=== PATIENT | female | born 1940 | race Caucasian/White ===

== ENCOUNTER 2016-12-18 13:23 | Inpatient (IN) | payer MEDICARE, BC ==
--- NOTE | 2016-12-18 14:21 | ED ---
General Adult HPI - General Chief complaint: Shortness of Breath Stated complaint: SOB Time Seen by Provider: 12/18/16 14:09 Source: patient, RN notes reviewed Mode of arrival: ambulatory Limitations: no limitations - History of Present Illness Initial comments: 76-year-old female presents for evaluation of 4 days of dyspnea. Patient does have past medical history of atrial fibrillation, cardiomyopathy and valvular disease. Patient denies fever, states she has had some chills, this is normal. Patient. Patient has had a cough for several weeks, this is nonproductive and intermittent. Denies chest pain, has had some intermittent chest tightness , none currently. Currently no pain. Denies any lower extremity swelling. Patient did have her medications adjusted approximately 2 weeks ago including change in her beta carmen. She denies orthopnea, denies PND. She is currently on Coumadin for her atrial fibrillation. - Related Data Home Medications Medication Instructions Recorded Confirmed Aspirin 81 mg PO DAILY 12/17/13 12/18/16 Warfarin [Coumadin] 2 mg PO SUTUWETHSA 12/17/13 12/18/16 Furosemide 40 mg PO DAILY 12/09/14 12/18/16 Carvedilol [Coreg*] 12.5 mg PO BID-W/MEALS 02/13/15 12/18/16 Losartan Potassium [Cozaar] 25 mg PO DAILY 12/18/16 12/18/16 Warfarin [Coumadin] 1 mg PO MOFR 12/18/16 12/18/16 Allergies Allergy/AdvReac Type Severity Reaction Status Date / Time codeine AdvReac Nausea & Verified 12/18/16 14:35 Vomiting Review of Systems ROS Statement: Those systems with pertinent positive or pertinent negative responses have been documented in the HPI. ROS Other: All systems not noted in ROS Statement are negative. Past Medical History Past Medical History: Atrial Fibrillation, Cancer, Heart Failure Additional Past Medical History / Comment(s): breast cancer left side, loc rodriguez History of Any Multi-Drug Resistant Organisms: None Reported Past Surgical History: Adenoidectomy, Appendectomy, Breast Surgery, Coronary Bypass/CABG, Pacemaker, Tonsillectomy Additional Past Surgical History / Comment(s): left side lumpectomy, bialteral cataract removed Past Anesthesia/Blood Transfusion Reactions: No Reported Reaction Type of Cardiac Device: Permanent Pacemaker Device Placement Date:: 2006 Past Psychological History: No Psychological Hx Reported Smoking Status: Former smoker Past Alcohol Use History: Daily Past Drug Use History: None Reported - Past Family History Mother Family Medical History: Diabetes Mellitus Additional Family Medical History / Comment(s): cabbag Father Family Medical History: Pulmonary Embolus General Exam Limitations: no limitations General appearance: alert, in no apparent distress Head exam: Present: atraumatic, normocephalic Eye exam: Present: normal appearance, PERRL ENT exam: Present: normal exam Neck exam: Present: normal inspection. Absent: tenderness, meningismus Respiratory exam: Present: normal lung sounds bilaterally. Absent: respiratory distress, wheezes, rales, rhonchi Cardiovascular Exam: Present: regular rate, normal rhythm GI/Abdominal exam: Present: soft. Absent: distended, tenderness Extremities exam: Present: normal inspection, normal capillary refill. Absent: pedal edema Back exam: Present: normal inspection, full ROM. Absent: tenderness Neurological exam: Present: alert, oriented X3, CN II-XII intact. Absent: motor sensory deficit Psychiatric exam: Present: normal affect, normal mood Skin exam: Present: warm, dry, intact. Absent: cyanosis, diaphoretic Course Vital Signs 12/18/16 13:37 Temperature 97.8 F Pulse Rate 70 Respiratory 20 Rate Blood Pressure 131/65 O2 Sat by Pulse 100 Oximetry EKG Findings - EKG Comments: EKG Findings:: EKG shows sinus rhythm, with occasional PVC, there is left axis deviation, right bundle branch block, ventricular rate 60, KS interval 186, QRS duration 1:30, QTC 497, T wave inversion in V2,Q waves in the inferior leads Medical Decision Making - Medical Decision Making 76-year-old female presenting with exertional dyspnea. Patient does have history of CAD status post CABG, ischemic cardiomyopathy, with EF of 25-30%. Denies any current chest pain, has had intermittent chest tightness. According the patient she had a stress test in November, but was unable to complete this secondary to tachycardia. Patient's coronary artery bypass graft was in 2002, no heart catheterization since that time. Laboratory studies reveal stable hemoglobin, no elevation in white count, INR is therapeutic at 2.5, there is mild hyponatremia 129, initial troponin is negative. BNP is elevated at 3470. Patient will be placed in observation for cardiac echo, serial cardiac enzymes, and cardiology evaluation. - Lab Data Result diagrams: 12/18/16 14:57 12/18/16 14:57 Lab Results 12/18/16 12/18/16 12/18/16 Range/Units 14:57 14:57 14:57 WBC 6.8 (3.8-10.6) k/uL RBC 4.01 (3.80-5.40) m/uL Hgb 12.6 (11.4-16.0) gm/dL Hct 38.1 (34.0-46.0) % MCV 95.2 (80.0-100.0) fL MCH 31.5 (25.0-35.0) pg MCHC 33.0 (31.0-37.0) g/dL RDW 13.6 (11.5-15.5) % Plt Count 202 (150-450) k/uL Neutrophils % 61 % Lymphocytes % 21 % Monocytes % 9 % Eosinophils % 5 % Basophils % 1 % Neutrophils # 4.2 (1.3-7.7) k/uL Lymphocytes # 1.4 (1.0-4.8) k/uL Monocytes # 0.6 (0-1.0) k/uL Eosinophils # 0.3 (0-0.7) k/uL Basophils # 0.0 (0-0.2) k/uL PT (9.0-12.0) sec INR (<1.2) APTT (22.0-30.0) sec Sodium 129 L (137-145) mmol/L Potassium 4.5 (3.5-5.1) mmol/L Chloride 94 L (98-107) mmol/L Carbon Dioxide 24 (22-30) mmol/L Anion Gap 11 mmol/L BUN 16 (7-17) mg/dL Creatinine 0.70 (0.52-1.04) mg/dL Est GFR (MDRD) Af Amer >60 (>60 ml/min/1.73 sqM) Est GFR (MDRD) Non-Af >60 (>60 ml/min/1.73 sqM) Glucose 75 (74-99) mg/dL Calcium 9.5 (8.4-10.2) mg/dL Magnesium 1.9 (1.6-2.3) mg/dL Total Bilirubin 1.1 (0.2-1.3) mg/dL AST 33 (14-36) U/L ALT 33 (9-52) U/L Alkaline Phosphatase 123 (38-126) U/L Total Creatine Kinase 67 (30-135) U/L CK-MB (CK-2) 1.3 (0.0-2.4) ng/mL CK-MB (CK-2) Rel Index 1.9 Troponin I <0.012 (0.000-0.034) ng/mL NT-Pro-B Natriuret Pep pg/mL Total Protein 6.8 (6.3-8.2) g/dL Albumin 4.2 (3.5-5.0) g/dL 12/18/16 12/18/16 Range/Units 14:57 14:57 WBC (3.8-10.6) k/uL RBC (3.80-5.40) m/uL Hgb (11.4-16.0) gm/dL Hct (34.0-46.0) % MCV (80.0-100.0) fL MCH (25.0-35.0) pg MCHC (31.0-37.0) g/dL RDW (11.5-15.5) % Plt Count (150-450) k/uL Neutrophils % % Lymphocytes % % Monocytes % % Eosinophils % % Basophils % % Neutrophils # (1.3-7.7) k/uL Lymphocytes # (1.0-4.8) k/uL Monocytes # (0-1.0) k/uL Eosinophils # (0-0.7) k/uL Basophils # (0-0.2) k/uL PT 24.3 H (9.0-12.0) sec INR 2.5 H (<1.2) APTT 32.6 H (22.0-30.0) sec Sodium (137-145) mmol/L Potassium (3.5-5.1) mmol/L Chloride (98-107) mmol/L Carbon Dioxide (22-30) mmol/L Anion Gap mmol/L BUN (7-17) mg/dL Creatinine (0.52-1.04) mg/dL Est GFR (MDRD) Af Amer (>60 ml/min/1.73 sqM) Est GFR (MDRD) Non-Af (>60 ml/min/1.73 sqM) Glucose (74-99) mg/dL Calcium (8.4-10.2) mg/dL Magnesium (1.6-2.3) mg/dL Total Bilirubin (0.2-1.3) mg/dL AST (14-36) U/L ALT (9-52) U/L Alkaline Phosphatase (38-126) U/L Total Creatine Kinase (30-135) U/L CK-MB (CK-2) (0.0-2.4) ng/mL CK-MB (CK-2) Rel Index Troponin I (0.000-0.034) ng/mL NT-Pro-B Natriuret Pep 3470 pg/mL Total Protein (6.3-8.2) g/dL Albumin (3.5-5.0) g/dL Disposition Clinical Impression: Congestive heart failure Disposition: ADMITTED IP TO THIS [facility] Condition: Stable Referrals: Car Connell DO [Primary Care Provider] - 1-2 days Decision to Admit Reason: Admit from EC Decision Date: 12/18/16 Decision Time: 15:55
--- NOTE | 2016-12-18 14:51 | XR ---
EXAMINATION TYPE: XR chest 2V DATE OF EXAM: 12/18/2016 HISTORY: difficulty breathing. REFERENCE: Previous study dated 12/08/2014. FINDINGS: There has been a previous midline sternotomy. There is a bipolar pacemaker in place on the right. Lung volumes are prominent. The heart is mildly enlarged. There is a chronic right pleural reaction. There is evidence of old granulomatous disease in the right lung. There is been a previous left-sided mastectomy and axillary dissection. IMPRESSION: 1. COPD. 2. CARDIOMEGALY. 3. CHRONIC RIGHT-SIDED PLEURAL REACTION. 4. EVIDENCE OF OLD GRANULOMATOUS DISEASE. 5. POSTSURGICAL CHANGE.
[2016-12-18 15:04] LABS: Basophils % (A) 1 %; CH 32.1; CHCM 33.9; Eosinophils # (A) 0.3 k/uL (0-0.7); Eosinophils % (A) 5 %; HCT 38.1 % (34.0-46.0); HDW 2.44; HGB 12.6 gm/dL (11.4-16.0); Luc # (Auto) 0.28; Luc % (Auto) 4; Lymphocytes # (A) 1.4 k/uL (1.0-4.8); Lymphocytes % (A) 21 %; MCH 31.5 pg (25.0-35.0); MCV 95.2 fL (80.0-100.0); Mean Platelet Volume 6.8; Monocytes # (A) 0.6 k/uL (0-1.0); Monocytes % (A) 9 %; Neutrophils # (A) 4.2 k/uL (1.3-7.7); Neutrophils % (A) 61 %; RBC 4.01 m/uL (3.80-5.40); RDW 13.6 % (11.5-15.5); WBC 6.8 k/uL (3.8-10.6); WBC (Perox) 6.29
[2016-12-18 15:11] LABS: ALT 33 U/L (9-52); AST 33 U/L (14-36); Alkaline Phosphatase 123 U/L (38-126); Anion Gap 11 mmol/L; Blood Urea Nitrogen 16 mg/dL (7-17); Calcium 9.5 mg/dL (8.4-10.2); Carbon Dioxide 24 mmol/L (22-30); Chloride 94 mmol/L (98-107); Glucose 75 mg/dL (74-99); Magnesium 1.9 mg/dL (1.6-2.3); Non-African American GFR(MDRD) >60 (>60 ml/min/1.73 sqM); Potassium 4.5 mmol/L (3.5-5.1); Sodium 129 mmol/L (137-145); Total Bilirubin 1.1 mg/dL (0.2-1.3); Total Protein 6.8 g/dL (6.3-8.2)
[2016-12-18 15:12] LABS: INR 2.5 (<1.2); Partial Thromboplastin Time 32.6 sec (22.0-30.0); Prothrombin Time 24.3 sec (9.0-12.0)
[2016-12-18 15:21] LABS: Creatine Kinase 67 U/L (30-135)
[2016-12-18 15:35] LABS: Creatine Kinase MB 1.3 ng/mL (0.0-2.4); Troponin I <0.012 ng/mL (0.000-0.034)
[2016-12-18] MEDS ORDERED: ONDANSETRON 4 MG/2 ML VIAL IVP PRN (16:12)
[2016-12-18] MEDS ORDERED: NALOXONE 0.4 MG/ML 1 ML VIAL IV PRN (16:12)
[2016-12-18] MEDS ORDERED: ACETAMINOPHEN TAB 325 MG TAB PO PRN (16:12)
[2016-12-18] MEDS ORDERED: ASPIRIN 325 MG TAB PO STA (16:15)
[2016-12-18] MEDS ORDERED: FUROSEMIDE 10 MG/ML 2 ML VIAL IV STA (16:15)
[2016-12-18] MEDS: WARFARIN 2 MG TAB PO SCH (17:38)
[2016-12-18] MEDS: CARVEDILOL 12.5 MG TAB PO SCH (17:38)
--- NOTE | 2016-12-18 17:54 | HP ---
HISTORY AND PHYSICAL DATE OF ADMISSION: 12/18/2016 CHIEF COMPLAINT: Shortness of breath and palpitations and chest pain. HISTORY OF PRESENT ILLNESS: This 76-year-old woman with a past medical history of multiple medical problems, including ischemic cardiomyopathy, atrial fibrillation, CHF, history of breast cancer, left side, history of CAD, CABG being followed by Dr. Connell in the outpatient setting, was complaining of shortness of breath on and off for the last four or five days. The patient had a complete cardiac workup recently apparently. The patient was found to have ischemic cardiomyopathy with valvular regurgitations. The patient also complaining of chest discomfort which is constricting type which is felt in the epigastric area without radiation, aggravation, and in relation with exertion. Patient also had occasional palpitations. Because of multiple symptomatology, patient came to [facility] for further evaluation and treatment. Chest x-ray showed multiple changes. INR is 2.5. Sodium is 129. NT proBNP is 3470. Troponins are negative. The EKG on admission showed evidence of right bundle branch block and as well as ST-T changes. There is no history of fever, rigors or chills. No history of headache, loss of consciousness or seizures. PAST MEDICAL HISTORY: History of atrial fibrillation, history of CHF, history of CAD, CABG. MEDICATIONS: Include home medications include: 1. Coumadin 1 mg Tuesday and Tuesday, and 2 mg Tuesday, Tuesday and Tuesday, and Tuesday. 2. Cozaar 25 mg p.o. daily. 3. Lasix 40 mg p.o. daily. 4. Coreg 12.5 mg b.i.d. 5. Aspirin 81 mg daily. ALLERGIES: CODEINE. FAMILY HISTORY: History of diabetes and CABG. SOCIAL HISTORY: Previous history of smoking. No history of current smoking or alcohol intake. REVIEW OF SYSTEM: ENT: Diminished hearing and vision. CARDIOVASCULAR: As mentioned earlier. Respiratory: As mentioned earlier. GI no nausea or vomiting. no dysuria. Nervous system: No numbness, weakness. Allergy/ Immunology: No asthma or hayfever. MUSCULOSKELETAL: As mentioned earlier. Hematology/Oncology: No history of anemia. Endocrine no history of diabetes or hypothyroidism. CONSTITUTIONAL: As mentioned earlier. DERMATOLOGY: Negative. RHEUMATOLOGY: Negative. PSYCHIATRY: As mentioned earlier. PHYSICAL EXAMINATION: Alert and oriented x2. Pulse 74, blood pressure 150/66, respirations 20, temp 97.8, pulse ox 99% on room air. HEENT: Conjunctivae normal. Neck: No jugular venous distention. Cardiovascular : S1, S2 muffled. Ejection systolic murmur. No S3, no S4. skipped beats. Respirations: A few scattered rhonchi and crackles. ABDOMEN: Soft, nontender. No mass palpable. Legs no edema no swelling. Central nervous system: Higher functions as mentioned earlier. Moves all four extremities. No focal deficits. Lymphatics: No lymph nodes palpable in the neck, axillae or groin. SKIN: No ulcers, rash or bleeding. LAB STUDIES: At this time CBC within normal limits. INR 2.5. Sodium 129. ASSESSMENT: 1. Chest pain, possible unstable angina. 2. Shortness of breath possible congestive heart failure acute exacerbation with acute on chronic systolic dysfunction. 3. Possibly ischemic cardiomyopathy. 4. Atrial fibrillation paroxysmal. 5. PVCs. 6. History of breast surgery on the left side. 7. History of coronary artery disease, coronary artery bypass grafting. 8. History of permanent pacemaker. 9. Remote history of nicotine dependence. 10.Ejection fraction 25 to 30%. 11.FULL CODE. RECOMMENDATIONS AND DISCUSSION: In this 76-year-old woman who presented with multiple complex medical issues, we will monitor the patient closely. Continue the current management and symptomatic treatment. Otherwise I would recommend to continue current medications, continue symptomatic treatment. Rule out myocardial infarction. Cardiology consultation and adjust medication. Monitor fluid and electrolyte balance closely. Prognosis guarded because of multiple complex medical issues. Further recommendations to follow. See orders for details. Discussed with staff. Discussed with the patient. A copy of dictation being forwarded to Dr. Connell who is the primary care physician. MMODL / IJN: [id number] / MTDBrittany
[2016-12-18 21:30] LABS: Creatine Kinase 64 U/L (30-135)
[2016-12-18 21:41] LABS: Creatine Kinase MB 1.3 ng/mL (0.0-2.4); Troponin I <0.012 ng/mL (0.000-0.034)
[2016-12-18] MEDS: FUROSEMIDE 10 MG/ML 2 ML VIAL IV SCH (23:27)
[2016-12-19 03:23] LABS: Basophils # (A) 0.1 k/uL (0-0.2); Basophils % (A) 1 %; CH 33.7; CHCM 34.2; Eosinophils # (A) 0.3 k/uL (0-0.7); Eosinophils % (A) 6 %; HCT 35.1 % (34.0-46.0); HDW 2.38; HGB 11.8 gm/dL (11.4-16.0); Luc # (Auto) 0.22; Luc % (Auto) 4; Lymphocytes # (A) 1.4 k/uL (1.0-4.8); Lymphocytes % (A) 23 %; MCH 33.3 pg (25.0-35.0); MCHC 33.6 g/dL (31.0-37.0); Macrocytosis Slight; Mean Platelet Volume 7.1; Monocytes # (A) 0.7 k/uL (0-1.0); Monocytes % (A) 10 %; Neutrophils # (A) 3.6 k/uL (1.3-7.7); Neutrophils % (A) 57 %; RBC 3.55 m/uL (3.80-5.40); RDW 14.8 % (11.5-15.5); WBC 6.2 k/uL (3.8-10.6); WBC (Perox) 6.17
[2016-12-19 03:32] LABS: ALT 38 U/L (9-52); AST 26 U/L (14-36); Alkaline Phosphatase 130 U/L (38-126); Anion Gap 10 mmol/L; Blood Urea Nitrogen 16 mg/dL (7-17); Calcium 9.1 mg/dL (8.4-10.2); Carbon Dioxide 26 mmol/L (22-30); Chloride 96 mmol/L (98-107); Glucose 77 mg/dL (74-99); Non-African American GFR(MDRD) >60 (>60 ml/min/1.73 sqM); Potassium 3.4 mmol/L (3.5-5.1); Sodium 132 mmol/L (137-145); Total Bilirubin 0.7 mg/dL (0.2-1.3)
[2016-12-19 03:37] LABS: Creatine Kinase 52 U/L (30-135)
[2016-12-19 03:49] LABS: Creatine Kinase MB 1.1 ng/mL (0.0-2.4); Troponin I <0.012 ng/mL (0.000-0.034)
[2016-12-19] MEDS ORDERED: LOSARTAN 25 MG TAB PO SCH (09:00)
[2016-12-19] MEDS: ASPIRIN 81 MG PO SCH (10:37)
[2016-12-19] MEDS: CARVEDILOL 12.5 MG TAB PO SCH ×2 (11:07→17:33)
[2016-12-19] MEDS: SPIRONOLACTONE 25 MG TAB PO SCH (11:29)
[2016-12-19] MEDS: LOSARTAN 50 MG TAB PO SCH (11:29)
[2016-12-19] MEDS: FUROSEMIDE 10 MG/ML 4 ML VIAL IV SCH ×2 (11:30→19:48)
[2016-12-19 11:38] LABS: INR 2.2 (<1.2); Prothrombin Time 20.9 sec (9.0-12.0)
[2016-12-19] MEDS ORDERED: POTASSIUM CHLORIDE ER 20 MEQ TAB.ER PO STA (12:13)
--- NOTE | 2016-12-19 12:25 | CONS ---
CONSULTATION Mrs. Padilla is a 76-year-old female, who is seen for the cardiac evaluations. Patient's medical records were reviewed. This patient has a known history of coronary artery disease with prior history of coronary artery bypass surgery, history of congestive cardiac failure and a pacemaker. The patient has been having difficulty in breathing over the last 4-5 days. It occurs with exertion. Her exercise tolerance has decreased. She denies any definite orthopnea or PND. Patient denies any cough with expectoration, fever, or chills. This patient is known to have ischemic cardiomyopathy with impaired LV systolic function. Patient was recently evaluated by Dr. Santos and had a stress test and echocardiogram done. I do not have access to the records at present. PAST MEDICAL HISTORY: Includes a history of atrial fibrillation. History of congestive heart failure. History of CAD and CABG. HOME MEDICATIONS: Include Coumadin, Cozaar, Lasix, Coreg and aspirin. REVIEW OF THE SYSTEM: Is otherwise unremarkable. PHYSICAL EXAMINATION: At present reveals a 76-year-old female, who does not appear to be in any acute distress. The patient's respirations are not labored. Blood pressure is 131/70 mmHg. Head and ENT examination is negative. NECK: Supple. Jugular venous pressure is elevated up to the angle of her jaw. Both the carotid pulses are felt. There is no bruit. Chest is symmetrical. Heart: The PMI is not felt. First and second heart sounds are normal. LUNGS: Revealed fairly clear to auscultation and percussion. Abdomen is soft. Liver and spleen are not enlarged. Extremities: Peripheral pulses are 1+. There is no evidence of any edema or phlebitis. This patient's chest x-ray shows cardiomegaly without any significant left ventricular failure. Cardiac enzymes are normal. Initial sodium was 129. Repeat sodium is 132, potassium is 3.4. Creatinine is normal. ProBNP level is 3470. IMPRESSION: 1. This patient is admitted with acute exacerbation of underlying chronic systolic heart failure. 2. Status post coronary artery bypass surgery and ischemic cardiomyopathy. 3. Status post functioning demand pacemaker and history of paroxysmal atrial fibrillation. RECOMMENDATIONS: At present, I would recommend to aggressively diurese the patient for next 24 hours with the Lasix 40 mg IV q.12 hours. I will add Aldactone 25 mg daily, Cozaar will be increased to 50 mg daily and patient may be in the hospital for a couple of days. Will discuss with Dr. Santos regarding the recent cardiac workup and if there is a systolic function less than 35%, she should may consider further for upgrade to the AICD. SUSANNAH / JULIA: [id number] /
--- NOTE | 2016-12-19 16:52 | PN ---
PROGRESS NOTE DATE OF SERVICE: 12/19/2016 This 76-year-old woman who was admitted with chest pain and unstable angina, also had shortness of breath and possible CHF acute exacerbation. Patient also had atrial fibrillation. Cardiology is following the patient closely. The patient is recommended to be transferred to. PHYSICAL EXAMINATION: Alert, oriented x3. Pulse 86, blood pressure 119/69, respiration 14, temperature 97.2, pulse ox 98% room air. No fever. No shortness of breath. HEENT: Conjunctivae normal. NECK: No jugular venous distention. CARDIOVASCULAR: S1, S2. No S3, no S4. RESPIRATORY: Breath sounds diminished in the bases. A few scattered rhonchi. No crackles. ABDOMEN: Soft, nontender. LEGS: No edema. NERVOUS SYSTEM: No focal deficits. LAB STUDIES: At this time shows WBC 6.8, hemoglobin 11.8, INR 2.2. Sodium 138, potassium 3.4. ASSESSMENT: 1. Chest pain, possibly unstable angina, present on admission. 2. Shortness of breath with possible congestive heart failure acute exacerbation with acute on chronic systolic dysfunction. 3. Possibly ischemic cardiomyopathy. 4. History atrial fibrillation paroxysmal. 5. PVCs. 6. History of breast surgery on the left side. 7. History of coronary artery disease, CABG. 8. History of permanent pacemaker. 9. Remote history of nicotine dependence. 10.Ejection fraction 25 to 30% with acute on chronic systolic dysfunction. 11.FULL CODE. RECOMMENDATIONS AND DISCUSSION: I recommend to continue current management and symptomatic treatment. Otherwise at this time we will continue the current medications. Closely monitor with Cardiology. Prognosis guarded. The patient will need more than 2 nights evaluation in the hospital. MMODL / IJN: [id number] / MTDD
[2016-12-19] MEDS: WARFARIN 2 MG TAB PO SCH (17:33)
[2016-12-19] MEDS: MELATONIN 5 MG TABLET PO SCH (21:59)
[2016-12-20 08:01] LABS: INR 2.2 (<1.2); Prothrombin Time 20.8 sec (9.0-12.0)
[2016-12-20] MEDS: SPIRONOLACTONE 25 MG TAB PO SCH (08:14)
[2016-12-20] MEDS: LOSARTAN 50 MG TAB PO SCH (08:14)
[2016-12-20] MEDS: CARVEDILOL 12.5 MG TAB PO SCH ×2 (08:14→17:33)
[2016-12-20] MEDS: FUROSEMIDE 10 MG/ML 4 ML VIAL IV SCH (08:14)
[2016-12-20] MEDS: ASPIRIN 81 MG PO SCH (08:14)
[2016-12-20 08:26] LABS: Anion Gap 13 mmol/L; Blood Urea Nitrogen 21 mg/dL (7-17); Carbon Dioxide 22 mmol/L (22-30); Chloride 97 mmol/L (98-107); Glucose 88 mg/dL (74-99); Non-African American GFR(MDRD) >60 (>60 ml/min/1.73 sqM); Sodium 132 mmol/L (137-145)
[2016-12-20 11:47] VITALS: BMI 21.2
--- NOTE | 2016-12-20 12:17 | P.PN ---
Subjective Progress Note Date: 12/20/16 Mrs. alvarez is a 76-year-old female past medical history significant for coronary artery disease with three-vessel CABG 2002, hypertension, dyslipidemia, ischemic cardiomyopathy, paroxysmal atrial fibrillation, pacemaker implantation, moderate mitral regurgitation and moderate aortic regurgitation. She is being seen today in follow-up for complaints of exertional dyspnea. She also complains ongoing weakness and fatigue. She denies orthopnea or PND. She recently underwent a full cardiac workup with Dr. Santos. Those records have been reviewed. Echocardiogram reveals decreased systolic function with an ejection fraction of 40% with grade 2 diastolic dysfunction as well as mildly dilated right ventricle with mildly decreased function, moderately dilated left atrium, mildly dilated right atrium, mild to moderate aortic regurgitation, moderate to severe mitral regurgitation, moderate tricuspid regurgitation and normal PA pressure. She underwent a Cardiolite Lexiscan which revealed poor exercise tolerance normal myocardial perfusion and function. Upon exam she is seen up ambulating in the room denies chest pain, shortness of breath, nausea, diaphoresis or palpitations. She states she is feeling much better and her breathing seems easier. Objective - Vital Signs Vital signs: Vital Signs Temp 97.7 F 12/20/16 07:52 Pulse 93 12/20/16 07:52 Resp 16 12/20/16 07:52 BP 115/61 12/20/16 07:52 Pulse Ox 98 12/20/16 07:52 Intake & Output 12/19/16 12/20/16 12/20/16 18:59 06:59 18:59 Intake Total 480 Balance 480 Intake: Oral 480 Other: Voiding Method Toilet Toilet Toilet # Voids 2 - Exam GENERAL: Well-appearing, well-nourished and in no acute distress. NECK: Supple with mild JVD. No thyromegaly. LUNGS: Breath sounds clear to auscultation bilaterally. Respiration equal and unlabored. No wheezes, rales or rhonchi. HEART: Regular rate and rhythm with systolic ejection murmurs at the left sternal border, no rubs or gallops. S1 and S2 heard. EXTREMITIES: Normal range of motion, no edema. No clubbing or cyanosis. Peripheral pulses intact and strong. - Labs CBC & Chem 7: 12/19/16 03:04 12/20/16 07:34 Labs: Abnormal Lab Results - Last 24 Hours (Table) 12/19/16 12/20/16 12/20/16 Range/Units 03:04 07:34 07:37 PT 20.9 H 20.8 H (9.0-12.0) sec INR 2.2 H 2.2 H (<1.2) Sodium 132 L (137-145) mmol/L Chloride 97 L (98-107) mmol/L BUN 21 H (7-17) mg/dL Assessment and Plan Plan: ASSESSMENT 1. Mixed systolic and diastolic heart failure, acute on chronic. Ejection fraction on office echo 40% 2. Chronic stable CAD with triple vessel CABG 3. Ischemic cardoimyopathy 4. History paroxysmal atrial fibrillation 5. Moderate aortic regurgitation 6. Moderate mitral regurgitation PLAN She has diuresed well with 1-day of IV lasix. Continue diuresis with aldactone 25 mg daily, cozaar 50 mg daily. Strict I&O's with daily weights. She will probably be able to be discharged in the next 24-48 hrs. Further evaluation with cardiac catheterization should be discussed with Dr. Santos as an outpatient to evaluate the reason for worsening systolic function. Continue with maximum medical management. She is on beta carmen, aspirin, ARB and aldactone. Statin therapy is also recommended. We will continue to follow with the patient. Nurse Practitioner note has been reviewed, I agree with a documented findings and plan of care. Patient was seen and examined.
[2016-12-20] MEDS ORDERED: diphenhydrAMINE ELIXIR 25 MG/10 ML CUP PO PRN (15:06)
[2016-12-20] MEDS: FUROSEMIDE 40 MG TAB PO SCH (17:33)
--- NOTE | 2016-12-20 17:47 | PN ---
PROGRESS NOTE ATTENDING NOTE: This patient was seen and examined by me. I discussed the case with my nurse practitioner, Cody Birdie. Patient was admitted with CHF exacerbation. Breathing is getting much better. Up to the bathroom. No cough. No edema. REVIEW OF SYSTEMS: Done for constitutional, cardiovascular, GI, pulmonary; relevant findings as above. CURRENT MEDICATIONS: Current medications are reviewed that include IV Lasix. PHYSICAL EXAMINATION: Temperature 97.7, pulse 93, respiration 16, blood pressure 115/61, pulse ox 98% on room air. GENERAL APPEARANCE: Lying in bed, not in distress. EYES: Pupils equal.. Conjunctivae normal. NECK: JVD not raised. Mass not palpable. RESPIRATORY: Effort normal. LUNGS: Fair air entry. CARDIOVASCULAR: First and second sounds. Minimal edema. ABDOMEN: Soft, nontender. Liver and spleen not palpable. PSYCHIATRY: Alert and oriented x3. Mood and affect normal. INVESTIGATIONS: INR 2.2, potassium 5. BUN 21, creatinine 0.84. EKG shows right bundle branch block. ASSESSMENT: 1. Acute on chronic congestive heart failure exacerbation from systolic dysfunction, ejection fraction 25% to 30%, from hypertensive heart disease and underlying coronary artery disease. 2. Coronary artery disease with prior history of coronary artery bypass. 3. Paroxysmal atrial fibrillation, currently in sinus rhythm. 4. Raynaud's disease. 5. Coumadin monitoring. PLAN: Overall patient is doing better. Care was discussed with the patient. Patient should be able to get off IV Lasix. Await further input from Cardiology. Questions were answered. Will follow. MMVIGNESHL / IJN: [id number] /
[2016-12-20] MEDS ORDERED: WARFARIN 1 MG TAB PO SCH (18:00)
--- NOTE | 2016-12-20 18:08 | P.PN ---
Progress Note - Text Progress Note Date: 12/20/16 DATE OF SERVICE: 12/20/2016 PRESENTING COMPLAINT: increasing shortness of breath HISTORY OF PRESENT ILLNESS: 76-year-old female was admitted with a CHF exacerbation. Cardiology consulted. INTERVAL HISTORY: 12/20/2016: Patient seen in follow-up, appears comfortable still has some edema to her lower extremities breathing much easier. States she feels much better than she did when she was admitted. Tolerating her diet, ambulatory in the room and patricia , last BM prior to admission. REVIEW OF SYSTEMS: Done for constitutional ,cardiovascular, GI, pulmonary with relevant findings as above. CURRENT MEDICATIONS aspirin, Coreg, Lasix 40 mg by mouth twice a day, Cozaar 50 mg by mouth daily, Aldactone 25 mg by mouth daily, Coumadin 2 mg by mouth Tuesday, Coumadin 1 mg by mouth Tuesday and Tuesday. PHYSICAL EXAM VITAL SIGNS: temperature 97.7, pulse 93, respiratory rate 16, blood pressure 115/61, oxygen saturation 98% on room air. GENERAL APPEARANCE: Lying in bed, not in distress. EYES: Pupils equal. Conjunctiva normal. NECK: JVD not raised. Mass not palpable. RESPIRATORY: Respiratory effort normal. Lungs diminished to auscultation. CARDIOVASCULAR: First and second sounds normal. Mild edema. ABDOMEN: Soft. Liver and spleen not palpable. No tenderness. No mass palpable. PSYCHIATRY: Alert and oriented x3. Mood and affect normal. INVESTIGATIONS: INR 2.2, sodium 132, BUN 21, creatinine 0.84. EKG shows right bundle branch block. ASSESSMENT: -acute on chronic congestive heart failure exacerbation from systolic dysfunction, ejection fraction 25-30%. From hypertensive heart disease and underlying coronary artery disease. -Coronary artery disease with history of coronary artery bypass. -Paroxysmal atrial fibrillation, currently in sinus rhythm. -Raynaud disease. -Coumadin monitoring. PLAN: patient's overall condition improved, IV Lasix switched to by mouth today by cardiology. Plan of care discussed at the bedside with the patient she is in agreement will follow closely. [employer] statement: Patient was seen and examined by nurse practitioner Marisabel Packre and all elements of the case discussed with attending Dr. Pan
[2016-12-20] MEDS: FUROSEMIDE 10 MG/ML 2 ML VIAL IV SCH (20:21)
[2016-12-20] MEDS: MELATONIN 5 MG TABLET PO SCH (21:07)
[2016-12-20 22:04] VITALS: RESP 16
[2016-12-21] MEDS: CARVEDILOL 12.5 MG TAB PO SCH (06:30)
[2016-12-21 06:54] LABS: Anion Gap 12 mmol/L; Blood Urea Nitrogen 22 mg/dL (7-17); Calcium 10.3 mg/dL (8.4-10.2); Carbon Dioxide 24 mmol/L (22-30); Chloride 95 mmol/L (98-107); Glucose 77 mg/dL (74-99); Non-African American GFR(MDRD) 59 (>60 ml/min/1.73 sqM); Potassium 4.6 mmol/L (3.5-5.1); Sodium 131 mmol/L (137-145)
[2016-12-21 06:57] LABS: INR 2.6 (<1.2); Prothrombin Time 24.6 sec (9.0-12.0)
[2016-12-21] MEDS: FUROSEMIDE 40 MG TAB PO SCH (08:26)
[2016-12-21] MEDS: SPIRONOLACTONE 25 MG TAB PO SCH (08:26)
[2016-12-21] MEDS: ASPIRIN 81 MG PO SCH (08:26)
[2016-12-21] MEDS ORDERED: FUROSEMIDE 40 MG TAB PO SCH (09:00)
[2016-12-21 11:59] VITALS: BP 126/72; PULSE 78; TEMP 96.8
[2016-12-21] MEDS: LOSARTAN 50 MG TAB PO SCH (12:00)
--- NOTE | 2016-12-21 15:36 | PN ---
PROGRESS NOTE This patient was admitted with shortness of breath and congestive cardiac failure. Patient's echocardiogram from the office reviewed. Echocardiogram reveals only mildly impaired left ventricular systolic function. Patient is up and about without any symptoms of shortness of breath. Blood pressure is 126/72 mmHg. First and second heart sounds are normal. Lungs are clear to auscultation and percussion. If patient is discharged, she will follow up with Dr. Santos as an outpatient. MMODL / IJN: [id number] /
--- NOTE | 2016-12-21 18:03 | P.DS ---
Providers Date of admission: 12/19/16 11:15 Expected date of discharge: 12/21/16 Attending physician: Anjel Pan Consults: 12/18/16 16:13 Consult Physician Urgent Consulting Provider: Edil Ferrari Consult Reason/Comments: CHF, dyspnea Do you want consulting provider notified?: Yes, Notify in am Primary care physician: [facility] Course: FINAL DIAGNOSES: -acute on chronic congestive heart failure exacerbation from systolic dysfunction, ejection fraction 25-30%. From hypertensive heart disease and underlying coronary artery disease. -Coronary artery disease with history of coronary artery bypass. -Paroxysmal atrial fibrillation, currently in sinus rhythm. -Raynaud disease. -Coumadin monitoring. HOSPTIAL COURSE: 76-year-old female who presented to the emergency department with complaints of shortness of breath off and on for the previous 4-5 days. presented to the emergency department for further evaluation and treatment. Diagnostic labs revealed proBNP of 3470 and was admitted with a CHF exacerbation. Home medications reordered, cardiology consulted. Received diuretics. Aldactone was added, Cozaar increased. Responded well to these treatments. IV Lasix switched to oral, patient tolerating her diet, ambulatory in the room and hallway, moving her bowels. Anxious to go home. Discussion had with Haylee Rosales J[employer]W WORKER regarding readiness for discharge, she was cleared by cardiology for discharge. PHYSICAL EXAM: CARDIOVASCULAR: First and second sound noted no edema RESPIRATORY: Respiratory effort normal, lung sounds clear to auscultation PSYCHIATRY: Alert and oriented 3 mood and affect normal Patient was seen and examined by nurse practitioner Marisabel Packer in all elements of the case discussed with attending Dr. Pan DISPOSITION: Discharge home Patient Condition at Discharge: Stable Plan - Discharge Summary New Discharge Prescriptions: New Acetaminophen Tab [Tylenol] 650 mg PO Q6HR PRN tab PRN Reason: Mild Pain Or Fever > 100.5 Losartan [Cozaar] 50 mg PO DAILY #30 tab Melatonin 5 mg PO HS tab Spironolactone [Aldactone] 25 mg PO DAILY #30 tab Furosemide [Lasix] 40 mg PO BID@0900,1600 #60 tab Continue Aspirin 81 mg PO DAILY Warfarin [Coumadin] 2 mg PO SUTUWETHSA Carvedilol [Coreg*] 12.5 mg PO BID-W/MEALS Warfarin [Coumadin] 1 mg PO MOFR Discontinued Furosemide 40 mg PO DAILY Losartan Potassium [Cozaar] 25 mg PO DAILY Discharge Medication List Aspirin 81 mg PO DAILY 12/17/13 [History] Warfarin [Coumadin] 2 mg PO SUTUWETHSA 12/17/13 [History] Carvedilol [Coreg*] 12.5 mg PO BID-W/MEALS 02/13/15 [History] Warfarin [Coumadin] 1 mg PO MOFR 12/18/16 [History] Acetaminophen Tab [Tylenol] 650 mg PO Q6HR PRN tab 12/21/16 [Rx] Furosemide [Lasix] 40 mg PO BID@0900,1600 #60 tab 12/21/16 [Rx] Losartan [Cozaar] 50 mg PO DAILY #30 tab 12/21/16 [Rx] Melatonin 5 mg PO HS tab 12/21/16 [Rx] Spironolactone [Aldactone] 25 mg PO DAILY #30 tab 12/21/16 [Rx] Follow up Appointment(s)/Referral(s): Car Connell DO [Primary Care Provider] - 12/29/16 10:00 am (WITH BISHOP DUNAWAY [employer] WORKER ON TUESDAY) Earl Santos MD [STAFF PHYSICIAN] - 12/28/16 11:15 am (TUESDAY) Ambulatory/Diagnostic Orders: Basic Metabolic Panel [LAB.AMB] Location: Determined By Patient Patient Instructions/Handouts: Heart Failure (DC), A-fib (Atrial Fibrillation) (DC) Discharge Disposition: HOME SELF-CARE
--- NOTE | 2016-12-21 21:33 | DS ---
DISCHARGE SUMMARY DATE OF SERVICE: December 21, 2016. ATTENDING NOTE: This patient seen and examined by me. I discussed with nurse practitioner, Ms. Packer. Patient admitted with CHF exacerbation. Doing better. EXAM: Lungs improved air entry. CARDIOVASCULAR: First and second sounds normal. INR is 2.6. Patient okayed by Cardiology to discharge DC home. Follow up as arranged. MMVIGNESHL / IJN: [id number] /
== END 2016-12-21 13:24 | disposition home or self-care (01) | DRG 293 ==
LOC: EC 13:23 → 3OBS 16:12 → OBSVTOIN 12-19 11:15 → 6SEL 12-20 15:30
PROVIDERS: ADMIT Hospitalist; ATTEND Hospitalist
DX: I11.0 Hypertensive heart disease with heart failure (principal); I08.3 Combined rheumatic disorders of mitral, aortic and tricuspid valves; I45.10 Unspecified right bundle-branch block; I48.0 Paroxysmal atrial fibrillation; E78.5 Hyperlipidemia, unspecified; I50.43 Acute on chronic combined systolic (congestive) and diastolic (congestive) heart failure; H91.90 Unspecified hearing loss, unspecified ear; I25.110 Atherosclerotic heart disease of native coronary artery with unstable angina pectoris; I25.5 Ischemic cardiomyopathy; I73.00 Raynaud's syndrome without gangrene; Z79.01 Long term (current) use of anticoagulants; Z79.82 Long term (current) use of aspirin; Z79.899 Other long term (current) drug therapy; Z85.3 Personal history of malignant neoplasm of breast; Z87.891 Personal history of nicotine dependence; Z95.0 Presence of cardiac pacemaker; Z95.1 Presence of aortocoronary bypass graft; Z88.5 Allergy status to narcotic agent; Z82.49 Family history of ischemic heart disease and other diseases of the circulatory system
CPT/HCPCS: 36415; 71020; 80048; 80053; 82550; 82553; 83735; 83880; 84484; 85025; 85610; 85730; 93005; 96374; 96376; 99285

== ENCOUNTER → 2017-04-19 | Outpatient (CLI) | payer MEDICARE, BC ==
[2017-04-19 10:14] LABS: Partial Thromboplastin Time 23.8 sec (22.0-30.0)
[2017-04-19 10:16] LABS: INR 1.2 (<1.2); Prothrombin Time 11.8 sec (9.0-12.0)
== END | disposition home or self-care (01) ==
LOC: LABWHC1 09:28
PROVIDERS: ATTEND Physical Medicine & Rehabilitation
DX: M54.5 Low back pain (principal); M51.16 Intervertebral disc disorders with radiculopathy, lumbar region; M51.34 Other intervertebral disc degeneration, thoracic region; M51.24 Other intervertebral disc displacement, thoracic region; M47.814 Spondylosis without myelopathy or radiculopathy, thoracic region; Z79.01 Long term (current) use of anticoagulants
CPT/HCPCS: 36415; 85610; 85730

== ENCOUNTER 2017-10-23 12:39 | Inpatient (IN) | payer MEDICARE, BC ==
--- NOTE | 2017-10-23 13:02 | ED ---
General Adult HPI - General Stated complaint: Diff Breathing, chest discomfort Time Seen by Provider: 10/23/17 13:02 Source: RN notes reviewed, old records reviewed - History of Present Illness Initial comments: This is a 77-year-old female the ER for evaluation. Patient resents today for evasive shortness of breath. Patient does have history of heart failure was seen in urgent care and sent to ER for further evaluation regarding abnormal EKG. Patient herself denies chest pain currently but does admit to shortness of breath especially with exertion for the last few days. Worse today. No recent change in medical care. No recent hospitalizations, no change in medications. Patient denies any fever no cough or congestion no modifying factors for pain. She is currently without pain. She states her symptoms of shortness of breath are much worse with any activity or with even walking, patient mainly walks her dog every night she noticed inability to walk her dog as far the last 2 nights - Related Data Home Medications Medication Instructions Recorded Confirmed Aspirin 81 mg PO DAILY 12/17/13 10/23/17 Warfarin [Coumadin] 2 mg PO SUMOTUWETHSA 12/17/13 10/23/17 Carvedilol [Coreg*] 12.5 mg PO BID-W/MEALS 02/13/15 10/23/17 Warfarin [Coumadin] 1 mg PO FR 12/18/16 10/23/17 Furosemide [Lasix] 40 mg PO DAILY 10/23/17 10/23/17 Previous Rx's Medication Instructions Recorded Losartan [Cozaar] 50 mg PO DAILY #30 tab 12/21/16 Melatonin 5 mg PO HS tab 12/21/16 Spironolactone [Aldactone] 25 mg PO DAILY #30 tab 12/21/16 Allergies Allergy/AdvReac Type Severity Reaction Status Date / Time codeine AdvReac Nausea & Verified 10/23/17 14:49 Vomiting Review of Systems ROS Statement: Those systems with pertinent positive or pertinent negative responses have been documented in the HPI. ROS Other: All systems not noted in ROS Statement are negative. Past Medical History Past Medical History: Atrial Fibrillation, Cancer, Heart Failure Additional Past Medical History / Comment(s): breast cancer left side, loc dz History of Any Multi-Drug Resistant Organisms: None Reported Past Surgical History: Adenoidectomy, Appendectomy, Breast Surgery, Coronary Bypass/CABG, Pacemaker, Tonsillectomy Additional Past Surgical History / Comment(s): left side lumpectomy, bialteral cataract removed Past Anesthesia/Blood Transfusion Reactions: No Reported Reaction Type of Cardiac Device: Permanent Pacemaker Device Placement Date:: 2006 Past Psychological History: No Psychological Hx Reported Smoking Status: Former smoker Past Alcohol Use History: Daily Past Drug Use History: None Reported - Past Family History Mother Family Medical History: Diabetes Mellitus Additional Family Medical History / Comment(s): cabbag Father Family Medical History: Pulmonary Embolus General Exam General appearance: alert, in no apparent distress Head exam: Present: atraumatic, normocephalic, normal inspection Eye exam: Present: normal appearance, PERRL, EOMI. Absent: scleral icterus, conjunctival injection, periorbital swelling ENT exam: Present: normal exam, mucous membranes moist Neck exam: Present: normal inspection. Absent: tenderness, meningismus, lymphadenopathy Respiratory exam: Present: normal lung sounds bilaterally. Absent: respiratory distress, wheezes, rales, rhonchi, stridor Cardiovascular Exam: Present: regular rate, normal rhythm, normal heart sounds. Absent: systolic murmur, diastolic murmur, rubs, gallop, clicks GI/Abdominal exam: Present: soft, normal bowel sounds. Absent: distended, tenderness, guarding, rebound, rigid Extremities exam: Present: normal inspection, full ROM, normal capillary refill. Absent: tenderness, pedal edema, joint swelling, calf tenderness Back exam: Present: normal inspection Neurological exam: Present: alert, oriented X3, CN II-XII intact Psychiatric exam: Present: normal affect, normal mood Skin exam: Present: warm, dry, intact, normal color. Absent: rash Course Vital Signs 10/23/17 10/23/17 13:03 14:05 Temperature 98.2 F Pulse Rate 67 66 Respiratory 18 18 Rate Blood Pressure 116/48 118/57 O2 Sat by Pulse 98 99 Oximetry - Reevaluation(s) Reevaluation #1: 10/23/17 15:29 Medical records thoroughly reviewed 10/23/17 15:30 Paperwork from urgent care is reviewed EKG Findings - EKG Comments: EKG Findings:: EKG shows paced rhythm rate of 74, LA 192, QRS 128, QTc 486 Medical Decision Making - Medical Decision Making 77 female the ER for evaluation presents today for evaluation regards to shortness of breath and chest pain. Patient is a positive troponin, patient is anticoagulated on Coumadin and therapeutic. Patient will be admitted for continued trending of troponin, diuresis and if she also has CHF on x-ray - Lab Data Result diagrams: 10/23/17 13:48 10/23/17 13:48 Lab Results 10/23/17 10/23/17 10/23/17 Range/Units 13:48 13:48 13:48 WBC 8.2 (3.8-10.6) k/uL RBC 3.92 (3.80-5.40) m/uL Hgb 12.6 (11.4-16.0) gm/dL Hct 38.2 (34.0-46.0) % MCV 97.6 (80.0-100.0) fL MCH 32.1 (25.0-35.0) pg MCHC 32.9 (31.0-37.0) g/dL RDW 13.7 (11.5-15.5) % Plt Count 200 (150-450) k/uL Neutrophils % 66 % Lymphocytes % 21 % Monocytes % 7 % Eosinophils % 4 % Basophils % 1 % Neutrophils # 5.4 (1.3-7.7) k/uL Lymphocytes # 1.7 (1.0-4.8) k/uL Monocytes # 0.5 (0-1.0) k/uL Eosinophils # 0.3 (0-0.7) k/uL Basophils # 0.0 (0-0.2) k/uL PT (9.0-12.0) sec INR (<1.2) APTT (22.0-30.0) sec Sodium 133 L (137-145) mmol/L Potassium 5.1 (3.5-5.1) mmol/L Chloride 97 L (98-107) mmol/L Carbon Dioxide 23 (22-30) mmol/L Anion Gap 13 mmol/L BUN 23 H (7-17) mg/dL Creatinine 0.90 (0.52-1.04) mg/dL Est GFR (CKD-EPI)AfAm 71 (>60 ml/min/1.73 sqM) Est GFR (CKD-EPI)NonAf 61 (>60 ml/min/1.73 sqM) Glucose 91 (74-99) mg/dL Calcium 9.5 (8.4-10.2) mg/dL Magnesium 2.1 (1.6-2.3) mg/dL Total Bilirubin 1.0 (0.2-1.3) mg/dL AST 39 H (14-36) U/L ALT 29 (9-52) U/L Alkaline Phosphatase 124 (38-126) U/L Total Creatine Kinase 61 (30-135) U/L CK-MB (CK-2) 1.3 (0.0-2.4) ng/mL CK-MB (CK-2) Rel Index 2.1 Troponin I 0.105 H* (0.000-0.034) ng/mL NT-Pro-B Natriuret Pep pg/mL Total Protein 7.3 (6.3-8.2) g/dL Albumin 4.4 (3.5-5.0) g/dL Lipase 192 (23-300) U/L 10/23/17 10/23/17 Range/Units 13:48 13:48 WBC (3.8-10.6) k/uL RBC (3.80-5.40) m/uL Hgb (11.4-16.0) gm/dL Hct (34.0-46.0) % MCV (80.0-100.0) fL MCH (25.0-35.0) pg MCHC (31.0-37.0) g/dL RDW (11.5-15.5) % Plt Count (150-450) k/uL Neutrophils % % Lymphocytes % % Monocytes % % Eosinophils % % Basophils % % Neutrophils # (1.3-7.7) k/uL Lymphocytes # (1.0-4.8) k/uL Monocytes # (0-1.0) k/uL Eosinophils # (0-0.7) k/uL Basophils # (0-0.2) k/uL PT 29.3 H (9.0-12.0) sec INR 3.3 H (<1.2) APTT 30.8 H (22.0-30.0) sec Sodium (137-145) mmol/L Potassium (3.5-5.1) mmol/L Chloride (98-107) mmol/L Carbon Dioxide (22-30) mmol/L Anion Gap mmol/L BUN (7-17) mg/dL Creatinine (0.52-1.04) mg/dL Est GFR (CKD-EPI)AfAm (>60 ml/min/1.73 sqM) Est GFR (CKD-EPI)NonAf (>60 ml/min/1.73 sqM) Glucose (74-99) mg/dL Calcium (8.4-10.2) mg/dL Magnesium (1.6-2.3) mg/dL Total Bilirubin (0.2-1.3) mg/dL AST (14-36) U/L ALT (9-52) U/L Alkaline Phosphatase (38-126) U/L Total Creatine Kinase (30-135) U/L CK-MB (CK-2) (0.0-2.4) ng/mL CK-MB (CK-2) Rel Index Troponin I (0.000-0.034) ng/mL NT-Pro-B Natriuret Pep 5290 pg/mL Total Protein (6.3-8.2) g/dL Albumin (3.5-5.0) g/dL Lipase (23-300) U/L - Radiology Data Radiology results: report reviewed (Chest x-ray is positive for CHF), image reviewed Critical Care Time Critical Care Time: Yes Total Critical Care Time: 31 Disposition Clinical Impression: Congestive heart failure, Acute pulmonary edema with congestive heart failure, Unstable angina pectoris, Chest pain, NSTEMI (non-ST elevated myocardial infarction) Disposition: ADMITTED IP TO THIS HOSP Condition: Fair Is patient prescribed a controlled substance at d/c from ED?: No Referrals: Car Connell DO [Primary Care Provider] - 1-2 days
[2017-10-23 14:00] LABS: Basophils % (A) 1 %; Eosinophils # (A) 0.3 k/uL (0-0.7); Eosinophils % (A) 4 %; HCT 38.2 % (34.0-46.0); HGB 12.6 gm/dL (11.4-16.0); Lymphocytes # (A) 1.7 k/uL (1.0-4.8); Lymphocytes % (A) 21 %; MCH 32.1 pg (25.0-35.0); MCHC 32.9 g/dL (31.0-37.0); MCV 97.6 fL (80.0-100.0); Monocytes # (A) 0.5 k/uL (0-1.0); Monocytes % (A) 7 %; Neutrophils # (A) 5.4 k/uL (1.3-7.7); Neutrophils % (A) 66 %; Platelet Count 200 k/uL (150-450); RBC 3.92 m/uL (3.80-5.40); RDW 13.7 % (11.5-15.5); WBC 8.2 k/uL (3.8-10.6)
[2017-10-23 14:09] LABS: INR 3.3 (<1.2); Partial Thromboplastin Time 30.8 sec (22.0-30.0); Prothrombin Time 29.3 sec (9.0-12.0)
[2017-10-23 14:17] LABS: Albumin 4.4 g/dL (3.5-5.0); Calcium 9.5 mg/dL (8.4-10.2); Magnesium 2.1 mg/dL (1.6-2.3); Potassium 5.1 mmol/L (3.5-5.1); Total Protein 7.3 g/dL (6.3-8.2)
[2017-10-23 14:32] LABS: Creatine Kinase MB 1.3 ng/mL (0.0-2.4)
[2017-10-23 14:33] LABS: Troponin I 0.105 ng/mL (0.000-0.034)
--- NOTE | 2017-10-23 14:57 | XR ---
EXAMINATION TYPE: XR chest 2V DATE OF EXAM: 10/23/2017 COMPARISON: 12/18/2016 HISTORY: Abnormal cardiogram. Difficulty breathing. TECHNIQUE: Frontal and lateral views of the chest are obtained. FINDINGS: Heart is enlarged. There is no heart failure. There is slight blunting of right costophren ic angle. There are sternal wires. There is left axillary pacemaker with the lead tips in the right v entricle. There are surgical clips at the left axilla. There is left mastectomy. IMPRESSION: Cardiomegaly. Small right pleural effusion is the same or smaller than last exam. No hea rt failure.
[2017-10-23] MEDS ORDERED: NITROGLYCERIN SL TABS 0.4 MG TAB SUBLINGUAL PRN (15:24)
[2017-10-23] MEDS ORDERED: ASPIRIN 81 MG PO STA (15:24)
[2017-10-23] MEDS ORDERED: ALPRAZolam 0.25 MG TAB PO PRN (20:04)
[2017-10-23] MEDS ORDERED: ACETAMINOPHEN TAB 500 MG TAB PO PRN (20:04)
[2017-10-23] MEDS ORDERED: WARFARIN 2 MG TAB PO SCH (20:15)
[2017-10-23 20:29] LABS: Creatine Kinase MB 1.2 ng/mL (0.0-2.4)
[2017-10-23 20:30] LABS: Troponin I 0.098 ng/mL (0.000-0.034)
[2017-10-23] MEDS ORDERED: METOPROLOL TARTRATE 25 MG TAB PO SCH (21:00)
[2017-10-23] MEDS: MELATONIN 5 MG TABLET PO SCH (21:18)
[2017-10-23] MEDS: TEMAZEPAM 15 MG CAP PO PRN (21:19)
--- NOTE | 2017-10-23 23:12 | HP ---
HISTORY AND PHYSICAL DATE OF SERVICE: 10/23/2017. CHIEF COMPLAINT: Shortness of breath. HISTORY OF PRESENT ILLNESS: This 77-year-old woman with a past history of depression, CHF, hyperlipidemia, history of breast cancer, adenoidectomy, CAD, CABG, being followed by Dr. Connell in the outpatient setting, was complaining of shortness of breath. Because of increased shortness with the patient came to [facility] and was admitted for further evaluation and treatment. The patient had cardiac workup, INR is 3.3, troponin 0.105. EKG showed paced rhythm with PVCs. There is no history of fevers or rigors, no history of headache, loss of consciousness, or seizures. No history of chest pain per se. PAST MEDICAL HISTORY: History of atrial fibrillation, history of CHF, hyperlipidemia, history of breast cancer, adenoidectomy, history of CAD, CABG. MEDICATIONS: 1. Coumadin 1 mg Tuesday and 2 mg Tuesday, Tuesday, Tuesday, Tuesday, , Tuesday. 2. Melatonin 5 mg at bedtime. 3. Aldactone 25 mg daily. 4. Cozaar 50 mg b.i.d. 5. Lasix 40 mg. 6. Coreg 12.5 mg b.i.d. with meals. 7. Aspirin 81 mg daily. ALLERGIES: Codeine. FAMILY HISTORY: History of diabetes and CABG in the family. SOCIAL HISTORY: Previous history of smoking. Occasional alcohol intake. REVIEW OF SYSTEMS: ENT: No diminished hearing or vision. CARDIOVASCULAR: As mentioned. GI: As mentioned. : No dysuria or hematuria. NERVOUS SYSTEM: No numbness or weakness. ALLERGY/IMMUNOLOGY: No hayfever. MUSCULOSKELETAL: As mentioned. HEMATOLOGY: As mentioned. ENDOCRINE: No history of diabetes or hypothyroidism. CONSTITUTIONAL: As mentioned earlier. DERMATOLOGY: Negative. PSYCHIATRIC: As mentioned earlier. PHYSICAL EXAMINATION: Alert, oriented x3. Pulse 76, blood pressure 126/69, respirations 18, temperature 97.1, pulse ox 98 percent on room air. HEENT: Conjunctivae normal. Oral mucosa moist. NECK: No jugular venous distention. No lymph node enlargement. CARDIOVASCULAR SYSTEM: S1 and S2 muffled. LUNGS: Breath sounds diminished at the bases. No rhonchi. No crackles. ABDOMEN: Soft, nontender. No mass palpable. LEGS: No edema, no swelling. NERVOUS SYSTEM: Higher functions as mentioned earlier. Moves all four limbs. No focal motor deficits. SKIN: No rashes. LAB STUDIES: CBC within normal limits. INR 3.3. Sodium 133. Troponin 0.105. ASSESSMENT: 1. Shortness of breath for evaluation, possible acute non-ST elevation myocardial infarction. Troponin 0.105. 2. Atrial fibrillation. 3. Congestive heart failure history. 4. Hyperlipidemia. 5. History of breast cancer. 6. History of coronary artery disease, coronary artery bypass grafting. 7. Remote history of nicotine dependence. RECOMMENDATIONS AND DISCUSSION: This 77-year-old woman who presented with multiple complex medical issues, we will monitor the patient closely, continue the current management and symptomatic treatment. Otherwise at this time I recommend continue with antiplatelet agents. Other than that, I would recommend resume the home medications and cardiology consultation. I would monitor PT/INR closely. Hold Coumadin for now. Otherwise symptomatic treatment will be provided. Guarded prognosis because of multiple complex medical issues. Further recommendations to follow. MMODL / IJN: [id number] /
[2017-10-24 02:17] LABS: Creatine Kinase MB 1.1 ng/mL (0.0-2.4)
[2017-10-24 02:21] LABS: Troponin I 0.099 ng/mL (0.000-0.034)
[2017-10-24] MEDS: CARVEDILOL 12.5 MG TAB PO SCH ×2 (06:27→17:19)
[2017-10-24] MEDS: PANTOPRAZOLE 40 MG TABLET PO SCH (06:28)
[2017-10-24 06:29] LABS: Basophils # (A) 0.1 k/uL (0-0.2); Basophils % (A) 1 %; Eosinophils # (A) 0.3 k/uL (0-0.7); Eosinophils % (A) 5 %; HCT 35.4 % (34.0-46.0); HGB 11.8 gm/dL (11.4-16.0); Lymphocytes # (A) 1.2 k/uL (1.0-4.8); Lymphocytes % (A) 18 %; MCH 32.9 pg (25.0-35.0); MCHC 33.4 g/dL (31.0-37.0); MCV 98.5 fL (80.0-100.0); Mean Platelet Volume 6.7; Monocytes # (A) 0.6 k/uL (0-1.0); Monocytes % (A) 9 %; Neutrophils # (A) 4.5 k/uL (1.3-7.7); Neutrophils % (A) 66 %; Platelet Count 201 k/uL (150-450); RBC 3.59 m/uL (3.80-5.40); RDW 13.6 % (11.5-15.5); WBC 6.8 k/uL (3.8-10.6)
[2017-10-24 06:33] LABS: INR 2.9 (<1.2); Prothrombin Time 25.8 sec (9.0-12.0)
[2017-10-24 06:47] LABS: Calcium 9.4 mg/dL (8.4-10.2); Potassium 4.8 mmol/L (3.5-5.1)
[2017-10-24] MEDS: SPIRONOLACTONE 25 MG TAB PO SCH (08:05)
[2017-10-24] MEDS: ASPIRIN 81 MG PO SCH (08:05)
--- NOTE | 2017-10-24 08:10 | P.CRDCN ---
History of Present Illness Consult date: 10/24/17 Requesting physician: Jolly Chandler Consult reason: shortness of breath Chief complaint: Exertional shortness of breath History of present illness: This is a pleasant 77-year-old female who follows regularly with Dr. Santos in the office. She has a known history of chronic persistent atrial fibrillation, ischemic cardiomyopathy with prior documented ejection fraction of 25-30%, prior pacemaker implantation, hypertension, hyperlipidemia, coronary artery disease with prior bypass surgery in 2002 at which time patient underwent MADISON to the LAD, saphenous vein graft to the first diagonal branch, saphenous vein graft to the RCA,, she presents to the hospital on this occasion with symptoms of exertional shortness of breath and chest heaviness. Patient states that for the past 3 days just walking short distances she becomes quite short of breath and feels a heavy sensation in her chest. When she sits down and the symptoms seemed to subside. As of 3 days have progressed, the symptoms have gotten worse, again subsiding each time with rest. Patient denies any PND or orthopnea, no peripheral edema. He states that she went to the walk-in clinic because of these symptoms, they performed an EKG and were concerned that the pacemaker was not functioning appropriately so for this reason she came to the emergency room for further evaluation. Chest x-ray on admission here showed cardiomegaly with a small right-sided pleural effusion. No change from prior, no active congestive heart failure. EKG shows an atrial paced rhythm, underlying atrial fibrillation. Blood pressure on arrival here 116/40 with a heart rate in the 60s, 98% on room air. Blood pressure this morning 98/60 with a heart rate in the 80s, 96% on room air. White blood cell count 8.2 on admission, 6.8 this morning, hemoglobin 11.8, platelet count 201. INR 2.9. Sodium 131, potassium 4.8, BUN 20, creatinine 0.8. Troponins 0.105, 0.09, 0.09. At the time of my examination this morning, patient has just returned from walking to the bathroom, again felt quite short of breath and had some pressure in her chest. This seemed to subside as the patient rested. Currently chest pain-free. Past Medical History Past Medical History: Atrial Fibrillation, Cancer, Heart Failure, Hyperlipidemia Additional Past Medical History / Comment(s): breast cancer left side, loc rodriguez History of Any Multi-Drug Resistant Organisms: None Reported Past Surgical History: Adenoidectomy, Appendectomy, Breast Surgery, Coronary Bypass/CABG, Pacemaker, Tonsillectomy Additional Past Surgical History / Comment(s): left side lumpectomy, bialteral cataract removed Past Anesthesia/Blood Transfusion Reactions: No Reported Reaction Type of Cardiac Device: Permanent Pacemaker Device Placement Date:: 2006 Past Psychological History: No Psychological Hx Reported Smoking Status: Former smoker Past Alcohol Use History: Occasional Past Drug Use History: None Reported - Past Family History Mother Family Medical History: Diabetes Mellitus Additional Family Medical History / Comment(s): cabbag Father Family Medical History: Pulmonary Embolus Medications and Allergies Home Medications Medication Instructions Recorded Confirmed Type Aspirin 81 mg PO DAILY 12/17/13 10/23/17 History Warfarin [Coumadin] 2 mg PO SUMOTUWETHSA 12/17/13 10/23/17 History Carvedilol [Coreg*] 12.5 mg PO BID-W/MEALS 02/13/15 10/23/17 History Warfarin [Coumadin] 1 mg PO FR 12/18/16 10/23/17 History Losartan [Cozaar] 50 mg PO DAILY #30 tab 12/21/16 10/23/17 Rx Melatonin 5 mg PO HS tab 12/21/16 10/23/17 Rx Spironolactone [Aldactone] 25 mg PO DAILY #30 tab 12/21/16 10/23/17 Rx Furosemide [Lasix] 40 mg PO DAILY 10/23/17 10/23/17 History Allergies Allergy/AdvReac Type Severity Reaction Status Date / Time codeine AdvReac Nausea & Verified 10/23/17 14:49 Vomiting Physical Exam Vitals: Vital Signs Temp Pulse Pulse Resp BP BP Pulse Ox 10/24/17 04:00 97.1 F L 84 18 98/61 96 10/23/17 23:20 98.5 F 75 18 99/53 95 10/23/17 20:00 97.0 F L 99 18 124/82 98 10/23/17 16:30 97.1 F L 76 18 126/69 98 10/23/17 16:06 97.9 F 73 18 113/83 99 10/23/17 15:27 78 18 122/84 98 10/23/17 14:05 66 18 118/57 99 08/19/18 13:03 98.2 F 67 18 116/48 98 Intake and Output 10/23/17 10/24/17 10/24/17 22:59 06:59 14:59 Intake Total 0 Balance 0 Intake: Oral 0 Other: Voiding Method Toilet Toilet # Voids 2 Weight 58.06 kg 58.2 kg PHYSICAL EXAMINATION: GENERAL: 77-year-old female in no acute distress at the time of my examination HEENT: Head is atraumatic, normocephalic. Pupils equal, round. Sclera anicteric. Conjunctiva are clear. Mucous membranes of the mouth are moist. Neck is supple. There is elevated jugular venous pressure. No carotid bruit is heard. HEART EXAMINATION: Heart S1 and S2 irregularly irregular systolic murmur heard CHEST EXAMINATION: Lungs are clear to auscultation and precussion. No chest wall tenderness is noted on palpation or with deep breathing. ABDOMEN: Soft, nontender. Bowel sounds are heard. No organomegaly noted. EXTREMITIES: 2+ peripheral pulses with no evidence of peripheral edema and no calf tenderness noted. NEUROLOGIC patient is awake, alert and oriented X3. . Results 10/24/17 05:53 10/24/17 05:53 Cardiac Enzymes 10/23/17 10/23/17 10/23/17 Range/Units 13:48 13:48 19:52 AST 39 H (14-36) U/L CK-MB (CK-2) 1.3 1.2 (0.0-2.4) ng/mL Troponin I 0.105 H* 0.098 H* (0.000-0.034) ng/mL 10/24/17 Range/Units 01:34 AST (14-36) U/L CK-MB (CK-2) 1.1 (0.0-2.4) ng/mL Troponin I 0.099 H* (0.000-0.034) ng/mL Coagulation 10/23/17 10/24/17 Range/Units 13:48 05:53 PT 29.3 H 25.8 H (9.0-12.0) sec APTT 30.8 H (22.0-30.0) sec Lipids 10/24/17 Range/Units 05:53 Triglycerides 109 (<150) mg/dL Cholesterol 146 (<200) mg/dL HDL Cholesterol 45 (40-60) mg/dL CBC 10/23/17 10/24/17 Range/Units 13:48 05:53 WBC 8.2 6.8 (3.8-10.6) k/uL RBC 3.92 3.59 L (3.80-5.40) m/uL Hgb 12.6 11.8 (11.4-16.0) gm/dL Hct 38.2 35.4 (34.0-46.0) % Plt Count 200 201 (150-450) k/uL Comprehensive Metabolic Panel 10/23/17 10/24/17 Range/Units 13:48 05:53 Sodium 133 L 131 L (137-145) mmol/L Potassium 5.1 4.8 (3.5-5.1) mmol/L Chloride 97 L 98 (98-107) mmol/L Carbon Dioxide 23 24 (22-30) mmol/L BUN 23 H 20 H (7-17) mg/dL Creatinine 0.90 0.86 (0.52-1.04) mg/dL Glucose 91 86 (74-99) mg/dL Calcium 9.5 9.4 (8.4-10.2) mg/dL AST 39 H (14-36) U/L ALT 29 (9-52) U/L Alkaline Phosphatase 124 (38-126) U/L Total Protein 7.3 (6.3-8.2) g/dL Albumin 4.4 (3.5-5.0) g/dL Current Medications Generic Name Dose Route Start Last Admin Trade Name Freq PRN Reason Stop Dose Admin Acetaminophen 500 mg 10/23/17 20:04 Tylenol Tab PO Q6HR PRN Fever and/ or mild Pain Alprazolam 0.25 mg 10/23/17 20:04 Xanax PO TID PRN Anxiety Aspirin 81 mg 10/24/17 09:00 Aspirin PO DAILY ANKUSH Carvedilol 12.5 mg 10/24/17 07:30 10/24/17 06:27 Coreg PO 12.5 mg BID-W/MEALS ANKUSH Administration Furosemide 40 mg 10/24/17 09:00 Lasix PO DAILY [facility] Losartan Potassium 50 mg 10/24/17 09:00 Cozaar PO DAILY ANKUSH Melatonin 5 mg 10/23/17 21:00 10/23/17 21:18 Melatonin PO Not Given HS ANKUSH Nitroglycerin 0.4 mg 10/23/17 15:24 Nitrostat SUBLINGUAL Q5M PRN Chest Pain Pantoprazole Sodium 40 mg 10/24/17 07:30 10/24/17 06:28 Protonix PO 40 mg AC-BRKFST ANKUSH Administration Spironolactone 25 mg 10/24/17 09:00 Aldactone PO DAILY ANKUSH Temazepam 15 mg 10/23/17 20:04 10/23/17 21:19 Restoril PO 15 mg HS PRN Administration Insomnia Intake and Output 10/23/17 10/24/17 10/24/17 22:59 06:59 14:59 Intake Total 0 Balance 0 Intake: Oral 0 Other: Voiding Method Toilet Toilet # Voids 2 Weight 58.06 kg 58.2 kg 10/24/17 05:53 10/24/17 05:53 EKG Interpretations (text) EKG shows an atrial paced rhythm with underlying atrial fibrillation. Assessment and Plan Plan: Assessment and plan #1 symptoms of exertional shortness of breath with associated chest heaviness, suggestive of acute coronary syndrome. Troponins 0.1, 0.09, 0.09. He shows a paced rhythm with underlying atrial fibrillation and non-specific ST-T wave changes. Evidence of mild systolic heart failure acute on chronic, chest x- ray does not reveal congestive heart failure, BNP level 5200 on admission. #2 chronic persistent atrial fibrillation, on Coumadin for anticoagulation, INR 2.9. #3 known history of coronary artery disease with prior bypass surgery in 2002 #4 hypertension #5 hyperlipidemia #6 prior pacemaker implantation #7 ischemic cardiomyopathy with prior documented ejection fraction of 25-30% most recent echo I have serious from 2015 Plan We will obtain an echocardiogram with Doppler study. We will also obtain records from the office on the patient's most recent stress test and pacemaker interrogation. We will hold the patient's Coumadin this morning, we will also initiate a statin, continue baby aspirin, Coreg, discontinue oral Lasix and start the patient on IV Lasix, decrease losartan to 25 mg daily, continue Aldactone. We will start the patient on small dose of Imdur. Patient was recommended to undergo a transesophageal echocardiographic study as well as cardiac catheterization. We will speak with Dr. Santos regarding this. Check daily PT/INRs. Further recommendations to follow. DNP note has been reviewed, I agree with a documented findings and plan of care. Patient was seen and examined.
[2017-10-24] MEDS ORDERED: ASPIRIN 325 MG TAB PO SCH (09:00)
[2017-10-24] MEDS ORDERED: LOSARTAN 50 MG TAB PO SCH (09:00)
[2017-10-24] MEDS ORDERED: FUROSEMIDE 40 MG TAB PO SCH (09:00)
--- NOTE | 2017-10-24 10:56 | ECHOF ---
Referral Reason:elevTrop MEASUREMENTS -------- HEIGHT: 157.5 cm WEIGHT: 58.1 kg BP: 98/61 RVIDd: 3.1 cm (< 3.3) IVSd: 1.1 cm (0.6 - 1.1) LVIDd: 4.3 cm (3.9 - 5.3) LVPWd: 0.8 cm (0.6 - 1.1) IVSs: 1.3 cm LVIDs: 3.4 cm LVPWs: 1.1 cm LAESV Index (A-L): 32.10 ml/m Ao Diam: 3.0 cm (2.0 - 3.7) AV Cusp: 2.0 cm (1.5 - 2.6) LA Diam: 4.3 cm (2.7 - 3.8) MV EXCURSION: 18.872 mm (> 18.000) MV EF SLOPE: 212 mm/s (70 - 150) EPSS: 0.7 cm MV E Jose Roberto: 0.84 m/s MV DecT: 171 ms MV A Jose Roberto: 0.36 m/s MV E/A Ratio: 2.31 AR PHT: 467 ms RAP: 5.00 mmHg RVSP: 48.18 mmHg FINDINGS -------- Pacerwire seen in RV and RA. This was a technically difficult study with suboptimal views. The left ventricular size is normal. Left ventricular wall thickness is normal. Overall left vent ricular systolic function is severely impaired with, an EF between 25 - 30 %. Basal lateral LV wall motion is akinetic. Basal inferior LV wall motion is akinetic. Basal inferoseptal LV wall rolando on is akinetic. Mid lateral LV wall motion is akinetic. Mid inferior LV wall motion is akinetic . Mid inferoseptal LV wall motion is akinetic. Apical inferior LV wall motion is akinetic. The right ventricle is normal in size and function. LA is midly dilated 29-33ml/m2. The right atrial size is normal. Lumason used There is mild aortic valve sclerosis. There is yfoo-gw-wwcpnemw aortic regurgitation. The mitral valve leaflets are mildly thickened. Mild mitral annular calcification present. Severe mitral regurgitation is present. Severe tricuspid regurgitation present. There is mild to moderate pulmonary hypertension. The rig ht ventricular systolic pressure, as measured by Doppler, is 48.18mmHg. There is no pulmonic regurgitation present. The aortic root size is normal. There is no pericardial effusion. CONCLUSIONS -------- 1. Pacerwire seen in RV and RA. 2. This was a technically difficult study with suboptimal views. 3. The left ventricular size is normal. 4. Left ventricular wall thickness is normal. 5. Overall left ventricular systolic function is severely impaired with, an EF between 25 - 30 %. 6. Basal lateral LV wall motion is akinetic. 7. Basal inferior LV wall motion is akinetic. 8. Basal inferoseptal LV wall motion is akinetic. 9. Mid lateral LV wall motion is akinetic. 10. Mid inferior LV wall motion is akinetic. 11. Mid inferoseptal LV wall motion is akinetic. 12. Apical inferior LV wall motion is akinetic. 13. LA is midly dilated 29-33ml/m2. 14. Lumason used 15. There is mild aortic valve sclerosis. 16. There is wojv-jx-kvwxpfrh aortic regurgitation. 17. The mitral valve leaflets are mildly thickened. 18. Mild mitral annular calcification present. 19. Severe mitral regurgitation is present. 20. Severe tricuspid regurgitation present. 21. There is mild to moderate pulmonary hypertension. 22. There is no pulmonic regurgitation present. 23. The aortic root size is normal. 24. There is no pericardial effusion. CAN WORKER: Jenna Dsouza RDCS
[2017-10-24] MEDS: LOSARTAN 25 MG TAB PO SCH (11:19)
[2017-10-24] MEDS: ATORVASTATIN 80 MG TAB PO SCH (11:35)
[2017-10-24] MEDS: ISOSORBIDE MONONITRATE ER 30 MG TAB.ER.24H PO SCH (11:35)
--- NOTE | 2017-10-24 18:28 | PN ---
PROGRESS NOTE DATE OF SERVICE: 10/24/2017 This 77-year-old woman is admitted with shortness of breath also had possibly nonsustained myocardial infarction. Cardiology is planning cardiac cath and possible NARENDRA also. No chest pain. No palpitations. No fever. Severe mitral regurgitation, severe tricuspid regurgitation also noted. Cbsl-me-kribrshh aortic regurgitation also noted. PAST MEDICAL HISTORY: Reviewed. PHYSICAL EXAM: Patient is alert, oriented x3. Pulse 79, blood pressure 98/61, respiration 18, temperature 98.2, pulse ox 94 percent on room air. HEENT: Conjunctivae normal. Oral mucosa moist. Neck is no jugular venous distention. No carotid bruit. No lymph node enlargement. Respirations: Breath sounds diminished in the bases. Cardiovascular System: Ejection systolic murmur. A few scattered rhonchi. ABDOMEN: Soft. Nontender. Nervous system: No focal deficits. LABS: WBC 6.2, hemoglobin 7.8, INR 2.9. Sodium is 131. Lipids are normal. ASSESSMENT: 1. Shortness of breath, possibly congestive heart failure acute exacerbation with acute on chronic systolic dysfunction, ejection fraction 25-30 percent. 2. Troponin 0.105, rule out acute non ST elevated myocardial infarction. 3. Severe mitral regurgitation and tricuspid regurgitation with mild to moderate pulmonary hypertension as well as gkia-vw-wafrhymu aortic regurgitation. 4. Atrial fibrillation. 5. Congestive heart failure. 6. Congestive heart failure history. 7. Hyperlipidemia. 8. History of breast cancer. 9. History of coronary artery disease, coronary artery bypass grafting. 10.Remote history of nicotine dependence. RECOMMENDATIONS AND DISCUSSION: Recommend to continue current medications. Continue the monitoring. Continue the diuretics. Continue the rest of medications. Repeat labs. Cardiology workup. Follow closely with cardiology with possible cardiac cath and NARENDRA. Further recommendations to follow. MMODL / IJN: [id number] /
[2017-10-24] MEDS: FUROSEMIDE 10 MG/ML 4 ML VIAL IV SCH (20:25)
[2017-10-24] MEDS: MELATONIN 5 MG TABLET PO SCH (20:28)
[2017-10-24] MEDS: TEMAZEPAM 15 MG CAP PO PRN (22:25)
[2017-10-25] MEDS: SPIRONOLACTONE 25 MG TAB PO SCH (06:16)
[2017-10-25] MEDS: PANTOPRAZOLE 40 MG TABLET PO SCH (06:17)
[2017-10-25] MEDS: ISOSORBIDE MONONITRATE ER 30 MG TAB.ER.24H PO SCH (06:17)
[2017-10-25] MEDS: ASPIRIN 81 MG PO SCH (06:17)
[2017-10-25] MEDS: LOSARTAN 25 MG TAB PO SCH (06:17)
[2017-10-25] MEDS: ATORVASTATIN 80 MG TAB PO SCH (06:17)
[2017-10-25] MEDS: CARVEDILOL 12.5 MG TAB PO SCH (06:17)
[2017-10-25 06:21] LABS: Basophils # (A) 0.1 k/uL (0-0.2); Basophils % (A) 1 %; Eosinophils # (A) 0.4 k/uL (0-0.7); Eosinophils % (A) 5 %; HCT 39.5 % (34.0-46.0); Lymphocytes # (A) 1.6 k/uL (1.0-4.8); Lymphocytes % (A) 21 %; MCH 32.5 pg (25.0-35.0); MCHC 32.8 g/dL (31.0-37.0); MCV 99.3 fL (80.0-100.0); Mean Platelet Volume 6.5; Monocytes # (A) 0.6 k/uL (0-1.0); Monocytes % (A) 8 %; Neutrophils # (A) 4.7 k/uL (1.3-7.7); Neutrophils % (A) 63 %; Platelet Count 230 k/uL (150-450); RBC 3.98 m/uL (3.80-5.40); RDW 13.7 % (11.5-15.5); WBC 7.5 k/uL (3.8-10.6)
[2017-10-25 06:24] LABS: INR 2.3 (<1.2); Prothrombin Time 20.4 sec (9.0-12.0)
[2017-10-25 06:27] LABS: Calcium 9.4 mg/dL (8.4-10.2); Potassium 4.4 mmol/L (3.5-5.1)
[2017-10-25] MEDS ORDERED: IV FLUID CONTINUATION 1,000 ML IV ONE (07:54)
[2017-10-25] MEDS ORDERED: BENZOCAINE SPRAY 1 CAN MUCOUS MEM ONE ×2 (08:00→08:03)
[2017-10-25] MEDS ORDERED: fentaNYL (PF) 50 MCG/ML 2 ML AMP IVP ONE (08:05)
[2017-10-25] MEDS ORDERED: MIDAZOLAM 2 MG/2 ML VIAL IVP ONE (08:05)
[2017-10-25] MEDS ORDERED: SODIUM CHLORIDE 0.9% 1,000 ML IV ONE (08:49)
--- NOTE | 2017-10-25 09:08 | ECHOT ---
TRANSESOPHAGEAL ECHOCARDIOGRAM INDICATION: Mitral regurgitation. PROCEDURE NOTE: After obtaining informed consent, transesophageal echocardiogram was performed in left lateral position using an Omni plane probe. Local and IV sedation were obtained using Xylocaine spray and intravenous Versed and fentanyl. The patient developed hypotension, but otherwise tolerated the procedure well. FINDINGS: 1. Mitral valve appears anatomically normal. There is poor coaptation of the mitral leaflets. There is severe mitral regurgitation noted. 2. Left atrium appears severely enlarged. 3. Right atrium and right ventricle appear enlarged. 4. Left ventricle has normal size with moderate LV dysfunction with an ejection fraction of around 40%. Aortic valve is a 3-leaflet valve. There is mild aortic regurgitation noted. 5. Tricuspid valve shows moderate tricuspid regurgitation. 6. Aorta measures within normal limits. CONCLUSIONS: 1. Severe mitral regurgitation secondary to poor coaptation of the mitral leaflet related to severe enlargement of the left atrium. 2. Moderate tricuspid regurgitation. 3. Mild aortic regurgitation. 4. Ischemic cardiomyopathy with moderate LV dysfunction with an ejection fraction of 40%. PLAN: I will treat the patient with medical therapy and consider cardiac catheterization once she is more stable clinically and the INR comes down probably on . MMODL / IJN: [id number] /
[2017-10-25] MEDS: SODIUM CHLORIDE 0.9% 1,000 ML IV SCH (09:56)
[2017-10-25 12:26] VITALS: BMI 22.4
[2017-10-25] MEDS ORDERED: ALPRAZolam 0.25 MG TAB PO PRN (14:25)
[2017-10-25] MEDS ORDERED: ALPRAZolam 0.5 MG TAB PO PRN (14:25)
[2017-10-25] MEDS ORDERED: NITROGLYCERIN SL TABS 0.4 MG TAB SUBLINGUAL PRN (14:25)
[2017-10-25] MEDS ORDERED: SODIUM CHLORIDE 0.9% 1,000 ML in EMPTY BAG 1 BAG IV ONE (14:25)
[2017-10-25] MEDS: FUROSEMIDE 10 MG/ML 4 ML VIAL IV SCH ×2 (14:50→21:11)
--- NOTE | 2017-10-25 16:41 | PN ---
PROGRESS NOTE DATE OF SERVICE: 10/25/2017 This 77-year-old woman is admitted with shortness of breath, congestive heart failure acute exacerbation, ejection fraction 25-30 percent. The patient had a previous CABG at this time. The patient had a NARENDRA today by Dr. Santos. The NARENDRA showed significant severe mitral regurgitation secondary to poor coaptation of the mitral leaflet and as well as moderate tricuspid regurgitation, mild aortic regurgitation, ischemic cardiomyopathy, ejection fraction of 40% is noted. The patient admitted for further evaluation. Patient being closely monitored. Cardiology planning tentative cardiac catheterization. PT/INR still elevated. PAST MEDICAL HISTORY: Reviewed. REVIEW OF SYSTEMS: Cardiovascular as mentioned earlier. GI: No nausea or vomiting. no known symptoms. Central nervous system: No numbness, weakness. CURRENT MEDICATIONS: Reviewed and include: 1. Tylenol 500 mg q.6h p.r.n. 2. Xanax 0.5 t.i.d. 3. Aspirin 81 mg. 4. Aspirin 320 mg. 5. Lipitor 80 mg daily. 6. Coreg 3.2 mg p.o. b.i.d. 7. Lasix 40 mg IV b.i.d. 8. Imdur 30 mg. 9. Cozaar 25 mg p.o. daily. 10.Melatonin 5 mg q.h.s. 11.Nitrostat p.r.n. 12.Protonix 40 mg daily. 13.Restoril 50 mg q.h.s. p.r.n. PHYSICAL EXAM: Patient is alert, oriented x3. Pulse is 72, blood pressure 91/70 respiration 18 , temperature 98.2, pulse ox 97 percent on 2 L. HEENT: Conjunctivae normal. Oral mucosa moist. Neck is no jugular venous distention. No carotid bruit. No lymph node enlargement. Cardiovascular systems: S1, S2 muffled. Ejection systolic murmur. Respiratory: Breath sounds diminished in the bases. A few scattered rhonchi and crackles. ABDOMEN: Soft, nontender. No mass palpable. Legs no edema. No swelling. NERVOUS SYSTEM: Higher functions as mentioned earlier. Moves all 4 limbs. No focal motor or sensory deficits. Lymphatics: No lymph nodes palpable in the neck, axillae or groin. SKIN: No ulcer, rash or bleeding. LABS: CBC within normal limits. INR is 2.3. ASSESSMENT: 1. Congestive heart failure acute exacerbation with acute on chronic systolic dysfunction ejection fraction about 40%. 2. Severe mitral regurgitation as well as moderate tricuspid regurgitation and mild aortic regurgitation. 3. Possible ischemic cardiomyopathy. 4. Troponin 0.105, rule out acute non ST-segment elevation myocardial infarction. 5. Mild to moderate pulmonary hypertension. 6. Atrial fibrillation. 7. History of congestive heart failure. 8. Hyperlipidemia. 9. History of breast cancer. 10.History of coronary artery disease/coronary artery bypass grafting. 11.Remote history of nicotine dependence. RECOMMENDATIONS AND DISCUSSION: Continue current management. Continue with monitoring, symptomatic treatment. Otherwise, at this time, I will recommend continue with antiplatelet agents and continue the beta blockers. Continue the diuretics. Otherwise, I would also recommend closely follow with Cardiology. NARENDRA findings noted. We will proceed with cardiac cath and continue to monitor. Cardiothoracic evaluation also may be needed in the future. Prognosis guarded because of multiple complex medical issues. further recommendations to follow. MMJUSTIN / JEFFREYN: [id number] / MTDD
[2017-10-25] MEDS: CARVEDILOL 3.125 MG TAB PO SCH (18:46)
[2017-10-25] MEDS: MELATONIN 5 MG TABLET PO SCH (20:11)
[2017-10-25] MEDS: TEMAZEPAM 15 MG CAP PO PRN (22:17)
[2017-10-26] MEDS: CARVEDILOL 3.125 MG TAB PO SCH ×2 (06:17→17:57)
[2017-10-26] MEDS: PANTOPRAZOLE 40 MG TABLET PO SCH (06:17)
[2017-10-26 06:52] LABS: INR 1.9 (<1.2); Prothrombin Time 17.5 sec (9.0-12.0)
[2017-10-26 06:55] LABS: Basophils % (A) 1 %; Eosinophils # (A) 0.3 k/uL (0-0.7); Eosinophils % (A) 4 %; HCT 35.2 % (34.0-46.0); HGB 11.5 gm/dL (11.4-16.0); Lymphocytes # (A) 1.5 k/uL (1.0-4.8); Lymphocytes % (A) 21 %; MCHC 32.8 g/dL (31.0-37.0); MCV 97.7 fL (80.0-100.0); Mean Platelet Volume 6.9; Monocytes # (A) 0.5 k/uL (0-1.0); Monocytes % (A) 8 %; Neutrophils # (A) 4.6 k/uL (1.3-7.7); Neutrophils % (A) 65 %; Platelet Count 235 k/uL (150-450); RDW 13.4 % (11.5-15.5); WBC 7.1 k/uL (3.8-10.6)
[2017-10-26 07:10] LABS: Calcium 9.2 mg/dL (8.4-10.2); Potassium 4.3 mmol/L (3.5-5.1)
[2017-10-26] MEDS: SODIUM CHLORIDE 0.9% 1,000 ML IV SCH (08:49)
[2017-10-26] MEDS: LOSARTAN 25 MG TAB PO SCH (09:00)
[2017-10-26] MEDS: ATORVASTATIN 80 MG TAB PO SCH (09:00)
[2017-10-26] MEDS: FUROSEMIDE 10 MG/ML 4 ML VIAL IV SCH ×2 (09:01→20:04)
[2017-10-26] MEDS: ASPIRIN 81 MG PO SCH (09:01)
[2017-10-26] MEDS: ISOSORBIDE MONONITRATE ER 30 MG TAB.ER.24H PO SCH (09:01)
--- NOTE | 2017-10-26 15:02 | P.PN ---
Subjective Progress Note Date: 10/26/17 This is a pleasant 77-year-old female who follows regularly with Dr. Santos in the office. She has a known history of chronic persistent atrial fibrillation, ischemic cardiomyopathy with prior documented ejection fraction of 25-30%, prior pacemaker implantation, hypertension, hyperlipidemia, coronary artery disease with prior bypass surgery in 2002 at which time patient underwent MADISON to the LAD, saphenous vein graft to the first diagonal branch, saphenous vein graft to the RCA,, she presents to the hospital on this occasion with symptoms of exertional shortness of breath and chest heaviness. Patient states that for the past 3 days just walking short distances she becomes quite short of breath and feels a heavy sensation in her chest. When she sits down and the symptoms seemed to subside. As of 3 days have progressed, the symptoms have gotten worse, again subsiding each time with rest. Patient denies any PND or orthopnea, no peripheral edema. He states that she went to the walk-in clinic because of these symptoms, they performed an EKG and were concerned that the pacemaker was not functioning appropriately so for this reason she came to the emergency room for further evaluation. Chest x-ray on admission here showed cardiomegaly with a small right-sided pleural effusion. No change from prior, no active congestive heart failure. EKG shows an atrial paced rhythm, underlying atrial fibrillation. Blood pressure on arrival here 116/40 with a heart rate in the 60s, 98% on room air. Blood pressure this morning 98/60 with a heart rate in the 80s, 96% on room air. White blood cell count 8.2 on admission, 6.8 this morning, hemoglobin 11.8, platelet count 201. INR 2.9. Sodium 131, potassium 4.8, BUN 20, creatinine 0.8. Troponins 0.105, 0.09, 0.09. At the time of my examination this morning, patient has just returned from walking to the bathroom, again felt quite short of breath and had some pressure in her chest. This seemed to subside as the patient rested. Currently chest pain-free. 10/26/2017 underwent a transesophageal echocardiographic study which revealed severe mitral regurgitation secondary to poor coaptation of the mitral leaflet related to severe enlargement of the left atrium. Moderate tricuspid regurg, mild aortic regurg, ischemic cardiomyopathy with moderate LV dysfunction and ejection fraction of 40%. Gamma this morning, she feels well, her INR today is 1.9. She is scheduled tomorrow to undergo cardiac catheterization with Dr. Santos. Objective - Vital Signs Vital signs: Vital Signs Temp 96.9 F L 10/26/17 08:00 Pulse 100 10/26/17 12:00 Resp 16 10/26/17 12:00 BP 122/75 10/26/17 12:00 Pulse Ox 98 10/26/17 12:00 Intake & Output 10/25/17 10/26/17 10/26/17 18:59 06:59 18:59 Intake Total 510 118 Output Total 1800 1 Balance -1290 117 Weight 55.7 kg 55.9 kg Intake: IV 270 Invasive Line 1 10 Invasive Line 2 10 Oral 240 118 Output: Urine 1800 1 Other: Voiding Method Toilet # Voids 2 - Exam PHYSICAL EXAMINATION: GENERAL: 77-year-old female in no acute distress at the time of my examination HEENT: Head is atraumatic, normocephalic. Pupils equal, round. Sclera anicteric. Conjunctiva are clear. Mucous membranes of the mouth are moist. Neck is supple. There is elevated jugular venous pressure. No carotid bruit is heard. HEART EXAMINATION: Heart S1 and S2 irregularly irregular systolic murmur heard CHEST EXAMINATION: Lungs are clear to auscultation and precussion. No chest wall tenderness is noted on palpation or with deep breathing. ABDOMEN: Soft, nontender. Bowel sounds are heard. No organomegaly noted. EXTREMITIES: 2+ peripheral pulses with no evidence of peripheral edema and no calf tenderness noted. NEUROLOGIC patient is awake, alert and oriented X3. - Labs CBC & Chem 7: 10/26/17 06:15 10/26/17 06:15 Labs: Abnormal Lab Results - Last 24 Hours (Table) 10/26/17 10/26/17 10/26/17 Range/Units 06:15 06:15 06:15 RBC 3.60 L (3.80-5.40) m/uL PT 17.5 H (9.0-12.0) sec INR 1.9 H (<1.2) Sodium 132 L (137-145) mmol/L Assessment and Plan Plan: Assessment and plan #1 symptoms of exertional shortness of breath with associated chest heaviness, suggestive of acute coronary syndrome. Troponins 0.1, 0.09, 0.09. He shows a paced rhythm with underlying atrial fibrillation and non-specific ST-T wave changes. Evidence of mild systolic heart failure acute on chronic, chest x- ray does not reveal congestive heart failure, BNP level 5200 on admission. #2 chronic persistent atrial fibrillation, on Coumadin for anticoagulation, #3 known history of coronary artery disease with prior bypass surgery in 2002 #4 hypertension #5 hyperlipidemia #6 prior pacemaker implantation #7 ischemic cardiomyopathy with prior documented ejection fraction of 25-30% most recent echo I have serious from 2015 Plan Patient underwent a transesophageal echocardiographic study yesterday which revealed severe mitral regurgitation secondary to poor coaptation of the mitral leaflet related to severe enlargement of the left atrium, moderate tricuspid regurg, mild aortic regurg, ischemic cardiomyopathy with moderate LV dysfunction with an ejection fraction of 40%. INR today is 1.9. Patient is scheduled tomorrow to undergo cardiac catheterization, the risks and benefits were explained to the patient in detail and she is willing to proceed. DNP note has been reviewed, I agree with a documented findings and plan of care. Patient was seen and examined.
--- NOTE | 2017-10-26 16:18 | PN ---
PROGRESS NOTE DATE OF SERVICE: 10/26/2017 This 77-year-old woman who was admitted with multiple medical problems, including CHF, acute exacerbation, also had a NARENDRA yesterday. The patient is slated to have cardiac catheterization today. No chest pain. No palpitations. No fever. PHYSICAL EXAMINATION: Alert and oriented x3. Pulse 100, blood pressure 122/75, respiration 16, temperature normal, pulse ox 98% on room air. HEENT: Conjunctivae normal. Oral mucosa moist. NECK: No jugular venous distention. CARDIOVASCULAR SYSTEM: S1, S2 muffled. Ejection systolic murmur. RESPIRATORY SYSTEM: Breath sounds diminished at the bases. No rhonchi. No crackles. ABDOMEN: Soft, non-tender. No mass palpable. LABS: WBC 7.2, hemoglobin 11.5, INR 1.9. ASSESSMENT: 1. Congestive heart failure, acute exacerbation, with acute on chronic systolic dysfunction, ejection fraction 40%. 2. Severe mitral regurgitation as well as moderate tricuspid regurgitation, mild aortic regurgitation. 3. Possible ischemic cardiomyopathy. 4. Troponin 0.105. Rule out acute mtx-IC-rhefaxz-elevation myocardial infarction. 5. Mild to moderate pulmonary hypertension. 6. Atrial fibrillation. 7. History of congestive heart failure. 8. Hyperlipidemia. 9. History of breast cancer. 10.History of coronary artery disease, coronary artery bypass grafting. 11.Remote history of nicotine dependence. RECOMMENDATIONS AND DISCUSSION: I recommend to continue current medication, continue with the monitoring, symptomatic treatment. Monitor PT/INR closely. Cardiology is planning cardiac catheterization tomorrow. Otherwise, continue the rest of the medications. Prognosis guarded. Further recommendations to follow. MMODL / IJN: [id number] /
[2017-10-26] MEDS: MELATONIN 5 MG TABLET PO SCH (20:02)
[2017-10-26] MEDS: TEMAZEPAM 15 MG CAP PO PRN (21:42)
[2017-10-27] MEDS: ASPIRIN 81 MG PO SCH (04:16)
[2017-10-27] MEDS: ATORVASTATIN 80 MG TAB PO SCH (05:44)
[2017-10-27 06:00] LABS: Glucose,Whole Blood 90 mg/dL (75-99)
[2017-10-27] MEDS ORDERED: ASPIRIN 325 MG TAB PO ONE (06:00)
[2017-10-27] MEDS ORDERED: ATORVASTATIN 80 MG TAB PO ONE (06:00)
[2017-10-27] MEDS: CARVEDILOL 3.125 MG TAB PO SCH ×2 (06:01→17:19)
[2017-10-27] MEDS: PANTOPRAZOLE 40 MG TABLET PO SCH (06:01)
[2017-10-27] MEDS: ISOSORBIDE MONONITRATE ER 30 MG TAB.ER.24H PO SCH (06:02)
[2017-10-27] MEDS: LOSARTAN 25 MG TAB PO SCH (06:02)
[2017-10-27] MEDS: SODIUM CHLORIDE 0.9% 1,000 ML IV SCH (06:06)
[2017-10-27 07:08] LABS: Basophils # (A) 0.1 k/uL (0-0.2); Basophils % (A) 1 %; Eosinophils # (A) 0.4 k/uL (0-0.7); Eosinophils % (A) 4 %; HCT 42.6 % (34.0-46.0); HGB 13.2 gm/dL (11.4-16.0); Lymphocytes # (A) 1.8 k/uL (1.0-4.8); Lymphocytes % (A) 21 %; MCH 31.4 pg (25.0-35.0); MCHC 30.9 g/dL (31.0-37.0); MCV 101.4 fL (80.0-100.0); Macrocytosis Slight; Mean Platelet Volume 6.6; Monocytes # (A) 0.7 k/uL (0-1.0); Monocytes % (A) 9 %; Neutrophils # (A) 5.1 k/uL (1.3-7.7); Neutrophils % (A) 61 %; Platelet Count 264 k/uL (150-450); RBC 4.21 m/uL (3.80-5.40); RDW 13.7 % (11.5-15.5); WBC 8.3 k/uL (3.8-10.6)
[2017-10-27 07:13] LABS: INR 1.5 (<1.2); Prothrombin Time 14.3 sec (9.0-12.0)
[2017-10-27] MEDS ORDERED: IV FLUID CONTINUATION 950 ML IV ONE (07:18)
[2017-10-27] MEDS ORDERED: LIDOCAINE 1% INJ 10MG/ML (20 ML MDV) ONE (07:23)
[2017-10-27] MEDS ORDERED: fentaNYL (PF) 50 MCG/ML 2 ML AMP ONE (07:23)
[2017-10-27] MEDS ORDERED: MIDAZOLAM 2 MG/2 ML VIAL ONE (07:23)
[2017-10-27 07:32] LABS: Calcium 9.4 mg/dL (8.4-10.2); Potassium 4.1 mmol/L (3.5-5.1)
[2017-10-27] MEDS ORDERED: fentaNYL (PF) 50 MCG/ML 2 ML AMP IV ONE (07:33)
[2017-10-27] MEDS ORDERED: LIDOCAINE 1% INJ 10MG/ML (20 ML MDV) SQ ONE (07:34)
[2017-10-27] MEDS ORDERED: IOPAMIDOL-370 125ML BTL INJ ONE (08:13)
[2017-10-27] MEDS ORDERED: CLOPIDOGREL 75 MG TAB ONE (08:26)
[2017-10-27] MEDS ORDERED: BIVALIRUDIN BOLUS 250 MG/50 ML IV ONE (08:30)
[2017-10-27] MEDS ORDERED: CLOPIDOGREL 75 MG TAB PO ONE ×2 (08:31)
[2017-10-27] MEDS ORDERED: BIVALIRUDIN 250 MG in SODIUM CHLORIDE 0.9% 50 ML IV ONE (08:31)
--- NOTE | 2017-10-27 09:07 | CC ---
CARDIAC CATHETERIZATION REPORT INDICATION: 1. Congestive heart failure. 2. Pbu-LN-jyztgex elevation [place]. PROCEDURE NOTE: After obtaining informed consent, left heart catheterization, coronary angiogram and selective injection of the bypass grafts had been performed via the right femoral artery using standard Jose catheters. The patient tolerated the procedure well without any obvious immediate complications. She received moderate conscious sedation and total sedation time was 31 minutes. The patient has a venous graft to the right coronary artery, diagonal and MADISON to LAD. MADISON was atretic on a prior catheterization. The MADISON was engaged using a garry catheter. Venous graft to the right was engaged using right Jose. Venous graft to the diagonal was selectively engaged using left bypass catheter. The patient tolerated the procedure well. FINDINGS: 1. HEMODYNAMICS: Left ventricular end-diastolic pressure is 28 to 32 mm. There is no significant gradient across the aortic valve. 2. LEFT VENTRICULOGRAM: Left ventriculogram is not performed. 3. ANGIOGRAPHIC DATA. [place] CORONARIES: 1. Right coronary artery is chronically occluded in its midportion. 2. Left main coronary artery as it bifurcates into the LAD and circumflex coronary artery has a 50% stenosis. 3. Circumflex coronary artery shows a 95% stenosis distally, which is new and the vessel had not been bypassed in the past. 4. LAD: The ostium of the LAD is involved in the left main stenosis. Venous graft to the right coronary artery appears patent. The proximal and distal anastomotic sites are free of significant disease. There is mild atherosclerotic plaque mid to distally. Bypass graft to the diagonal appears patent. There is a moderate diffuse disease in the proximal part, but there are no focal stenotic lesions that need to be stented. This graft is filling the entire diagonal and the LAD. MADISON to the LAD appears atretic. CONCLUSIONS: 1. [place] 3-vessel coronary artery disease with a new lesion within the circumflex coronary artery. 2. Patent venous graft to the right coronary artery and diagonal. 3. Atretic MADISON to LAD. PLAN: I reviewed angiographic data with the patient and talked to her at length about her treatment options including redo bypass with mitral valve repair versus attempting angioplasty of [place] circumflex and maybe also stent the left main and see how she does clinically and if she is still symptomatic, consider a MitraClip. Understanding the risks, benefits, the patient wishes to proceed with stenting. Stenting is going to be both complex and challenging. MMODL / IJN: [id number] /
[2017-10-27] MEDS ORDERED: IOPAMIDOL-370 100ML BTL INJ ONE (09:09)
[2017-10-27] MEDS ORDERED: ATROPINE SULFATE 0.1 MG/ML 10ML SYRINGE IV PRN (09:14)
[2017-10-27] MEDS ORDERED: RX INFO: IV CONTRAST WAS GIVEN 1 EACH MISC MISCELLANE PRN (09:14)
[2017-10-27] MEDS ORDERED: NITROGLYCERIN SL TABS 0.4 MG TAB SUBLINGUAL PRN (09:14)
[2017-10-27] MEDS ORDERED: MAG HYDROX/AL HYDROX/SIMETH 30 ML CUP PO PRN (09:14)
[2017-10-27] MEDS ORDERED: ZOLPIDEM 5 MG TAB PO PRN (09:14)
[2017-10-27] MEDS ORDERED: SODIUM CHLORIDE 0.9% 1,000 ML IV SCH (09:15)
--- NOTE | 2017-10-27 09:46 | PTCA ---
PERCUTANEOUSTRANS CORORONARY ANGIOGRAPHY Mrs. Padilla is a 77-year-old female with a known history of coronary artery disease, status post coronary artery bypass grafting who presented with symptoms of congestive heart failure and mild elevation in troponin, underwent cardiac catheterization by Dr. Santos and was found to have new critical stenosis involving the distal left circumflex. The patient has a moderate to significant disease in the distal left main involving the takeoff of the LAD. The MADISON to the LAD is atrophic, but the saphenous vein graft to the diagonal branch is patent and back feeding the LAD. Discussion regarding the options were made with the patient and Dr. Santos and recommendation made regarding attempt to angioplasty the left circumflex. The procedures as well as risks and the complications were discussed with the patient who is in full understanding and agreement. PROCEDURE: A 6-[place] FR4 guiding catheter was introduced in the system. After cannulating the left main, a 0.014 advanced medium weight J-wire was advanced across the lesion and positioned distally then another 0.014 balanced medium J-wire was advanced and positioned distal left anterior descending artery. A 2.5 x 12 mm Trek balloon was advanced and 2 inflations at maximum of 8 atmospheres were done. Subsequently the balloon was removed and attempt to advance a 2.5 x 15 mm Xience Alpine stent was unsuccessful. At that point the stent was removed and the wire of the LAD was repositioned into the distal left circumflex and subsequently attempt to advance the stent were unsuccessful. That stent was removed and a 2.0 x 15 mm [place] stent was advanced, deployed and post dilated to 16 atmospheres. After the last inflation, after appropriate wait, the balloon and the guidewire were withdrawn back in the guiding catheter. Images were obtained and repeated. Those images reveal stable successful stenting. At that point, the guiding catheter, the balloon and the guidewire were removed. The sheath was removed. Hemostasis was obtained with deployment of an Angio-Seal. There was no immediate complication. Patient is returned to her room in stable condition. Of note, the patient had chest discomfort with the inflations with no significant EKG changes. She received Angiomax per protocol as well as oral loading dose of clopidogrel. RESULTS: Successful stenting of the distal left circumflex with reduction of stenosis from 99% to 0%. RECOMMENDATION: Patient will be continued on aspirin, Plavix in addition to statin. The importance of dual antiplatelet treatment was discussed with the patient and her family who are in full understanding and agreement. The patient will be restarted on her on anticoagulation for her paroxysmal atrial fibrillation and later time her aspirin will be stopped. Those findings and recommendation were discussed with the patient and her family who are in full understanding and agreement. Duration of procedure 38 minutes. MMJUSTIN / JEFFREYN: [id number] /
[2017-10-27] MEDS: FUROSEMIDE 10 MG/ML 4 ML VIAL IV SCH (10:09)
[2017-10-27] MEDS: FUROSEMIDE 40 MG TAB PO SCH (17:20)
--- NOTE | 2017-10-27 17:52 | P.PN ---
Subjective Progress Note Date: 10/27/17 Progress note being dictated for Dr. Chandler Interval history: This a 77-year-old female admitted with acute CHF exacerbation , status post NARENDRA and multiple other medical issues. Maintained on oral Lasix, diuresing well with 24-hour I&O reflecting a negative fluid balance. Underwent cardiac catheterization today, reporting critical stenosis involving distal left circumflex, moderate to significant disease in the distal left main with successful stenting of distal left circumflex. Tolerated procedure well. Denies chest pain, palpitations. Telemetry reporting controlled atrial fibrillation, occasionally paced. Objective - Vital Signs Vital signs: Vital Signs Temp 98.0 F 10/27/17 04:23 Pulse 67 10/27/17 15:00 Resp 16 10/27/17 15:00 BP 98/54 10/27/17 15:00 Pulse Ox 92 L 10/27/17 15:00 Intake & Output 10/26/17 10/27/17 10/27/17 18:59 06:59 18:59 Intake Total 358 445.6 1384 Output Total 401 1000 Balance -43 445.6 384 Weight 55.2 kg Intake: IV 928 Sodium Chloride 0.9% 1, 800 000 ml @ 100 mls/hr IV . Q10H ANKUSH Rx#:[id number] Intake, IV Titration 445.6 Amount Sodium Chloride 0.9% 1, 445.6 000 ml In Empty Bag 1 bag @ 1 ML/KG/HR 55.7 mls/hr IV .[id number] ONE Rx#: [id number] Oral 358 456 Output: Urine 401 1000 Other: Voiding Method Toilet # Voids 1 1 # Bowel Movements 0 - Exam PHYSICAL EXAM: VITAL SIGNS: As above GENERAL: Lying in bed, no acute distress HEENT: Conjunctivae normal. eyes normal. Oral mucosa somewhat NECK: No JVD. No thyroid enlargement. No LNs CARDIOVASCULAR: S1, S2 muffled. Irregular, Systolic murmur RESPIRATION: Breath sounds diminished in the bases. ABDOMEN: Soft, nontender . No guarding. no masses palpable. Bowel sounds heard. LEGS: No edema. no swelling PSYCHIATRY: Alert and oriented -3, mood and affect normal. NERVOUS SYSTEM: Cranial N 2-12 grossly normal. Moves all 4 limbs. Diffuse weakness No focal deficits. No sensory deficit. Lymphatic system. No LN neck axilla or groin. - Labs CBC & Chem 7: 10/27/17 06:33 10/27/17 06:33 Labs: Abnormal Lab Results - Last 24 Hours (Table) 10/27/17 10/27/17 10/27/17 Range/Units 06:33 06:33 06:33 MCV 101.4 H (80.0-100.0) fL MCHC 30.9 L (31.0-37.0) g/dL PT 14.3 H (9.0-12.0) sec INR 1.5 H (<1.2) Sodium 134 L (137-145) mmol/L Assessment and Plan Assessment: 1. Acute on chronic CHF exacerbation, systolic dysfunction, EF 40% 2. Severe mitral regurgitation, moderate tricuspid regurgitation, mild aortic regurgitation 3. Possible ischemic cardiomyopathy, history of pacemaker 4. Troponin 0.105, rule out acute non-STEMI 5. Status post cardiac catheterization, angioplasty with stenting of circumflex 6. Mild to moderate pulmonary hypertension 7. Chronic persistent Atrial fibrillation 8. Hyperlipidemia 9. CAD, history of CABG 10. Remote history of nicotine dependence 11. Hypertension Plan: Continue on current medication regime ,monitoring and symptomatic treatment. Dual platelet therapy of aspirin and Plavix ,as per cardiology. Continue on statin. Coumadin resumed. Daily PT INR. Increase ambulation as tolerated. Discharge planning possibly tomorrow, pending cardiology clearance. Prognosis guarded given multiple complex medical issues. The impression and plan of care has been dictated as directed. : I performed a history and examination of this patient, discussed the same with the dictator. I agree with the dictator's note ,documented as a scribe. Any additional findings or plans will be noted.
[2017-10-27] MEDS ORDERED: WARFARIN 2.5 MG TAB PO ONE (18:00)
[2017-10-27] MEDS: MELATONIN 5 MG TABLET PO SCH (20:01)
[2017-10-27] MEDS: TEMAZEPAM 15 MG CAP PO PRN (21:51)
[2017-10-28] MEDS: PANTOPRAZOLE 40 MG TABLET PO SCH (06:21)
[2017-10-28] MEDS: FUROSEMIDE 40 MG TAB PO SCH (06:21)
[2017-10-28] MEDS: CARVEDILOL 3.125 MG TAB PO SCH (06:21)
[2017-10-28 06:28] LABS: INR 1.5 (<1.2); Prothrombin Time 13.9 sec (9.0-12.0)
[2017-10-28 06:49] LABS: Anion Gap 9 mmol/L; Blood Urea Nitrogen 12 mg/dL (7-17); Calcium 9.6 mg/dL (8.4-10.2); Carbon Dioxide 25 mmol/L (22-30); Chloride 98 mmol/L (98-107); Glucose 90 mg/dL (74-99); Sodium 132 mmol/L (137-145)
[2017-10-28] MEDS ORDERED: CLOPIDOGREL 75 MG TAB PO SCH (09:00)
[2017-10-28] MEDS: ATORVASTATIN 80 MG TAB PO SCH (09:55)
[2017-10-28] MEDS: ISOSORBIDE MONONITRATE ER 30 MG TAB.ER.24H PO SCH (09:55)
[2017-10-28] MEDS: LOSARTAN 25 MG TAB PO SCH (09:55)
[2017-10-28] MEDS: ASPIRIN 81 MG PO SCH (09:55)
--- NOTE | 2017-10-28 12:19 | P.PN ---
Subjective Progress Note Date: 10/28/17 Principal diagnosis: NSTEMI, CHF This is a pleasant 77-year-old female patient follows regularly with Dr. Hi in the office. She has a known history of chronic atrial fibrillation , ischemic cardiomyopathy with prior documented ejection fraction of 25-30%, prior pacemaker implantation, hypertension, hyperlipidemia, CAD with prior bypass surgery in 2002. Patient presented on this occasion with symptoms of exertional shortness of breath and chest heaviness. Progressively getting worse over the three-day period. Troponin was found to be elevated. Chest x- ray on admission showed cardiomegaly with a small right pleural effusion. She underwent NARENDRA which showed severe mitral regurgitation secondary to poor coaptation of the mitral leaflet related to severe enlargement of the left atrium, moderate tricuspid regurgitation, mild aortic regurgitation, ischemic cardiomyopathy with moderate LV dysfunction and ejection fraction of 40%. She subsequently underwent cardiac catheterization which showed [place] 3 vessel CAD with a new lesion within the circumflex coronary artery, patent venous graft to the right coronary artery and diagonal and atretic MADISON to LAD. Treatment options including redo bypass with mitral valve repair versus attempting angioplasty of the [place] circumflex as well as possible stent the left main were discussed with the patient and she wished to proceed with stenting. She subsequently underwent successful stenting of the distal left circumflex with reduction of stenosis from 99% to 0% by Dr. Pearce. Upon examination, patient has been up ambulating without difficulties. She denies further complaints of shortness of breath or chest heaviness. She is overall feeling much better. Objective - Vital Signs Vital signs: Vital Signs Temp 97.8 F 10/28/17 08:00 Pulse 80 10/28/17 08:00 Resp 16 10/28/17 08:00 BP 124/65 10/28/17 08:00 Pulse Ox 100 10/28/17 08:00 Intake & Output 10/27/17 10/28/17 10/28/17 18:59 06:59 18:59 Intake Total 1384 240 Output Total 1000 Balance 384 240 Weight 55.8 kg Intake: IV 928 Sodium Chloride 0.9% 1, 800 000 ml @ 100 mls/hr IV . Q10H ANKUSH Rx#:[id number] Oral 456 240 Output: Urine 1000 Other: Voiding Method Toilet # Voids 1 2 # Bowel Movements 0 - Exam PHYSICAL EXAMINATION: HEENT: [Head is atraumatic, normocephalic. Pupils equal, round. Neck is supple. There is no elevated jugular venous pressure.] HEART EXAMINATION: [Heart sounds irregularly irregular, S1 and S2 with a systolic murmur.] CHEST EXAMINATION:[ Lungs are clear to auscultation and precussion. No chest wall tenderness is noted on palpation or with deep breathing.] ABDOMEN: [ Soft, nontender. Bowel sounds are heard. No organomegaly noted]. EXTREMITIES:[ 2+ peripheral pulses with no evidence of peripheral edema and no calf tenderness noted. Right femoral puncture site soft without ecchymosis or hematoma.]. NEUROLOGIC [patient is awake, alert and oriented x3.] . - Labs CBC & Chem 7: 10/27/17 06:33 10/28/17 05:55 Labs: Abnormal Lab Results - Last 24 Hours (Table) 10/28/17 10/28/17 Range/Units 05:55 05:55 PT 13.9 H (9.0-12.0) sec INR 1.5 H (<1.2) Sodium 132 L (137-145) mmol/L Assessment and Plan Assessment: #1 non-ST elevation [place] #2 status post stent placement to the distal circumflex #3 severe mitral regurgitation #4 hypertension #5 hyperlipidemia #6 ischemic cardiomyopathy #7 chronic atrial fibrillation, on Coumadin #8 prior pacemaker implantation Plan: From cardiology's perspective, continue atorvastatin 80 mg by mouth daily, carvedilol 3.125 mg by mouth twice a day, Plavix 75 mg by mouth daily, Lasix 40 mg by mouth twice a day, isosorbide mononitrate ER 30 mg by mouth daily, losartan 25 mg by mouth daily, Coumadin to maintain an INR between 2 and 3 and aspirin 81 mg at this time. She will follow-up with Dr. Santos in the office in about a week. GAME MODERATOR note has been reviewed, I agree with a documented findings and plan of care. Patient was seen and examined.
[2017-10-28 13:50] VITALS: BP 116/72; PULSE 74; RESP 18; TEMP 98
--- NOTE | 2017-10-28 18:23 | DS ---
DISCHARGE SUMMARY DATE OF SERVICE: 10/28/2017. FINAL DIAGNOSES: 1. Congestive heart failure acute exacerbation with acute on chronic systolic dysfunction, ejection fraction 40% with severe mitral regurgitation, moderate tricuspid regurgitation, mild aortic regurgitation on the transesophageal echocardiogram. 2. Status post cardiac catheterization and angioplasty and stenting of the circumflex. 3. Troponin 0.105. Possible acute non-ST elevation myocardial infarction, present on admission, my indicate possible ischemic cardiomyopathy. 4. History of pacemaker. 5. Mild to moderate pulmonary hypertension. 6. Chronic persistent atrial fibrillation. 7. Hyperlipidemia. 8. History of coronary artery disease, coronary artery bypass graft. 9. Remote history of nicotine dependence. 10.Hypertension. DISCHARGE DISPOSITION: The patient discharged in stable condition with guarded prognosis. HISTORY OF PRESENT ILLNESS: This 77-year-old woman with a past medical history of multiple medical problems as mentioned earlier, being followed by Dr. Connell in the outpatient setting, admitted with CHF and multiple other medical issues as mentioned earlier. NARENDRA showed severe mitral regurgitation. I recommend to continue with medical treatment, continue follow up in the outpatient setting. Otherwise, the patient also had a cardiac cath and stenting. The patient treated symptomatically and medication adjusted. Cardiology saw the patient. The patient improved significantly. EXAM: Vitals are stable. CARDIOVASCULAR: S1, S2. ABDOMEN: Soft. NERVOUS SYSTEM: No focal deficits. The patient discharged in a stable condition with a guarded prognosis with the following advice and medications: 1. Diet is cardiac. 2. Activity limited until followup. 3. Follow up with Dr. Connell in 2-3 days. 4. Follow up with Dr. Santos in 1 week. 5. Medications: a. Aspirin 81 mg daily. b.Coumadin 2 mg Tuesday, Tuesday, Tuesday, Tuesday, , Tuesday and 1 mg Tuesday. c. Lipitor 80 mg p.o. daily. d. Coreg 3.125 mg p.o. with meals b.i.d. e. Plavix 75 mg p.o. daily. f. Lasix 40 mg p.o. b.i.d. g. Imdur ER 30 mg p.o. daily. h. Cozaar 25 mg daily. i. Melatonin 5 mg q.h.s. j. Nitrostat 0.4 sublingual p.r.n. 6. Followup labs; CBC, BMP in the outpatient setting. Continue to monitor the potassium and renal functions and monitor PT/INR also. Once again, the patient will be discharged in stable condition with a guarded prognosis. SUSANNAH / JEFFREYN: [id number] /
[2017-10-28] MEDS ORDERED: WARFARIN 1 MG TAB PO SCH (20:05)
== END 2017-10-28 14:59 | disposition home or self-care (01) | DRG 246 ==
LOC: EC 12:39 → 6SEL 15:24
PROVIDERS: ADMIT Hospitalist; ATTEND Hospitalist
PROC: B2131ZZ Fluoroscopy of Multiple Coronary Artery Bypass Grafts using Low Osmolar Contrast (ICD-10-PCS; 2017-10-27)
PROC: B2111ZZ Fluoroscopy of Multiple Coronary Arteries using Low Osmolar Contrast (ICD-10-PCS; 2017-10-27)
PROC: 027034Z Dilation of Coronary Artery, One Artery with Drug-eluting Intraluminal Device, Percutaneous Approach (ICD-10-PCS; principal; 2017-10-27 07:18)
PROC: 4A023N7 Measurement of Cardiac Sampling and Pressure, Left Heart, Percutaneous Approach (ICD-10-PCS; 2017-10-27 07:18)
DX: I21.4 Non-ST elevation (NSTEMI) myocardial infarction (principal); I50.23 Acute on chronic systolic (congestive) heart failure; E78.5 Hyperlipidemia, unspecified; I08.3 Combined rheumatic disorders of mitral, aortic and tricuspid valves; I11.0 Hypertensive heart disease with heart failure; I25.10 Atherosclerotic heart disease of native coronary artery without angina pectoris; I25.5 Ischemic cardiomyopathy; I27.20 Pulmonary hypertension, unspecified; I48.2 Chronic atrial fibrillation; I49.3 Ventricular premature depolarization; F32.9 Major depressive disorder, single episode, unspecified; Z79.01 Long term (current) use of anticoagulants; Z79.82 Long term (current) use of aspirin; Z79.899 Other long term (current) drug therapy; Z95.0 Presence of cardiac pacemaker; Z87.891 Personal history of nicotine dependence; Z85.3 Personal history of malignant neoplasm of breast; Z90.49 Acquired absence of other specified parts of digestive tract; Z98.42 Cataract extraction status, left eye; Z98.41 Cataract extraction status, right eye; Z96.1 Presence of intraocular lens; Z88.5 Allergy status to narcotic agent; Z95.1 Presence of aortocoronary bypass graft; Z83.3 Family history of diabetes mellitus; Z82.49 Family history of ischemic heart disease and other diseases of the circulatory system
CPT/HCPCS: 36415; 71046; 80048; 80053; 80061; 82550; 82553; 83690; 83735; 83880; 84484; 85025; 85347; 85610; 85730; 93005; 93306; 93312; 93320; 93325; 93458; 99291

== ENCOUNTER 2017-11-16 10:51 | Observation (INO) | payer MEDICARE, BC ==
[2017-11-16] MEDS ORDERED: FUROSEMIDE 10 MG/ML 4 ML VIAL IV STA (11:04)
--- NOTE | 2017-11-16 11:23 | ED ---
General Adult HPI - General Chief complaint: Shortness of Breath Stated complaint: MATI Source: patient Mode of arrival: ambulatory Limitations: no limitations - History of Present Illness Initial comments: Dictation was produced using [employer] dictation software. please excuse any grammatical, word or spelling errors. Chief Complaint: 77-year-old female presents with instructions from camp boss to come to the emergency department for CHF exacerbation. History of Present Illness: Patient is 77-year-old female sent in by her camp boss for CHF exacerbation. Patient has a history of recent stent placement. Patient also has a history of leaky mitral valve. Cytogeneticist who called prior to patient transfer reports that patient should be admitted for CHF exacerbation. Patient feels well. She has been having difficulty with shortness of breath especially with exertion. It did not seem to improve after the stent placement. She was sent here for further evaluation. There's plans for patient to have mitral valve procedure. The ROS documented in this emergency department record has been reviewed and confirmed by me. Those systems with pertinent positive or negative responses have been documented in the HPI. All other systems are other negative and/or noncontributory. - Related Data Home Medications Medication Instructions Recorded Confirmed Aspirin 81 mg PO DAILY 12/17/13 11/16/17 Warfarin [Coumadin] 2 mg PO SUMOTUWETHSA 12/17/13 11/16/17 Warfarin [Coumadin] 1 mg PO FR 12/18/16 11/16/17 Previous Rx's Medication Instructions Recorded Melatonin 5 mg PO HS tab 12/21/16 Atorvastatin [Lipitor] 80 mg PO DAILY #90 tab 10/28/17 Carvedilol [Coreg] 3.125 mg PO BID-W/MEALS #180 tab 10/28/17 Clopidogrel [Plavix] 75 mg PO DAILY #90 tab 10/28/17 Furosemide [Lasix] 40 mg PO BID #180 tab 10/28/17 Isosorbide Mononitrate ER [Imdur] 30 mg PO DAILY #90 tab.er.24h 10/28/17 Losartan [Cozaar] 25 mg PO DAILY #90 tab 10/28/17 Nitroglycerin Sl Tabs [Nitrostat] 0.4 mg SUBLINGUAL Q5M PRN #25 tab 10/28/17 Allergies Allergy/AdvReac Type Severity Reaction Status Date / Time codeine AdvReac Nausea & Verified 11/16/17 11:23 Vomiting Review of Systems ROS Statement: Those systems with pertinent positive or pertinent negative responses have been documented in the HPI. ROS Other: All systems not noted in ROS Statement are negative. Past Medical History Past Medical History: Atrial Fibrillation, Coronary Artery Disease (CAD), Cancer , Heart Failure, Hyperlipidemia Additional Past Medical History / Comment(s): breast cancer left side, loc dz History of Any Multi-Drug Resistant Organisms: None Reported Past Surgical History: Adenoidectomy, Appendectomy, Breast Surgery, Coronary Bypass/CABG, Heart Catheterization With Stent, Pacemaker, Tonsillectomy Additional Past Surgical History / Comment(s): left side lumpectomy, bialteral cataract removed Past Anesthesia/Blood Transfusion Reactions: No Reported Reaction Type of Cardiac Device: Permanent Pacemaker Device Placement Date:: 2006 Past Psychological History: No Psychological Hx Reported Smoking Status: Former smoker Past Alcohol Use History: Occasional Past Drug Use History: None Reported - Past Family History Mother Family Medical History: Diabetes Mellitus Additional Family Medical History / Comment(s): cabbag Father Family Medical History: Pulmonary Embolus General Exam - General Exam Comments Initial Comments: PHYSICAL EXAM: General Impression: Alert and oriented x3, not in acute distress HEENT: Normocephalic atraumatic, extra-ocular movements intact, pupils equal and reactive to light bilaterally, mucous membranes moist. Cardiovascular: Heart regular rate and rhythm, S1&S2 audible, no murmurs, rubs or gallops Chest: Bilateral lung crackles Abdomen: Bowel sounds present, abdomen soft, non-tender, non-distended, no organomegaly Musculoskeletal: Pulses present and equal in all extremities, no peripheral edema Motor: Power 5/5 bilaterally, no focal deficits noted Neurological: CN II-XII grossly intact, no focal motor or sensory deficits noted Skin: Intact with no visualized rashes Psych: Normal affect and mood Limitations: no limitations Course Vital Signs 11/16/17 11/16/17 11/16/17 10:54 12:47 13:44 Temperature 97.6 F Pulse Rate 92 83 86 Respiratory 20 16 16 Rate Blood Pressure 105/61 132/68 104/55 O2 Sat by Pulse 98 98 99 Oximetry 11/16/17 14:57 Temperature Pulse Rate 105 H Respiratory 18 Rate Blood Pressure 129/74 O2 Sat by Pulse 97 Oximetry Medical Decision Making - Medical Decision Making ED course: 77-year-old female presents with persistent exertional shortness of breath vital signs upon arrival are within acceptable limits. Patient has extensive cardiac history. She was instructed by her camp boss, for admission. There's plans for mitral valve procedure to be performed in the near future. Laboratory evaluation obtained. CBC unremarkable. INR is therapeutic. Patient is on Coumadin. Metabolic panel is unremarkable. There is no Acidosis. Reticulocyte enzymes are negative. Brain natruretic peptide is elevated at 8580. Patient is hemodynamically stable she's not showing any signs of labored breathing. No respiratory distress. Patient be admitted per request by cardiology. There is plans to do mitral valve procedure. Patient appears clinically stable at this time. EKG interpretation: Ventricular rate 81, normal sinus rhythm, AZ interval 180, Q cheondoism 132, QTc 532. No AZ prolongation, no QTC prolongation, no ST or T- wave changes noted. Findings show right bundle branch block which is likely secondary to patient's cardiomyopathy. No signs of ischemia. - Lab Data Result diagrams: 11/16/17 11:38 11/16/17 13:08 Lab Results 11/16/17 11/16/17 11/16/17 Range/Units 11:38 11:38 11:38 WBC 6.8 (3.8-10.6) k/uL RBC 3.78 L (3.80-5.40) m/uL Hgb 12.2 (11.4-16.0) gm/dL Hct 37.6 (34.0-46.0) % MCV 99.5 (80.0-100.0) fL MCH 32.2 (25.0-35.0) pg MCHC 32.4 (31.0-37.0) g/dL RDW 13.3 (11.5-15.5) % Plt Count 263 (150-450) k/uL Neutrophils % 69 % Lymphocytes % 20 % Monocytes % 7 % Eosinophils % 1 % Basophils % 1 % Neutrophils # 4.7 (1.3-7.7) k/uL Lymphocytes # 1.3 (1.0-4.8) k/uL Monocytes # 0.5 (0-1.0) k/uL Eosinophils # 0.1 (0-0.7) k/uL Basophils # 0.1 (0-0.2) k/uL PT (9.0-12.0) sec INR (<1.2) APTT (22.0-30.0) sec Sodium (137-145) mmol/L Potassium (3.5-5.1) mmol/L Chloride (98-107) mmol/L Carbon Dioxide (22-30) mmol/L Anion Gap mmol/L BUN (7-17) mg/dL Creatinine (0.52-1.04) mg/dL Est GFR (CKD-EPI)AfAm (>60 ml/min/1.73 sqM) Est GFR (CKD-EPI)NonAf (>60 ml/min/1.73 sqM) Glucose (74-99) mg/dL Calcium (8.4-10.2) mg/dL Magnesium (1.6-2.3) mg/dL Total Bilirubin (0.2-1.3) mg/dL AST (14-36) U/L ALT (9-52) U/L Alkaline Phosphatase (38-126) U/L Total Creatine Kinase 55 (30-135) U/L CK-MB (CK-2) 1.1 (0.0-2.4) ng/mL CK-MB (CK-2) Rel Index 2.0 Troponin I (0.000-0.034) ng/mL NT-Pro-B Natriuret Pep 8580 pg/mL Total Protein (6.3-8.2) g/dL Albumin (3.5-5.0) g/dL 11/16/17 11/16/17 11/16/17 Range/Units 11:38 13:08 13:08 WBC (3.8-10.6) k/uL RBC (3.80-5.40) m/uL Hgb (11.4-16.0) gm/dL Hct (34.0-46.0) % MCV (80.0-100.0) fL MCH (25.0-35.0) pg MCHC (31.0-37.0) g/dL RDW (11.5-15.5) % Plt Count (150-450) k/uL Neutrophils % % Lymphocytes % % Monocytes % % Eosinophils % % Basophils % % Neutrophils # (1.3-7.7) k/uL Lymphocytes # (1.0-4.8) k/uL Monocytes # (0-1.0) k/uL Eosinophils # (0-0.7) k/uL Basophils # (0-0.2) k/uL PT 27.2 H (9.0-12.0) sec INR 3.0 H (<1.2) APTT 32.3 H (22.0-30.0) sec Sodium 134 L (137-145) mmol/L Potassium 4.4 (3.5-5.1) mmol/L Chloride 99 (98-107) mmol/L Carbon Dioxide 24 (22-30) mmol/L Anion Gap 11 mmol/L BUN 18 H (7-17) mg/dL Creatinine 0.68 (0.52-1.04) mg/dL Est GFR (CKD-EPI)AfAm >90 (>60 ml/min/1.73 sqM) Est GFR (CKD-EPI)NonAf 84 (>60 ml/min/1.73 sqM) Glucose 91 (74-99) mg/dL Calcium 9.5 (8.4-10.2) mg/dL Magnesium 2.0 (1.6-2.3) mg/dL Total Bilirubin 1.6 H (0.2-1.3) mg/dL AST 34 (14-36) U/L ALT 31 (9-52) U/L Alkaline Phosphatase 107 (38-126) U/L Total Creatine Kinase (30-135) U/L CK-MB (CK-2) (0.0-2.4) ng/mL CK-MB (CK-2) Rel Index Troponin I 0.015 (0.000-0.034) ng/mL NT-Pro-B Natriuret Pep pg/mL Total Protein 6.8 (6.3-8.2) g/dL Albumin 4.0 (3.5-5.0) g/dL Disposition Clinical Impression: CHF (congestive heart failure) Disposition: ADMITTED IP TO THIS HOSP Referrals: Car Connell DO [Primary Care Provider] - 1-2 days Decision Time: 15:01
[2017-11-16 12:38] LABS: Basophils # (A) 0.1 k/uL (0-0.2); Basophils % (A) 1 %; Eosinophils # (A) 0.1 k/uL (0-0.7); Eosinophils % (A) 1 %; HCT 37.6 % (34.0-46.0); HGB 12.2 gm/dL (11.4-16.0); Lymphocytes # (A) 1.3 k/uL (1.0-4.8); Lymphocytes % (A) 20 %; MCH 32.2 pg (25.0-35.0); MCHC 32.4 g/dL (31.0-37.0); MCV 99.5 fL (80.0-100.0); Mean Platelet Volume 6.9; Monocytes # (A) 0.5 k/uL (0-1.0); Monocytes % (A) 7 %; Neutrophils # (A) 4.7 k/uL (1.3-7.7); Neutrophils % (A) 69 %; Platelet Count 263 k/uL (150-450); RBC 3.78 m/uL (3.80-5.40); RDW 13.3 % (11.5-15.5); WBC 6.8 k/uL (3.8-10.6)
[2017-11-16 12:43] LABS: Partial Thromboplastin Time 32.3 sec (22.0-30.0); Prothrombin Time 27.2 sec (9.0-12.0)
[2017-11-16 13:05] LABS: Creatine Kinase MB 1.1 ng/mL (0.0-2.4)
[2017-11-16 13:42] LABS: ALT 31 U/L (9-52); AST 34 U/L (14-36); Alkaline Phosphatase 107 U/L (38-126); Anion Gap 11 mmol/L; Blood Urea Nitrogen 18 mg/dL (7-17); Calcium 9.5 mg/dL (8.4-10.2); Carbon Dioxide 24 mmol/L (22-30); Chloride 99 mmol/L (98-107); Glucose 91 mg/dL (74-99); Potassium 4.4 mmol/L (3.5-5.1); Sodium 134 mmol/L (137-145); Total Bilirubin 1.6 mg/dL (0.2-1.3); Total Protein 6.8 g/dL (6.3-8.2)
[2017-11-16] MEDS ORDERED: NALOXONE 0.4 MG/ML 1 ML VIAL IV PRN (14:58)
[2017-11-16] MEDS ORDERED: NITROGLYCERIN SL TABS 0.4 MG TAB SUBLINGUAL PRN (20:19)
[2017-11-16] MEDS: WARFARIN 2 MG TAB PO SCH (20:52)
[2017-11-16] MEDS: MELATONIN 5 MG TABLET PO SCH (20:53)
[2017-11-16] MEDS: CARVEDILOL 3.125 MG TAB PO SCH (20:53)
[2017-11-16] MEDS ORDERED: FUROSEMIDE 40 MG TAB PO SCH (21:00)
[2017-11-16] MEDS ORDERED: TEMAZEPAM 7.5 MG CAP PO STA (21:42)
--- NOTE | 2017-11-16 22:11 | XR ---
EXAMINATION TYPE: XR chest 2V DATE OF EXAM: 11/16/2017 COMPARISON: NONE HISTORY: Short of breath. Heart failure. TECHNIQUE: Frontal and lateral views of the chest are obtained. FINDINGS: Heart is slightly enlarged. There is left axillary pacemaker with the lead tips in the rig ht ventricle there are sternal wires. There are chest leads. There is some blunting of right costophr enic angle. Bony thorax appears intact. There is mild pulmonary interstitial edema. IMPRESSION: Small pleural effusions and minimal pulmonary congestion is consistent with mild heart f ailure. This appears slightly worse than last exam.
--- NOTE | 2017-11-16 22:52 | HP ---
HISTORY AND PHYSICAL DATE OF ADMISSION: 11/16/2017. PRESENTING COMPLAINT: Short of breath. HISTORY OF PRESENTING COMPLAINT: This is a very pleasant 77-year-old patient who follows with Dr. Connell. Chronic stable medical conditions include atrial fibrillation, hyperlipidemia, osteoarthritis, bilateral Raynaud syndrome, chronic thoracic back pain and scoliosis. The patient on October 23 was here in the hospital. She had a NARENDRA done by Dr. Yecenia Santos and the patient was found to have severe mitral regurgitation with poor coaptation of the mitral leaflet, moderate tricuspid regurgitation and ischemic cardiomyopathy, EF of 40%. Patient also underwent cardiac catheterization by Dr. Pearce and had angioplasty and stenting done when the patient was found to have triple-vessel disease. Patient has had prior grafts, and successful angioplasty and stenting was carried out to the distal left circumflex. Patient gets these episodes of shortness of breath yet again. The patient presented with onset of shortness of breath with some orthopnea. No edema. The patient has got a slight cough. No sputum production. No fever or chills. She was sent in by Dr. Santos with a diagnosis of congestive heart failure. Patient's 2 daughters are at the bedside. REVIEW OF SYSTEMS: CONSTITUTIONAL: Tired. HEENT: None. RESPIRATORY: As above. CARDIOVASCULAR: As above. GASTROINTESTINAL: None. GENITOURINARY: None. MUSCULOSKELETAL: Chronic pain in the joints. DERMATOLOGICAL: None. HEMATOLOGICAL: None. LYMPHATICS: None. PSYCHIATRY: None. NEUROLOGICAL: None. PAST MEDICAL HISTORY: 1. Atrial fibrillation. 2. Coronary artery disease. 3. Congestive heart failure, EF 40%. 4. Stroke. 5. Hyperlipidemia. 6. Osteoarthritis. 7. Non-ST elevation 2 weeks ago with stent to the circumflex. 8. Severe mitral regurgitation. 9. Moderate tricuspid regurgitation. 10.Left breast cancer with lumpectomy and chemotherapy. 11.TIAs. 12.Bilateral Raynaud. 13.Chronic low and thoracic back pain. 14.Scoliosis. PAST SURGICAL HISTORY: 1. Adenoidectomy. 2. Appendectomy. 3. Left breast surgery. 4. Coronary artery bypass. 5. Cardiac cath with stent. 6. Pacemaker. 7. Recent stent to the circumflex. 8. In 2002 had the 3-vessel bypass. 9. Left breast lumpectomy. 10.Bilateral cataract removal. 11.Bilateral carpal tunnel. 12.Bilateral hand trigger finger release. SOCIAL HISTORY: Lives by herself. Patient smoked for about 28 years, stopped in 1969. Alcohol occasional. FAMILY HISTORY: Coronary artery disease, diabetes. HOME MEDICATIONS: 1. Coumadin 1 mg on Tuesday, 2 mg on Tuesday, Tuesday, Tuesday, Tuesday, , Tuesday. 2. Nitrostat 0.4 sublingually q.5 p.r.n. 3. Melatonin 5 mg at bedtime. 4. Cozaar 25 mg p.o. daily. 5. Imdur ER 30 mg p.o. daily. 6. Lasix 40 mg p.o. b.i.d. 7. Plavix 75 mg p.o. daily. 8. Coreg 3.125 p.o. b.i.d. 9. Lipitor 80 mg p.o. daily. 10.Aspirin 81 mg p.o. daily. ALLERGIES: CODEINE. PHYSICAL EXAMINATION: VITAL SIGNS ON PRESENTATION: Temperature 97.6, pulse 92, respiration 20, blood pressure 105/61, pulse ox 98% on room air. GENERAL APPEARANCE: Average build. Lying in bed. EYES: Pupils equal. Conjunctivae normal. HEENT: External appearance of nose and ears normal. Oral cavity normal. NECK: JVD raised. Mass not palpable. RESPIRATORY: Effort increased. LUNGS: Clear. CARDIOVASCULAR: First and second sounds normal. No edema. Some systolic murmur. ABDOMEN: Soft, nontender. Liver and spleen not palpable. LYMPHATIC: No lymph node palpable in neck or axillae. PSYCHIATRY: Alert and oriented x3. Mood and affect normal. NEUROLOGICAL: Pupils equal. Cranial nerves grossly intact. Power and sensation grossly intact. MUSCULOSKELETAL: Evidence of osteoarthritis, especially in the hands and knees. INVESTIGATIONS: White count 6.8, hemoglobin 12.2. INR is 3. Potassium 4.4, BUN 18, creatinine 0.68. EKG tracing interpreted by me shows right bundle branch block pattern, sinus rhythm. ASSESSMENT: 1. Acute on chronic congestive heart failure exacerbation from systolic dysfunction, ejection fraction 40%, from underlying ischemic cardiomyopathy. Patient probably has a very high end-diastolic filling pressure, and even though the lungs are clear, it is expected that patient needs to be kept in negative fluid balance. Of course, more importantly patient will need mitral valve repair, but because of her recent coronary intervention, this may have to be postponed. Patient is being followed by Dr. Yecenia Santos, and we will wait to see which cardiothoracic team he also already discussed this with, as per the patient. 2. Paroxysmal atrial fibrillation, currently in sinus rhythm. 3. Hyperlipidemia. 4. Primary osteoarthritis. 5. Severe mitral regurgitation, moderate tricuspid regurgitation, non-rheumatic. 6. Bilateral Raynaud syndrome. 7. Chronic low back and thoracic pain from osteoarthritis. 8. Recent non-Q-wave myocardial infarction with a stent to the circumflex on 10/24/2017. 9. Coumadin monitoring. PLAN: Home medications to continue. Will start the patient on IV Lasix 40 q.8 for at least 3 doses. Chest x-ray has been ordered. Patient will be put on a fluid restriction. Consultation to Cardiology has been made. We will hold off the consultation to Cardiothoracic Surgery until the patient is seen by Cardiology. Care was discussed with the patient and daughters at the bedside. MMODL / IJN: [id number] /
[2017-11-17] MEDS ORDERED: FUROSEMIDE 10 MG/ML 4 ML VIAL IV SCH (06:00)
[2017-11-17] MEDS: CARVEDILOL 3.125 MG TAB PO SCH ×2 (06:48→17:09)
[2017-11-17 07:16] LABS: INR 3.1 (<1.2); Prothrombin Time 27.4 sec (9.0-12.0)
[2017-11-17] MEDS: ASPIRIN 81 MG PO SCH (08:24)
[2017-11-17] MEDS: ATORVASTATIN 80 MG TAB PO SCH (08:24)
[2017-11-17] MEDS: CLOPIDOGREL 75 MG TAB PO SCH (08:24)
[2017-11-17] MEDS: ISOSORBIDE MONONITRATE ER 30 MG TAB.ER.24H PO SCH (08:25)
--- NOTE | 2017-11-17 10:58 | P.CRDCN ---
History of Present Illness Consult date: 11/17/17 Requesting physician: Anjel Pan Consult reason: congestive heart failure Chief complaint: Shortness of breath History of present illness: This is a 77-year-old female who follows regularly with Dr. Hi in the office. She has a known history of chronic persistent atrial fibrillation, ischemic cardio myopathy with prior documented ejection fraction of 25-30%, prior pacemaker implantation, hypertension, hyperlipidemia, coronary artery disease with prior bypass surgery in 2002 at which time the patient underwent a MADISON to the LAD, saphenous vein graft to the first diagonal branch, saphenous vein graft to the RCA. She was just recently in the hospital in October of this year and at that time underwent a cardiac catheterization, she was admitted with a non-ST elevation myocardial infarction. Cardiac catheterization was performed which revealed [place] 3 vessel coronary artery disease with a new lesion within the circumflex, a patent vein graft to the right coronary artery and diagonal MADISON to the LAD appears atretic. Subsequent to that patient underwent successful stenting of the distal circumflex by Dr. Pearce. Patient also underwent a transesophageal echocardiographic study which revealed severe mitral regurgitation secondary to poor coaptation of the mitral leaflet related to severe enlargement of the left atrium, moderate tricuspid regurg, ischemic cardio myopathy with moderate LV dysfunction ejection fraction documented at that time to be 40%. According to the patient, she's been quite short of breath at home, she went to see Dr. Hi in the office yesterday who advised that she come to the hospital for admission. Patient also states that Dr. Hi was going to make some phone calls regarding getting her valve fixed. Chest x- ray on admission here showed small pleural effusions and minimal pulmonary congestion consistent with mild heart failure. X-ray appeared worsened prior exam. EKG showed normal sinus rhythm with a right bundle branch block pattern. Nonspecific ST-T wave changes. White blood cell count is normal, hemoglobin 12.2, platelet count 263. INR 3.1. Sodium 134, potassium 4.4, BUN 18, creatinine 0.6. Magnesium 2.0. Troponin 0.015. BNP level 8580. Patient was initiated on IV Lasix, has diuresed well through the night last night, this morning states that she feels significantly better overall. Past Medical History Past Medical History: Atrial Fibrillation, Coronary Artery Disease (CAD), Cancer , Chest Pain / Angina, Heart Failure, CVA/TIA, Hyperlipidemia, Osteoarthritis ( OA) Additional Past Medical History / Comment(s): Pt recently admitted to [facility] on with CHF, possible NSTEMI and had PCI with stent to circ. Other Hx: Severe mitral regurgitation-to have valve surgery soon, moderate tricuspid regurg, mild aortic regurg, ischemic cardiomyopathy, L breast cancer with lumpectomy/chem and radiation, TIAs, bilateral raynaulds syndrome, chronic low and thoracic back a pain/scoliosis, past head injury, bronchtisi. History of Any Multi-Drug Resistant Organisms: None Reported Past Surgical History: Adenoidectomy, Appendectomy, Breast Surgery, Coronary Bypass/CABG, Heart Catheterization, Heart Catheterization With Stent, Orthopedic Surgery, Pacemaker, Tonsillectomy Additional Past Surgical History / Comment(s): 10/25/17 NARENDRA, 10/27/17 PCI with stent to circumflex, 2002 CABG 3 vessel, left side lumpectomy, bialteral cataract removed, bilateral carpal tunnel releases, bilateral hand trigger finger releases, back injection, D&C, Past Anesthesia/Blood Transfusion Reactions: Postoperative Nausea & Vomiting ( PONV) Additional Past Anesthesia/Blood Transfusion Reaction / Comment(s): Pt has received blood in past without reaction. Date of Last Stent Placement:: 10/27/17 Type of Cardiac Device: Permanent Pacemaker Device Placement Date:: 2006 Past Psychological History: No Psychological Hx Reported Additional Psychological History / Comment(s): Pt resides alone. She is independent. Smoking Status: Former smoker Past Alcohol Use History: Occasional Additional Past Alcohol Use History / Comment(s): Pt started smoking in 1952 and quit in 1970. Past Drug Use History: None Reported - Past Family History Mother Family Medical History: Coronary Artery Disease (CAD), Diabetes Mellitus Additional Family Medical History / Comment(s): cabg Father Family Medical History: Pulmonary Embolus Additional Family Medical History / Comment(s): Father of a pulmonary embolism at the age of 46yrs. Medications and Allergies Home Medications Medication Instructions Recorded Confirmed Type Aspirin 81 mg PO DAILY 12/17/13 11/16/17 History Warfarin [Coumadin] 2 mg PO SUMOTUWETHSA 12/17/13 11/16/17 History Warfarin [Coumadin] 1 mg PO FR 12/18/16 11/16/17 History Melatonin 5 mg PO HS tab 12/21/16 11/16/17 Rx Atorvastatin [Lipitor] 80 mg PO DAILY #90 tab 10/28/17 11/16/17 Rx Carvedilol [Coreg] 3.125 mg PO BID-W/MEALS #180 tab 10/28/17 11/16/17 Rx Clopidogrel [Plavix] 75 mg PO DAILY #90 tab 10/28/17 11/16/17 Rx Furosemide [Lasix] 40 mg PO BID #180 tab 10/28/17 11/16/17 Rx Isosorbide Mononitrate ER [Imdur] 30 mg PO DAILY #90 tab.er.24h 10/28/17 Rx Losartan [Cozaar] 25 mg PO DAILY #90 tab 10/28/17 11/16/17 Rx Nitroglycerin Sl Tabs [Nitrostat] 0.4 mg SUBLINGUAL Q5M PRN #25 tab 10/28/1702/21 Rx Allergies Allergy/AdvReac Type Severity Reaction Status Date / Time codeine AdvReac Nausea & Verified 11/16/17 11:23 Vomiting Physical Exam Vitals: Vital Signs Temp Pulse Pulse Resp BP BP Pulse Ox 11/17/17 04:00 97.0 F L 83 16 111/60 97 11/16/17 23:15 109 H 19 11/16/17 23:13 96.8 F L 109 H 19 119/67 97 11/16/17 20:00 97.0 F L 106 H 19 130/77 99 11/16/17 17:00 97.4 F L 118 H 18 110/83 99 11/16/17 16:37 97 F L 93 16 116/69 99 11/16/17 14:57 105 H 18 129/74 97 11/16/17 13:44 86 16 104/55 99 11/16/17 12:47 83 16 132/68 98 11/16/17 10:54 97.6 F 92 20 105/61 98 Intake and Output 11/16/17 11/17/17 11/17/17 22:59 06:59 14:59 Intake Total 240 600 Balance 240 600 Intake: Oral 240 600 Other: Voiding Method Toilet Toilet # Voids 1 1 Weight 56.2 kg PHYSICAL EXAMINATION: GENERAL: 77-year-old female in no acute distress at the time of my examination HEENT: Head is atraumatic, normocephalic. Pupils equal, round. Sclera anicteric. Conjunctiva are clear. Mucous membranes of the mouth are moist. Neck is supple. There is no elevated jugular venous pressure. No carotid bruit is heard. HEART EXAMINATION: Heart S1 and S2 a systolic murmur is heard. CHEST EXAMINATION: Lungs are clear to auscultation and precussion. No chest wall tenderness is noted on palpation or with deep breathing. ABDOMEN: Soft, nontender. Bowel sounds are heard. No organomegaly noted. EXTREMITIES: 2+ peripheral pulses with no evidence of peripheral edema and no calf tenderness noted. NEUROLOGIC patient is awake, alert and oriented ?-3. . Results 11/16/17 11:38 11/17/17 06:54 Cardiac Enzymes 11/16/17 11/16/17 11/16/17 Range/Units 11:38 13:08 13:08 AST 34 (14-36) U/L CK-MB (CK-2) 1.1 (0.0-2.4) ng/mL Troponin I 0.015 (0.000-0.034) ng/mL Coagulation 11/16/17 11/17/17 Range/Units 11:38 06:45 PT 27.2 H 27.4 H (9.0-12.0) sec APTT 32.3 H (22.0-30.0) sec CBC 11/16/17 Range/Units 11:38 WBC 6.8 (3.8-10.6) k/uL RBC 3.78 L (3.80-5.40) m/uL Hgb 12.2 (11.4-16.0) gm/dL Hct 37.6 (34.0-46.0) % Plt Count 263 (150-450) k/uL Comprehensive Metabolic Panel 11/16/17 Range/Units 13:08 Sodium 134 L (137-145) mmol/L Potassium 4.4 (3.5-5.1) mmol/L Chloride 99 (98-107) mmol/L Carbon Dioxide 24 (22-30) mmol/L BUN 18 H (7-17) mg/dL Creatinine 0.68 (0.52-1.04) mg/dL Glucose 91 (74-99) mg/dL Calcium 9.5 (8.4-10.2) mg/dL AST 34 (14-36) U/L ALT 31 (9-52) U/L Alkaline Phosphatase 107 (38-126) U/L Total Protein 6.8 (6.3-8.2) g/dL Albumin 4.0 (3.5-5.0) g/dL Current Medications Generic Name Dose Route Start Last Admin Trade Name Freq PRN Reason Stop Dose Admin Aspirin 81 mg 11/17/17 09:00 11/17/17 08:24 Aspirin PO 81 mg DAILY ANKUSH Administration Atorvastatin Calcium 80 mg 11/17/17 09:00 11/17/17 08:24 Lipitor PO 80 mg DAILY ANKUSH Administration Carvedilol 3.125 mg 11/16/17 20:30 11/17/17 06:48 Coreg PO 3.125 mg BID-W/MEALS ANKUSH Administration Clopidogrel Bisulfate 75 mg 11/17/17 09:00 11/17/17 08:24 Plavix PO 75 mg DAILY ANKUSH Administration Furosemide 40 mg 11/17/17 06:00 11/17/17 06:48 Lasix IV 40 mg Q8H ANKUSH Administration Isosorbide Mononitrate 30 mg 11/17/17 09:00 11/17/17 08:25 Imdur PO 30 mg DAILY [facility] Administration Losartan Potassium 25 mg 11/17/17 09:00 Cozaar PO DAILY [facility] Melatonin 5 mg 11/16/17 21:00 11/16/17 20:53 Melatonin PO 5 mg HS ANKUSH Administration Naloxone HCl 0.2 mg 11/16/17 14:58 Narcan IV Q2M PRN Opioid Reversal Nitroglycerin 0.4 mg 11/16/17 20:19 Nitrostat SUBLINGUAL Q5M PRN Chest Pain Warfarin Sodium 1 mg 11/18/17 18:00 Coumadin PO FR [facility] Warfarin Sodium 2 mg 11/16/17 18:00 11/16/17 20:52 Coumadin PO 2 mg SUMOTUWETHSA ANKUSH Administration Intake and Output 11/16/17 11/17/17 11/17/17 22:59 06:59 14:59 Intake Total 240 600 Balance 240 600 Intake: Oral 240 600 Other: Voiding Method Toilet Toilet # Voids 1 1 Weight 56.2 kg 11/16/17 11:38 11/16/17 13:08 EKG Interpretations (text) EKG shows a normal sinus rhythm with right bundle branch block pattern and nonspecific ST-T wave changes Assessment and Plan Plan: Assessment and plan #1 systolic congestive heart failure acute on chronic #2 recent presentation to the hospital in October of this year with a non-ST elevation [place] at which time patient underwent angioplasty and stenting of the circumflex artery. #3 known history of coronary artery disease with prior bypass surgery in 2002 #4 Status post NARENDRA performed last month which revealed severe mitral regurgitation secondary to poor coaptation of the mitral leaflet #5 paroxysmal atrial fibrillation #6 ischemic cardiomyopathy #7 prior pacemaker implantation #8 hypertension #9 hyperlipidemia Plan We will discontinue the IV Lasix and start the patient on Lasix 40 mg one tablet by mouth twice a day check lytes BUN creatinine PT INR in the morning. Dr. Stephani Alberto also spoke with Dr. Anderson who will contact the patient at home on Tuesday regarding mitral valve procedure. In the meantime we will fax information to him and also send NARENDRA tape along with calf and PCI CDs to Dr. Anderson. DNP note has been reviewed, I agree with a documented findings and plan of care. Patient was seen and examined.
[2017-11-17 11:31] LABS: Anion Gap 15 mmol/L; Blood Urea Nitrogen 18 mg/dL (7-17); Calcium 8.6 mg/dL (8.4-10.2); Carbon Dioxide 23 mmol/L (22-30); Chloride 100 mmol/L (98-107); Glucose 109 mg/dL (74-99); Potassium 3.4 mmol/L (3.5-5.1); Sodium 138 mmol/L (137-145)
[2017-11-17] MEDS: LOSARTAN 25 MG TAB PO SCH (12:54)
[2017-11-17 15:15] VITALS: BMI 21.9
[2017-11-17] MEDS: FUROSEMIDE 20 MG TAB PO SCH (17:09)
[2017-11-17] MEDS: WARFARIN 2 MG TAB PO SCH (17:09)
--- NOTE | 2017-11-17 18:32 | PN ---
PROGRESS NOTE DATE OF SERVICE: November 17, 2017. PRESENTING COMPLAINT: Short of breath. INTERVAL HISTORY: This patient has multiple medical problems presented with shortness of breath. Has ischemic cardiomyopathy, recently had a stent placed. Does get IV Lasix. Breathing is better. Seen by Cardiology earlier today. Switched to p.o. Lasix. REVIEW OF SYSTEMS: Done for constitutional, cardiovascular, GI, pulmonary and relevant findings as above. CURRENT MEDICATIONS: Reviewed that include IV Lasix received this morning, now switched to 60 mg p.o. b.i.d. EXAMINATION: VITAL SIGNS: Temperature 96.9, pulse 109, respiratory 18, blood pressure 101/71, pulse ox 97 percent on room air. GENERAL APPEARANCE: Lying in bed, awake, comfortable. EYES: Pupils equal. Conjunctivae normal. HEENT: External appearance of nose and ears normal. Oral cavity normal. NECK: JVD raised. Mass not palpable. RESPIRATORY: Effort normal. LUNGS: Clear. CARDIOVASCULAR: 1st and second sounds normal. No edema. Systolic murmur. ABDOMEN: Soft, nontender. Liver and spleen not palpable. PSYCHIATRY: Alert and oriented x3. Mood and affect normal. INVESTIGATIONS: INR 3.1, BUN 18, creatinine 0.72. Chest x-ray film interpreted by me shows pulmonary edema from last night. ASSESSMENT: 1. Acute on chronic congestive heart failure exacerbation from systolic dysfunction, ejection fraction 40% from underlying ischemic cardiomyopathy. 2. Paroxysmal atrial fibrillation currently in sinus rhythm. 3. Hyperlipidemia. 4. Primary osteoarthritis. 5. Severe mitral regurgitation, moderate tricuspid regurgitation, nonrheumatic. 6. Bilateral Raynaud's syndrome. 7. Chronic low back pain and thoracic pain from osteoarthritis. 8. Recent non-Q-wave myocardial infarction with stent to the circumflex on October 24, 2017. 9. Coumadin monitoring. PLAN: Discussed with Dr. Alberto. They switched the patient over to oral Lasix. The patient is going to follow up with Dr. Anderson. Watch the patient overnight. Hopefully home tomorrow. MMODL / IJN: [id number] /
[2017-11-17] MEDS: MELATONIN 5 MG TABLET PO SCH (21:32)
[2017-11-18] MEDS: CARVEDILOL 3.125 MG TAB PO SCH (06:12)
[2017-11-18 06:45] LABS: Calcium 9.7 mg/dL (8.4-10.2); Potassium 3.7 mmol/L (3.5-5.1)
[2017-11-18 06:46] LABS: INR 2.4 (<1.2)
[2017-11-18] MEDS: ASPIRIN 81 MG PO SCH (08:15)
[2017-11-18] MEDS: ATORVASTATIN 80 MG TAB PO SCH (08:15)
[2017-11-18] MEDS: CLOPIDOGREL 75 MG TAB PO SCH (08:15)
[2017-11-18] MEDS: FUROSEMIDE 20 MG TAB PO SCH (08:15)
[2017-11-18] MEDS: ISOSORBIDE MONONITRATE ER 30 MG TAB.ER.24H PO SCH (08:16)
[2017-11-18] MEDS: LOSARTAN 25 MG TAB PO SCH (08:16)
[2017-11-18 09:30] VITALS: RESP 20
[2017-11-18 11:28] VITALS: BP 100/54; PULSE 89; TEMP 98
--- NOTE | 2017-11-18 12:39 | P.PN ---
Subjective Progress Note Date: 11/18/17 This is a 77-year-old female who follows regularly with Dr. Hi in the office. She has a known history of chronic persistent atrial fibrillation, ischemic cardio myopathy with prior documented ejection fraction of 25-30%, prior pacemaker implantation, hypertension, hyperlipidemia, coronary artery disease with prior bypass surgery in 2002 at which time the patient underwent a MADISON to the LAD, saphenous vein graft to the first diagonal branch, saphenous vein graft to the RCA. She was just recently in the hospital in October of this year and at that time underwent a cardiac catheterization, she was admitted with a non-ST elevation myocardial infarction. Cardiac catheterization was performed which revealed [place] 3 vessel coronary artery disease with a new lesion within the circumflex, a patent vein graft to the right coronary artery and diagonal MADISON to the LAD appears atretic. Subsequent to that patient underwent successful stenting of the distal circumflex by Dr. Pearce. Patient also underwent a transesophageal echocardiographic study which revealed severe mitral regurgitation secondary to poor coaptation of the mitral leaflet related to severe enlargement of the left atrium, moderate tricuspid regurg, ischemic cardio myopathy with moderate LV dysfunction ejection fraction documented at that time to be 40%. According to the patient, she's been quite short of breath at home, she went to see Dr. Hi in the office yesterday who advised that she come to the hospital for admission. Patient also states that Dr. Hi was going to make some phone calls regarding getting her valve fixed. Chest x- ray on admission here showed small pleural effusions and minimal pulmonary congestion consistent with mild heart failure. X-ray appeared worsened prior exam. EKG showed normal sinus rhythm with a right bundle branch block pattern. Nonspecific ST-T wave changes. White blood cell count is normal, hemoglobin 12.2, platelet count 263. INR 3.1. Sodium 134, potassium 4.4, BUN 18, creatinine 0.6. Magnesium 2.0. Troponin 0.015. BNP level 8580. Patient was initiated on IV Lasix, has diuresed well through the night last night, this morning states that she feels significantly better overall. 11/18/2017 seen and examined this morning, breathing is stable, she's been up ambulating without any difficulty.Eager to be discharged home today.blood pressure 100/50, heart rate in the 80s, 96% on room air.INR today 2.4. Objective - Vital Signs Vital signs: Vital Signs Temp 98.0 F 11/18/17 11:25 Pulse 89 11/18/17 11:25 Resp 20 11/18/17 11:25 BP 100/54 11/18/17 11:25 Pulse Ox 96 11/18/17 11:25 Intake & Output 11/17/17 11/18/17 11/18/17 18:59 06:59 18:59 Intake Total 480 477 Balance 480 477 Weight 56.2 kg 55.7 kg 55.7 kg Intake: Oral 480 477 Other: Voiding Method Toilet # Voids 3 1 1 - Exam PHYSICAL EXAMINATION: GENERAL: 77-year-old female in no acute distress at the time of my examination HEENT: Head is atraumatic, normocephalic. Pupils equal, round. Sclera anicteric. Conjunctiva are clear. Mucous membranes of the mouth are moist. Neck is supple. There is no elevated jugular venous pressure. No carotid bruit is heard. HEART EXAMINATION: Heart S1 and S2 a systolic murmur is heard. CHEST EXAMINATION: Lungs are clear to auscultation and precussion. No chest wall tenderness is noted on palpation or with deep breathing. ABDOMEN: Soft, nontender. Bowel sounds are heard. No organomegaly noted. EXTREMITIES: 2+ peripheral pulses with no evidence of peripheral edema and no calf tenderness noted. NEUROLOGIC patient is awake, alert and oriented ?-3. . - Labs CBC & Chem 7: 11/16/17 11:38 11/18/17 06:01 Labs: Abnormal Lab Results - Last 24 Hours (Table) 11/18/17 11/18/17 Range/Units 06:01 06:01 PT 22.0 H (9.0-12.0) sec INR 2.4 H (<1.2) Sodium 134 L (137-145) mmol/L Chloride 97 L (98-107) mmol/L BUN 22 H (7-17) mg/dL Assessment and Plan Plan: Assessment and plan #1 systolic congestive heart failure acute on chronic #2 recent presentation to the hospital in October of this year with a non-ST elevation [place] at which time patient underwent angioplasty and stenting of the circumflex artery. #3 known history of coronary artery disease with prior bypass surgery in 2002 #4 Status post NARENDRA performed last month which revealed severe mitral regurgitation secondary to poor coaptation of the mitral leaflet #5 paroxysmal atrial fibrillation #6 ischemic cardiomyopathy #7 prior pacemaker implantation #8 hypertension #9 hyperlipidemia Plan From cardiology's perspective, patient may be able to be discharged home today. She will receive a call from Dr. Anderson's office on Tuesday regarding setting up an appointment to follow-up there. We'll also arrange for her to follow-up with Dr. Santos in one month. DNP note has been reviewed, I agree with a documented findings and plan of care. Patient was seen and examined.
[2017-11-18] MEDS ORDERED: WARFARIN 1 MG TAB PO SCH (18:00)
--- NOTE | 2017-11-18 21:34 | DS ---
DISCHARGE SUMMARY DATE OF ADMISSION: 11/16/2017 DATE OF DISCHARGE: 11/18/2017 FINAL DIAGNOSES: 1. Acute on chronic congestive heart failure exacerbation from systolic dysfunction, ejection fraction 40%, from underlying ischemic cardiomyopathy. 2. Paroxysmal atrial fibrillation, currently in sinus rhythm. 3. Hyperlipidemia. 4. Primary osteoarthritis. 5. Severe mitral regurgitation, moderate tricuspid regurgitation, nonrheumatic. 6. Bilateral Raynaud syndrome. 7. Chronic low back pain and thoracic pain from osteoarthritis. 8. Recent acute non-Q-wave myocardial infarction with stent to the circumflex on November 01, 2017. 9. Coumadin monitoring. HOSPITAL COURSE: This patient of Dr. Yecenia Santos presented with shortness of breath overnight, found to be in congestive heart failure, given IV Lasix and doing much better today. The patient will be going down to see Dr. Anderson, from whom she is going to get a call regarding her further intervention on Tuesday. PHYSICAL EXAMINATION: Lungs are clear. Systolic murmur. Temperature 98, pulse 89, blood pressure 100/54. BUN 22 creatinine 0.74. INR is 2.4. CONSULTATION: Dr. Karyn Alberto from cardiology. DISCHARGE MEDICATIONS: 1. Aspirin 81 mg a day. 2. Coumadin 2 mg on Tuesday, Tuesday, Tuesday, Tuesday, , Tuesday and 1 mg on Tuesday. 3. Melatonin 5 mg at bedtime. 4. Lipitor 80 mg p.o. daily. 5. Coreg 3.125 mg p.o. b.i.d. 6. Plavix 75 mg p.o. daily. 7. Imdur ER 30 mg p.o. daily. 8. Cozaar 25 mg p.o. daily. 9. Nitrostat 0.4 sublingual q.5 p.r.n. 10.Lasix 60 mg p.o. b.i.d., new dose. Follow up Dr. Connell in 3 days. Follow up with Dr. Yecenia Santos on 12/21/2017, follow up with Dr. Anderson. The patient will be getting a call from his office on Tuesday. MMVIGNESHL / JEFFREYN: [id number] /
== END 2017-11-18 12:59 | disposition home or self-care (01) ==
LOC: EC 10:51 → INTOOBSV 14:58 → 6SEL 14:58
PROVIDERS: ADMIT Hospitalist; ATTEND Hospitalist
DX: I50.23 Acute on chronic systolic (congestive) heart failure (principal); I34.0 Nonrheumatic mitral (valve) insufficiency; I11.0 Hypertensive heart disease with heart failure; I25.5 Ischemic cardiomyopathy; I36.1 Nonrheumatic tricuspid (valve) insufficiency; I48.0 Paroxysmal atrial fibrillation; I25.10 Atherosclerotic heart disease of native coronary artery without angina pectoris; E78.5 Hyperlipidemia, unspecified; I45.10 Unspecified right bundle-branch block; I73.00 Raynaud's syndrome without gangrene; I21.4 Non-ST elevation (NSTEMI) myocardial infarction; M19.042 Primary osteoarthritis, left hand; M19.041 Primary osteoarthritis, right hand; M17.0 Bilateral primary osteoarthritis of knee; M47.819 Spondylosis without myelopathy or radiculopathy, site unspecified; G89.29 Other chronic pain; M54.6 Pain in thoracic spine; M41.9 Scoliosis, unspecified; Z79.82 Long term (current) use of aspirin; Z79.01 Long term (current) use of anticoagulants; Z79.02 Long term (current) use of antithrombotics/antiplatelets; Z79.899 Other long term (current) drug therapy; Z88.5 Allergy status to narcotic agent; Z86.73 Personal history of transient ischemic attack (TIA), and cerebral infarction without residual deficits; Z87.891 Personal history of nicotine dependence; Z85.3 Personal history of malignant neoplasm of breast; Z90.89 Acquired absence of other organs; Z95.1 Presence of aortocoronary bypass graft; Z95.5 Presence of coronary angioplasty implant and graft; Z95.0 Presence of cardiac pacemaker; Z98.42 Cataract extraction status, left eye; Z98.41 Cataract extraction status, right eye; Z83.3 Family history of diabetes mellitus; Z82.49 Family history of ischemic heart disease and other diseases of the circulatory system
CPT/HCPCS: 99285 ×2; 96374; 36415; 83880; 80053; 80048 ×2; 82550; 82553; 83735; 84484; 85025; 85610 ×3; 85730; 71046; G0378 ×4; J1940

== ENCOUNTER → 2018-01-17 | Outpatient (CLI) | payer MEDICARE, BC ==
[2018-01-17 10:41] LABS: HCT 39.8 % (34.0-46.0); HGB 12.9 gm/dL (11.4-16.0); MCHC 32.5 g/dL (31.0-37.0); MCV 98.4 fL (80.0-100.0); Mean Platelet Volume 6.9; Platelet Count 199 k/uL (150-450); RBC 4.04 m/uL (3.80-5.40); RDW 13.2 % (11.5-15.5); WBC 5.5 k/uL (3.8-10.6)
[2018-01-17 10:51] LABS: Potassium 4.2 mmol/L (3.5-5.1)
== END | disposition home or self-care (01) ==
LOC: LABPAT 09:54
PROVIDERS: ATTEND Internal Medicine Cardiovascular Disease
DX: Z01.812 Encounter for preprocedural laboratory examination (principal); I48.1 Persistent atrial fibrillation
CPT/HCPCS: 36415; 80051; 82565; 84520; 85027

== ENCOUNTER → 2018-01-20 | Day surgery (SDC) | payer MEDICARE, BC ==
[2018-01-17 11:00] VITALS: BMI 22.6
[~2018-01-20] MED LIST: CARVEDILOL 3.125 MG TAB PO STA; SODIUM CHLORIDE 0.9% 1,000 ML IV SCH; ceFAZolin 1,000 MG in SODIUM CHLORIDE 0.9% IRRIGATIO 250 ML IRRIGATION ONE; ceFAZolin IN SWFI 2 GM/20 ML SYRINGE IVP ONE
[2018-01-20 10:30] VITALS: PULSE 117; RESP 20; TEMP 97.9
== END ==
LOC: CATHEP 08:49
PROVIDERS: ATTEND Internal Medicine Cardiovascular Disease
DX: Z53.8 Procedure and treatment not carried out for other reasons (principal); I48.2 Chronic atrial fibrillation

== ENCOUNTER 2018-02-06 08:50 | Day surgery (SDC) | payer MEDICARE, BC ==
[2018-02-01 13:02] VITALS: BMI 22.6
[2018-02-06] MEDS ORDERED: ceFAZolin 1,000 MG in SODIUM CHLORIDE 0.9% IRRIGATIO 250 ML IRRIGATION ONE (09:10)
[2018-02-06] MEDS ORDERED: ceFAZolin IN SWFI 2 GM/20 ML SYRINGE IVP ONE (09:10)
[2018-02-06] MEDS ORDERED: SODIUM CHLORIDE 0.9% 1,000 ML IV SCH ×2 (09:10)
[2018-02-06 09:26] VITALS: PULSE 144; RESP 20; TEMP 98
[2018-02-06 09:39] LABS: INR 1.5 (<1.2); Prothrombin Time 13.8 sec (9.0-12.0)
[2018-02-06] MEDS ORDERED: traMADol 50 MG TAB PO STA (09:47)
[2018-02-06] MEDS ORDERED: CARVEDILOL 3.125 MG TAB PO STA (09:49)
[2018-02-06] MEDS ORDERED: LIDOCAINE 1% INJ 10MG/ML (20 ML MDV) ONE ×2 (09:57)
[2018-02-06] MEDS ORDERED: fentaNYL (PF) 50 MCG/ML 2 ML AMP ONE (10:32)
[2018-02-06] MEDS ORDERED: ONDANSETRON 4 MG/2 ML VIAL ONE (10:32)
[2018-02-06] MEDS ORDERED: ONDANSETRON 4 MG/2 ML VIAL IVP ONE (10:35)
[2018-02-06] MEDS ORDERED: IV FLUID CONTINUATION 1,000 ML IV ONE (10:37)
[2018-02-06] MEDS: fentaNYL (PF) 50 MCG/ML 2 ML AMP IV ONE ×2 (10:37→11:27)
[2018-02-06] MEDS ORDERED: LIDOCAINE 1% INJ 10MG/ML (20 ML MDV) SQ ONE (11:37)
[2018-02-06] MEDS ORDERED: ACETAMINOPHEN TAB 325 MG TAB PO PRN (11:57)
--- NOTE | 2018-02-06 12:08 | P.PCN ---
Date of Procedure: 02/06/18 Preoperative Diagnosis: Battery depletion Postoperative Diagnosis: The same Procedure(s) Performed: Generator change Description of Procedure: HISTORY: This is 77-year-old female with history of permanent pacemaker implantation who has reached end of life and was advised to have battery replacement. Patient follows with Dr. Santos CONSENT: I have discussed the risks and benefits as related to the above mentioned procedure and both sedation/analgesia as well as necessary blood product administration. The patient has indicated understanding and acceptance of the risks of the procedure discussed. PROCEDURE: Patient was brought to the lab in a fasting state. Patient was given IV Versed and fentanyl for sedation. The skin over the existing pulse generator was infiltrated with lidocaine. An incision was made in the skin and was deepened until the pectoral fascia was exposed. Hemostasis was obtained. The existing pulse generator was pulled out of the pocket. The leads were disconnected and were checked for thresholds. Conscious Sedation: Versed 0mg Fentanyl 50 g Duration 18minutes THRESHOLDS: ATRIAL:. Threshold could not be measured because patient was in atrial flutter/fib. P-wave: 2 mV VENTRICULAR: The minimal patient threshold is 1.1 V at pulse width of 0.5. The impedance is 457 R-wave: 2.1 THE LEADS: ATRIAL: This is manufactured by [employer] model #5076-45. Serial number is [id number] VENTRICULAR: This is manufactured by [employer]. Model number is 4456. Serial number is [id number]. THE EXPLANTED DEVICE: This is manufactured by [employer]. Model number is S603 and the serial number is [id number] THE NEW DEVICE: This is manufactured by [employer]. Model number is [id number] and the serial number is [id number] The leads were then connected to a new pulse generator. Pacemaker seems to function normally. The pocket was irrigated with antibiotics. The pocket was closed in the usual fashion. Pectoral fascia was closed with 2-0 Prolene, the subcutaneous tissue was closed with 3-0 Prolene and the skin was closed with 4- 0 Prolene. Patient tolerated the procedure well . Patient will be monitored on the telemetry unit for 2-3 hours. If stable patient be discharged home later today. PROGRAMMING. Patient is programmed to DDDR with mode switch on. The rate is 60-130. The output in the atrium is 2 V in the ventricle is 2.5 V. PLAN: Patient will be monitored on the telemetry unit. If stable will be discharged home in 2-3 hours. Follow-up in the office in one week. FALLOW UP: Follow-up with Dr. Santos in a wk.
[2018-02-06 15:31] VITALS: BP 124/66
--- NOTE | 2018-02-25 07:53 | P.HPCAR ---
History of Present Illness H&P Date: 02/25/18 This is a 77-year-old female with history of ischemic heart disease, chronic atrial fibrillation with history of permanent pacemaker implantation. Patient also has mitral regurgitation and waiting to have mitral valve clip. Recently she was found to have evidence of battery depletion and was referred for battery replacement by Dr. Santos. Patient was explained the risks and benefits of the procedure which she fully understood and accepted Review of Systems As per the chart Physical Exam GENERAL EXAM: Patient is alert and oriented and doesn't appear to be in any acute distress HEENT: Normocephalic. Normal reaction of pupils, equal size, normal range of extraocular motion. No erythema or exudates in the throat. NECK: No masses, no nuchal rigidity. CHEST: No chest wall deformity. LUNGS: Equal air entry with no crackles or wheeze. HEART: Irregular heart sounds, systolic murmur at the apex ABDOMEN: No hepatosplenomegaly, normal bowel sounds, no guarding or rigidity. SKIN: No rashes CENTRAL NERVOUS SYSTEM: No focal deficits. EXTREMITIES: No cyanosis, clubbing or edema. Past Medical History Past Medical History: Atrial Fibrillation, Coronary Artery Disease (CAD), Cancer , Chest Pain / Angina, Heart Failure, CVA/TIA, Hyperlipidemia, Osteoarthritis ( OA) Additional Past Medical History / Comment(s): Pt recently admitted to [facility] on with CHF, possible NSTEMI and had PCI with stent to circ. Other Hx: Severe mitral regurgitation-to have valve surgery soon, moderate tricuspid regurg, mild aortic regurg, ischemic cardiomyopathy, L breast cancer with lumpectomy/chem and radiation, TIAs, bilateral raynaulds syndrome, chronic low and thoracic back a pain/scoliosis, past head injury, bronchtisi. History of Any Multi-Drug Resistant Organisms: None Reported Past Surgical History: Adenoidectomy, Appendectomy, Breast Surgery, Coronary Bypass/CABG, Heart Catheterization, Heart Catheterization With Stent, Orthopedic Surgery, Pacemaker, Tonsillectomy Additional Past Surgical History / Comment(s): 10/25/17 NARENDRA, 10/27/17 PCI with stent to circumflex, 2002 CABG 3 vessel, left side lumpectomy, bialteral cataract removed, bilateral carpal tunnel releases, bilateral hand trigger finger releases, back injection, D&C, Past Anesthesia/Blood Transfusion Reactions: Postoperative Nausea & Vomiting ( PONV) Additional Past Anesthesia/Blood Transfusion Reaction / Comment(s): Pt has received blood in past without reaction. Date of Last Stent Placement:: 10/27/17 Type of Cardiac Device: Permanent Pacemaker Device Placement Date:: 2006 Smoking Status: Former smoker - Past Family History Mother Family Medical History: Coronary Artery Disease (CAD), Diabetes Mellitus Additional Family Medical History / Comment(s): cabg Father Family Medical History: Pulmonary Embolus Additional Family Medical History / Comment(s): Father of a pulmonary embolism at the age of 46yrs. EKG Interpretations (text) Atrial fibrillation with intermittent pacing Assessment and Plan (1) Pacemaker battery depletion Status: Acute Code(s): Z45.010 - ENCNTR FOR CHECKING AND TEST OF CARD PACEMAKER PULSE GNRTR SNOMED Code(s): 695244762 (2) Chronic atrial fibrillation Status: Acute Code(s): I48.2 - CHRONIC ATRIAL FIBRILLATION SNOMED Code(s): 041647317 (3) Mitral valve regurgitation Status: Acute Code(s): I34.0 - NONRHEUMATIC MITRAL (VALVE) INSUFFICIENCY SNOMED Code(s): 99244763 (4) Essential hypertension Status: Acute Code(s): I10 - ESSENTIAL (PRIMARY) HYPERTENSION SNOMED Code(s) : 34829435 Plan: We will proceed with generator change.
== END 2018-02-06 14:30 | disposition home or self-care (01) ==
LOC: CATHEP 08:50
PROVIDERS: ATTEND Internal Medicine Cardiovascular Disease
DX: Z45.010 Encounter for checking and testing of cardiac pacemaker pulse generator [battery] (principal); I48.2 Chronic atrial fibrillation; I08.3 Combined rheumatic disorders of mitral, aortic and tricuspid valves; I11.0 Hypertensive heart disease with heart failure; I50.9 Heart failure, unspecified; I45.10 Unspecified right bundle-branch block; I25.9 Chronic ischemic heart disease, unspecified; I25.119 Atherosclerotic heart disease of native coronary artery with unspecified angina pectoris; E78.5 Hyperlipidemia, unspecified; M19.90 Unspecified osteoarthritis, unspecified site; I25.5 Ischemic cardiomyopathy; I73.00 Raynaud's syndrome without gangrene; M41.9 Scoliosis, unspecified; G89.29 Other chronic pain; Z95.5 Presence of coronary angioplasty implant and graft; Z95.1 Presence of aortocoronary bypass graft; Z86.73 Personal history of transient ischemic attack (TIA), and cerebral infarction without residual deficits; Z85.3 Personal history of malignant neoplasm of breast; Z92.21 Personal history of antineoplastic chemotherapy; Z92.3 Personal history of irradiation; Z87.891 Personal history of nicotine dependence
CPT/HCPCS: 33228; 85610; C1785; J2405; J0690 ×2; J2001; J3010; 93005

== ENCOUNTER 2018-02-11 07:18 | Inpatient (IN) | payer MEDICARE, BC ==
[2018-02-11] MEDS ORDERED: DILTIAZEM 50 MG in SODIUM CHLORIDE 0.9% 40 ML IV SCH (07:45)
[2018-02-11] MEDS ORDERED: FUROSEMIDE 10 MG/ML 4 ML VIAL IV STA (07:45)
[2018-02-11] MEDS ORDERED: DILTIAZEM DRIP BOLUS FROM BAG 1 MG SOLN IV ONE (07:45)
--- NOTE | 2018-02-11 07:50 | ED ---
SOB HPI - General Chief Complaint: Shortness of Breath Stated Complaint: sob Time Seen by Provider: 02/11/18 07:30 Source: patient, RN notes reviewed Mode of arrival: wheelchair - History of Present Illness Initial Comments: This is a 77-year-old female with a history of atrial fibrillation who just had a battery replacement 5 days ago states she's been having shortness of breath exertional dyspnea and some chest discomfort and tightness this morning. She believes is her CHF again. She also believes she has some edema to her lower extremities. She denies any fevers chills but has had some nausea with this. Currently at rest she has no chest discomfort but she does have palpitations with evidence of atrial fibrillation with a rapid ventricular response on a compliance monitor. MD Complaint: shortness of breath, chest pain - Related Data Home Medications Medication Instructions Recorded Confirmed Warfarin [Coumadin] 2 mg PO SUTUWETHSA 12/17/13 02/01/18 Warfarin [Coumadin] 1 mg PO MOFR 12/18/16 02/01/18 Furosemide [Lasix] 60 mg PO BID 01/17/18 02/01/18 Previous Rx's Medication Instructions Recorded Melatonin 5 mg PO HS tab 12/21/16 Carvedilol [Coreg] 3.125 mg PO BID-W/MEALS #180 tab 10/28/17 Isosorbide Mononitrate ER [Imdur] 30 mg PO DAILY #90 tab.er.24h 10/28/17 Losartan [Cozaar] 25 mg PO DAILY #90 tab 10/28/17 Nitroglycerin Sl Tabs [Nitrostat] 0.4 mg SUBLINGUAL Q5M PRN #25 tab 10/28/17 Allergies Allergy/AdvReac Type Severity Reaction Status Date / Time codeine AdvReac Nausea & Verified 02/11/18 07:37 Vomiting Review of Systems ROS Statement: Those systems with pertinent positive or pertinent negative responses have been documented in the HPI. ROS Other: All systems not noted in ROS Statement are negative. Past Medical History Past Medical History: Atrial Fibrillation, Coronary Artery Disease (CAD), Cancer , Chest Pain / Angina, Heart Failure, CVA/TIA, Hyperlipidemia, Osteoarthritis ( OA) Additional Past Medical History / Comment(s): Pt recently admitted to [facility] on with CHF, possible NSTEMI and had PCI with stent to circ. Other Hx: Severe mitral regurgitation-to have valve surgery soon, moderate tricuspid regurg, mild aortic regurg, ischemic cardiomyopathy, L breast cancer with lumpectomy/chem and radiation, TIAs, bilateral raynaulds syndrome, chronic low and thoracic back a pain/scoliosis, past head injury, bronchtisi. History of Any Multi-Drug Resistant Organisms: None Reported Past Surgical History: Adenoidectomy, Appendectomy, Breast Surgery, Coronary Bypass/CABG, Heart Catheterization, Heart Catheterization With Stent, Orthopedic Surgery, Pacemaker, Tonsillectomy Additional Past Surgical History / Comment(s): 10/25/17 NARENDRA, 10/27/17 PCI with stent to circumflex, 2002 CABG 3 vessel, left side lumpectomy, bialteral cataract removed, bilateral carpal tunnel releases, bilateral hand trigger finger releases, back injection, D&C, Past Anesthesia/Blood Transfusion Reactions: Postoperative Nausea & Vomiting ( PONV) Additional Past Anesthesia/Blood Transfusion Reaction / Comment(s): Pt has received blood in past without reaction. Date of Last Stent Placement:: 10/27/17 Type of Cardiac Device: Permanent Pacemaker Device Placement Date:: 2006 Past Psychological History: No Psychological Hx Reported Smoking Status: Former smoker - Past Family History Mother Family Medical History: Coronary Artery Disease (CAD), Diabetes Mellitus Additional Family Medical History / Comment(s): cabg Father Family Medical History: Pulmonary Embolus Additional Family Medical History / Comment(s): Father of a pulmonary embolism at the age of 46yrs. General Exam - General Exam Comments Initial Comments: This is a well-developed well-nourished awake alert oriented 3 female. General appearance: alert, anxious Head exam: Present: atraumatic, normocephalic, normal inspection Eye exam: Present: normal appearance, PERRL, EOMI. Absent: scleral icterus, conjunctival injection, periorbital swelling ENT exam: Present: normal exam, mucous membranes moist Neck exam: Present: normal inspection. Absent: tenderness, meningismus, lymphadenopathy Respiratory exam: Present: normal lung sounds bilaterally, decreased breath sounds. Absent: respiratory distress, wheezes, rales, rhonchi, stridor Cardiovascular Exam: Present: tachycardia, irregular rhythm. Absent: systolic murmur, diastolic murmur, rubs, gallop, clicks GI/Abdominal exam: Present: soft, normal bowel sounds. Absent: distended, tenderness, guarding, rebound, rigid Extremities exam: Present: normal inspection, full ROM, normal capillary refill , pedal edema (Trace edema bilaterally). Absent: tenderness, joint swelling, calf tenderness Back exam: Present: normal inspection Neurological exam: Present: alert, oriented X3, CN II-XII intact Psychiatric exam: Present: normal affect, normal mood Skin exam: Present: warm, dry, intact, normal color. Absent: rash Course Vital Signs 02/11/18 07:34 Temperature 98.0 F Pulse Rate 132 H Respiratory 24 Rate Blood Pressure 122/73 O2 Sat by Pulse 100 Oximetry - Reevaluation(s) Reevaluation #1: 02/11/18 10:18 Reevaluation patient reveals minimal change thus far. Heart rate is somewhat improved after Cardizem Reevaluation #2: 02/11/18 10:18 I did discuss the findings with the patient and her family member was present. Medical Decision Making - Medical Decision Making I did discuss findings the patient family members. Patient does have evidence of congestive failure with a markedly elevated BNP also renal insufficiency and mildly elevated troponin. Patient will be admitted for inpatient treatment. Additionally she did have difficulty with urination on bladder scan she was found have greater than 400 mL of retained urine. A catheter will be placed for monitoring output. - Lab Data Result diagrams: 02/11/18 08:30 02/11/18 08:30 Lab Results 02/11/18 02/11/18 02/11/18 Range/Units 08:30 08:30 08:30 WBC 7.1 (3.8-10.6) k/uL RBC 4.07 (3.80-5.40) m/uL Hgb 12.9 (11.4-16.0) gm/dL Hct 39.4 (34.0-46.0) % MCV 96.9 (80.0-100.0) fL MCH 31.6 (25.0-35.0) pg MCHC 32.6 (31.0-37.0) g/dL RDW 14.1 (11.5-15.5) % Plt Count 186 (150-450) k/uL Neutrophils % 71 % Lymphocytes % 15 % Monocytes % 8 % Eosinophils % 3 % Basophils % 1 % Neutrophils # 5.0 (1.3-7.7) k/uL Lymphocytes # 1.1 (1.0-4.8) k/uL Monocytes # 0.5 (0-1.0) k/uL Eosinophils # 0.2 (0-0.7) k/uL Basophils # 0.0 (0-0.2) k/uL PT (9.0-12.0) sec INR (<1.2) APTT (22.0-30.0) sec Sodium 133 L (137-145) mmol/L Potassium 4.5 (3.5-5.1) mmol/L Chloride 97 L (98-107) mmol/L Carbon Dioxide 22 (22-30) mmol/L Anion Gap 14 mmol/L BUN 42 H (7-17) mg/dL Creatinine 2.07 H (0.52-1.04) mg/dL Est GFR (CKD-EPI)AfAm 26 (>60 ml/min/1.73 sqM) Est GFR (CKD-EPI)NonAf 22 (>60 ml/min/1.73 sqM) Glucose 86 (74-99) mg/dL Calcium 9.7 (8.4-10.2) mg/dL Magnesium 1.9 (1.6-2.3) mg/dL Total Bilirubin 1.5 H (0.2-1.3) mg/dL AST 52 H (14-36) U/L ALT 26 (9-52) U/L Alkaline Phosphatase 128 H (38-126) U/L Total Creatine Kinase 107 (30-135) U/L CK-MB (CK-2) 3.3 H (0.0-2.4) ng/mL CK-MB (CK-2) Rel Index 3.1 Troponin I 0.036 H* (0.000-0.034) ng/mL NT-Pro-B Natriuret Pep pg/mL Total Protein 6.6 (6.3-8.2) g/dL Albumin 3.8 (3.5-5.0) g/dL 02/11/18 02/11/18 Range/Units 08:30 08:30 WBC (3.8-10.6) k/uL RBC (3.80-5.40) m/uL Hgb (11.4-16.0) gm/dL Hct (34.0-46.0) % MCV (80.0-100.0) fL MCH (25.0-35.0) pg MCHC (31.0-37.0) g/dL RDW (11.5-15.5) % Plt Count (150-450) k/uL Neutrophils % % Lymphocytes % % Monocytes % % Eosinophils % % Basophils % % Neutrophils # (1.3-7.7) k/uL Lymphocytes # (1.0-4.8) k/uL Monocytes # (0-1.0) k/uL Eosinophils # (0-0.7) k/uL Basophils # (0-0.2) k/uL PT 16.7 H (9.0-12.0) sec INR 1.7 H (<1.2) APTT 28.5 (22.0-30.0) sec Sodium (137-145) mmol/L Potassium (3.5-5.1) mmol/L Chloride (98-107) mmol/L Carbon Dioxide (22-30) mmol/L Anion Gap mmol/L BUN (7-17) mg/dL Creatinine (0.52-1.04) mg/dL Est GFR (CKD-EPI)AfAm (>60 ml/min/1.73 sqM) Est GFR (CKD-EPI)NonAf (>60 ml/min/1.73 sqM) Glucose (74-99) mg/dL Calcium (8.4-10.2) mg/dL Magnesium (1.6-2.3) mg/dL Total Bilirubin (0.2-1.3) mg/dL AST (14-36) U/L ALT (9-52) U/L Alkaline Phosphatase (38-126) U/L Total Creatine Kinase (30-135) U/L CK-MB (CK-2) (0.0-2.4) ng/mL CK-MB (CK-2) Rel Index Troponin I (0.000-0.034) ng/mL NT-Pro-B Natriuret Pep 86414 pg/mL Total Protein (6.3-8.2) g/dL Albumin (3.5-5.0) g/dL - EKG Data -: EKG Interpreted by Me (Atrial fibrillation with a rapid ventricular response rate of 116 QRS 122 Q) - Radiology Data Radiology results: report reviewed (I did review the imaging and report small right pleural effusion and evidence of COPD and cardiomegaly stable right upper lobe nodule), image reviewed Critical Care Time Critical Care Time: Yes Critical Care Time: 37 minutes of critical care time which includes initial presentation with history physical labs x-rays several reevaluation patient responsive therapy discuss with the patient family regarding findings. Review of old charting was available. Discussed with the main physician admission orders and documentation of the above Disposition Clinical Impression: Congestive heart failure, Rapid atrial fibrillation, Renal insufficiency syndrome, Elevated troponin Disposition: ADMITTED IP TO THIS HOSP Condition: Serious Referrals: Car Connell DO [Primary Care Provider] - 1-2 days
[2018-02-11 08:39] LABS: Basophils % (A) 1 %; Eosinophils # (A) 0.2 k/uL (0-0.7); Eosinophils % (A) 3 %; HCT 39.4 % (34.0-46.0); HGB 12.9 gm/dL (11.4-16.0); Lymphocytes # (A) 1.1 k/uL (1.0-4.8); Lymphocytes % (A) 15 %; MCH 31.6 pg (25.0-35.0); MCHC 32.6 g/dL (31.0-37.0); MCV 96.9 fL (80.0-100.0); Mean Platelet Volume 7.7; Monocytes # (A) 0.5 k/uL (0-1.0); Monocytes % (A) 8 %; Neutrophils % (A) 71 %; Platelet Count 186 k/uL (150-450); RBC 4.07 m/uL (3.80-5.40); RDW 14.1 % (11.5-15.5); WBC 7.1 k/uL (3.8-10.6)
[2018-02-11 08:45] LABS: Albumin 3.8 g/dL (3.5-5.0); Calcium 9.7 mg/dL (8.4-10.2); Magnesium 1.9 mg/dL (1.6-2.3); Potassium 4.5 mmol/L (3.5-5.1); Total Bilirubin 1.5 mg/dL (0.2-1.3); Total Protein 6.6 g/dL (6.3-8.2)
[2018-02-11 08:53] LABS: INR 1.7 (<1.2); Partial Thromboplastin Time 28.5 sec (22.0-30.0); Prothrombin Time 16.7 sec (9.0-12.0)
--- NOTE | 2018-02-11 09:09 | XR ---
EXAMINATION TYPE: XR chest 2V DATE OF EXAM: 02/11/2018 HISTORY: difficulty breathing. REFERENCE: Previous study dated 11/16/2017. FINDINGS: There has been a midline sternotomy. There is a bipolar pacemaker place on the left. Lung volumes are prominent. The heart is enlarged. There is a stable nodular opacity in the right upp er lobe. Lungs otherwise clear. Blunting of the right CP angle. I could not exclude a small effusion. IMPRESSION: 1. CARDIOMEGALY. 2. SMALL RIGHT-SIDED EFFUSION. 3. STABLE RIGHT UPPER LOBE PULMONARY NODULE. 4. PLEASE CORRELATE FOR COPD.
[2018-02-11 09:16] LABS: Creatine Kinase MB 3.3 ng/mL (0.0-2.4)
[2018-02-11 09:22] LABS: Troponin I 0.036 ng/mL (0.000-0.034)
[2018-02-11] MEDS ORDERED: NITROGLYCERIN SL TABS 0.4 MG TAB SUBLINGUAL PRN (10:24)
--- NOTE | 2018-02-11 10:59 | ED ---
Medical Decision Making - Lab Data Result diagrams: 02/11/18 08:30 02/11/18 08:30 Lab Results 02/11/18 02/11/18 02/11/18 Range/Units 08:30 08:30 08:30 WBC 7.1 (3.8-10.6) k/uL RBC 4.07 (3.80-5.40) m/uL Hgb 12.9 (11.4-16.0) gm/dL Hct 39.4 (34.0-46.0) % MCV 96.9 (80.0-100.0) fL MCH 31.6 (25.0-35.0) pg MCHC 32.6 (31.0-37.0) g/dL RDW 14.1 (11.5-15.5) % Plt Count 186 (150-450) k/uL Neutrophils % 71 % Lymphocytes % 15 % Monocytes % 8 % Eosinophils % 3 % Basophils % 1 % Neutrophils # 5.0 (1.3-7.7) k/uL Lymphocytes # 1.1 (1.0-4.8) k/uL Monocytes # 0.5 (0-1.0) k/uL Eosinophils # 0.2 (0-0.7) k/uL Basophils # 0.0 (0-0.2) k/uL PT (9.0-12.0) sec INR (<1.2) APTT (22.0-30.0) sec Sodium 133 L (137-145) mmol/L Potassium 4.5 (3.5-5.1) mmol/L Chloride 97 L (98-107) mmol/L Carbon Dioxide 22 (22-30) mmol/L Anion Gap 14 mmol/L BUN 42 H (7-17) mg/dL Creatinine 2.07 H (0.52-1.04) mg/dL Est GFR (CKD-EPI)AfAm 26 (>60 ml/min/1.73 sqM) Est GFR (CKD-EPI)NonAf 22 (>60 ml/min/1.73 sqM) Glucose 86 (74-99) mg/dL Calcium 9.7 (8.4-10.2) mg/dL Magnesium 1.9 (1.6-2.3) mg/dL Total Bilirubin 1.5 H (0.2-1.3) mg/dL AST 52 H (14-36) U/L ALT 26 (9-52) U/L Alkaline Phosphatase 128 H (38-126) U/L Total Creatine Kinase 107 (30-135) U/L CK-MB (CK-2) 3.3 H (0.0-2.4) ng/mL CK-MB (CK-2) Rel Index 3.1 Troponin I 0.036 H* (0.000-0.034) ng/mL NT-Pro-B Natriuret Pep pg/mL Total Protein 6.6 (6.3-8.2) g/dL Albumin 3.8 (3.5-5.0) g/dL 02/11/18 02/11/18 Range/Units 08:30 08:30 WBC (3.8-10.6) k/uL RBC (3.80-5.40) m/uL Hgb (11.4-16.0) gm/dL Hct (34.0-46.0) % MCV (80.0-100.0) fL MCH (25.0-35.0) pg MCHC (31.0-37.0) g/dL RDW (11.5-15.5) % Plt Count (150-450) k/uL Neutrophils % % Lymphocytes % % Monocytes % % Eosinophils % % Basophils % % Neutrophils # (1.3-7.7) k/uL Lymphocytes # (1.0-4.8) k/uL Monocytes # (0-1.0) k/uL Eosinophils # (0-0.7) k/uL Basophils # (0-0.2) k/uL PT 16.7 H (9.0-12.0) sec INR 1.7 H (<1.2) APTT 28.5 (22.0-30.0) sec Sodium (137-145) mmol/L Potassium (3.5-5.1) mmol/L Chloride (98-107) mmol/L Carbon Dioxide (22-30) mmol/L Anion Gap mmol/L BUN (7-17) mg/dL Creatinine (0.52-1.04) mg/dL Est GFR (CKD-EPI)AfAm (>60 ml/min/1.73 sqM) Est GFR (CKD-EPI)NonAf (>60 ml/min/1.73 sqM) Glucose (74-99) mg/dL Calcium (8.4-10.2) mg/dL Magnesium (1.6-2.3) mg/dL Total Bilirubin (0.2-1.3) mg/dL AST (14-36) U/L ALT (9-52) U/L Alkaline Phosphatase (38-126) U/L Total Creatine Kinase (30-135) U/L CK-MB (CK-2) (0.0-2.4) ng/mL CK-MB (CK-2) Rel Index Troponin I (0.000-0.034) ng/mL NT-Pro-B Natriuret Pep 77407 pg/mL Total Protein (6.3-8.2) g/dL Albumin (3.5-5.0) g/dL Disposition Clinical Impression: Congestive heart failure, Rapid atrial fibrillation, Renal insufficiency syndrome, Elevated troponin, Urinary retention Disposition: ADMITTED IP TO THIS HOSP Condition: Serious
--- NOTE | 2018-02-11 11:40 | P.HPIM ---
History of Present Illness On-call hospitalist covering for Dr. Pan This is a pleasant 77 years old female with past medical history of chronic atrial fibrillation on Coumadin , coronary artery disease, congestive heart failure/ischemic cardiomyopathy, severe mitral regurgitation, expecting surgery sewn with moderate tricuspid regurgitation and mild aortic regurgitation. TIA, hyperlipidemia, arthritis or arthritis, bilateral Raynaud's phenomenon and syndrome. Chronic flow and thoracic back pain with scoliosis, history of left breast cancer status post lumpectomy and chemoradiotherapy. Patient presents this time because of inability to urinate for 3 days associated with some dyspnea but no chest pain. No change in bowel habits. No leg swelling. No dizziness. And no fever. Patient denies dysuria. Prior To that. In the emergency room patient has found to urinary retention and Porter catheter was placed with renal insufficiency, as well as congestive heart failure with rapid ventricular rate from atrial fibrillation and elevated troponins. Heart rate on admission was 132, currently is at 80. She is saturating 95% on room air. CBC was unremarkable. INR is 1.7. Sodium 133. Creatinine 2.07. Compared to last month it was 0.9 troponin elevated at 0.036. Total bilirubin is 1.5 and AST mildly elevated at 52. A LT within normal limits. EKG showing atrial fibrillation's with RVR at 116, with QTC 536[place] [address]. Review of Systems CONSTITUTIONAL: No fever, no malaise, no fatigue. HEENT: No recent visual problems or hearing problems. Denied any sore throat. CARDIOVASCULAR: No orthopnea, PND, no palpitations, no syncope. PULMONARY: No shortness of breath, no cough, no hemoptysis. GASTROINTESTINAL: No diarrhea, no nausea, no vomiting, no abdominal pain. Normoactive bowel sounds. NEUROLOGICAL: No headaches, no weakness, no numbness. HEMATOLOGICAL: Denies any bleeding or petechiae. GENITOURINARY: Denies any burning micturition, frequency, or urgency. MUSCULOSKELETAL/RHEUMATOLOGICAL: Denies any joint pain, swelling, or any muscle pain. ENDOCRINE: Denies any polyuria or polydipsia. Past Medical History Past Medical History: Atrial Fibrillation, Coronary Artery Disease (CAD), Cancer , Chest Pain / Angina, Heart Failure, CVA/TIA, Hyperlipidemia, Osteoarthritis ( OA) Additional Past Medical History / Comment(s): Pt recently admitted to [facility] on with CHF, possible NSTEMI and had PCI with stent to circ. Other Hx: Severe mitral regurgitation-to have valve surgery soon, moderate tricuspid regurg, mild aortic regurg, ischemic cardiomyopathy, L breast cancer with lumpectomy/chem and radiation, TIAs, bilateral raynaulds syndrome, chronic low and thoracic back a pain/scoliosis, past head injury, bronchtisi. History of Any Multi-Drug Resistant Organisms: None Reported Past Surgical History: Adenoidectomy, Appendectomy, Breast Surgery, Coronary Bypass/CABG, Heart Catheterization, Heart Catheterization With Stent, Orthopedic Surgery, Pacemaker, Tonsillectomy Additional Past Surgical History / Comment(s): 10/25/17 NARENDRA, 10/27/17 PCI with stent to circumflex, 2002 CABG 3 vessel, left side lumpectomy, bialteral cataract removed, bilateral carpal tunnel releases, bilateral hand trigger finger releases, back injection, D&C, Past Anesthesia/Blood Transfusion Reactions: Postoperative Nausea & Vomiting ( PONV) Additional Past Anesthesia/Blood Transfusion Reaction / Comment(s): Pt has received blood in past without reaction. Date of Last Stent Placement:: 10/27/17 Type of Cardiac Device: Permanent Pacemaker Device Placement Date:: 2006 Past Psychological History: No Psychological Hx Reported Smoking Status: Former smoker - Past Family History Mother Family Medical History: Coronary Artery Disease (CAD), Diabetes Mellitus Additional Family Medical History / Comment(s): cabg Father Family Medical History: Pulmonary Embolus Additional Family Medical History / Comment(s): Father of a pulmonary embolism at the age of 46yrs. Medications and Allergies Home Medications Medication Instructions Recorded Confirmed Type Warfarin [Coumadin] 2 mg PO SUTUWETHSA 12/17/13 02/11/18 History Warfarin [Coumadin] 1 mg PO MOFR 12/18/16 02/11/18 History Isosorbide Mononitrate ER [Imdur] 30 mg PO DAILY #90 tab.er.24h 10/28/17 Rx Losartan [Cozaar] 25 mg PO DAILY #90 tab 10/28/17 02/11/18 Rx Nitroglycerin Sl Tabs [Nitrostat] 0.4 mg SUBLINGUAL Q5M PRN #25 tab 10/28/1710/22 Rx Furosemide [Lasix] 60 mg PO BID 01/17/18 02/11/18 History Aspirin [Adult Low Dose Aspirin EC] 81 mg PO DAILY 02/11/18 02/11/18 History Carvedilol [Coreg] 6.25 mg PO BID 02/11/18 02/11/18 History Clopidogrel [Plavix] 75 mg PO DAILY 02/11/18 02/11/18 History Diazepam 2 mg PO DAILY PRN 02/11/18 02/11/18 History Melatonin 3 mg PO HS 02/11/18 02/11/18 History Allergies Allergy/AdvReac Type Severity Reaction Status Date / Time codeine AdvReac Nausea & Verified 02/11/18 07:37 Vomiting Physical Exam Vitals: Vital Signs Temp Pulse Resp BP Pulse Ox 02/11/18 11:00 80 18 93/61 02/11/18 10:30 70 16 103/71 02/11/18 10:00 91 19 63/49 02/11/18 09:30 113 H 17 91/69 95 02/11/18 09:00 91 17 109/80 98 02/11/18 08:30 88 14 118/95 96 02/11/18 08:00 109 H 18 121/87 98 02/11/18 07:34 98.0 F 132 H 24 122/73 100 02/11/18 07:31 99 Intake and Output 02/10/18 02/11/18 02/11/18 22:59 06:59 14:59 Other: Weight 56.245 kg GENERAL: The patient is alert and oriented x3, not in any acute distress. Well developed, well nourished. HEENT: Pupils are round and equally reacting to light. EOMI. No scleral icterus. No conjunctival pallor. Normocephalic, atraumatic. No pharyngeal erythema. No thyromegaly. CARDIOVASCULAR: S1 and S2 present. No murmurs, rubs, or gallops. PULMONARY: Chest is clear to auscultation, no wheezing or crackles. ABDOMEN: Soft, nontender, nondistended, normoactive bowel sounds. No palpable organomegaly. MUSCULOSKELETAL: No joint swelling or deformity. EXTREMITIES: No cyanosis, clubbing, or pedal edema. NEUROLOGICAL: Gross neurological examination did not reveal any focal deficits. SKIN: No rashes. Results CBC & Chem 7: 02/11/18 08:30 02/11/18 08:30 Labs: Abnormal Lab Results - Last 24 Hours (Table) 02/11/18 02/11/18 02/11/18 Range/Units 08:30 08:30 08:30 PT 16.7 H (9.0-12.0) sec INR 1.7 H (<1.2) Sodium 133 L (137-145) mmol/L Chloride 97 L (98-107) mmol/L BUN 42 H (7-17) mg/dL Creatinine 2.07 H (0.52-1.04) mg/dL Total Bilirubin 1.5 H (0.2-1.3) mg/dL AST 52 H (14-36) U/L Alkaline Phosphatase 128 H (38-126) U/L CK-MB (CK-2) 3.3 H (0.0-2.4) ng/mL Troponin I 0.036 H* (0.000-0.034) ng/mL Assessment and Plan Assessment: Acute on chronic systolic CHF A. fib with RVR Acute kidney injury Elevated troponins, rule out acute coronary syndrome Urinary retention, status post Porter catheter chronic atrial fibrillation, heart rate is controlled History of coronary artery disease History of congestive heart failure/ischemic cardiomyopathy History of severe mitral regurgitation History of expecting surgery sewn with moderate tricuspid regurgitation and mild aortic regurgitation History of TIA, hyperlipidemia History of arthritis or arthritis History of bilateral Raynaud's phenomenon and syndrome History of Chronic low and thoracic back pain with scoliosis history of left breast cancer status post lumpectomy and chemoradiotherapy Plan: This is a pleasant 77 years old female who presents with chest pain. We'll do serial cardiac enzymes and EKG. Call cardiology consult. Consult nephrology Labs and medication were reviewed.. Continue same treatment. Continue with symptomatic treatment. Resume home medication. Monitor lytes and vitals. DVT and GI prophylaxis. Further recommendations of the clinical course of the patient DVT prophylaxis: On Coumadin GI Prophylaxis: Pepcid PT/OT: Pending Prognosis is guarded
[2018-02-11 13:05] VITALS: BMI 22.6
[2018-02-11] MEDS: FAMOTIDINE 20 MG/2 ML VIAL IV SCH (14:52)
[2018-02-11] MEDS: NITROGLYCERIN OINT 1 INCH/GM PACKET TOPICAL SCH ×3 (14:52→20:49)
[2018-02-11] MEDS: DILTIAZEM CD 120 MG CAP.ER.24H PO SCH (14:52)
--- NOTE | 2018-02-11 15:28 | CONS ---
CONSULTATION This is a 77-year-old lady with a known history of CAD and evidence of prior PCI as well. This lady apparently had some urinary retention-type issues and came into the hospital today, having gained a few pounds of weight and also developed more shortness of breath. She had a catheter placed in her bladder, and with this she had significant urine output. She is known to have chronic atrial fibrillation and underlying permanent pacemaker. About 4 to 5 days ago she had a pulse generator change. She has been having increasing shortness of breath and came into the hospital with these complaints, but she also has a history of having had some urinary retention as well. She has significant mitral regurgitation and is being considered for a mitral valve clip as well. She has history of prior aortocoronary bypass surgery and PCI. Please refer to the detailed consultations that are available in the chart. At the time of my evaluation she is resting comfortably without symptoms. Denies any chest pain but has stable shortness of breath. PAST MEDICAL HISTORY: 1. Chronic atrial fibrillation with sick sinus syndrome, underlying pacemaker, with recent pulse generator change. 2. Severe mitral regurgitation, ischemic, with consideration for a mitral valve clip. 3. History of aortocoronary bypass surgery and PCI; details are unavailable. 4. TIA. 5. Osteoarthritis. 6. Cataract surgery. 7. She underwent PTCA and stenting of circumflex coronary artery in October of this year. MEDICATIONS: Her medications include: 1. Lasix 60 mg p.o. b.i.d. 2. Coumadin 1 and 2 mg alternating. 3. Carvedilol 3.125 mg b.i.d. 4. Imdur 30 mg daily. 5. Losartan 25 mg daily. 6. Sublingual nitroglycerin. ALLERGIES: CODEINE. REVIEW OF SYSTEMS: Unremarkable other than above-mentioned facts. PHYSICAL EXAMINATION: Blood pressure is 130/70, pulse rate about 80 per minute, irregular. HEENT: Unremarkable. Fundus was not examined by me. NECK: Supple. There is JVD of 1 cm. There is no carotid bruit. Heart exam reveals S1, S2 with a holosystolic murmur. Lungs reveal diminished air entry, both bases, with fine rales. Abdomen is soft, nontender. Lower extremities reveal normal pulses. No edema. Central nervous system is grossly within normal limits. IMPRESSION: 1. Exacerbation of congestive heart failure secondary to underlying mitral regurgitation. 2. History of coronary artery disease, prior bypass surgery and percutaneous coronary intervention. 3. History of chronic atrial fibrillation with underlying permanent pacemaker with recent battery change. RECOMMENDATIONS: I am recommending that we give her Coumadin 2.5 mg today. INR is 1.7. We will increase her carvedilol to 6.25 mg b.i.d. and diltiazem will be added at 120 mg daily. We will discontinue IV Cardizem and continue Lasix at 60 mg b.i.d. Hopefully we can take the Porter catheter out, and if the patient voids on her own, she may be able to be discharged either later today or tomorrow. Thank you very much for the consult. SUSANNAH / JEFFREYN: [id number] /
[2018-02-11] MEDS: ACETAMINOPHEN TAB 325 MG TAB PO PRN (16:14)
[2018-02-11] MEDS: CARVEDILOL 6.25 MG TAB PO SCH (17:11)
[2018-02-11] MEDS: WARFARIN 2.5 MG TAB PO SCH (17:11)
[2018-02-11] MEDS ORDERED: CARVEDILOL 3.125 MG TAB PO SCH (17:30)
[2018-02-11] MEDS ORDERED: WARFARIN 3 MG TAB PO ONE (18:00)
[2018-02-11] MEDS ORDERED: WARFARIN 2 MG TAB PO SCH (18:00)
[2018-02-11] MEDS ORDERED: FUROSEMIDE 40 MG TAB PO SCH (21:00)
[2018-02-11] MEDS: FUROSEMIDE 20 MG TAB PO SCH (21:09)
[2018-02-11] MEDS: MELATONIN 5 MG TABLET PO SCH (21:09)
[2018-02-12] MEDS: ACETAMINOPHEN TAB 325 MG TAB PO PRN (00:20)
[2018-02-12] MEDS: CARVEDILOL 6.25 MG TAB PO SCH ×2 (06:32→17:14)
[2018-02-12] MEDS: FAMOTIDINE 20 MG/2 ML VIAL IV SCH (07:59)
[2018-02-12] MEDS: ISOSORBIDE MONONITRATE ER 30 MG TAB.ER.24H PO SCH (07:59)
[2018-02-12] MEDS: DILTIAZEM CD 120 MG CAP.ER.24H PO SCH (07:59)
[2018-02-12 08:54] LABS: Albumin 3.5 g/dL (3.5-5.0); Calcium 9.1 mg/dL (8.4-10.2); Total Bilirubin 1.6 mg/dL (0.2-1.3); Total Protein 6.2 g/dL (6.3-8.2)
[2018-02-12] MEDS: LOSARTAN 25 MG TAB PO SCH (09:08)
[2018-02-12] MEDS: FUROSEMIDE 20 MG TAB PO SCH ×2 (09:08→20:17)
--- NOTE | 2018-02-12 11:09 | P.NPCON ---
History of Present Illness - Reason for Consult acute renal failure - History of Present Illness Reason for consultation: Acute kidney injury History of present illness: Patient is a 77-year-old female seen in renal consultation for acute kidney injury. Patient's baseline creatinine is 1 and was elevated at 2.07 on admission. It is down to 1.35 today. Patient presented to the hospital with dyspnea and edema. She was also noted to be in A. fib with RVR and was started on Cardizem drip. She is now on oral rate control meds. She is also maintained on Lasix 60 mg orally twice daily. She had a Porter catheter placed for urinary retention which was discontinued today. She is noted to have ejection fraction of 25-30% with severe mitral and tricuspid regurgitation. She has been voiding on her own. No hematuria or dysuria. Denies use of NSAIDs. No vomiting or diarrhea. Oral intake is good. Hemodynamically stable. Vital signs are stable. General: The patient appeared well nourished and normally developed. HEENT: Head exam is unremarkable. Neck is without jugular venous distension. LUNGS: Lungs are clear to auscultation and percussion. Breath sounds decreased. HEART: Rate and Rhythm are regular. First and second heart sounds normal. No murmurs, rubs or gallops. ABDOMEN: Abdominal exam reveals normal bowel sounds. Non-tender and non- distended. No evidence of peritonitis. EXTREMITITES: Trace edema. Past Medical History Past Medical History: Atrial Fibrillation, Coronary Artery Disease (CAD), Cancer , Chest Pain / Angina, Heart Failure, CVA/TIA, Hyperlipidemia, Osteoarthritis ( OA) Additional Past Medical History / Comment(s): Pt recently admitted to [facility] in October with CHF, possible NSTEMI and had PCI with stent to circ. Other Hx: Severe mitral regurgitation-to have valve surgery soon, moderate tricuspid regurg, mild aortic regurg, ischemic cardiomyopathy, L breast cancer with lumpectomy/chem and radiation, TIAs, bilateral raynaulds syndrome, chronic low and thoracic back a pain/scoliosis, past head injury, bronchtisi. History of Any Multi-Drug Resistant Organisms: None Reported Past Surgical History: Adenoidectomy, Appendectomy, Breast Surgery, Coronary Bypass/CABG, Heart Catheterization, Heart Catheterization With Stent, Orthopedic Surgery, Pacemaker, Tonsillectomy Additional Past Surgical History / Comment(s): 10/25/17 NARENDRA, 10/27/17 PCI with stent to circumflex, 2002 CABG 3 vessel, left side lumpectomy, bialteral cataract removed, bilateral carpal tunnel releases, bilateral hand trigger finger releases, back injection, D&C, Past Anesthesia/Blood Transfusion Reactions: Postoperative Nausea & Vomiting ( PONV) Additional Past Anesthesia/Blood Transfusion Reaction / Comment(s): Pt has received blood in past without reaction. Date of Last Stent Placement:: 10/27/17 Type of Cardiac Device: Permanent Pacemaker Device Placement Date:: 2006 Past Psychological History: No Psychological Hx Reported Additional Psychological History / Comment(s): Pt resides alone. She is independent. Smoking Status: Former smoker Past Alcohol Use History: Occasional Additional Past Alcohol Use History / Comment(s): Pt started smoking in 1952 and quit in 1969. Past Drug Use History: None Reported - Past Family History Mother Family Medical History: Coronary Artery Disease (CAD), Diabetes Mellitus Additional Family Medical History / Comment(s): cabg Father Family Medical History: Pulmonary Embolus Additional Family Medical History / Comment(s): Father of a pulmonary embolism at the age of 46yrs. Medications and Allergies Home Medications Medication Instructions Recorded Confirmed Type Warfarin [Coumadin] 2 mg PO SUTUWETHSA 12/17/13 02/11/18 History Warfarin [Coumadin] 1 mg PO MOFR 12/18/16 02/11/18 History Isosorbide Mononitrate ER [Imdur] 30 mg PO DAILY #90 tab.er.24h 10/28/17 Rx Losartan [Cozaar] 25 mg PO DAILY #90 tab 10/28/17 02/11/18 Rx Nitroglycerin Sl Tabs [Nitrostat] 0.4 mg SUBLINGUAL Q5M PRN #25 tab 10/28/1710/22 Rx Furosemide [Lasix] 60 mg PO BID 01/17/18 02/11/18 History Aspirin [Adult Low Dose Aspirin EC] 81 mg PO DAILY 02/11/18 02/11/18 History Carvedilol [Coreg] 6.25 mg PO BID 02/11/18 02/11/18 History Clopidogrel [Plavix] 75 mg PO DAILY 02/11/18 02/11/18 History Diazepam 2 mg PO DAILY PRN 02/11/18 02/11/18 History Melatonin 3 mg PO HS 02/11/18 02/11/18 History Allergies Allergy/AdvReac Type Severity Reaction Status Date / Time codeine AdvReac Nausea & Verified 02/11/18 07:37 Vomiting Physical Exam Vitals: Vital Signs Temp Pulse Pulse Resp BP BP Pulse Ox 02/12/18 08:54 98 02/12/18 07:57 98.3 F 97 17 122/65 98 02/12/18 07:47 18 02/12/18 03:30 96.9 F L 98 18 121/75 96 02/12/18 00:00 97.5 F L 85 18 121/74 96 02/11/18 20:00 97.5 F L 75 18 114/59 97 02/11/18 15:07 78 18 02/11/18 14:54 97.7 F 78 18 125/67 97 02/11/18 13:01 88 17 116/64 98 02/11/18 11:30 82 18 107/84 Intake and Output 02/11/18 02/12/18 02/12/18 22:59 06:59 14:59 Intake Total 222 240 Output Total 850 325 250 Balance -628 -325 -10 Intake: Oral 222 240 Output: Urine 850 325 250 Uretheral (Porter) 600 Other: Voiding Method Indwelling Catheter Weight 56.245 kg 60.4 kg Results - Lab Results Most recent lab results Calcium 9.1 mg/dL (8.4-10.2) 02/12/18 08:18 Magnesium 1.9 mg/dL (1.6-2.3) 02/11/18 08:30 02/11/18 08:30 02/12/18 08:18 Assessment and Plan Plan: Assessment: 1. Acute kidney injury mostly prerenal secondary to cardiorenal syndrome and component of urinary retention. Improving. 2. Hyponatremia secondary to acute kidney injury and excess water intake. 3. Metabolic acidosis secondary to acute kidney injury. 4. Systolic CHF with ejection fraction of 25-30% with severe mitral and tricuspid regurgitation. 5. Atrial fibrillation with RVR. Now rate controlled. Cardiology following. 6. Urinary retention. Porter catheter removed this morning. Plan: Maintain Lasix 60 mg orally twice daily. 1.5 L fluid restriction. Monitor serial postvoid residuals. Check urinalysis. If no evidence of urinary retention, patient can be discharged home from nephrology standpoint. She will need to follow-up as an outpatient in the next 1-2 weeks. Thank you for the consultation. I will continue to follow the patient with you during her hospital stay.
[2018-02-12] MEDS ORDERED: ONDANSETRON 4 MG/2 ML VIAL IVP PRN (11:49)
--- NOTE | 2018-02-12 12:49 | P.PN ---
Subjective On-call hospitalist covering for Dr. Pan This is a pleasant 77 years old female with past medical history of chronic atrial fibrillation on Coumadin , coronary artery disease, congestive heart failure/ischemic cardiomyopathy, severe mitral regurgitation, expecting surgery sewn with moderate tricuspid regurgitation and mild aortic regurgitation. TIA, hyperlipidemia, arthritis or arthritis, bilateral Raynaud's phenomenon and syndrome. Chronic flow and thoracic back pain with scoliosis, history of left breast cancer status post lumpectomy and chemoradiotherapy. Patient presents this time because of inability to urinate for 3 days associated with some dyspnea but no chest pain. No change in bowel habits. No leg swelling. No dizziness. And no fever. Patient denies dysuria. Prior To that. In the emergency room patient has found to urinary retention and Porter catheter was placed with renal insufficiency, as well as congestive heart failure with rapid ventricular rate from atrial fibrillation and elevated troponins. Heart rate on admission was 132, currently is at 80. She is saturating 95% on room air. CBC was unremarkable. INR is 1.7. Sodium 133. Creatinine 2.07. Compared to last month it was 0.9 troponin elevated at 0.036. Total bilirubin is 1.5 and AST mildly elevated at 52. A LT within normal limits. EKG showing atrial fibrillation's with RVR at 116, with QTC 536[place] [address]. 02/12/18 Patient today denies chest pain or dyspnea. Her creatinine is up from improved from 2.0 down to 1.3. Sodium is also trending down from 133 to 129. Nephrology input is appreciated he recommended to continue with Lasix and fluid restriction. INR today is 1.7. She got 2 mg of Coumadin last night. We'll give her 2.5 mg today. Vitas looks stable. Cardiology input is appreciated. DC Porter and paternal bladder scan Objective - Vital Signs Vital signs: Vital Signs Temp 98.3 F 02/12/18 07:57 Pulse 70 02/12/18 11:52 Resp 17 02/12/18 11:52 BP 113/59 02/12/18 11:52 Pulse Ox 97 02/12/18 11:52 Intake & Output 02/11/18 02/12/18 02/12/18 18:59 06:59 18:59 Intake Total 222 240 Output Total 700 475 450 Balance -478 -475 -210 Weight 56.245 kg 60.4 kg Intake: Oral 222 240 Output: Urine 700 475 450 Uretheral (Porter) 600 Other: Voiding Method Indwelling Catheter Indwelling Catheter - Exam GENERAL: The patient is alert and oriented x3, not in any acute distress. Well developed, well nourished. HEENT: Pupils are round and equally reacting to light. EOMI. No scleral icterus. No conjunctival pallor. Normocephalic, atraumatic. No pharyngeal erythema. No thyromegaly. CARDIOVASCULAR: S1 and S2 present. No murmurs, rubs, or gallops. PULMONARY: Chest is clear to auscultation, no wheezing or crackles. ABDOMEN: Soft, nontender, nondistended, normoactive bowel sounds. No palpable organomegaly. MUSCULOSKELETAL: No joint swelling or deformity. EXTREMITIES: No cyanosis, clubbing, or pedal edema. NEUROLOGICAL: Gross neurological examination did not reveal any focal deficits. SKIN: No rashes. - Labs CBC & Chem 7: 02/11/18 08:30 02/12/18 08:18 Labs: Abnormal Lab Results - Last 24 Hours (Table) 02/12/18 Range/Units 08:18 Sodium 129 L (137-145) mmol/L Chloride 96 L (98-107) mmol/L Carbon Dioxide 21 L (22-30) mmol/L BUN 41 H (7-17) mg/dL Creatinine 1.35 H (0.52-1.04) mg/dL Glucose 133 H (74-99) mg/dL Total Bilirubin 1.6 H (0.2-1.3) mg/dL AST 48 H (14-36) U/L Total Protein 6.2 L (6.3-8.2) g/dL Assessment and Plan Assessment: Acute on chronic systolic CHF A. fib with RVR Acute kidney injury Elevated troponins, rule out acute coronary syndrome Urinary retention, status post Porter catheter chronic atrial fibrillation, heart rate is controlled History of coronary artery disease History of congestive heart failure/ischemic cardiomyopathy History of severe mitral regurgitation History of expecting surgery sewn with moderate tricuspid regurgitation and mild aortic regurgitation History of TIA, hyperlipidemia History of arthritis or arthritis History of bilateral Raynaud's phenomenon and syndrome History of Chronic low and thoracic back pain with scoliosis history of left breast cancer status post lumpectomy and chemoradiotherapy Plan: This is a pleasant 77 years old female who presents with chest pain. We'll do serial cardiac enzymes and EKG. Call cardiology consult. Consult nephrology Labs and medication were reviewed.. Continue same treatment. Continue with symptomatic treatment. Resume home medication. Monitor lytes and vitals. DVT and GI prophylaxis. Further recommendations of the clinical course of the patient DVT prophylaxis: On Coumadin GI Prophylaxis: Pepcid PT/OT: Pending Prognosis is guarded
[2018-02-12 14:45] LABS: Appearance,Urine Clear (Clear); Bilirubin,Urine Negative (Negative); Blood,Urine Negative (Negative); Color,Urine Yellow; Glucose,Urine (UA) Negative (Negative); Ketones,Urine Negative (Negative); Leukocyte Esterase,Urine Negative (Negative); Nitrite,Urine Negative (Negative); Protein,Urine Negative (Negative); Specific Gravity,Urine 1.008 (1.001-1.035); Urobilinogen,Urine <2.0 mg/dL (<2.0)
--- NOTE | 2018-02-12 15:47 | PN ---
PROGRESS NOTE Mrs. Rea Padilla is a lady with history of CAD and also has previous PCI, bypass surgery, and has significant mitral regurgitation for which she was being advised mitral valve clip. She came into the hospital yesterday with urinary retention, which has improved 4 days out. She is voiding but still has some postvoid residual. I am recommending that she can be discharged on the current medical regimen. Her vitals are stable. JVD is 1 cm. No carotid bruit. S1-S2 heard normally. Holosystolic murmur at the apex is audible. Lungs are clear. Rest of physical examination is unchanged. Patient can be discharged on the current medical regimen. MMODL / IJN: [id number] /
[2018-02-12] MEDS: WARFARIN 2.5 MG TAB PO SCH (17:14)
[2018-02-12] MEDS: MELATONIN 5 MG TABLET PO SCH (21:56)
[2018-02-13 03:45] VITALS: RESP 16
[2018-02-13] MEDS: CARVEDILOL 6.25 MG TAB PO SCH (06:35)
[2018-02-13 08:45] LABS: Calcium 9.5 mg/dL (8.4-10.2); Magnesium 2.2 mg/dL (1.6-2.3); Potassium 4.4 mmol/L (3.5-5.1)
[2018-02-13] MEDS: FAMOTIDINE 20 MG/2 ML VIAL IV SCH (09:40)
[2018-02-13] MEDS: LOSARTAN 25 MG TAB PO SCH (09:40)
[2018-02-13] MEDS: DILTIAZEM CD 120 MG CAP.ER.24H PO SCH (09:40)
[2018-02-13] MEDS: ISOSORBIDE MONONITRATE ER 30 MG TAB.ER.24H PO SCH (09:40)
[2018-02-13] MEDS: FUROSEMIDE 20 MG TAB PO SCH (09:41)
[2018-02-13 12:09] VITALS: BP 139/65; PULSE 83; TEMP 97.3
--- NOTE | 2018-02-13 16:24 | PN ---
PROGRESS NOTE Mrs. Padilla has a history of sick sinus syndrome and also has a backup pacemaker and she is going to have an office visit for a pacemaker check. She is actually doing well today. Breathing is easier. She has mitral regurgitation, considering mitral valve clip. Vitals are stable. JVD 1 cm. No carotid bruit. S1-S2 heard normally. Holosystolic murmur audible. Lungs are clear. Abdomen and lower extremity exam is unchanged. Plan is to increase activity and possibly discharge her today and she will follow up with Dr. Santos in the office. MMODL / IJN: [id number] /
[2018-02-13] MEDS ORDERED: WARFARIN 1 MG TAB PO SCH (18:00)
== END 2018-02-13 12:18 | disposition home or self-care (01) | DRG 292 ==
LOC: EC 07:18 → 3SCARD 10:21
PROVIDERS: ADMIT Internal Medicine; ATTEND Internal Medicine
DX: I50.23 Acute on chronic systolic (congestive) heart failure (principal); N17.9 Acute kidney failure, unspecified; E87.1 Hypo-osmolality and hyponatremia; E87.2 Acidosis; I73.00 Raynaud's syndrome without gangrene; M19.90 Unspecified osteoarthritis, unspecified site; M41.9 Scoliosis, unspecified; M54.6 Pain in thoracic spine; R33.9 Retention of urine, unspecified; R77.9 Abnormality of plasma protein, unspecified; E78.5 Hyperlipidemia, unspecified; I08.3 Combined rheumatic disorders of mitral, aortic and tricuspid valves; I25.10 Atherosclerotic heart disease of native coronary artery without angina pectoris; I25.5 Ischemic cardiomyopathy; I48.2 Chronic atrial fibrillation; G89.29 Other chronic pain; M54.5 Low back pain; Z79.01 Long term (current) use of anticoagulants; Z79.02 Long term (current) use of antithrombotics/antiplatelets; Z79.82 Long term (current) use of aspirin; Z79.899 Other long term (current) drug therapy; Z88.5 Allergy status to narcotic agent; Z98.61 Coronary angioplasty status; Z95.1 Presence of aortocoronary bypass graft; Z87.891 Personal history of nicotine dependence; Z86.73 Personal history of transient ischemic attack (TIA), and cerebral infarction without residual deficits; Z85.3 Personal history of malignant neoplasm of breast; Z95.0 Presence of cardiac pacemaker; Z92.3 Personal history of irradiation; Z90.49 Acquired absence of other specified parts of digestive tract; Z98.42 Cataract extraction status, left eye; Z98.41 Cataract extraction status, right eye; Z96.1 Presence of intraocular lens; Z83.3 Family history of diabetes mellitus; Z82.49 Family history of ischemic heart disease and other diseases of the circulatory system
CPT/HCPCS: 36415; 51702; 71046; 80048; 80053; 81003; 82550; 82553; 83735; 83880; 84295; 84484; 85025; 85610; 85730; 93005; 94760; 96365; 96366; 96375; 96376; 99291

== ENCOUNTER → 2018-03-04 | Outpatient (CLI) | payer MEDICARE, BC ==
[2018-03-04 11:37] LABS: HCT 25.6 % (34.0-46.0); Hypochromasia Moderate; MCH 29.9 pg (25.0-35.0); MCHC 31.1 g/dL (31.0-37.0); MCV 96.3 fL (80.0-100.0); Mean Platelet Volume 7.2; Platelet Count 349 k/uL (150-450); Poikilocytosis Slight; RBC 2.66 m/uL (3.80-5.40); RDW 15.1 % (11.5-15.5); WBC 6.8 k/uL (3.8-10.6)
[2018-03-04 13:20] LABS: Eosinophils # (M) 0.07 k/uL (0-0.7); Lymphocytes # (M) 1.16 k/uL (1.0-4.8); Monocytes # (M) 0.48 k/uL (0-1.0); Neutrophils % (M) 75 %; Nucleated Red Blood Cells 0 /100 WBC (0-0); Total Cells Counted 100
[2018-03-04 16:59] LABS: Albumin 3.9 g/dL (3.80-4.90); Albumin/Globulin Ratio 2.17 (1.20-2.10); Anion Gap 11.5 mmol/L (4.00-12.00); Calcium 9.3 mg/dL (8.7-10.3); Carbon Dioxide 25.5 mmol/L (21.6-31.8); Globulin 1.8 g/dL (1.6-3.3); Potassium 4.7 mmol/L (3.5-5.5); Total Bilirubin 0.9 mg/dL (0.2-1.2); Total Protein 5.7 g/dL (6.2-8.2)
== END | disposition home or self-care (01) ==
LOC: LABWHC1 10:51
DX: I34.0 Nonrheumatic mitral (valve) insufficiency (principal)
CPT/HCPCS: 36415; 80053; 83880; 85025

== ENCOUNTER 2018-03-07 19:37 | Inpatient (IN) | payer MEDICARE, BC ==
[2018-03-07] MEDS ORDERED: SODIUM CHLORIDE 0.9% 1,000 ML IV STA (20:30)
--- NOTE | 2018-03-07 21:14 | ED ---
SOB HPI - General Source: patient, RN notes reviewed, old records reviewed Mode of arrival: ambulatory Limitations: no limitations <Naima Brannon - Last Filed: 03/07/18 23:36> <Bin Bustamante - Last Filed: 03/08/18 09:41> - General Chief Complaint: Shortness of Breath Stated Complaint: back pain/disoriented Time Seen by Provider: 03/07/18 19:43 - History of Present Illness Initial Comments: Patient is a 77-year-old female who presents emergency department today with chief complaint of back pain, shortness of breath, and feeling generally weak and disoriented. Patient states that she is has a history of CHF. Reports that she believes that she has been a new CHF. She complains some increased shortness of breath. Patient states she tweaked her back a few weeks ago and was prescribed hydrocodone. Since being prescribed hydrocodone she has been more fatigued, and having stomach upset. Patient reports that she is currently on Coumadin. She is waiting to receive a mitral valve replacement due to her CHF. Patient states she denies some outpatient lab work done a few days ago. She denies any bloody stools or dark tarry stools. (Naima Brannon) - Related Data Home Medications Medication Instructions Recorded Confirmed Furosemide [Lasix] 60 mg PO BID 01/17/18 03/07/18 Aspirin [Adult Low Dose Aspirin EC] 81 mg PO DAILY 02/11/18 03/07/18 Carvedilol [Coreg] 6.25 mg PO BID 02/11/18 03/07/18 Clopidogrel [Plavix] 75 mg PO DAILY 02/11/18 03/07/18 Diazepam 2 mg PO DAILY PRN 02/11/18 03/07/18 HYDROcodone/APAP 7.5-325MG [[place] 1 tab PO Q6H PRN 03/07/18 03/07/18 7.5-325] Warfarin [Coumadin] 1 mg PO SUMO 03/07/18 03/07/18 Warfarin [Coumadin] 2 mg PO [id number] 03/07/18 03/07/18 Previous Rx's Medication Instructions Recorded Isosorbide Mononitrate ER [Imdur] 30 mg PO DAILY #90 tab.er.24h 10/28/17 Losartan [Cozaar] 25 mg PO DAILY #90 tab 10/28/17 Nitroglycerin Sl Tabs [Nitrostat] 0.4 mg SUBLINGUAL Q5M PRN #25 tab 10/28/17 Diltiazem Cd [Cardizem CD] 120 mg PO DAILY #30 cap.er.24h 02/13/18 Allergies Allergy/AdvReac Type Severity Reaction Status Date / Time codeine AdvReac Nausea & Verified 03/07/18 20:09 Vomiting Review of Systems ROS Other: All systems not noted in ROS Statement are negative. <Naima Brannon - Last Filed: 03/07/18 23:36> ROS Other: All systems not noted in ROS Statement are negative. <Bin Bustamante - Last Filed: 03/08/18 09:41> ROS Statement: Those systems with pertinent positive or pertinent negative responses have been documented in the HPI. Past Medical History Past Medical History: Heart Failure Additional Past Medical History / Comment(s): Pt recently admitted to [facility] in October with CHF, possible NSTEMI and had PCI with stent to circ. Other Hx: Severe mitral regurgitation-to have valve surgery soon, moderate tricuspid regurg, mild aortic regurg, ischemic cardiomyopathy, L breast cancer with lumpectomy/chem and radiation, TIAs, bilateral raynaulds syndrome, chronic low and thoracic back a pain/scoliosis, past head injury, bronchtisi. History of Any Multi-Drug Resistant Organisms: None Reported Past Surgical History: Adenoidectomy, Appendectomy, Breast Surgery, Coronary Bypass/CABG, Heart Catheterization, Heart Catheterization With Stent, Orthopedic Surgery, Pacemaker, Tonsillectomy Additional Past Surgical History / Comment(s): 10/25/17 NARENDRA, 10/27/17 PCI with stent to circumflex, 2002 CABG 3 vessel, left side lumpectomy, bialteral cataract removed, bilateral carpal tunnel releases, bilateral hand trigger finger releases, back injection, D&C, Past Anesthesia/Blood Transfusion Reactions: Postoperative Nausea & Vomiting ( PONV) Additional Past Anesthesia/Blood Transfusion Reaction / Comment(s): Pt has received blood in past without reaction. Date of Last Stent Placement:: 10/27/17 Type of Cardiac Device: Permanent Pacemaker Device Placement Date:: 2006 Past Psychological History: No Psychological Hx Reported Smoking Status: Former smoker Past Alcohol Use History: Occasional Past Drug Use History: None Reported - Past Family History Mother Family Medical History: Coronary Artery Disease (CAD), Diabetes Mellitus Additional Family Medical History / Comment(s): cabg Father Family Medical History: Pulmonary Embolus Additional Family Medical History / Comment(s): Father of a pulmonary embolism at the age of 46yrs. <Naima Brannon - Last Filed: 03/07/18 23:36> General Exam Limitations: no limitations General appearance: alert, in no apparent distress Head exam: Present: atraumatic, normocephalic, normal inspection Eye exam: Present: normal appearance, PERRL, EOMI. Absent: scleral icterus, conjunctival injection, periorbital swelling ENT exam: Present: normal exam, mucous membranes moist Neck exam: Present: normal inspection. Absent: tenderness, meningismus, lymphadenopathy Respiratory exam: Present: decreased breath sounds. Absent: normal lung sounds bilaterally, respiratory distress, wheezes, rales, rhonchi, stridor Cardiovascular Exam: Present: regular rate, normal rhythm, normal heart sounds. Absent: systolic murmur, diastolic murmur, rubs, gallop, clicks GI/Abdominal exam: Present: soft, normal bowel sounds. Absent: distended, tenderness, guarding, rebound, rigid Extremities exam: Present: normal inspection, full ROM, normal capillary refill , other (1+ pitting edema bilaterally). Absent: tenderness, pedal edema, joint swelling, calf tenderness Back exam: Present: normal inspection Neurological exam: Present: alert, oriented X3, CN II-XII intact Psychiatric exam: Present: normal affect, normal mood Skin exam: Present: warm, dry, intact, normal color. Absent: rash <Naima Brannon - Last Filed: 03/07/18 23:36> <Bin Bustamante - Last Filed: 03/08/18 09:41> - General Exam Comments Initial Comments: 77-year-old female. Alert and oriented. Patient is generally weak. (Naima Brannon) Vital Signs 03/07/18 03/07/18 03/07/18 19:40 22:13 23:56 Temperature 97.6 F 97.6 F Pulse Rate 79 64 Respiratory 18 16 17 Rate Blood Pressure 102/49 93/47 Blood Pressure 96/54 [Sitting] O2 Sat by Pulse 99 100 99 Oximetry 03/08/18 00:20 Temperature 98 F Pulse Rate 61 Respiratory 16 Rate Blood Pressure 91/61 Blood Pressure [Sitting] O2 Sat by Pulse 96 Oximetry Medical Decision Making - Lab Data Result diagrams: 03/07/18 21:28 03/07/18 21:28 - Radiology Data Radiology results: report reviewed <Naima Brannon - Last Filed: 03/07/18 23:36> - Lab Data Result diagrams: 03/08/18 06:18 03/08/18 06:18 <Bin Bustamante - Last Filed: 03/08/18 09:41> - Medical Decision Making 77-year-old female presents emergency department today with generalized weakness fatigue. She she remains of weeks of mid back pain. She's been on [place] for the pain relief. She also was upset stomach and nausea. Patient was given IV fluids. She does have 1+ pitting edema. Diminished lung sounds concern for effusion versus CHF. Patient's chest x-ray does show an increased right pleural effusion. Patient is mildly elevated BNP at 3500. Was noted the Patient has significantly low hemoglobin of 7.7. She is on Coumadin. This is a drop from earlier this month where she was 12. Likely suffering from GI bleed. Fecal occult was obtained. She was given a unit of PRBCs. Started on Protonix. I discussed the case with Dr. Austin. At one time patient's blood pressure did drop to 40/20. She was then sat up concern on fluids and lab rebounded to 90/50. Patient will be kept in ICU from intensive monitoring. She does state that she would like to be a full code. (Naima Brannon) I saw this patient in conjunction with the physician autopsy assistant. I performed independent history and physical exam. Agree with case management. I had seen the patient's, performed history and physical, discussed case with admitting physician Dr. Chandler, and with the poultry inseminator Dr. Matos. Their treatment recommendations are incorporated. (Bin Bustamante) - Lab Data Lab Results 03/07/18 03/07/18 03/07/18 Range/Units 21:28 21:28 21:28 WBC 6.2 (3.8-10.6) k/uL RBC 2.63 L (3.80-5.40) m/uL Hgb 7.7 L (11.4-16.0) gm/dL Hct 24.5 L (34.0-46.0) % MCV 93.3 (80.0-100.0) fL MCH 29.3 (25.0-35.0) pg MCHC 31.4 (31.0-37.0) g/dL RDW 16.2 H (11.5-15.5) % Plt Count 391 (150-450) k/uL Neutrophils % 68 % Lymphocytes % 18 % Monocytes % 8 % Eosinophils % 2 % Basophils % 1 % Neutrophils # 4.2 (1.3-7.7) k/uL Lymphocytes # 1.1 (1.0-4.8) k/uL Monocytes # 0.5 (0-1.0) k/uL Eosinophils # 0.1 (0-0.7) k/uL Basophils # 0.0 (0-0.2) k/uL Hypochromasia Marked Poikilocytosis Moderate Anisocytosis Slight PT (9.0-12.0) sec INR (<1.2) APTT (22.0-30.0) sec Sodium 132 L (137-145) mmol/L Potassium 4.5 (3.5-5.1) mmol/L Chloride 98 (98-107) mmol/L Carbon Dioxide 25 (22-30) mmol/L Anion Gap 9 mmol/L BUN 38 H (7-17) mg/dL Creatinine 1.23 H (0.52-1.04) mg/dL Est GFR (CKD-EPI)AfAm 48 (>60 ml/min/1.73 sqM) Est GFR (CKD-EPI)NonAf 42 (>60 ml/min/1.73 sqM) Glucose 111 H (74-99) mg/dL Plasma Lactic Acid Alvin (0.7-2.0) mmol/L Calcium 9.3 (8.4-10.2) mg/dL Magnesium 2.4 H (1.6-2.3) mg/dL Total Bilirubin 0.8 (0.2-1.3) mg/dL AST 29 (14-36) U/L ALT 32 (9-52) U/L Alkaline Phosphatase 121 (38-126) U/L Total Creatine Kinase 78 (30-135) U/L CK-MB (CK-2) 1.9 (0.0-2.4) ng/mL CK-MB (CK-2) Rel Index 2.4 Troponin I 0.017 (0.000-0.034) ng/mL NT-Pro-B Natriuret Pep pg/mL Total Protein 5.8 L (6.3-8.2) g/dL Albumin 3.4 L (3.5-5.0) g/dL Stool Occult Blood (Negative) Blood Type Blood Type Recheck Antibody Screen Crossmatch Spec Expiration Date 03/07/18 03/07/18 03/07/18 Range/Units 21:28 21:28 21:28 WBC (3.8-10.6) k/uL RBC (3.80-5.40) m/uL Hgb (11.4-16.0) gm/dL Hct (34.0-46.0) % MCV (80.0-100.0) fL MCH (25.0-35.0) pg MCHC (31.0-37.0) g/dL RDW (11.5-15.5) % Plt Count (150-450) k/uL Neutrophils % % Lymphocytes % % Monocytes % % Eosinophils % % Basophils % % Neutrophils # (1.3-7.7) k/uL Lymphocytes # (1.0-4.8) k/uL Monocytes # (0-1.0) k/uL Eosinophils # (0-0.7) k/uL Basophils # (0-0.2) k/uL Hypochromasia Poikilocytosis Anisocytosis PT 36.1 H (9.0-12.0) sec INR 3.8 H (<1.2) APTT 32.9 H (22.0-30.0) sec Sodium (137-145) mmol/L Potassium (3.5-5.1) mmol/L Chloride (98-107) mmol/L Carbon Dioxide (22-30) mmol/L Anion Gap mmol/L BUN (7-17) mg/dL Creatinine (0.52-1.04) mg/dL Est GFR (CKD-EPI)AfAm (>60 ml/min/1.73 sqM) Est GFR (CKD-EPI)NonAf (>60 ml/min/1.73 sqM) Glucose (74-99) mg/dL Plasma Lactic Acid Alvin (0.7-2.0) mmol/L Calcium (8.4-10.2) mg/dL Magnesium (1.6-2.3) mg/dL Total Bilirubin (0.2-1.3) mg/dL AST (14-36) U/L ALT (9-52) U/L Alkaline Phosphatase (38-126) U/L Total Creatine Kinase (30-135) U/L CK-MB (CK-2) (0.0-2.4) ng/mL CK-MB (CK-2) Rel Index Troponin I (0.000-0.034) ng/mL NT-Pro-B Natriuret Pep 3510 pg/mL Total Protein (6.3-8.2) g/dL Albumin (3.5-5.0) g/dL Stool Occult Blood (Negative) Blood Type O Positive Blood Type Recheck No Antibody Screen NEGATIVE Crossmatch See Detail Spec Expiration Date 03/10/2018 - 232703/07/18 03/07/18 Range/Units 21:50 23:21 WBC (3.8-10.6) k/uL RBC (3.80-5.40) m/uL Hgb (11.4-16.0) gm/dL Hct (34.0-46.0) % MCV (80.0-100.0) fL MCH (25.0-35.0) pg MCHC (31.0-37.0) g/dL RDW (11.5-15.5) % Plt Count (150-450) k/uL Neutrophils % % Lymphocytes % % Monocytes % % Eosinophils % % Basophils % % Neutrophils # (1.3-7.7) k/uL Lymphocytes # (1.0-4.8) k/uL Monocytes # (0-1.0) k/uL Eosinophils # (0-0.7) k/uL Basophils # (0-0.2) k/uL Hypochromasia Poikilocytosis Anisocytosis PT (9.0-12.0) sec INR (<1.2) APTT (22.0-30.0) sec Sodium (137-145) mmol/L Potassium (3.5-5.1) mmol/L Chloride (98-107) mmol/L Carbon Dioxide (22-30) mmol/L Anion Gap mmol/L BUN (7-17) mg/dL Creatinine (0.52-1.04) mg/dL Est GFR (CKD-EPI)AfAm (>60 ml/min/1.73 sqM) Est GFR (CKD-EPI)NonAf (>60 ml/min/1.73 sqM) Glucose (74-99) mg/dL Plasma Lactic Acid Alvin 1.9 (0.7-2.0) mmol/L Calcium (8.4-10.2) mg/dL Magnesium (1.6-2.3) mg/dL Total Bilirubin (0.2-1.3) mg/dL AST (14-36) U/L ALT (9-52) U/L Alkaline Phosphatase (38-126) U/L Total Creatine Kinase (30-135) U/L CK-MB (CK-2) (0.0-2.4) ng/mL CK-MB (CK-2) Rel Index Troponin I (0.000-0.034) ng/mL NT-Pro-B Natriuret Pep pg/mL Total Protein (6.3-8.2) g/dL Albumin (3.5-5.0) g/dL Stool Occult Blood Negative (Negative) Blood Type Blood Type Recheck Antibody Screen Crossmatch Spec Expiration Date 03/07/18 23:36 EKG shows pacemaker interpretation. Atrial fibrillation with premature ventricular aberrantly conducted complex's. Left axis deviation. Low voltage QRS. Right bundle branch block. T wave abnormality consider lateral ischemia. Ventricular rate of 66 bpm. Was undetected. QRS ration 120 ms. QT QTc is 444/465 ms. (Naima Brannon) - Radiology Data Chest x-ray shows right pleural effusion increased compared to old exam. No gross heart failure. Stable cardiomegaly. Negative thoracic spine exam. No acute changes. (Naima Brannon) Disposition Time of Disposition: 23:45 <Naima Brannon - Last Filed: 03/07/18 23:36> <Bin Bustamante - Last Filed: 03/08/18 09:41> Clinical Impression: Pleural effusion, CHF (congestive heart failure), Anemia, Hypotension Disposition: ADMITTED IP TO THIS HOSP Condition: Stable
[2018-03-07] MEDS ORDERED: MORPHINE SULFATE 2 MG/ML SYRINGE IVP ONE (21:38)
[2018-03-07 21:43] LABS: Anisocytosis Slight; Basophils % (A) 1 %; Eosinophils # (A) 0.1 k/uL (0-0.7); Eosinophils % (A) 2 %; HCT 24.5 % (34.0-46.0); HGB 7.7 gm/dL (11.4-16.0); Hypochromasia Marked; Lymphocytes # (A) 1.1 k/uL (1.0-4.8); Lymphocytes % (A) 18 %; MCH 29.3 pg (25.0-35.0); MCHC 31.4 g/dL (31.0-37.0); MCV 93.3 fL (80.0-100.0); Mean Platelet Volume 7.2; Monocytes # (A) 0.5 k/uL (0-1.0); Monocytes % (A) 8 %; Neutrophils # (A) 4.2 k/uL (1.3-7.7); Neutrophils % (A) 68 %; Platelet Count 391 k/uL (150-450); Poikilocytosis Moderate; RBC 2.63 m/uL (3.80-5.40); RDW 16.2 % (11.5-15.5); WBC 6.2 k/uL (3.8-10.6)
[2018-03-07 21:52] LABS: INR 3.8 (<1.2); Partial Thromboplastin Time 32.9 sec (22.0-30.0); Prothrombin Time 36.1 sec (9.0-12.0)
[2018-03-07 21:55] LABS: Albumin 3.4 g/dL (3.5-5.0); Calcium 9.3 mg/dL (8.4-10.2); Magnesium 2.4 mg/dL (1.6-2.3); Potassium 4.5 mmol/L (3.5-5.1); Total Bilirubin 0.8 mg/dL (0.2-1.3); Total Protein 5.8 g/dL (6.3-8.2)
[2018-03-07] MEDS ORDERED: ONDANSETRON 4 MG/2 ML VIAL IVP STA (22:06)
[2018-03-07 22:18] LABS: Creatine Kinase MB 1.9 ng/mL (0.0-2.4); Troponin I 0.017 ng/mL (0.000-0.034)
[2018-03-07] MEDS ORDERED: PHYTONADIONE 5 MG in SODIUM CHLORIDE 0.9% 50 ML IVPB STA (22:43)
--- NOTE | 2018-03-07 22:43 | XR ---
EXAMINATION TYPE: XR thoracic spine 2V DATE OF EXAM: 03/07/2018 COMPARISON: 02/13/2015 HISTORY: Pain TECHNIQUE: 3 views. FINDINGS: The thoracic vertebra have fairly normal spacing and alignment. Posterior elements are intact. There is no compression fracture. There is no paraspinal mass. IMPRESSION: Negative thoracic spine exam. No change.
--- NOTE | 2018-03-07 22:44 | XR ---
EXAMINATION TYPE: XR chest 2V DATE OF EXAM: 03/07/2018 COMPARISON: 02/11/2018 HISTORY: Difficulty breathing TECHNIQUE: Frontal and lateral views of the chest are obtained. FINDINGS: Heart is enlarged. There is blunting of right costophrenic angle. There is no heart failur e. There are sternal wires. There is left axillary pacemaker with the lead tips in the right ventricl e. IMPRESSION: Right pleural effusion increased compared to old exam. No gross heart failure. Stable ca rdiomegaly.
[2018-03-07] MEDS ORDERED: SODIUM CHLORIDE 0.9% 1,000 ML IV ONE (23:18)
[2018-03-07] MEDS ORDERED: NALOXONE 0.4 MG/ML 1 ML VIAL IV PRN (23:45)
[2018-03-07] MEDS ORDERED: MORPHINE SULFATE 2 MG/ML SYRINGE IV PRN (23:45)
--- NOTE | 2018-03-08 00:24 | CT ---
EXAMINATION TYPE: CT chest angio for PE DATE OF EXAM: 03/08/2018 COMPARISON: None HISTORY: r/o PE CT DLP: 505.3 mGycm Automated exposure control for dose reduction was used. CONTRAST: CT Chest for pulmonary embolism performed with with IV Contrast, patient injected with 80 mL of Isovu e 370. FINDINGS: There are 3-D post processed images. 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 Heart is slightly enlar ged. There is no pericardial effusion. There is bilateral pleural effusions and atelectasis at the [facility] lung base. There is reflux of contrast into the inferior vena cava consistent with congestive hea rt failure. There is no filling defect in the pulmonary arteries. There are paratracheal and bronchia l lymph nodes up to 1 cm. There are calcified granulomata at the pulmonary becka. There is calcified b ronchial cartilage. IMPRESSION: No evidence of pulmonary embolism. Changes consistent with congestive heart failure.
--- NOTE | 2018-03-08 00:30 | CT ---
EXAMINATION TYPE: CT abdomen pelvis w con DATE OF EXAM: 03/08/2018 COMPARISON: None HISTORY: pain CT DLP: 413.9 mGycm Automated exposure control for dose reduction was used. TECHNIQUE: Helical acquisition of images was performed from the lung bases through the pelvis. CONTRAST: Performed without Oral Contrast and with IV Contrast, patient injected with 80 mL of Isovue 370. FINDINGS: There are bilateral pleural effusions. Heart is enlarged. Liver shows no focal defect. Spleen shows n o focal defect. There is no evidence of pancreatic mass. There is some fluid around the gallbladder. Gallbladder is contracted. There is heterogeneous enhancement of the liver and spleen thought to be due to low cardiac output an d heart failure. There is no adrenal mass. Kidneys show satisfactory contrast opacification. There is no hydronephrosi s. There is no retroperitoneal adenopathy. Abdominal aorta is atheromatous. There is moderate ascites fluid in the abdomen. There is no inguinal hernia. There is no sign of a bowel obstruction. There is no mesenteric adenopathy. I see no intestinal wall thickening. The lumbar vertebra have normal align ment. There is some degenerative disc space narrowing and spur formation. There is no compression fra cture. There is mild spinal stenosis at L3-4 L4-5. I see no focal bone destruction. There is no evide nce of free air. IMPRESSION: ATHEROSCLEROTIC VASCULAR DISEASE. MODERATE ASCITES FLUID. Heterogeneous liver and spleen enhancement probably due to vascular disease and heart failure. Discre te hepatic and splenic lesions cannot be entirely excluded.
[2018-03-08] MEDS ORDERED: NITROGLYCERIN SL TABS 0.4 MG TAB SUBLINGUAL PRN (00:38)
[2018-03-08 00:56] LABS: Glucose,Whole Blood 111 mg/dL (75-99)
[2018-03-08 06:35] LABS: Basophils % (A) 0 %; Eosinophils # (A) 0.1 k/uL (0-0.7); Eosinophils % (A) 1 %; HCT 28.9 % (34.0-46.0); Hypochromasia Marked; Lymphocytes % (A) 15 %; MCH 30.6 pg (25.0-35.0); MCV 95.5 fL (80.0-100.0); Mean Platelet Volume 7.1; Monocytes # (A) 0.6 k/uL (0-1.0); Monocytes % (A) 9 %; Neutrophils # (A) 4.6 k/uL (1.3-7.7); Neutrophils % (A) 70 %; Platelet Count 372 k/uL (150-450); Poikilocytosis Moderate; RBC 3.03 m/uL (3.80-5.40); RDW 15.5 % (11.5-15.5); WBC 6.7 k/uL (3.8-10.6)
[2018-03-08 06:40] LABS: HGB 9.3 gm/dL (11.4-16.0)
[2018-03-08 06:44] LABS: Calcium 9.1 mg/dL (8.4-10.2); Potassium 4.9 mmol/L (3.5-5.1)
--- NOTE | 2018-03-08 07:23 | HP ---
HISTORY AND PHYSICAL DATE OF SERVICE: 03/07/2018 CHIEF COMPLAINTS: Shortness of breath, back pain, and as well as weakness. HISTORY OF PRESENT ILLNESS: This 77-year-old woman with a past medical history of multiple medical problems including history of CHF, history of adenoidectomy, history of breast surgery, history of CAD, CABG, CAD, history of stent being followed by Dr. Connell in the outpatient setting, recently admitted with CHF to [facility]. Patient had possibly non- ST segment elevation myocardial infarction. Patient had PCI with stent to circumflex. Currently the patient is complaining of generalized weakness and tiredness and the patient came to [facility] and was admitted for further evaluation and treatment. Hemoglobin dropped to around 7.7 from 12. INR found to be 3.8. Creatinine is 1.2. The patient admitted for further evaluation and treatment. There is history of melenic stools, and evidence of gastrointestinal bleed at this time. The patient also complaining of back pain. Patient has had a fall also. The patient is complaining of significant weakness also. There is no history of fever, rigors or chills. No history of headache, loss of consciousness or seizures. PAST MEDICAL HISTORY: 1. History of CAD, stent. 2. History of CHF. 3. Adenoidectomy. 4. CAD, CABG. 5. History of tonsillectomy. MEDICATIONS: Home medications are prior to admission include: 1. Coumadin 1 mg Tuesday, Tuesday and Coumadin 3 mg Tuesday, Tuesday, , Tuesday, Tuesday. 2. Nitrostat 0.4 mg p.o. 3. Cozaar 25 mg. 4. Imdur 30 mg p.o. 5. [place] 7.5 q.6h p.r.n. 6. Lasix 60 mg p.o. daily. 7. Cardizem CD 120 mg. 8. Diazepam 2 mg daily p.r.n. 9. Plavix 75 mg p.o. daily. 10.Coreg 6.25 mg p.o. b.i.d. 11.Ecotrin 81 mg p.o. daily. ALLERGIES: CODEINE. FAMILY HISTORY: History of CAD, CABG, diabetes in the family. SOCIAL HISTORY: Previous history of smoking. No history of current smoking or alcohol intake. REVIEW OF SYSTEMS: ENT: Diminished vision. Diminished hearing. CARDIOVASCULAR: As mentioned earlier. RESPIRATORY: As mentioned earlier. GI no nausea. no dysuria. NERVOUS SYSTEM: As mentioned earlier. ALLERGY/IMMUNOLOGY: No asthma or hayfever. MUSCULOSKELETAL as mentioned earlier. HEMATOLOGY/ONCOLOGY: No history of anemia. ENDOCRINE: No history of diabetes or hypothyroidism. CONSTITUTIONAL: As mentioned earlier. Dermatology: Negative. Rheumatology: Negative. Psychiatry: As mentioned. PHYSICAL EXAMINATION: GENERAL: Alert and oriented x3. VITAL SIGNS: Pulse is 61, blood pressure 91/60, respirations 16, temperature 98 degrees, pulse ox 96% on 2 L. HEENT is conjunctivae pale. Oral mucosa moist. NECK is no jugular venous distention. No carotid bruit. No lymph node enlargement. CARDIOVASCULAR SYSTEM: S1, S2. No S3, no S4. RESPIRATORY: Breath sounds diminished in the bases. A few scattered rhonchi. No crackles. ABDOMEN: Soft, nontender. No mass palpable. LEGS: No edema. No swelling. NERVOUS SYSTEM: Higher functions as mentioned earlier. Moves all 4 limbs. No focal motor deficits. SKIN: No ulcer, rash or bleeding. Lymphatics: No lymph nodes palpable in the neck, axillae or groin.. Examination of the back: Tenderness in the left lower part present in the back. JOINTS: No active deforming arthropathy. LAB STUDIES: WBC 6.2, hemoglobin 7.7, INR 3.8, sodium 132, creatinine 1.23. ASSESSMENT: 1. Generalized tiredness tiredness, weakness and possibly secondary to anemia rule out gastrointestinal bleed. 2. History of recent non ST-segment elevation myocardial infarction and as well as PCI to the circumflex. 3. Right pleural effusion. 4. Moderate ascites for evaluation. 5. History of congestive heart failure. 6. History of severe mitral regurgitation and moderate tricuspid regurgitation, mild aortic regurgitation. 7. Congestive heart failure with possible acute on chronic systolic dysfunction. 8. History of ischemic cardiomyopathy. 9. Coronary artery disease/coronary artery bypass grafting stent. 10.History of coronary artery disease, stent. 11.History of fall and weakness. 12.Gait dysfunction. 13.History of nicotine dependence. 14.FULL CODE. RECOMMENDATIONS AND DISCUSSION: In this 77-year-old woman who presented with multiple complex medical issues, at this time I recommend to continue current medications, management. I would recommend check orthostatic vitals and I would also recommend resume the home medications. Cardiology consultation. Hold antiplatelet medications. I would also recommend Gastroenterology evaluation for any evidence of anemia. Stool guaiac. The chest x-ray was reviewed personally by me showed right pleural effusion and a abdominal pelvis CAT scan was also done which showed heterogeneous liver, spleen and as well as some moderate ascites. A chest CTA showed changes of CHF. The overall prognosis extremely guarded because of multiple complex medical issues as detailed above and we will continue to monitor. See orders for further details. Further recommendations to follow. MMODL / IJN: [id number] /
--- NOTE | 2018-03-08 07:23 | XR ---
EXAMINATION TYPE: XR chest 1V portable DATE OF EXAM: 03/08/2018 Comparison: 03/07/2018 Clinical History: 77-year-old female Pleural effusion Findings: Left anterior chest wall pacemaker generator with right atrial and right ventricular leads. Median st ernotomy wires are present with post-CABG clips. Heart mildly enlarged. Mild diffuse interstitial pro minence. Small right pleural effusion persists. Mild hyperinflation. Surgical clips left axilla. Impression: 1. Mild cardiomegaly and suspected underlying COPD. Correlate for residual mild pulmonary vascular co ngestion. 2. Continued small right effusion with adjacent atelectasis and/or consolidation.
[2018-03-08 08:50] LABS: INR 2.2 (<1.2); Prothrombin Time 21.3 sec (9.0-12.0)
--- NOTE | 2018-03-08 09:04 | P.CONS ---
History of Present Illness - Reason for Consult Consult date: 03/08/18 GI bleed ascites Requesting physician: Jolly Chandler - Chief Complaint Back pain shortness of breath weakness - History of Present Illness 77-year-old female with a history of sick sinus syndrome pacemaker, CAD PCI stent October 2017, chronic A. fib maintained on warfarin dual antiplatelet therapy admitted with shortness of breath back pain weakness. Consultation requested for GI bleed ascites. Patient denies overt bleeding such as hematemesis hematochezia or melena. FOBT negative. Reports back spasms no abdominal pain. No history of GI bleeding. History of remote colonoscopy more than 10 years ago. No recent EGD. No NSAIDs. No alcohol. No history of known liver disorders. Hemoglobin 02/11/2018 was 12.9. MCV 96. Hypochromic. Platelet 186. Admission hemoglobin 8 decreased to 7.7 received 1 unit of blood presently 9.3. INR 3.8. BUN 38. Creatinine 1.3. ProBNP 2390 presently 3510. Chest x-ray mild cardiomegaly suspect underlying COPD. Small right pleural effusion and atelectasis. CT chest changes consistent with CHF. No PE. CT abdomen and pelvis bilateral pleural effusions. Enlarged heart. Liver showed no focal defects. Some fluid around the gallbladder. Gallbladder contracted. Heterogeneous enhancement of liver spleen due to low cardiac output and heart failure. Moderate ascites in the abdomen. No bowel obstruction. LFTs within normal limits. Review of Systems Constitutional: Denies fever, chills, sweats, weight gain, or loss. HEENT: Negative for migraines, blurred vision or loss, earaches, drainage, tinnitus, oral mucosal lesions, dysphagia, or odynophagia. CARDIAC: His 2 CAD. Chronic A. fib. Pacemaker. RESPIRATORY: Admitted with shortness of breath. Denies, hemoptysis, cough, or sputum production. GI: See HPI for pertinent findings. : Negative for hematuria, urgency, frequency, polyuria, or dysuria. GYNc: Negative vaginal discharge. MUSCULOSKELETAL: Negative for muscle aches, swelling, arthritis, and arthralgias. NEUROLOGIC: Negative for stroke or TIA. ENDOCRINE: Negative for thyroid problems. SKIN: Negative for rash or itching. PSYCHIATRIC: Negative history for depression and anxiety Past Medical History Past Medical History: Heart Failure Additional Past Medical History / Comment(s): Pt recently admitted to [facility] in October with CHF, possible NSTEMI and had PCI with stent to circ. Other Hx: Severe mitral regurgitation-to have valve surgery soon, moderate tricuspid regurg, mild aortic regurg, ischemic cardiomyopathy, L breast cancer with lumpectomy/chem and radiation, TIAs, bilateral raynaulds syndrome, chronic low and thoracic back a pain/scoliosis, past head injury, bronchtisi. History of Any Multi-Drug Resistant Organisms: None Reported Past Surgical History: Adenoidectomy, Appendectomy, Breast Surgery, Coronary Bypass/CABG, Heart Catheterization, Heart Catheterization With Stent, Orthopedic Surgery, Pacemaker, Tonsillectomy Additional Past Surgical History / Comment(s): 10/25/17 NARENDRA, 10/27/17 PCI with stent to circumflex, 2002 CABG 3 vessel, left side lumpectomy, bialteral cataract removed, bilateral carpal tunnel releases, bilateral hand trigger finger releases, back injection, D&C, Past Anesthesia/Blood Transfusion Reactions: Postoperative Nausea & Vomiting ( PONV) Additional Past Anesthesia/Blood Transfusion Reaction / Comm: Pt has received blood in past without reaction. Date of Last Stent Placement:: 10/27/17 Type of Cardiac Device: Permanent Pacemaker Device Placement Date:: 2006 Past Psychological History: No Psychological Hx Reported Additional Psychological History / Comment(s): Pt resides alone. She is independent. Smoking Status: Former smoker Past Alcohol Use History: Occasional Additional Past Alcohol Use History / Comment(s): Pt started smoking in 1952 and quit in 1969. Past Drug Use History: None Reported - Past Family History Mother Family Medical History: Coronary Artery Disease (CAD), Diabetes Mellitus Additional Family Medical History / Comment(s): cabg Father Family Medical History: Pulmonary Embolus Additional Family Medical History / Comment(s): Father of a pulmonary embolism at the age of 46yrs. Medications and Allergies Home Medications Medication Instructions Recorded Confirmed Type Isosorbide Mononitrate ER [Imdur] 30 mg PO DAILY #90 tab.er.24h 10/28/17 Rx Losartan [Cozaar] 25 mg PO DAILY #90 tab 10/28/17 03/07/18 Rx Nitroglycerin Sl Tabs [Nitrostat] 0.4 mg SUBLINGUAL Q5M PRN #25 tab 10/28/1703/25 Rx Furosemide [Lasix] 60 mg PO BID 01/17/18 03/07/18 History Aspirin [Adult Low Dose Aspirin EC] 81 mg PO DAILY 02/11/18 03/07/18 History Carvedilol [Coreg] 6.25 mg PO BID 02/11/18 03/07/18 History Clopidogrel [Plavix] 75 mg PO DAILY 02/11/18 03/07/18 History Diazepam 2 mg PO DAILY PRN 02/11/18 03/07/18 History Diltiazem Cd [Cardizem CD] 120 mg PO DAILY #30 cap.er.24h 02/13/18 03/07/18 Rx HYDROcodone/APAP 7.5-325MG [[place] 1 tab PO Q6H PRN 03/07/18 03/07/18 History 7.5-325] Warfarin [Coumadin] 1 mg PO SUMO 03/07/18 03/07/18 History Warfarin [Coumadin] 2 mg PO [id number] 03/07/18 03/07/18 History Allergies Allergy/AdvReac Type Severity Reaction Status Date / Time codeine AdvReac Nausea & Verified 03/07/18 20:09 Vomiting Physical Exam Vitals: Vital Signs Temp Pulse Resp BP BP Pulse Ox 03/08/18 07:00 75 22 103/70 95 03/08/18 06:00 89 18 103/70 96 03/08/18 05:15 97.7 F 76 18 104/51 96 03/08/18 05:00 71 17 104/53 94 L 03/08/18 04:00 64 16 100/53 98 03/08/18 03:20 97.9 F 61 15 97/46 03/08/18 03:00 65 17 101/52 92 L 03/08/18 02:50 97.5 F L 62 17 99/55 03/08/18 02:40 97.7 F 68 18 100/63 96 03/08/18 02:00 65 20 104/47 97 03/08/18 01:21 72 15 96/54 98 03/08/18 00:50 96 03/08/18 00:39 97.7 F 17 03/08/18 00:20 98 F 61 16 91/61 96 03/07/18 23:56 97.6 F 17 96/54 99 03/07/18 22:13 64 16 93/47 100 03/07/18 19:40 97.6 F 79 18 102/49 99 Intake and Output 03/07/18 03/08/18 03/08/18 22:59 06:59 14:59 Intake Total 450 20 Output Total 350 Balance 100 20 Intake: IV 140 20 0.9 140 20 Blood Product 310 Rc Pheresis As-3 Unit 310 [id number] Output: Urine 350 Other: Voiding Method Toilet # Voids 0 Weight 55.792 kg 58.6 kg General appearance: The patient is alert, oriented, in no acute distress. HET: Head is normocephalic and atraumatic. Pupils are equal and reactive. Oropharynx is clear without lesions. Neck: Supple without lymphadenopathy. Trachea midline. Heart: S1 S2. Regular rate and rhythm. Lungs: No crackles or wheezes are heard. Abdomen: Soft, nontender, mildly bloated mild ascites with bowel sounds. No peritoneal signs. No palpable organomegaly or masses. Extremities: Normal skin color and turgor. No cyanosis, rash, ulceration, clubbing, or edema. Radial and pedal pulses are 2/4 bilaterally. Neurological: No focal deficits. Strength and sensation are grossly intact. Results CBC & Chem 7: 03/09/18 06:01 03/09/18 06:01 Labs: Abnormal Lab Results - Last 24 Hours (Table) 03/07/18 03/07/18 03/07/18 Range/Units 21:28 21:28 21:28 RBC 2.63 L (3.80-5.40) m/uL Hgb 7.7 L (11.4-16.0) gm/dL Hct 24.5 L (34.0-46.0) % RDW 16.2 H (11.5-15.5) % PT 36.1 H (9.0-12.0) sec INR 3.8 H (<1.2) APTT 32.9 H (22.0-30.0) sec Sodium 132 L (137-145) mmol/L Carbon Dioxide (22-30) mmol/L BUN 38 H (7-17) mg/dL Creatinine 1.23 H (0.52-1.04) mg/dL Glucose 111 H (74-99) mg/dL POC Glucose (mg/dL) (75-99) mg/dL Magnesium 2.4 H (1.6-2.3) mg/dL Total Protein 5.8 L (6.3-8.2) g/dL Albumin 3.4 L (3.5-5.0) g/dL Crossmatch 03/07/18 03/08/18 03/08/18 Range/Units 21:28 00:44 06:18 RBC 3.03 L (3.80-5.40) m/uL Hgb 9.3 L D (11.4-16.0) gm/dL Hct 28.9 L (34.0-46.0) % RDW (11.5-15.5) % PT (9.0-12.0) sec INR (<1.2) APTT (22.0-30.0) sec Sodium (137-145) mmol/L Carbon Dioxide (22-30) mmol/L BUN (7-17) mg/dL Creatinine (0.52-1.04) mg/dL Glucose (74-99) mg/dL POC Glucose (mg/dL) 111 H (75-99) mg/dL Magnesium (1.6-2.3) mg/dL Total Protein (6.3-8.2) g/dL Albumin (3.5-5.0) g/dL Crossmatch See Detail 03/08/18 Range/Units 06:18 RBC (3.80-5.40) m/uL Hgb (11.4-16.0) gm/dL Hct (34.0-46.0) % RDW (11.5-15.5) % PT (9.0-12.0) sec INR (<1.2) APTT (22.0-30.0) sec Sodium 134 L (137-145) mmol/L Carbon Dioxide 21 L (22-30) mmol/L BUN 36 H (7-17) mg/dL Creatinine 1.14 H (0.52-1.04) mg/dL Glucose (74-99) mg/dL POC Glucose (mg/dL) (75-99) mg/dL Magnesium (1.6-2.3) mg/dL Total Protein (6.3-8.2) g/dL Albumin (3.5-5.0) g/dL Crossmatch Chest x-ray: report reviewed (Dr. Huertas) CT scan - abdomen: report reviewed (Dr. Huertas) CT scan - chest: report reviewed (Dr. Huertas) Assessment and Plan (1) Acute blood loss anemia Narrative/Plan: 77-year-old female admitted with symptomatic acute blood loss anemia normocytic hypochromic possible GI bleeding with underlying shortness of breath and congestive heart failure. Current Visit: Yes Status: Acute Code(s): D62 - ACUTE POSTHEMORRHAGIC ANEMIA SNOMED Code(s): 227590248 (2) GI bleeding Current Visit: Yes Status: Acute Code(s): K92.2 - GASTROINTESTINAL HEMORRHAGE, UNSPECIFIED SNOMED Code(s): 53729604 (3) Warfarin-induced coagulopathy Current Visit: Yes Status: Acute Code(s): D68.32 - HEMORRHAGIC DISORD D/T EXTRINSIC CIRCULATING ANTICOAGULANTS; T45.515A - ADVERSE EFFECT OF ANTICOAGULANTS, INITIAL ENCOUNTER SNOMED Code(s): 33869814 (4) Chronic a-fib Current Visit: Yes Status: Acute Code(s): I48.2 - CHRONIC ATRIAL FIBRILLATION SNOMED Code(s): 986716728 (5) CAD (coronary artery disease) Current Visit: Yes Status: Acute Code(s): I25.10 - ATHSCL HEART DISEASE OF [place] CORONARY ARTERY W/O ANG PCTRS SNOMED Code(s): 37325762 (6) Ascites Narrative/Plan: No history of known liver disorders LFTs within normal limits no obvious abnormalities of liver per CT suspect component of congestive heart failure consuming to abdominal ascites seen on CT imaging. Current Visit: Yes Status: Acute Code(s): R18.8 - OTHER ASCITES SNOMED Code(s): 961825807 (7) Congestive heart failure Current Visit: Yes Status: Acute Code(s): I50.9 - HEART FAILURE, UNSPECIFIED SNOMED Code(s): 56979387 Plan: 1. EGD colonoscopy recommended once INR is corrected 1.5-1.7. Patient received vitamin K. INR pending this morning. Anticoagulation antiplatelet therapy has been discontinued. CBC monitoring. GI prophylaxis Protonix 40 mg daily. Close monitoring of CBC PT/INR. Thank you for this kind referral and the opportunity to participate in the care of your patient. This consultation was discussed with Dr. Huertas. The impression and plan of care have been directed as dictated.
[2018-03-08] MEDS: PANTOPRAZOLE 40 MG/10 ML VIAL IV SCH (09:33)
[2018-03-08] MEDS: FUROSEMIDE 10 MG/ML 2 ML VIAL IV SCH ×2 (09:33→20:20)
--- NOTE | 2018-03-08 09:33 | P.CRDCN ---
History of Present Illness Consult reason: congestive heart failure History of present illness: This is Dr. Alvarez dictating a consult on this patient The patient was interviewed and examined by me IMPRESSION / ASSESSMENT: Severe mitral regurgitation ischemic awaiting mitral valve clip per previous dictation History of CAD status post bypass surgery and PCI in the past In October she underwent coronary stenting of the circumflex vessel Permanent atrial fibrillation Bradycardia status post ming [place] with recent pacemaker generator change Admitted with heart failure symptoms, acute heart failure, acute on chronic, systolic last echo shows ejection fraction 40% Severe mitral regurgitation secondary to poor coaptation of the mitral leaflets PLAN: Continue IV diuresis Office records HPI Patient presenting with increasing shortness of breath for a few days prior to admission and fatigue. Denies chest discomfort She is awaiting mitral valve replacement ROS: No fever chills or rigors, no cough, phlegm or expectoration, no nausea, vomiting or diarrhea, no hematuria, dysuria, no musculoskeletal complaints, no strokes or seizures, no skin lesions. EXAMINATION: Systolic murmur Abdomen soft nontender No lower extremity edema JVD Breath sounds are reduced bilaterally with crackles at the bases REVIEW OF LABS, ECG & MEDICAL DATA Twelve-lead ECG shows underlying atrial fibrillation with intermittent ventricular pacing Ascending aorta. Centimeters and atheromatous Labs reviewed. Sodium 134 potassium 4.9 BUN 36 creatinine 1.14 Hemoglobin 9.3 Past Medical History Past Medical History: Heart Failure Additional Past Medical History / Comment(s): Pt recently admitted to [facility] in October with CHF, possible NSTEMI and had PCI with stent to circ. Other Hx: Severe mitral regurgitation-to have valve surgery soon, moderate tricuspid regurg, mild aortic regurg, ischemic cardiomyopathy, L breast cancer with lumpectomy/chem and radiation, TIAs, bilateral raynaulds syndrome, chronic low and thoracic back a pain/scoliosis, past head injury, bronchtisi. History of Any Multi-Drug Resistant Organisms: None Reported Past Surgical History: Adenoidectomy, Appendectomy, Breast Surgery, Coronary Bypass/CABG, Heart Catheterization, Heart Catheterization With Stent, Orthopedic Surgery, Pacemaker, Tonsillectomy Additional Past Surgical History / Comment(s): 10/25/17 NARENDRA, 10/27/17 PCI with stent to circumflex, 2002 CABG 3 vessel, left side lumpectomy, bialteral cataract removed, bilateral carpal tunnel releases, bilateral hand trigger finger releases, back injection, D&C, Past Anesthesia/Blood Transfusion Reactions: Postoperative Nausea & Vomiting ( PONV) Additional Past Anesthesia/Blood Transfusion Reaction / Comment(s): Pt has received blood in past without reaction. Date of Last Stent Placement:: 10/27/17 Type of Cardiac Device: Permanent Pacemaker Device Placement Date:: 2006 Past Psychological History: No Psychological Hx Reported Additional Psychological History / Comment(s): Pt resides alone. She is independent. Smoking Status: Former smoker Past Alcohol Use History: Occasional Additional Past Alcohol Use History / Comment(s): Pt started smoking in 1952 and quit in 1969. Past Drug Use History: None Reported - Past Family History Mother Family Medical History: Coronary Artery Disease (CAD), Diabetes Mellitus Additional Family Medical History / Comment(s): cabg Father Family Medical History: Pulmonary Embolus Additional Family Medical History / Comment(s): Father of a pulmonary embolism at the age of 46yrs. Medications and Allergies Home Medications Medication Instructions Recorded Confirmed Type Isosorbide Mononitrate ER [Imdur] 30 mg PO DAILY #90 tab.er.24h 10/28/17 Rx Losartan [Cozaar] 25 mg PO DAILY #90 tab 10/28/17 03/07/18 Rx Nitroglycerin Sl Tabs [Nitrostat] 0.4 mg SUBLINGUAL Q5M PRN #25 tab 10/28/1703/25 Rx Furosemide [Lasix] 60 mg PO BID 01/17/18 03/07/18 History Aspirin [Adult Low Dose Aspirin EC] 81 mg PO DAILY 02/11/18 03/07/18 History Carvedilol [Coreg] 6.25 mg PO BID 02/11/18 03/07/18 History Clopidogrel [Plavix] 75 mg PO DAILY 02/11/18 03/07/18 History Diazepam 2 mg PO DAILY PRN 02/11/18 03/07/18 History Diltiazem Cd [Cardizem CD] 120 mg PO DAILY #30 cap.er.24h 02/13/18 03/07/18 Rx HYDROcodone/APAP 7.5-325MG [[place] 1 tab PO Q6H PRN 03/07/18 03/07/18 History 7.5-325] Warfarin [Coumadin] 1 mg PO SUMO 03/07/18 03/07/18 History Warfarin [Coumadin] 2 mg PO 03/07/18 03/07/18 History Allergies Allergy/AdvReac Type Severity Reaction Status Date / Time codeine AdvReac Nausea & Verified 03/07/18 20:09 Vomiting Physical Exam Vitals: Vital Signs Temp Pulse Resp BP BP Pulse Ox 03/08/18 07:00 75 22 103/70 95 03/08/18 06:00 89 18 103/70 96 03/08/18 05:15 97.7 F 76 18 104/51 96 03/08/18 05:00 71 17 104/53 94 L 03/08/18 04:00 64 16 100/53 98 03/08/18 03:20 97.9 F 61 15 97/46 03/08/18 03:00 65 17 101/52 92 L 03/08/18 02:50 97.5 F L 62 17 99/55 03/08/18 02:40 97.7 F 68 18 100/63 96 03/08/18 02:00 65 20 104/47 97 03/08/18 01:21 72 15 96/54 98 03/08/18 00:50 96 03/08/18 00:39 97.7 F 17 03/08/18 00:20 98 F 61 16 91/61 96 03/07/18 23:56 97.6 F 17 96/54 99 03/07/18 22:13 64 16 93/47 100 03/07/18 19:40 97.6 F 79 18 102/49 99 Intake and Output 03/07/18 03/08/18 03/08/18 22:59 06:59 14:59 Intake Total 450 20 Output Total 350 Balance 100 20 Intake: IV 140 20 0.9 140 20 Blood Product 310 Rc Pheresis As-3 Unit 310 [id number] Output: Urine 350 Other: Voiding Method Toilet # Voids 0 Weight 55.792 kg 58.6 kg Results 03/08/18 06:18 03/08/18 06:18 Cardiac Enzymes 03/07/18 03/07/18 Range/Units 21:28 21:28 AST 29 (14-36) U/L CK-MB (CK-2) 1.9 (0.0-2.4) ng/mL Troponin I 0.017 (0.000-0.034) ng/mL Coagulation 03/07/18 03/08/18 Range/Units 21:28 08:26 PT 36.1 H 21.3 H (9.0-12.0) sec APTT 32.9 H (22.0-30.0) sec CBC 03/07/18 03/08/18 Range/Units 21:28 06:18 WBC 6.2 6.7 (3.8-10.6) k/uL RBC 2.63 L 3.03 L (3.80-5.40) m/uL Hgb 7.7 L 9.3 L D (11.4-16.0) gm/dL Hct 24.5 L 28.9 L (34.0-46.0) % Plt Count 391 372 (150-450) k/uL Comprehensive Metabolic Panel 03/07/18 03/08/18 Range/Units 21:28 06:18 Sodium 132 L 134 L (137-145) mmol/L Potassium 4.5 4.9 (3.5-5.1) mmol/L Chloride 98 102 (98-107) mmol/L Carbon Dioxide 25 21 L (22-30) mmol/L BUN 38 H 36 H (7-17) mg/dL Creatinine 1.23 H 1.14 H (0.52-1.04) mg/dL Glucose 111 H 99 (74-99) mg/dL Calcium 9.3 9.1 (8.4-10.2) mg/dL AST 29 (14-36) U/L ALT 32 (9-52) U/L Alkaline Phosphatase 121 (38-126) U/L Total Protein 5.8 L (6.3-8.2) g/dL Albumin 3.4 L (3.5-5.0) g/dL Current Medications Generic Name Dose Route Start Last Admin Trade Name Freq PRN Reason Stop Dose Admin Hydrocodone Bitart/Acetaminophen 1 each 03/08/18 00:38 [place] 7.5-325 PO Q6H PRN Pain Carvedilol 6.25 mg 03/08/18 09:30 Coreg PO BID-W/MEALS ANKUSH Diazepam 2 mg 03/08/18 00:38 Valium PO DAILY PRN Anxiety Diltiazem HCl 120 mg 03/08/18 09:30 Cardizem Cd PO DAILY ANKUSH Furosemide 20 mg 03/08/18 09:00 Lasix IV Q12HR ANKUSH Sodium Chloride 1,000 mls @ 20 mls/hr 03/07/18 20:30 03/07/18 22:11 Saline 0.9% IV 03/08/18 20:29 20 mls/hr .Q24H STA Administration Morphine Sulfate 2 mg 03/07/18 23:45 Morphine Sulfate (Inj) IV Q2HR PRN Pain Scale 4 to 5 Naloxone HCl 0.2 mg 03/07/18 23:45 Narcan IV Q2M PRN Opioid Reversal Nitroglycerin 0.4 mg 03/08/18 00:38 Nitrostat SUBLINGUAL Q5M PRN Chest Pain Pantoprazole Sodium 40 mg 03/08/18 09:00 Protonix IV DAILY ANKUSH Intake and Output 03/07/18 03/08/18 03/08/18 22:59 06:59 14:59 Intake Total 450 20 Output Total 350 Balance 100 20 Intake: IV 140 20 0.9 140 20 Blood Product 310 Rc Pheresis As-3 Unit 310 [id number] Output: Urine 350 Other: Voiding Method Toilet # Voids 0 Weight 55.792 kg 58.6 kg 03/08/18 06:18 03/08/18 06:18
[2018-03-08] MEDS: ONDANSETRON 4 MG/2 ML VIAL IVP PRN ×2 (09:45→17:56)
[2018-03-08] MEDS: CARVEDILOL 6.25 MG TAB PO SCH ×2 (09:47→17:15)
[2018-03-08] MEDS: DILTIAZEM CD 120 MG CAP.ER.24H PO SCH (11:38)
[2018-03-08] MEDS: ACETAMINOPHEN TAB 325 MG TAB PO PRN ×2 (11:47→17:14)
--- NOTE | 2018-03-08 11:52 | P.CNPUL ---
History of Present Illness Consult date: 03/08/18 Reason for consult: dyspnea Chief complaint: Shortness of breath History of present illness: This is a 77-year-old female with history of sick sinus syndrome, coronary artery disease and previous stent placement in October of 2017, chronic atrial fibrillation, maintained on Coumadin. Patient presented to the ER yesterday with a few days' history of increased shortness of breath. Fatigue, however she denied any chest discomfort, and no chest pain. Patient is known to have history of severe mitral regurgitation, and she is being worked up for possible mitral valve clip. Patient is also known to have history of coronary artery disease previous bypass and PCI in the past. Previous stenting of the circumflex vessel. This was in October of 2017. She has chronic atrial fibrillation, she is also known to have history of LV dysfunction, ejection fraction is below 40%. Upon presentation, the patient was noted to have some interstitial edema based on the chest x-ray, and she was noted to be anemic. Considering her INR was supratherapeutic, Coumadin was placed on hold, and she had one unit of packed RBC transfused in the emergency room. Her Hemoccult stools were negative. Patient was admitted to the ICU and this consult was initiated. Apparently while in the ER, she had borderline blood pressure, but improved with transfusion of 1 unit of packed RBCs, and presently the patient is normotensive. During my evaluation, patient was already feeling better, breathing a lot easier, she denied any cough, no fever, no chills, no hemoptysis , no chest pain. Denied any nausea vomiting abdominal pain, denies any previous history of GI bleeding, no melena, no hematemesis, no dysuria, no frequency, no urgency. Denies any headache, no blurred vision, no dizziness. And she had no musculoskeletal complaints. Review of Systems 14 point review of systems were obtained, please refer to pertinent positives in HPI, otherwise remaining systems are negative. Past Medical History Past Medical History: Heart Failure Additional Past Medical History / Comment(s): Pt recently admitted to [facility] in October with CHF, possible NSTEMI and had PCI with stent to circ. Other Hx: Severe mitral regurgitation-to have valve surgery soon, moderate tricuspid regurg, mild aortic regurg, ischemic cardiomyopathy, L breast cancer with lumpectomy/chem and radiation, TIAs, bilateral raynaulds syndrome, chronic low and thoracic back a pain/scoliosis, past head injury, bronchtisi. History of Any Multi-Drug Resistant Organisms: None Reported Past Surgical History: Adenoidectomy, Appendectomy, Breast Surgery, Coronary Bypass/CABG, Heart Catheterization, Heart Catheterization With Stent, Orthopedic Surgery, Pacemaker, Tonsillectomy Additional Past Surgical History / Comment(s): 10/25/17 NARENDRA, 10/27/17 PCI with stent to circumflex, 2002 CABG 3 vessel, left side lumpectomy, bialteral cataract removed, bilateral carpal tunnel releases, bilateral hand trigger finger releases, back injection, D&C, Past Anesthesia/Blood Transfusion Reactions: Postoperative Nausea & Vomiting ( PONV) Additional Past Anesthesia/Blood Transfusion Reaction / Comment(s): Pt has received blood in past without reaction. Date of Last Stent Placement:: 10/27/17 Type of Cardiac Device: Permanent Pacemaker Device Placement Date:: 2006 Past Psychological History: No Psychological Hx Reported Additional Psychological History / Comment(s): Pt resides alone. She is independent. Smoking Status: Former smoker Past Alcohol Use History: Occasional Additional Past Alcohol Use History / Comment(s): Pt started smoking in 1952 and quit in 1970. Past Drug Use History: None Reported - Past Family History Mother Family Medical History: Coronary Artery Disease (CAD), Diabetes Mellitus Additional Family Medical History / Comment(s): cabg Father Family Medical History: Pulmonary Embolus Additional Family Medical History / Comment(s): Father of a pulmonary embolism at the age of 46yrs. Medications and Allergies Home Medications Medication Instructions Recorded Confirmed Type Isosorbide Mononitrate ER [Imdur] 30 mg PO DAILY #90 tab.er.24h 10/28/17 Rx Losartan [Cozaar] 25 mg PO DAILY #90 tab 10/28/17 03/07/18 Rx Nitroglycerin Sl Tabs [Nitrostat] 0.4 mg SUBLINGUAL Q5M PRN #25 tab 10/28/1703/25 Rx Furosemide [Lasix] 60 mg PO BID 01/17/18 03/07/18 History Aspirin [Adult Low Dose Aspirin EC] 81 mg PO DAILY 02/11/18 03/07/18 History Carvedilol [Coreg] 6.25 mg PO BID 02/11/18 03/07/18 History Clopidogrel [Plavix] 75 mg PO DAILY 02/11/18 03/07/18 History Diazepam 2 mg PO DAILY PRN 02/11/18 03/07/18 History Diltiazem Cd [Cardizem CD] 120 mg PO DAILY #30 cap.er.24h 02/13/18 03/07/18 Rx HYDROcodone/APAP 7.5-325MG [[place] 1 tab PO Q6H PRN 03/07/18 03/07/18 History 7.5-325] Warfarin [Coumadin] 1 mg PO SUMO 03/07/18 03/07/18 History Warfarin [Coumadin] 2 mg PO [id number] 03/07/18 03/07/18 History Allergies Allergy/AdvReac Type Severity Reaction Status Date / Time codeine AdvReac Nausea & Verified 03/07/18 20:09 Vomiting Physical Exam Vitals: Vital Signs Temp Pulse Resp BP BP Pulse Ox 03/08/18 11:00 84 16 112/70 99 03/08/18 10:00 82 18 112/70 80 L 03/08/18 09:00 115 H 24 103/70 99 03/08/18 08:00 97.8 F 83 14 103/70 96 03/08/18 07:00 75 22 103/70 95 03/08/18 06:00 89 18 103/70 96 03/08/18 05:15 97.7 F 76 18 104/51 96 03/08/18 05:00 71 17 104/53 94 L 03/08/18 04:00 64 16 100/53 98 03/08/18 03:20 97.9 F 61 15 97/46 03/08/18 03:00 65 17 101/52 92 L 03/08/18 02:50 97.5 F L 62 17 99/55 03/08/18 02:40 97.7 F 68 18 100/63 96 03/08/18 02:00 65 20 104/47 97 03/08/18 01:21 72 15 96/54 98 03/08/18 00:50 96 03/08/18 00:39 97.7 F 17 03/08/18 00:20 98 F 61 16 91/61 96 03/07/18 23:56 97.6 F 17 96/54 99 03/07/18 22:13 64 16 93/47 100 03/07/18 19:40 97.6 F 79 18 102/49 99 Intake and Output 03/07/18 03/08/18 03/08/18 22:59 06:59 14:59 Intake Total 450 340 Output Total 350 250 Balance 100 90 Intake: IV 140 100 0.9 140 100 Oral 240 Blood Product 310 Rc Pheresis As-3 Unit 310 [id number] Output: Urine 350 250 Other: Voiding Method Toilet # Voids 0 Weight 55.792 kg 58.6 kg Physical Exam: Revealed a 77-year-old female in no distress. Head: Atraumatic, normocephalic. HEENT:[Neck is supple.] [No neck masses.] [No thyromegaly.] [No JVD.] Chest: [Clear throughout, no crackles, no rhonchi, no wheezes.] Cardiac Exam: [Normal S1 and S2, no S3 gallop, no murmur.] Abdomen: [Soft, nontender, no megaly, no rebound, no guarding, normal bowel sounds.] Extremities: [No clubbing, no edema, no cyanosis.] Neurological Exam: [No focal neurologic deficit. Psychiatric: Normal mood, affect and mental status examination. Skin: No rashes.] Results - Laboratory Findings CBC and BMP: 03/08/18 06:18 03/08/18 06:18 PT/INR, D-dimer PT 21.3 sec (9.0-12.0) H 03/08/18 08:26 INR 2.2 (<1.2) H 03/08/18 08:26 Abnormal lab findings: Abnormal Labs 03/07/18 03/07/18 03/07/18 21:28 21:28 21:28 RBC 2.63 L Hgb 7.7 L Hct 24.5 L RDW 16.2 H PT 36.1 H INR 3.8 H APTT 32.9 H Sodium 132 L Carbon Dioxide BUN 38 H Creatinine 1.23 H Glucose 111 H POC Glucose (mg/dL) Magnesium 2.4 H Total Protein 5.8 L Albumin 3.4 L Crossmatch 03/07/18 03/08/18 03/08/18 21:28 00:44 06:18 RBC 3.03 L Hgb 9.3 L D Hct 28.9 L RDW PT INR APTT Sodium Carbon Dioxide BUN Creatinine Glucose POC Glucose (mg/dL) 111 H Magnesium Total Protein Albumin Crossmatch See Detail 03/08/18 03/08/18 06:18 08:26 RBC Hgb Hct RDW PT 21.3 H INR 2.2 H APTT Sodium 134 L Carbon Dioxide 21 L BUN 36 H Creatinine 1.14 H Glucose POC Glucose (mg/dL) Magnesium Total Protein Albumin Crossmatch - Diagnostic Findings CT scan - chest: image reviewed (CT of the chest is consistent with congestive heart failure.) Assessment and Plan Assessment: Impression: 1 acute systolic congestive heart failure. 2 severe mitral regurgitation, workup for mitral valve click is pending. 3 coronary artery disease and recent stent of the circumflex vessel. 4 chronic atrial fibrillation 5 supratherapeutic Coumadin and coagulopathy 6 anemia, most likely secondary to chronic GI blood losses, workup is in progress. 7 history of LV dysfunction, previous echocardiogram showed ejection fraction of 40%. 8 history of sick sinus syndrome, and previous pacemaker implantation. Recommendation: Reviewed chest x-ray, CT of the chest, all labs, previous studies on this patient including echocardiogram, and at this point I believe the patient is already responding to treatment with diuretics, clinically she is feeling better already, however her Coumadin will remain on hold until it becomes therapeutic, and workup for her anemia is in progress by gastroenterology. Patient will be monitored in the ICU for the next 24 hours, and if remains stable will consider transferring the patient to a monitor bed on selective. We'll continue to follow. Time with Patient: Greater than 30
--- NOTE | 2018-03-08 17:18 | PN ---
PROGRESS NOTE DATE OF SERVICE: 03/08/2018 This 77-year-old woman who was admitted with generalized weakness anemia with a possible acute GI bleed also had history of recent hbn-IP-caqrdpi-elevation infarction as well as PCI. The patient also had a pleural effusion. The patient was seen by Cardiology and Pulmonology. Cardiology has recommended continuing with IV diuresis. Patient has significant mitral regurgitation as well. Dr. Matos has seen the patient and recommended continuing the diuresis. Otherwise, hemoglobin is 9.3 today after one unit of transfusion. The patient is being closely monitored in the ICU. INR is 2.2. Creatinine is 1.14. Past medical history reviewed. REVIEW OF SYSTEMS: CARDIOVASCULAR SYSTEM: No angina, palpitations. RESPIRATORY SYSTEM: As mentioned earlier. GI: As mentioned earlier. : No dysuria or retention. NERVOUS SYSTEM: No numbness, weakness. CURRENT MEDICATIONS: Reviewed. They include: 1. Tylenol 650 q.6 p.r.n. 2. [place] 7.5 mg q.6 p.r.n. 3. Coreg 6.25 mg p.o. b.i.d. 4. Valium 2 mg daily. 5. Cardizem CD 120 mg p.o. daily. 6. Lasix 20 mg IV b.i.d. 7. Dilaudid 0.25 mg q.6 p.r.n. 8. Morphine sulfate p.r.n. 9. Narcan 0.2 q.2 p.r.n. 10.Nitrostat. 11.Zofran 4 mg IV q.8 p.r.n. 12.Protonix 40 mg IV daily. PHYSICAL EXAMINATION: Patient is alert, oriented x3. Pulse 82, blood pressure 104/72, respiration 15, temperature normal, pulse ox 98% on room air. HEENT: Conjunctivae normal. NECK: No jugular venous distention. CARDIOVASCULAR SYSTEM: S1, S2 muffled. RESPIRATORY SYSTEM: Breath sounds diminished at the bases. Bilateral scattered rhonchi and crackles ABDOMEN: Soft, obese, non-tender. LEGS: No edema. No swelling. NERVOUS SYSTEM: No focal deficit. LABS: WBC 6.7, hemoglobin 9.3. INR is 2.2. Sodium 134, creatinine 1.14. ASSESSMENT: 1. Generalized tiredness and weakness, possibly secondary to anemia; rule out acute gastrointestinal bleeding. 2. History of recent rzk-MB-cqgbeen-elevation myocardial infarction as well as percutaneous coronary intervention of the circumflex. 3. Right pleural effusion. 4. Moderate ascites for evaluation. 5. History of congestive heart failure. 6. History of severe mitral regurgitation, moderate tricuspid regurgitation and mild aortic regurgitation. 7. Congestive heart failure with possible acute on chronic systolic dysfunction. 8. History of ischemic cardiomyopathy. 9. Coronary artery disease, coronary artery bypass grafting, stent. 10.History of fall and weakness. 11.Gait dysfunction. 12.History of nicotine dependence. 13.FULL CODE. RECOMMENDATIONS AND DISCUSSION: I recommend to continue current medication, continue symptomatic treatment. Otherwise at this time we will monitor the patient closely with Cardiology and Pulmonology. Possible gastroenterology evaluation. Continue the rest of the medications. Currently hemoglobin has come up to 9.3 after transfusion, but we will continue with cautious diuresis and the rest of the medications, including Coreg. The prognosis is guarded because of multiple complex medical issues. Further recommendations to follow. Discussed with the patient. SUSANNAH / JULIA: [id number] / MOISÉS
[2018-03-08] MEDS: HYDROmorphone 0.5 MG/0.5 ML SYRINGE IVP PRN (17:55)
[2018-03-08 22:22] LABS: Appearance,Urine Cloudy (Clear); Bacteria,Urine Rare /hpf; Bilirubin,Urine Negative (Negative); Blood,Urine Small (Negative); Color,Urine Yellow; Glucose,Urine (UA) Negative (Negative); Hyaline Casts,Urine 3 /lpf (0-2); Ketones,Urine Negative (Negative); Leukocyte Esterase,Urine Large (Negative); Mucus,Urine Rare /hpf; Nitrite,Urine Positive (Negative); Protein,Urine Trace (Negative); RBC,Urine 4 /hpf (0-5); Specific Gravity,Urine 1.019 (1.001-1.035); Squamous Epithelial Cell,Urine 1 /hpf (0-4); Urobilinogen,Urine <2.0 mg/dL (<2.0)
[2018-03-09] MEDS: HYDROmorphone 0.5 MG/0.5 ML SYRINGE IVP PRN ×4 (03:49→23:49)
[2018-03-09 06:27] LABS: Anisocytosis Slight; Basophils % (A) 1 %; Eosinophils # (A) 0.3 k/uL (0-0.7); Eosinophils % (A) 4 %; HCT 28.4 % (34.0-46.0); HGB 9.1 gm/dL (11.4-16.0); Hypochromasia Marked; Lymphocytes # (A) 1.4 k/uL (1.0-4.8); Lymphocytes % (A) 21 %; MCH 30.4 pg (25.0-35.0); MCHC 32.2 g/dL (31.0-37.0); MCV 94.4 fL (80.0-100.0); Mean Platelet Volume 6.8; Monocytes # (A) 0.6 k/uL (0-1.0); Monocytes % (A) 10 %; Neutrophils # (A) 3.9 k/uL (1.3-7.7); Neutrophils % (A) 61 %; Platelet Count 358 k/uL (150-450); Poikilocytosis Moderate; RBC 3.01 m/uL (3.80-5.40); RDW 16.2 % (11.5-15.5); WBC 6.5 k/uL (3.8-10.6)
[2018-03-09 06:30] LABS: INR 1.4 (<1.2); Prothrombin Time 13.8 sec (9.0-12.0)
[2018-03-09 06:31] LABS: Partial Thromboplastin Time 27.3 sec (22.0-30.0)
[2018-03-09] MEDS: CARVEDILOL 6.25 MG TAB PO SCH ×2 (06:31→18:21)
[2018-03-09 06:35] LABS: Calcium 8.8 mg/dL (8.4-10.2); Magnesium 2.2 mg/dL (1.6-2.3); Potassium 4.1 mmol/L (3.5-5.1)
--- NOTE | 2018-03-09 08:04 | XR ---
EXAMINATION TYPE: XR chest 1V portable DATE OF EXAM: 03/09/2018 COMPARISON: 03/08/2018 HISTORY: Follow-up for pleural effusion. TECHNIQUE: Single frontal view of the chest is obtained. FINDINGS: There is similar size of the small layering right pleural effusion. Bibasilar patchy airsp ming disease is noted. Scattered right-sided benign calcified granulomas are seen within the right upp er lung. Postsurgical changes of the chest with multilead left-sided cardiac device are present. Card ia mediastinal silhouette is stable but enlarged. Left axillary surgical clips are noted. There is ge neralized osseous demineralization. IMPRESSION: Stable exam from the prior with small layering right pleural effusion and bibasilar prob able atelectasis.
[2018-03-09] MEDS: DILTIAZEM CD 120 MG CAP.ER.24H PO SCH (08:15)
[2018-03-09] MEDS: PANTOPRAZOLE 40 MG/10 ML VIAL IV SCH (08:15)
[2018-03-09] MEDS: FUROSEMIDE 10 MG/ML 2 ML VIAL IV SCH (08:15)
--- NOTE | 2018-03-09 10:53 | P.PN ---
Subjective Progress Note Date: 03/09/18 Principal diagnosis: Acute systolic congestive heart failure This is a 77-year-old female with history of sick sinus syndrome, coronary artery disease and previous stent placement in October of 2017, chronic atrial fibrillation, maintained on Coumadin. Patient presented to the ER yesterday with a few days' history of increased shortness of breath. Fatigue, however she denied any chest discomfort, and no chest pain. Patient is known to have history of severe mitral regurgitation, and she is being worked up for possible mitral valve clip. Patient is also known to have history of coronary artery disease previous bypass and PCI in the past. Previous stenting of the circumflex vessel. This was in October of 2017. She has chronic atrial fibrillation, she is also known to have history of LV dysfunction, ejection fraction is below 40%. Upon presentation, the patient was noted to have some interstitial edema based on the chest x-ray, and she was noted to be anemic. Considering her INR was supratherapeutic, Coumadin was placed on hold, and she had one unit of packed RBC transfused in the emergency room. Her Hemoccult stools were negative. Patient was admitted to the ICU and this consult was initiated. Apparently while in the ER, she had borderline blood pressure, but improved with transfusion of 1 unit of packed RBCs, and presently the patient is normotensive. During my evaluation, patient was already feeling better, breathing a lot easier, she denied any cough, no fever, no chills, no hemoptysis , no chest pain. Denied any nausea vomiting abdominal pain, denies any previous history of GI bleeding, no melena, no hematemesis, no dysuria, no frequency, no urgency. Denies any headache, no blurred vision, no dizziness. And she had no musculoskeletal complaints. Patient was reevaluated today in the ICU on 03/09/2018, doing much better compared to how she felt when she was admitted. Denies any cough, no wheezing, no shortness of breath, no chest pain. No headache no blurred vision no dizziness no nausea no vomiting no abdominal pain. CBC is relatively normal hemoglobin is holding at 9.1. INR is 1.4 today, it was 2.2 yesterday. Electrolytes and renal profile is improved compared to yesterday. Urinalysis is positive for pyuria and bacteriuria. Chest x-ray continues to show small right-sided pleural effusion, and patchy interstitial edema. Objective - Vital Signs Vital signs: Vital Signs Temp 97.8 F 03/09/18 08:00 Pulse 85 03/09/18 10:00 Resp 18 03/09/18 10:00 BP 98/63 03/09/18 10:00 Pulse Ox 95 03/09/18 10:00 Intake & Output 03/08/18 03/09/18 03/09/18 18:59 06:59 18:59 Intake Total 1360 460 80 Output Total 550 550 350 Balance 810 -90 -270 Weight 58.6 kg 64.6 kg Intake: IV 200 220 80 0.9 200 220 80 Intake, IV Titration 40 Amount Sodium Chloride 0.9% 1, 40 000 ml @ 20 mls/hr IV . Q24H STA Rx#:[id number] Oral 1120 240 Output: Urine 550 550 350 Other: Voiding Method Toilet Toilet Toilet # Voids 1 0 - Exam Physical Exam: Revealed a 77-year-old female in no distress. Head: Atraumatic, normocephalic. HEENT:[Neck is supple.] [No neck masses.] [No thyromegaly.] [No JVD.] Chest: [Minimal crackles at the right base, no rhonchi and no wheezes Cardiac Exam: [Normal S1 and S2, no S3 gallop, no murmur.] Abdomen: [Soft, nontender, no megaly, no rebound, no guarding, normal bowel sounds.] Extremities: [No clubbing, no edema, no cyanosis.] Neurological Exam: [No focal neurologic deficit. Psychiatric: Normal mood, affect and mental status examination. Skin: No rashes.] - Labs CBC & Chem 7: 03/09/18 06:01 03/09/18 06:01 Labs: Abnormal Lab Results - Last 24 Hours (Table) 03/08/18 03/09/18 03/09/18 Range/Units 21:32 06:01 06:01 RBC 3.01 L (3.80-5.40) m/uL Hgb 9.1 L (11.4-16.0) gm/dL Hct 28.4 L (34.0-46.0) % RDW 16.2 H (11.5-15.5) % PT (9.0-12.0) sec INR (<1.2) Sodium 133 L (137-145) mmol/L BUN 24 H (7-17) mg/dL Urine Appearance Cloudy H (Clear) Urine Protein Trace H (Negative) Urine Blood Small H (Negative) Urine Nitrite Positive H (Negative) Ur Leukocyte Esterase Large H (Negative) Urine WBC 134 H (0-5) /hpf Urine WBC Clumps Few H (None) /hpf Urine Bacteria Rare H (None) /hpf Hyaline Casts 3 H (0-2) /lpf Urine Mucus Rare H (None) /hpf 03/09/18 Range/Units 06:01 RBC (3.80-5.40) m/uL Hgb (11.4-16.0) gm/dL Hct (34.0-46.0) % RDW (11.5-15.5) % PT 13.8 H (9.0-12.0) sec INR 1.4 H (<1.2) Sodium (137-145) mmol/L BUN (7-17) mg/dL Urine Appearance (Clear) Urine Protein (Negative) Urine Blood (Negative) Urine Nitrite (Negative) Ur Leukocyte Esterase (Negative) Urine WBC (0-5) /hpf Urine WBC Clumps (None) /hpf Urine Bacteria (None) /hpf Hyaline Casts (0-2) /lpf Urine Mucus (None) /hpf Microbiology - Last 24 Hours (Table) 03/08/18 21:32 Urine Culture - Preliminary Urine,Voided 03/07/18 23:21 Blood Culture - Preliminary Blood No Growth after 24 hours Assessment and Plan Assessment: Impression: 1 acute systolic congestive heart failure. 2 severe mitral regurgitation, workup for mitral valve clip is pending, patient may eventually have this procedure done at [facility]. 3 coronary artery disease and recent stent of the circumflex vessel. 4 chronic atrial fibrillation 5 supratherapeutic Coumadin and coagulopathy 6 anemia, most likely secondary to chronic GI blood losses, workup is in progress. 7 history of LV dysfunction, previous echocardiogram showed ejection fraction of 40%. 8 history of sick sinus syndrome, and previous pacemaker implantation. Recommendation: Reviewed the chest x-ray today, reviewed all the labs, patient could be considered for transfer out of the ICU to a monitor bed on selective, continue diuretics, continue to monitor renal profile, patient is being considered for GI workup including EGD and colonoscopy, however she will need to be cleared by cardiology prior to such procedure. Today I have made the recommendation that to transfer the patient out of the ICU to a monitor bed on selective, and we will continue to follow. Cardiology is addressing her anticoagulation therapy, it is still on hold because of her anemia. Patient is not quite ready for any discharge planning, she has multiple complex issues as noted above. Time with Patient: Less than 30
--- NOTE | 2018-03-09 12:46 | P.PN ---
Subjective Progress Note Date: 03/09/18 Principal diagnosis: Symptomatic anemia Denies abdominal pain. Denies hematemesis hematochezia or melena. Reports intermittent back spasms. Hemoglobin 9.1. INR 1.4. Objective - Vital Signs Vital signs: Vital Signs Temp 97.8 F 03/09/18 12:00 Pulse 78 03/09/18 12:00 Resp 14 03/09/18 12:00 BP 109/59 03/09/18 12:00 Pulse Ox 93 L 03/09/18 11:00 Intake & Output 03/08/18 03/09/18 03/09/18 18:59 06:59 18:59 Intake Total 1360 460 120 Output Total 550 550 350 Balance 810 -90 -230 Weight 58.6 kg 64.6 kg 64.6 kg Intake: IV 200 220 120 0.9 200 220 120 Intake, IV Titration 40 Amount Sodium Chloride 0.9% 1, 40 000 ml @ 20 mls/hr IV . Q24H STA Rx#:[id number] Oral 1120 240 Output: Urine 550 550 350 Other: Voiding Method Toilet Toilet Toilet # Voids 1 1 - Exam General appearance: The patient is alert, oriented, in no acute distress. HET: Head is normocephalic and atraumatic. Pupils are equal and reactive. Oropharynx is clear without lesions. Neck: Supple without lymphadenopathy. Trachea midline. Heart: S1 S2. Regular rate and rhythm. Lungs: No crackles or wheezes are heard. Abdomen: Soft, nontender, nondistended with bowel sounds. No peritoneal signs. No palpable organomegaly or masses. Extremities: Normal skin color and turgor. No cyanosis, rash, ulceration, clubbing, or edema. Radial and pedal pulses are 2/4 bilaterally. Neurological: No focal deficits. Strength and sensation are grossly intact. - Labs CBC & Chem 7: 03/09/18 06:01 03/09/18 06:01 Labs: Abnormal Lab Results - Last 24 Hours (Table) 03/08/18 03/09/18 03/09/18 Range/Units 21:32 06:01 06:01 RBC 3.01 L (3.80-5.40) m/uL Hgb 9.1 L (11.4-16.0) gm/dL Hct 28.4 L (34.0-46.0) % RDW 16.2 H (11.5-15.5) % PT (9.0-12.0) sec INR (<1.2) Sodium 133 L (137-145) mmol/L BUN 24 H (7-17) mg/dL Urine Appearance Cloudy H (Clear) Urine Protein Trace H (Negative) Urine Blood Small H (Negative) Urine Nitrite Positive H (Negative) Ur Leukocyte Esterase Large H (Negative) Urine WBC 134 H (0-5) /hpf Urine WBC Clumps Few H (None) /hpf Urine Bacteria Rare H (None) /hpf Hyaline Casts 3 H (0-2) /lpf Urine Mucus Rare H (None) /hpf 03/09/18 Range/Units 06:01 RBC (3.80-5.40) m/uL Hgb (11.4-16.0) gm/dL Hct (34.0-46.0) % RDW (11.5-15.5) % PT 13.8 H (9.0-12.0) sec INR 1.4 H (<1.2) Sodium (137-145) mmol/L BUN (7-17) mg/dL Urine Appearance (Clear) Urine Protein (Negative) Urine Blood (Negative) Urine Nitrite (Negative) Ur Leukocyte Esterase (Negative) Urine WBC (0-5) /hpf Urine WBC Clumps (None) /hpf Urine Bacteria (None) /hpf Hyaline Casts (0-2) /lpf Urine Mucus (None) /hpf Microbiology - Last 24 Hours (Table) 03/08/18 21:32 Urine Culture - Preliminary Urine,Voided 03/07/18 23:21 Blood Culture - Preliminary Blood No Growth after 24 hours Assessment and Plan (1) Acute blood loss anemia Narrative/Plan: 77-year-old female admitted with symptomatic acute blood loss anemia normocytic hypochromic possible GI bleeding with underlying shortness of breath and congestive heart failure. Current Visit: Yes Status: Acute Code(s): D62 - ACUTE POSTHEMORRHAGIC ANEMIA SNOMED Code(s): 248924299 (2) GI bleeding Current Visit: Yes Status: Acute Code(s): K92.2 - GASTROINTESTINAL HEMORRHAGE, UNSPECIFIED SNOMED Code(s): 74589174 (3) Warfarin-induced coagulopathy Current Visit: Yes Status: Acute Code(s): D68.32 - HEMORRHAGIC DISORD D/T EXTRINSIC CIRCULATING ANTICOAGULANTS; T45.515A - ADVERSE EFFECT OF ANTICOAGULANTS, INITIAL ENCOUNTER SNOMED Code(s): 88827497 (4) Chronic a-fib Current Visit: Yes Status: Acute Code(s): I48.2 - CHRONIC ATRIAL FIBRILLATION SNOMED Code(s): 678633647 (5) CAD (coronary artery disease) Current Visit: Yes Status: Acute Code(s): I25.10 - ATHSCL HEART DISEASE OF [place] CORONARY ARTERY W/O ANG PCTRS SNOMED Code(s): 32187883 (6) Ascites Narrative/Plan: No history of known liver disorders LFTs within normal limits suspect component of congestive heart failure consuming to abdominal ascites seen on CT imaging. Current Visit: Yes Status: Acute Code(s): R18.8 - OTHER ASCITES SNOMED Code(s): 142152375 (7) Congestive heart failure Current Visit: Yes Status: Acute Code(s): I50.9 - HEART FAILURE, UNSPECIFIED SNOMED Code(s): 22330883 Plan: 1. EGD colonoscopy tomorrow. Nothing by mouth after clear liquid breakfast. CBC monitoring. Continue GI prophylaxis. The non destructive testing inspector has discussed the risks, benefits and alternative therapies for the above-mentioned procedure and for both sedation/analgesia as well as necessary blood product administration, if indicated, as they pertain to this patient. The patient has indicated understanding and acceptance of the risks and procedures discussed. Assessment and plan a care discussed with Dr. Huertas
--- NOTE | 2018-03-09 16:40 | P.PN ---
Subjective Patient is doing better she is lying flat in bed. She is on IV Lasix at this time Breath sounds are improved few rhonchi and crackles at the bases air entry has improved she is able to lie flat now She is a permanent pacemaker recent pacemaker generator change Severe mitral regurgitation awaiting mitral valve clip Permanent atrial fibrillation Suggest Switched to Lasix 80 mg twice daily. At home she takes 60 mg twice daily On examination blood pressure 120-53 mmHg pulse rate in the 70s and 80s Breath sounds are reduced bilaterally with crackles at the bases Afebrile Systolic murmur is audible no S3 gallop Suggest Switched to by mouth Lasix 80 mg twice daily and she should follow with Dr. Hi as an outpatient Objective - Vital Signs Vital signs: Vital Signs Temp 97.7 F 03/09/18 16:00 Pulse 89 03/09/18 16:00 Resp 18 03/09/18 16:00 BP 108/53 03/09/18 16:00 Pulse Ox 95 03/09/18 16:00 Intake & Output 03/08/18 03/09/18 03/09/18 18:59 06:59 18:59 Intake Total 1360 460 200 Output Total 550 550 350 Balance 810 -90 -150 Weight 58.6 kg 64.6 kg 64.6 kg Intake: IV 200 220 200 0.9 200 220 200 Intake, IV Titration 40 Amount Sodium Chloride 0.9% 1, 40 000 ml @ 20 mls/hr IV . Q24H [facility] Rx#:[id number] Oral 1120 240 Output: Urine 550 550 350 Other: Voiding Method Toilet Toilet Toilet # Voids 1 1 - Labs CBC & Chem 7: 03/09/18 06:01 03/09/18 06:01 Labs: Abnormal Lab Results - Last 24 Hours (Table) 03/08/18 03/09/18 03/09/18 Range/Units 21:32 06:01 06:01 RBC 3.01 L (3.80-5.40) m/uL Hgb 9.1 L (11.4-16.0) gm/dL Hct 28.4 L (34.0-46.0) % RDW 16.2 H (11.5-15.5) % PT (9.0-12.0) sec INR (<1.2) Sodium 133 L (137-145) mmol/L BUN 24 H (7-17) mg/dL Urine Appearance Cloudy H (Clear) Urine Protein Trace H (Negative) Urine Blood Small H (Negative) Urine Nitrite Positive H (Negative) Ur Leukocyte Esterase Large H (Negative) Urine WBC 134 H (0-5) /hpf Urine WBC Clumps Few H (None) /hpf Urine Bacteria Rare H (None) /hpf Hyaline Casts 3 H (0-2) /lpf Urine Mucus Rare H (None) /hpf 03/09/18 Range/Units 06:01 RBC (3.80-5.40) m/uL Hgb (11.4-16.0) gm/dL Hct (34.0-46.0) % RDW (11.5-15.5) % PT 13.8 H (9.0-12.0) sec INR 1.4 H (<1.2) Sodium (137-145) mmol/L BUN (7-17) mg/dL Urine Appearance (Clear) Urine Protein (Negative) Urine Blood (Negative) Urine Nitrite (Negative) Ur Leukocyte Esterase (Negative) Urine WBC (0-5) /hpf Urine WBC Clumps (None) /hpf Urine Bacteria (None) /hpf Hyaline Casts (0-2) /lpf Urine Mucus (None) /hpf Microbiology - Last 24 Hours (Table) 03/08/18 21:32 Urine Culture - Preliminary Urine,Voided 03/07/18 23:21 Blood Culture - Preliminary Blood No Growth after 24 hours
[2018-03-09 16:54] LABS: Appearance,Urine Cloudy (Clear); Bacteria,Urine Occasional /hpf; Bilirubin,Urine Negative (Negative); Blood,Urine Trace (Negative); Color,Urine Yellow; Glucose,Urine (UA) Negative (Negative); Hyaline Casts,Urine 8 /lpf (0-2); Ketones,Urine Negative (Negative); Leukocyte Esterase,Urine Large (Negative); Mucus,Urine Rare /hpf; Nitrite,Urine Positive (Negative); PH, Urine 5.5 (5.0-8.0); Protein,Urine Trace (Negative); RBC,Urine 4 /hpf (0-5); Specific Gravity,Urine 1.018 (1.001-1.035); Squamous Epithelial Cell,Urine <1 /hpf (0-4); Urobilinogen,Urine <2.0 mg/dL (<2.0)
[2018-03-09] MEDS: FUROSEMIDE 80 MG TAB PO SCH (17:19)
[2018-03-09] MEDS ORDERED: PEG 3350-NA SULF,BICARB,CL/KCL 4,000 ML BOTTLE PO ONE (17:30)
[2018-03-09] MEDS: ONDANSETRON 4 MG/2 ML VIAL IVP PRN ×2 (17:44→23:50)
--- NOTE | 2018-03-09 20:22 | PN ---
PROGRESS NOTE DATE OF SERVICE: 03/09/2018 This 77-year-old woman who was admitted with multiple complex medical issues, including generalized tiredness and weakness, possible anemia, also had acute ST-segment- elevation myocardial infarction. Multiple consultants are following the patient closely. Medical treatment is recommended at this time. The hemoglobin is 9.1. No active bleeding is noted. UA showed possible UTI. The patient will be started on IV antibiotic at this time and we will also obtain the cultures. The patient is being closely monitored in the ICU at this time. Past medical history reviewed. REVIEW OF SYSTEMS: CARDIOVASCULAR SYSTEM: No angina, palpitations. RESPIRATORY SYSTEM: As mentioned earlier. GI: As mentioned earlier. : No dysuria or retention. NERVOUS SYSTEM: No numbness, weakness. CURRENT MEDICATIONS: Reviewed. They include: 1. Tylenol 650 q.6 p.r.n. 2. [place] 7.5 q.6 p.r.n. 3. Coreg 6.25 b.i.d. 4. Valium 2 mg. 5. Cardizem CD 120 mg. 6. Lasix 80 mg p.o. b.i.d. 7. Dilaudid. 8. Morphine sulfate 2 mg p.r.n. 9. Narcan p.r.n. 10.Nitrostat. 11.Zofran. 12.Protonix. PHYSICAL EXAMINATION: Alert, oriented x3. Pulse 89, blood pressure 108/53, respiration 18, temperature normal, pulse ox 94% on room air. HEENT: Conjunctivae pale. NECK: No jugular venous distention. CARDIOVASCULAR SYSTEM: S1, S2 muffled. RESPIRATORY SYSTEM: Breath sounds diminished at the bases. A few scattered rhonchi and crackles. ABDOMEN: Soft, non-tender. LEGS: No edema. No swelling. NERVOUS SYSTEM: No focal deficit. LABS: WBC 6.5, hemoglobin 9.1. INR 1.4. UA noted. ASSESSMENT: 1. Generalized weakness and tiredness, possibly secondary to anemia. Rule out acute GI bleed. 2. History of recent acute alm-FA-gtytfwf-elevation myocardial function as well as percutaneous coronary intervention of the circumflex. 3. Acute urinary tract infection, present on admission. 4. Right pleural effusion. 5. Moderate ascites for evaluation. 6. History of congestive heart failure. 7. History of severe mitral regurgitation, moderate tricuspid regurgitation and mild aortic regurgitation. 8. Congestive heart failure with possible acute on chronic systolic dysfunction. 9. History of ischemic cardiomyopathy. 10.History of coronary artery disease, coronary artery bypass grafting, stent. 11.History of fall and weakness. 12.Gait dysfunction. 13.History of nicotine dependence. 14.FULL CODE. RECOMMENDATIONS AND DISCUSSION: I recommend to continue current medication, continue symptomatic treatment. Initiate broad-spectrum IV antibiotics. Repeat labs. PT/OT evaluation. Increase ambulation. Hemoglobin is 9.1. Closely follow with multiple consultants. Further recommendations to follow. MMODL / IJN: [id number] /
[2018-03-10 05:30] LABS: Calcium 8.8 mg/dL (8.4-10.2); Magnesium 2.1 mg/dL (1.6-2.3); Phosphorus 2.9 mg/dL (2.5-4.5); Potassium 4.2 mmol/L (3.5-5.1)
[2018-03-10 05:35] LABS: Anisocytosis Slight; Basophils # (A) 0.1 k/uL (0-0.2); Basophils % (A) 1 %; Eosinophils # (A) 0.1 k/uL (0-0.7); Eosinophils % (A) 2 %; HCT 30.1 % (34.0-46.0); HGB 9.3 gm/dL (11.4-16.0); Hypochromasia Marked; Lymphocytes # (A) 1.1 k/uL (1.0-4.8); Lymphocytes % (A) 15 %; MCH 29.4 pg (25.0-35.0); MCHC 30.8 g/dL (31.0-37.0); MCV 95.7 fL (80.0-100.0); Mean Platelet Volume 6.9; Monocytes # (A) 0.7 k/uL (0-1.0); Monocytes % (A) 10 %; Neutrophils # (A) 5.2 k/uL (1.3-7.7); Neutrophils % (A) 69 %; Platelet Count 369 k/uL (150-450); Poikilocytosis Moderate; RBC 3.15 m/uL (3.80-5.40); RDW 16.4 % (11.5-15.5); WBC 7.5 k/uL (3.8-10.6)
[2018-03-10 05:37] LABS: INR 1.4 (<1.2); Partial Thromboplastin Time 28.2 sec (22.0-30.0); Prothrombin Time 14.6 sec (9.0-12.0)
--- NOTE | 2018-03-10 07:04 | XR ---
EXAMINATION TYPE: XR chest 1V portable DATE OF EXAM: 03/10/2018 HISTORY: Shortness of breath. COMPARISON: 03/09/2018 TECHNIQUE: Single view of the chest is submitted. FINDINGS: Demonstrated are scattered senescent parenchymal change. Small bilateral pleural effusions persist. Engorged pulmonary vasculature without overt failure. The heart is stable. Hilar and mediastinal structures are within normal limits. Degenerative changes are seen of the dorsal spine. IMPRESSION: 1. Stable chest.
[2018-03-10] MEDS: DILTIAZEM CD 120 MG CAP.ER.24H PO SCH ×2 (08:16→11:48)
[2018-03-10] MEDS: PANTOPRAZOLE 40 MG/10 ML VIAL IV SCH (08:16)
[2018-03-10] MEDS: FUROSEMIDE 80 MG TAB PO SCH ×2 (08:16→22:11)
[2018-03-10] MEDS: CARVEDILOL 6.25 MG TAB PO SCH (08:16)
[2018-03-10] MEDS: METOPROLOL TARTRATE 50 MG TAB PO SCH ×2 (08:30→20:48)
[2018-03-10] MEDS ORDERED: BISACODYL 5 MG TABLET.DR PO STA (09:25)
[2018-03-10] MEDS: HYDROcodone/APAP 7.5-325MG 1 EACH TAB PO PRN (09:46)
--- NOTE | 2018-03-10 11:57 | P.PN ---
Subjective Progress Note Date: 03/10/18 Principal diagnosis: Acute systolic congestive heart failure This is a 77-year-old female with history of sick sinus syndrome, coronary artery disease and previous stent placement in October of 2017, chronic atrial fibrillation, maintained on Coumadin. Patient presented to the ER yesterday with a few days' history of increased shortness of breath. Fatigue, however she denied any chest discomfort, and no chest pain. Patient is known to have history of severe mitral regurgitation, and she is being worked up for possible mitral valve clip. Patient is also known to have history of coronary artery disease previous bypass and PCI in the past. Previous stenting of the circumflex vessel. This was in October of 2017. She has chronic atrial fibrillation, she is also known to have history of LV dysfunction, ejection fraction is below 40%. Upon presentation, the patient was noted to have some interstitial edema based on the chest x-ray, and she was noted to be anemic. Considering her INR was supratherapeutic, Coumadin was placed on hold, and she had one unit of packed RBC transfused in the emergency room. Her Hemoccult stools were negative. Patient was admitted to the ICU and this consult was initiated. Apparently while in the ER, she had borderline blood pressure, but improved with transfusion of 1 unit of packed RBCs, and presently the patient is normotensive. During my evaluation, patient was already feeling better, breathing a lot easier, she denied any cough, no fever, no chills, no hemoptysis , no chest pain. Denied any nausea vomiting abdominal pain, denies any previous history of GI bleeding, no melena, no hematemesis, no dysuria, no frequency, no urgency. Denies any headache, no blurred vision, no dizziness. And she had no musculoskeletal complaints. Patient was reevaluated today in the ICU on 03/09/2018, doing much better compared to how she felt when she was admitted. Denies any cough, no wheezing, no shortness of breath, no chest pain. No headache no blurred vision no dizziness no nausea no vomiting no abdominal pain. CBC is relatively normal hemoglobin is holding at 9.1. INR is 1.4 today, it was 2.2 yesterday. Electrolytes and renal profile is improved compared to yesterday. Urinalysis is positive for pyuria and bacteriuria. Chest x-ray continues to show small right-sided pleural effusion, and patchy interstitial edema. Patient was reevaluated today on 03/10/2018, remains in the ICU, but she is an overflow from selective. Pulmonary-riley, the patient is doing great, remains on diuretics, and her congestive heart failure is under control. Patient is scheduled to have GI workup today for her GI blood losses, and I believe she is undergoing EGD and colonoscopy today. Cardiology is planning to eventually send the patient to [facility] for severe mitral regurgitation and she may require mitral valve clip. During my evaluation, the patient denied any cough no wheezing no shortness of breath no chest pain no nausea no vomiting no abdominal pain no melena and no hematemesis. Hemoglobin remains stable at 9.3. Her INR is 1.4 today. Electrolytes and renal profile are normal. Objective - Vital Signs Vital signs: Vital Signs Temp 97.4 F L 03/10/18 04:00 Pulse 97 03/10/18 07:00 Resp 18 03/10/18 07:00 BP 118/70 03/10/18 04:00 Pulse Ox 95 03/10/18 07:00 Intake & Output 03/09/18 03/10/18 03/10/18 18:59 06:59 18:59 Intake Total 240 570 230 Output Total 350 1800 0 Balance -110 -1230 230 Weight 64.6 kg 65.3 kg 0 g Intake: IV 240 320 230 0.9 240 220 180 cefTRIAXone 1,000 mg In 100 50 Sodium Chloride 0.9% 50 ml @ 100 mls/hr IVPB Q24HR REPLACED BY [facility] Rx#:[id number] Oral 250 Output: Urine 350 900 0 Emesis 900 0 Other: Voiding Method Toilet Toilet # Voids 1 0 4 # Bowel Movements 1 - Exam Physical Exam: Revealed a 77-year-old female in no distress. Head: Atraumatic, normocephalic. HEENT:[Neck is supple.] [No neck masses.] [No thyromegaly.] [No JVD.] Chest: [Minimal crackles at the right base, no rhonchi and no wheezes Cardiac Exam: [Normal S1 and S2, no S3 gallop, no murmur.] Abdomen: [Soft, nontender, no megaly, no rebound, no guarding, normal bowel sounds.] Extremities: [No clubbing, no edema, no cyanosis.] Neurological Exam: [No focal neurologic deficit. Psychiatric: Normal mood, affect and mental status examination. Skin: No rashes.] - Labs CBC & Chem 7: 03/10/18 04:54 03/10/18 04:54 Labs: Abnormal Lab Results - Last 24 Hours (Table) 03/09/18 03/10/18 03/10/18 Range/Units 16:15 04:54 04:54 RBC 3.15 L (3.80-5.40) m/uL Hgb 9.3 L (11.4-16.0) gm/dL Hct 30.1 L (34.0-46.0) % MCHC 30.8 L (31.0-37.0) g/dL RDW 16.4 H (11.5-15.5) % PT (9.0-12.0) sec INR (<1.2) Sodium 132 L (137-145) mmol/L BUN 18 H (7-17) mg/dL Urine Appearance Cloudy H (Clear) Urine Protein Trace H (Negative) Urine Blood Trace H (Negative) Urine Nitrite Positive H (Negative) Ur Leukocyte Esterase Large H (Negative) Urine WBC 152 H (0-5) /hpf Urine WBC Clumps Moderate H (None) /hpf Urine Bacteria Occasional H (None) /hpf Hyaline Casts 8 H (0-2) /lpf Urine Mucus Rare H (None) /hpf 03/10/18 Range/Units 04:54 RBC (3.80-5.40) m/uL Hgb (11.4-16.0) gm/dL Hct (34.0-46.0) % MCHC (31.0-37.0) g/dL RDW (11.5-15.5) % PT 14.6 H (9.0-12.0) sec INR 1.4 H (<1.2) Sodium (137-145) mmol/L BUN (7-17) mg/dL Urine Appearance (Clear) Urine Protein (Negative) Urine Blood (Negative) Urine Nitrite (Negative) Ur Leukocyte Esterase (Negative) Urine WBC (0-5) /hpf Urine WBC Clumps (None) /hpf Urine Bacteria (None) /hpf Hyaline Casts (0-2) /lpf Urine Mucus (None) /hpf Microbiology - Last 24 Hours (Table) 03/07/18 23:21 Blood Culture - Preliminary Blood No Growth after 48 hours 03/08/18 21:32 Urine Culture - Preliminary Urine,Voided Gram Neg Bacilli Assessment and Plan Assessment: Impression: 1 acute systolic congestive heart failure. 2 severe mitral regurgitation, workup for mitral valve clip is pending, patient may eventually have this procedure done at [facility]. 3 coronary artery disease and recent stent of the circumflex vessel. 4 chronic atrial fibrillation 5 supratherapeutic Coumadin and coagulopathy 6 anemia, most likely secondary to chronic GI blood losses, scheduled to have EGD and colonoscopy today. 7 history of LV dysfunction, previous echocardiogram showed ejection fraction of 40%. 8 history of sick sinus syndrome, and previous pacemaker implantation. Recommendation: Continue present treatment plan, agree with GI workup, continue Lasix for congestive heart failure, continue cardiac meds for chronic atrial fibrillation. Monitor closely for pulmonary edema, patient is now overflow from selective/stepdown unit. Lasix is now at 80 mg by mouth twice a day, she is also on empiric antibiotics, remains on Protonix, and again based on the findings today from the GI workup, further recommendations will follow. Patient remains critically ill, and she really has an appointment with a top ironer at [facility] next Tuesday to evaluate for possible mitral valve clip. Time with Patient: Less than 30
--- NOTE | 2018-03-10 13:01 | P.PN ---
Subjective Patient is lying comfortably in bed. She has very prominent jugular veins. She has a murmur of mitral regurgitation Breath sounds are reduced bilaterally She is intermittently paced She has severe mitral regurgitation She denies any chest discomfort. Her breathing is a lot better. Yesterday switch her to by mouth Lasix 80 mg twice daily and she is tolerating this well Suggest Lasix 80 mg twice daily by mouth to continue. May consider adding spironolactone Follow-up with Dr. Hi as an outpatient Objective - Vital Signs Vital signs: Vital Signs Temp 97.4 F L 03/10/18 04:00 Pulse 97 03/10/18 07:00 Resp 18 03/10/18 07:00 BP 104/72 03/10/18 11:54 Pulse Ox 95 03/10/18 07:00 Intake & Output 03/09/18 03/10/18 03/10/18 18:59 06:59 18:59 Intake Total 240 570 230 Output Total 350 1800 0 Balance -110 -1230 230 Weight 64.6 kg 65.3 kg 0 g Intake: IV 240 320 230 0.9 240 220 180 cefTRIAXone 1,000 mg In 100 50 Sodium Chloride 0.9% 50 ml @ 100 mls/hr IVPB Q24HR [facility] Rx#:[id number] Oral 250 Output: Urine 350 900 0 Emesis 900 0 Other: Voiding Method Toilet Toilet # Voids 1 0 4 # Bowel Movements 1 - Labs CBC & Chem 7: 03/10/18 04:54 03/10/18 04:54 Labs: Abnormal Lab Results - Last 24 Hours (Table) 03/09/18 03/10/18 03/10/18 Range/Units 16:15 04:54 04:54 RBC 3.15 L (3.80-5.40) m/uL Hgb 9.3 L (11.4-16.0) gm/dL Hct 30.1 L (34.0-46.0) % MCHC 30.8 L (31.0-37.0) g/dL RDW 16.4 H (11.5-15.5) % PT (9.0-12.0) sec INR (<1.2) Sodium 132 L (137-145) mmol/L BUN 18 H (7-17) mg/dL Urine Appearance Cloudy H (Clear) Urine Protein Trace H (Negative) Urine Blood Trace H (Negative) Urine Nitrite Positive H (Negative) Ur Leukocyte Esterase Large H (Negative) Urine WBC 152 H (0-5) /hpf Urine WBC Clumps Moderate H (None) /hpf Urine Bacteria Occasional H (None) /hpf Hyaline Casts 8 H (0-2) /lpf Urine Mucus Rare H (None) /hpf 03/10/18 Range/Units 04:54 RBC (3.80-5.40) m/uL Hgb (11.4-16.0) gm/dL Hct (34.0-46.0) % MCHC (31.0-37.0) g/dL RDW (11.5-15.5) % PT 14.6 H (9.0-12.0) sec INR 1.4 H (<1.2) Sodium (137-145) mmol/L BUN (7-17) mg/dL Urine Appearance (Clear) Urine Protein (Negative) Urine Blood (Negative) Urine Nitrite (Negative) Ur Leukocyte Esterase (Negative) Urine WBC (0-5) /hpf Urine WBC Clumps (None) /hpf Urine Bacteria (None) /hpf Hyaline Casts (0-2) /lpf Urine Mucus (None) /hpf Microbiology - Last 24 Hours (Table) 03/07/18 23:21 Blood Culture - Preliminary Blood No Growth after 48 hours 03/08/18 21:32 Urine Culture - Preliminary Urine,Voided Gram Neg Bacilli
[2018-03-10] MEDS ORDERED: ETOMIDATE 2 MG/ML 10 ML VIAL ONE (14:26)
[2018-03-10] MEDS ORDERED: LIDOCAINE 1% INJ 10MG/ML (20 ML MDV) ONE (14:26)
[2018-03-10] MEDS ORDERED: IV FLUID CONTINUATION 500 ML IV ONE (14:29)
--- NOTE | 2018-03-10 15:33 | P.PCN ---
Date of Procedure: 03/10/18 Description of Procedure: Brief history: 77-year-old female with a history of sick sinus syndrome pacemaker, CAD PCI stent October 2017, chronic A. fib maintained on warfarin dual antiplatelet therapy admitted with shortness of breath back pain weakness. Consultation requested for GI bleed ascites. Patient denies overt bleeding such as hematemesis hematochezia or melena. FOBT negative. Reports back spasms no abdominal pain. No history of GI bleeding. History of remote colonoscopy more than 10 years ago. No recent EGD. No NSAIDs. No alcohol. No history of known liver disorders. Hemoglobin 02/11/2018 was 12.9. MCV 96. Hypochromic. Platelet 186. Admission hemoglobin 8 decreased to 7.7 received 1 unit of blood presently 9.3. Procedure performed: Esophagogastroduodenoscopy Colonoscopy Estimated blood loss: Minimal. Preoperative diagnosis: Symptomatic anemia Anesthesia: MAC Procedure: After informed consent was obtained from the patient was brought into the endoscopy unit and IV sedation was administered by anesthesia under continuous monitoring. Initially upper endoscopy was done. The Olympus GF 190 video endoscope was inserted inserted into the mouth and esophagus intubated without any difficulty and was gradually advanced into the stomach and duodenum and carefully examined. The bulb and second part of the duodenum appeared normal. The scope was then withdrawn into the stomach adequately insufflated with air and upon careful examination the antrum and body, cardia and fundus appeared normal. The scope was then withdrawn into the esophagus. Small hiatal hernia. The GE junction was located at 37 cm to the incisors. It appeared regular with no erythema erosions or ulcerations. Rest of the esophagus appeared normal. Patient tolerated the procedure well. At this time the patient continued to remain sedation. Initial digital rectal examination was normal. Olympus CF 190 video colonoscope was then inserted into the rectum and gradually advanced to the cecum without any difficulty. Careful examination was performed as the scope was gradually being withdrawn. The prep was excellent. The cecum, ascending colon, transverse colon, descending colon, sigmoid colon and rectum appeared normal. Mild internal hemorrhoids noted. Patient tolerated the procedure well. Impression: 1. No blood seen, or source of bleeding seen on EGD or colonoscopy. 2. Small hiatal hernia. 3. Mild internal hemorrhoids. Recommendations: Findings of this examination were discussed with the patient as well as her daughter. Okay to restart heart healthy diet. No evidence of active bleeding, the patient has signs or symptoms develop or further fall in hemoglobin consider capsule endoscopy to rule out small bowel bleed, however given the negative FOBT and stable hemoglobin after transfusion will hold off at this time. Continue to monitor hemoglobin and hematocrit and transfuse as needed.
--- NOTE | 2018-03-10 19:20 | PN ---
PROGRESS NOTE DATE OF SERVICE: 03/10/2018 This 77-year-old woman who was admitted generalized weakness and tiredness post secondary to anemia also had been evaluated for GI bleed. The patient also had recent non ST segment elevation myocardial infarction with percutaneous interventions. Dr. Huertas performed EGD today which showed small hiatal hernia, mild internal hemorrhoids in the colonoscopy and also bleeding in the EGD. Fecal occult blood was negative and Dr. Huertas is recommending continued followup at this time. The hemoglobin currently is 9.3. PAST MEDICAL HISTORY: Reviewed. REVIEW OF SYSTEMS: CARDIOVASCULAR: No angina. RESPIRATORY : As mentioned earlier. GI no nausea. as mentioned earlier. Nervous system: No numbness or weakness. UA showed UTI. CURRENT MEDICATIONS: Reviewed and include: 1. Tylenol 650 q.h.s. 2. [place] 7.5. 3. Rocephin 1 g daily. 4. Valium 2 mg daily. 5. Cardizem CD 120 mg. 6. Dilaudid. 7. Lopressor 100 mg daily. 8. Narcan. 9. Nitrostat. 10.Zofran. 11.Protonix. PHYSICAL EXAM: Patient is alert, oriented x2. Pulse 83, blood pressure 108/60, respiratory rate 16, temperature 98 degrees, pulse ox 98% on room air. HEENT: Conjunctivae normal. NECK: No jugular venous distention. No carotid bruit. CARDIOVASCULAR: S1. S2. RESPIRATORY: Breath sounds diminished in the bases. A few scattered rhonchi and crackles. Abdomen is soft, nontender. No mass palpable. LEGS: No edema. No swelling. CENTRAL NERVOUS SYSTEM: No focal deficits. LABORATORY DATA: WBC 7.2, hemoglobin is 9.5, INR 1.4. UA noted. The urine culture showing only gram- negative bacilli. ASSESSMENT: 1. Generalized weakness, tiredness, possibly secondary to symptomatic anemia. No evidence of gastrointestinal bleed, status post EGD, colonoscopy. 2. History of recent acute non ST segment elevation myocardial infarction as well as percutaneous PCI of the circumflex. 3. Acute urinary tract infection with gram-negative bacilli from the cultures, present on admission. 4. Right pleural effusion. 5. Moderate ascites for evaluation. 6. History of congestive heart failure. 7. History of severe mitral regurgitation, moderate tricuspid regurgitation and mild aortic regurgitation. 8. Congestive heart failure with possible acute on chronic systolic dysfunction. 9. History of ischemic cardiomyopathy. 10.History of coronary artery disease, coronary artery bypass grafting stent. 11.History of fall and weakness. 12.Gait dysfunction. 13.History of nicotine dependence. 14.FULL CODE. RECOMMENDATIONS AND DISCUSSION: Recommend to continue current medications, monitoring and symptomatic treatment. Otherwise, at this time, recommend antibiotics and monitor hemoglobin closely. Symptomatic treatment. The patient is off antiplatelet agents at this time. We will continue to monitor closely. Follow with Cardiology regarding the recommendation for antiplatelet agents. Prognosis guarded. Further recommendations to follow. MMODL / IJN: [id number] /
[2018-03-11] MEDS: HYDROcodone/APAP 7.5-325MG 1 EACH TAB PO PRN ×2 (03:54→12:45)
[2018-03-11 05:50] LABS: INR 1.5 (<1.2); Partial Thromboplastin Time 28.1 sec (22.0-30.0)
[2018-03-11 05:59] LABS: Anisocytosis Slight; Basophils # (A) 0.1 k/uL (0-0.2); Basophils % (A) 1 %; Eosinophils # (A) 0.2 k/uL (0-0.7); Eosinophils % (A) 3 %; HCT 32.2 % (34.0-46.0); HGB 9.9 gm/dL (11.4-16.0); Hypochromasia Marked; Lymphocytes # (A) 1.8 k/uL (1.0-4.8); Lymphocytes % (A) 22 %; MCH 28.9 pg (25.0-35.0); MCHC 30.7 g/dL (31.0-37.0); MCV 94.2 fL (80.0-100.0); Mean Platelet Volume 6.9; Monocytes # (A) 0.9 k/uL (0-1.0); Monocytes % (A) 11 %; Neutrophils # (A) 4.8 k/uL (1.3-7.7); Neutrophils % (A) 60 %; Platelet Count 392 k/uL (150-450); Poikilocytosis Moderate; RBC 3.42 m/uL (3.80-5.40); RDW 16.9 % (11.5-15.5); WBC 8.1 k/uL (3.8-10.6)
[2018-03-11 06:01] LABS: Calcium 8.9 mg/dL (8.4-10.2); Potassium 3.7 mmol/L (3.5-5.1)
--- NOTE | 2018-03-11 07:11 | XR ---
EXAMINATION TYPE: XR chest 1V portable DATE OF EXAM: 03/11/2018 HISTORY: Pleural effusion. REFERENCE: Previous study dated 03/10/2018. FINDINGS: There has been a midline sternotomy. There is a bipolar pacemaker in place on the left. The heart is enlarged. There is a worsening right-sided effusion. There is associated atelectasis. Parris ng volumes appear prominent. IMPRESSION: 1. COPD. 2. MILD CARDIOMEGALY. 3. WORSENING RIGHT-SIDED EFFUSION.
[2018-03-11] MEDS: FUROSEMIDE 80 MG TAB PO SCH ×2 (09:19→16:00)
[2018-03-11] MEDS: PANTOPRAZOLE 40 MG/10 ML VIAL IV SCH (09:19)
[2018-03-11] MEDS: METOPROLOL TARTRATE 50 MG TAB PO SCH ×2 (09:20→22:00)
[2018-03-11] MEDS: ONDANSETRON 4 MG/2 ML VIAL IVP PRN ×2 (10:02→15:42)
[2018-03-11] MEDS: DILTIAZEM CD 120 MG CAP.ER.24H PO SCH (12:45)
--- NOTE | 2018-03-11 19:51 | PN ---
PROGRESS NOTE . DATE OF SERVICE: 03/11/2018 This 77-year-old woman was admitted with generalized weakness and also had anemia. The patient also had recent non-ST elevation myocardial infarction. EGD showed small hiatal hernia, small internal hemorrhoids and colonoscopy showed there was no bleeding on the EGD. Patient complained of nausea and vomiting today. Current hemoglobin is 9.9. PAST MEDICAL HISTORY: Reviewed. REVIEW OF SYSTEMS: CARDIOVASCULAR: S1, S2 muffled. RESPIRATORY: As mentioned earlier. GI as mentioned earlier. : No dysuria. Central nervous system: No numbness or weakness. CURRENT MEDICATIONS: Reviewed and include: 1. Tylenol 650 q.6h p.r.n. 2. [place] 7.5 q.6h p.r.n. 3. Rocephin 1 g IV daily. 4. Valium 2 mg. 5. Cardizem CD 120 mg b.i.d. 6. Lasix 80 mg p.o. b.i.d. 7. Dilaudid 0.2 mg daily. 8. Pantoprazole 100 mg p.o. b.i.d. 9. Morphine sulfate. 10.Narcan. 11.Nitrostat. 12.Zofran. 13.Protonix. PHYSICAL EXAM: Patient is alert, oriented x3. Pulse is 71, blood pressure 111/59, respirations 16, temperature 98.2, pulse ox 97% on room air. HEENT: Conjunctivae normal. Oral mucosa moist. NECK: No jugular venous distention. No carotid bruit. No lymph node enlargement. RESPIRATORY: Breath sounds diminished in the bases. Bilateral scattered rhonchi and crackles. ABDOMEN: Soft, nontender. Legs are no edema, no swelling. CENTRAL NERVOUS SYSTEM: No focal deficits. LABS: WBC 8.1, hemoglobin 9.9, INR 1.5. Other labs noted. UA noted, UTI. ASSESSMENT: 1. Generalized weakness and tiredness possibly secondary to symptomatic anemia. No evidence of gastrointestinal bleed status post EGD and colonoscopy. 2. Acute urinary tract infection with gram-negative bacilli in the cultures, present on admission. 3. 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 4. Right pleural effusion. 5. Moderate ascites for evaluation. 6. History of congestive heart failure. 7. History of severe mitral regurgitation, moderate mitral regurgitation as well as mild aortic regurgitation. 8. History of congestive heart failure with possibly acute on chronic systolic dysfunction. 9. History of ischemic cardiomyopathy. 10.Coronary artery disease, coronary artery bypass grafting, stent. 11.History of fall and weakness. 12.Gait dysfunction. 13.History of nicotine dependence. 14.FULL CODE. RECOMMENDATIONS AND DISCUSSION: I recommend to continue current medication, current with monitoring, management and symptomatic treatment. Otherwise, we will monitor the patient closely. Prognosis guarded. I would also recommend continue with beta blockers. Add Carafate to the current regimen. Continue the antibiotics. Further recommendations to follow. MMODL / IJN: [id number] /
[2018-03-11] MEDS: SUCRALFATE 1 GM TAB PO SCH (19:59)
[2018-03-11] MEDS: CARVEDILOL 6.25 MG TAB PO SCH (19:59)
[2018-03-12] MEDS: DIAZEPAM 2 MG TAB PO PRN ×2 (01:03→23:33)
[2018-03-12] MEDS: HYDROcodone/APAP 7.5-325MG 1 EACH TAB PO PRN ×2 (02:30→11:02)
[2018-03-12] MEDS: SUCRALFATE 1 GM TAB PO SCH ×4 (08:55→17:51)
[2018-03-12] MEDS: FUROSEMIDE 80 MG TAB PO SCH ×2 (08:57→17:51)
[2018-03-12] MEDS: METOPROLOL TARTRATE 50 MG TAB PO SCH ×2 (08:57→22:33)
[2018-03-12 10:22] LABS: Calcium 8.6 mg/dL (8.4-10.2); Potassium 3.4 mmol/L (3.5-5.1)
[2018-03-12 10:39] LABS: Anisocytosis Slight; HCT 30.8 % (34.0-46.0); Hypochromasia Marked; MCH 21.5 pg (25.0-35.0); MCHC 22.9 g/dL (31.0-37.0); MCV 93.9 fL (80.0-100.0); Mean Platelet Volume 6.8; Platelet Count 288 k/uL (150-450); Poikilocytosis Moderate; RBC 3.28 m/uL (3.80-5.40); RDW 16.8 % (11.5-15.5); WBC 6.2 k/uL (3.8-10.6)
[2018-03-12] MEDS: PANTOPRAZOLE 40 MG/10 ML VIAL IV SCH (12:49)
[2018-03-12] MEDS: DILTIAZEM CD 120 MG CAP.ER.24H PO SCH (12:50)
[2018-03-12 12:52] LABS: Eosinophils # (M) 0.06 k/uL (0-0.7); Lymphocytes # (M) 0.99 k/uL (1.0-4.8); Monocytes # (M) 0.87 k/uL (0-1.0); Neutrophils # (M) 4.28 k/uL (1.3-7.7); Neutrophils % (M) 69 %; Nucleated Red Blood Cells 0 /100 WBC (0-0); Total Cells Counted 100
[2018-03-12 12:53] LABS: Polychromasia Present
[2018-03-12] MEDS ORDERED: Potassium Replacement Protocol 1 EACH MISC MISCELLANE PRN (13:45)
[2018-03-12] MEDS: ONDANSETRON 4 MG/2 ML VIAL IVP PRN (14:47)
[2018-03-12] MEDS ORDERED: HYDROcodone/APAP 15 ML SOLUTION PO PRN (15:04)
[2018-03-12] MEDS ORDERED: HYDROcodone/APAP 5-325MG 1 EACH TAB PO PRN (15:05)
[2018-03-12] MEDS: POTASSIUM CHLORIDE ER 20 MEQ TAB.ER PO SCH ×2 (15:23→17:48)
[2018-03-12] MEDS ORDERED: FUROSEMIDE 10 MG/ML 2 ML VIAL IV ONE (16:32)
[2018-03-12] MEDS: CYCLOBENZAPRINE 5 MG TAB PO SCH ×2 (17:48→22:36)
--- NOTE | 2018-03-13 00:13 | PN ---
PROGRESS NOTE DATE OF SERVICE: 03/12/2018 This 77-year-old woman who was admitted with generalized weakness and tiredness, possibly secondary to symptomatic anemia is also complaining of not feeling well today. The chest x-ray was done which showed mild cardiomegaly and worsening right-sided pleural effusion. The patient has seen multiple consultants including Gastroenterology at this point. Chest x-ray was personally reviewed by me showed no evidence of right pleural effusion and some pulmonary congestion also. The patient's hemoglobin has gone to 7 from 9.9 yesterday. PAST MEDICAL HISTORY: Reviewed. REVIEW OF SYSTEMS: CARDIOVASCULAR: No angina or palpitations. RESPIRATORY: As mentioned earlier. GI: As mentioned earlier. : No dysuria. CURRENT MEDICATIONS ARE: Reviewed and include: 1. Tylenol 650 q.6 p.r.n. 2. [place]unice elixir. 3. Rocephin 1 g daily. 4. Flexeril 2.4 mg. 5. Valium. 6. Cardizem CD 120 mg. 7. Lasix 80 mg b.i.d. 8. Dilaudid. 9. Lopressor. 10.Morphine sulfate.. 11.Narcan. 12.Nitrostat. 13.Zofran. 14.Protonix. 15.Carafate. PHYSICAL EXAM: Patient is alert, orient times three. Pulse 73, blood pressure 137/71, orthostatic changes, respiration 18, temperature 97.2, pulse ox is 98% on room air. HEENT: Conjunctivae normal. Oral mucosa moist. NECK: No jugular venous distention. CARDIOVASCULAR: S1, S2 muffled. RESPIRATIONS: Breath sounds diminished in the bases. Scattered rhonchi and crackles. ABDOMEN: Soft, nontender. No mass palpable. LEGS: No edema. No swelling. NERVOUS SYSTEM: Higher functions as mentioned earlier. Moves all four extremities. No focal motor or sensory deficits. SKIN: No ulcer, no rash. No bleeding. LAB STUDIES: WBC 6.9, hemoglobin 7, sodium 138, potassium 3.4. ASSESSMENT: 1. Generalized weakness and tiredness, possibly secondary to symptomatic anemia. No evidence of gastrointestinal bleed for EGD and colonoscopy. 2. Acute urinary tract infection with gram-negative bacilli in the culture, present on admission. The final cultures showing E coli which is poly sensitive. 3. 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 4. Right pleural effusion. 5. Moderate ascites for evaluation. 6. History of congestive heart failure. 7. History of severe mitral regurgitation, moderate mitral regurgitation, tricuspid regurgitation, as well as mild aortic regurgitation. 8. History of congestive heart failure, possibly acute on chronic systolic dysfunction. 9. History of ischemic cardiomyopathy. 10.History of coronary artery disease, coronary artery bypass grafting, stent. 11.History of fall and weakness. 12.Gait dysfunction. 13.History of nicotine dependence. 14.Back spasms. 15.FULL CODE. RECOMMENDATIONS AND DISCUSSION: Recommend to continue current medication, continue to monitor. Symptomatic treatment. Otherwise, at this time, I recommend transfusion. I would also recommend closely follow with multiple consultants including Gastroenterology and Cardiology. Guarded prognosis because of multiple complex medical issues. Further recommendations to follow. See orders for further details. Capsule enteroscopy has been studied. The patient also complaining of back spasms at this time. Patient has seen Dr. Mensah before. Also recommend evaluation with Dr. Mensah. Overall prognosis guarded because of the multiple complex medical issues as described above. Further recommendations to follow. MMODL / IJN: [id number] /
[2018-03-13] MEDS: CYCLOBENZAPRINE 5 MG TAB PO SCH (08:04)
[2018-03-13] MEDS: PANTOPRAZOLE 40 MG/10 ML VIAL IV SCH ×2 (08:05→10:29)
[2018-03-13] MEDS: SUCRALFATE 1 GM TAB PO SCH ×2 (08:06→13:52)
[2018-03-13] MEDS: FUROSEMIDE 80 MG TAB PO SCH ×2 (08:14→17:34)
[2018-03-13] MEDS: METOPROLOL TARTRATE 50 MG TAB PO SCH ×2 (08:14→22:00)
[2018-03-13 08:56] LABS: Anisocytosis Slight; Basophils # (A) 0.1 k/uL (0-0.2); Basophils % (A) 1 %; Eosinophils # (A) 0.2 k/uL (0-0.7); Eosinophils % (A) 2 %; HCT 38.1 % (34.0-46.0); Hypochromasia Marked; Lymphocytes # (A) 1.8 k/uL (1.0-4.8); Lymphocytes % (A) 17 %; MCH 27.9 pg (25.0-35.0); MCHC 30.1 g/dL (31.0-37.0); MCV 92.7 fL (80.0-100.0); Mean Platelet Volume 6.8; Monocytes % (A) 9 %; Neutrophils # (A) 7.3 k/uL (1.3-7.7); Neutrophils % (A) 68 %; Platelet Count 385 k/uL (150-450); Poikilocytosis Marked; RBC 4.11 m/uL (3.80-5.40); RDW 16.3 % (11.5-15.5); WBC 10.7 k/uL (3.8-10.6)
[2018-03-13 08:59] LABS: INR 1.6 (<1.2); Prothrombin Time 16.1 sec (9.0-12.0)
[2018-03-13 09:00] LABS: HGB 11.5 gm/dL (11.4-16.0)
[2018-03-13 09:14] LABS: Calcium 9.1 mg/dL (8.4-10.2); Potassium 3.6 mmol/L (3.5-5.1)
[2018-03-13] MEDS: HYDROmorphone 0.5 MG/0.5 ML SYRINGE IVP PRN (10:28)
[2018-03-13] MEDS: DILTIAZEM CD 120 MG CAP.ER.24H PO SCH (13:52)
[2018-03-13] MEDS ORDERED: BACLOFEN 10 MG TAB PO SCH (14:45)
[2018-03-13 15:11] VITALS: BMI 26.3
[2018-03-13] MEDS: ACETAMINOPHEN TAB 500 MG TAB PO SCH ×2 (17:32→22:00)
--- NOTE | 2018-03-13 20:58 | P.CONS ---
History of Present Illness - Reason for Consult Consult date: 03/13/18 Requesting physician: Gato Au - Chief Complaint back spasms - History of Present Illness Thank you Dr. Au for allowing me to participate in the care of Ms. alvarez. Ms. alvarez is a 77-year-old female who lives alone in a single level set up [place] that does have a finished basement. She does drive and is generally independent to modified independent for ADLs and IADLs. She was recently admitted to the hospital with complaints of shortness of breath. She was found to be anemic and have congestive heart failure. She states that she has had no energy lately, has been doing less and questions if she is going to be able to continue living on her own. She does have family in the area that can help. She states that this March 17 she is supposed to have an appointment with the specialist regarding her valvular dysfunction. At this time her greatest complaint in regards to her back as muscle spasms and cramps to come and go but she finds and painful when they are active. She was last seen in the office on 02/21/2018 and at that time her back pain was controlled. She also states that recently she has had decreased appetite. Review of Systems 10 point review of system was performed and is significant for lower extremity swelling, shortness of breath, weakness and decreased endurance Past Medical History Past Medical History: Heart Failure, Hyperlipidemia, Musculoskeletal Disorder Additional Past Medical History / Comment(s): Pt recently admitted to [facility] in October with CHF, possible NSTEMI and had PCI with stent to circ. Other Hx: Severe mitral regurgitation-to have valve surgery soon, moderate tricuspid regurg, mild aortic regurg, ischemic cardiomyopathy, L breast cancer with lumpectomy/chem and radiation, TIAs, bilateral raynaulds syndrome, chronic low and thoracic back a pain/scoliosis, past head injury, bronchtisi History of Any Multi-Drug Resistant Organisms: None Reported Past Surgical History: Adenoidectomy, Appendectomy, Breast Surgery, Coronary Bypass/CABG, Heart Catheterization, Heart Catheterization With Stent, Orthopedic Surgery, Pacemaker, Tonsillectomy Additional Past Surgical History / Comment(s): 10/25/17 NARENDRA, 10/27/17 PCI with stent to circumflex, 2002 CABG 3 vessel, left side lumpectomy, bialteral cataract removed, bilateral carpal tunnel releases, bilateral hand trigger finger releases, back injection, D&C, Past Anesthesia/Blood Transfusion Reactions: Postoperative Nausea & Vomiting ( PONV) Additional Past Anesthesia/Blood Transfusion Reaction / Comm: Pt has received blood in past without reaction. Date of Last Stent Placement:: 10/27/17 Type of Cardiac Device: Permanent Pacemaker Device Placement Date:: 2006 Past Psychological History: No Psychological Hx Reported Additional Psychological History / Comment(s): Pt resides alone. She is independent. Smoking Status: Former smoker Past Alcohol Use History: Occasional Additional Past Alcohol Use History / Comment(s): Pt started smoking in 1952 and quit in 1969. Past Drug Use History: None Reported - Past Family History Mother Family Medical History: Coronary Artery Disease (CAD), Diabetes Mellitus Additional Family Medical History / Comment(s): cabg Father Family Medical History: Pulmonary Embolus Additional Family Medical History / Comment(s): Father of a pulmonary embolism at the age of 46yrs. Medications and Allergies Home Medications Medication Instructions Recorded Confirmed Type Isosorbide Mononitrate ER [Imdur] 30 mg PO DAILY #90 tab.er.24h 10/28/17 Rx Losartan [Cozaar] 25 mg PO DAILY #90 tab 10/28/17 03/07/18 Rx Nitroglycerin Sl Tabs [Nitrostat] 0.4 mg SUBLINGUAL Q5M PRN #25 tab 10/28/1703/25 Rx Furosemide [Lasix] 60 mg PO BID 01/17/18 03/07/18 History Aspirin [Adult Low Dose Aspirin EC] 81 mg PO DAILY 02/11/18 03/07/18 History Carvedilol [Coreg] 6.25 mg PO BID 02/11/18 03/07/18 History Clopidogrel [Plavix] 75 mg PO DAILY 02/11/18 03/07/18 History Diazepam 2 mg PO DAILY PRN 02/11/18 03/07/18 History Diltiazem Cd [Cardizem CD] 120 mg PO DAILY #30 cap.er.24h 02/13/18 03/07/18 Rx HYDROcodone/APAP 7.5-325MG [[place] 1 tab PO Q6H PRN 03/07/18 03/07/18 History 7.5-325] Warfarin [Coumadin] 1 mg PO SUMO 01/01/19 01/01/19 History Warfarin [Coumadin] 2 mg PO 03/07/18 03/07/18 History Allergies Allergy/AdvReac Type Severity Reaction Status Date / Time codeine AdvReac Nausea & Verified 03/07/18 20:09 Vomiting Physical Exam Osteopathic Statement: *. No significant issues noted on an osteopathic structural exam other than those noted in the History and Physical/Consult. Vitals: Vital Signs Temp Pulse Pulse Pulse Resp BP BP 03/13/18 19:50 98.5 F 64 16 96/59 03/13/18 15:00 97.6 F 72 16 111/71 03/13/18 14:01 60 114/62 03/13/18 13:59 71 112/62 03/13/18 13:57 97.5 F L 89 16 03/13/18 07:00 97.3 F L 87 16 03/12/18 23:19 97.3 F L 60 18 03/12/18 22:31 76 84 137/71 156/53 BP Pulse Ox 03/13/18 19:50 95 03/13/18 15:00 100 03/13/18 14:01 03/13/18 13:59 03/13/18 13:57 110/71 03/13/18 07:00 95 03/12/18 23:19 121/62 96 03/12/18 22:31 142/77 Intake and Output 03/13/18 03/13/18 03/13/18 06:59 14:59 22:59 Other: Voiding Method Toilet Toilet # Voids 1 3 Weight 65.3 kg Gen.: Alert and oriented not in acute distress HEENT: Normocephalic atraumatic extraocular muscles intact Respiratory: No accessory muscle use was noted breathing nonlabored Cardiovascular: 2+ pitting lower extremity edema, regular rate Abdomen: Soft nontender nondistended Neurologic: No ankle clonus was noted, sensation to light touch is intact bilaterally in the lower extremities Musculoskeletal: No tenderness to palpation of the thoracic or lumbar paraspinals, hip flexion 3/5 bilaterally, knee extension, dorsiflexion, ankle inversion and eversion and EHL 5/5 bilaterally Results CBC & Chem 7: 03/13/18 07:52 03/13/18 07:52 Labs: Abnormal Lab Results - Last 24 Hours (Table) 0103/13/18 03/13/18 Range/Units 13:57 07:52 07:52 WBC 10.7 H (3.8-10.6) k/uL MCHC 30.1 L (31.0-37.0) g/dL RDW 16.3 H (11.5-15.5) % PT (9.0-12.0) sec INR (<1.2) Sodium 132 L (137-145) mmol/L Chloride 95 L (98-107) mmol/L Creatinine 1.08 H (0.52-1.04) mg/dL Crossmatch See Detail 03/13/18 Range/Units 07:52 WBC (3.8-10.6) k/uL MCHC (31.0-37.0) g/dL RDW (11.5-15.5) % PT 16.1 H (9.0-12.0) sec INR 1.6 H (<1.2) Sodium (137-145) mmol/L Chloride (98-107) mmol/L Creatinine (0.52-1.04) mg/dL Crossmatch Microbiology - Last 24 Hours (Table) 03/07/18 23:21 Blood Culture - Preliminary Blood No Growth after 120 hours Assessment and Plan (1) Myalgia Current Visit: Yes Status: Acute Code(s): M79.10 - MYALGIA, UNSPECIFIED SITE SNOMED Code(s): 69192095 (2) Lumbar back pain Current Visit: Yes Status: Acute Code(s): M54.5 - LOW BACK PAIN SNOMED Code(s): 961695618 (3) Lumbar and sacral osteoarthritis Current Visit: Yes Status: Acute Code(s): M47.817 - SPONDYLS W/O MYELOPATHY OR RADICULOPATHY, LUMBOSACR REGION SNOMED Code(s): 58880515 (4) Deconditioned low back Current Visit: Yes Status: Acute Code(s): R29.898 - OTH SYMPTOMS AND SIGNS INVOLVING THE MUSCULOSKELETAL SYSTEM SNOMED Code(s): 851838472 (5) Muscular deconditioning Current Visit: Yes Status: Acute Code(s): R29.898 - OTH SYMPTOMS AND SIGNS INVOLVING THE MUSCULOSKELETAL SYSTEM SNOMED Code(s): 527839391 (6) Physical deconditioning Current Visit: Yes Status: Acute Code(s): R53.81 - OTHER MALAISE SNOMED Code(s): 53768002012529 Plan: We will initiate Zanaflex 2 mg 3 times daily for lumbar paraspinal muscle cramps. Will discontinue baclofen as it can make patient's feel weaker. Discontinue Valium as half life is too long in this population and can contribute to feelings of fatigue. We'll have physical and occupational therapy see the patient and begin a conditioning program with the patient that could be continued outpatient. We'll have them work with the patient at levels 11-13 on the Laurel scale of percieved exertion. Discussed with the patient that the cramps are multi factorial being she's been doing less activity, she was dehydrated and had electrolyte imbalances. If patient undergoes valvular repair hopefully she would have cardiac rehab after the procedure. Time with Patient: Greater than 30
[2018-03-13] MEDS ORDERED: WARFARIN 2 MG TAB PO SCH (23:30)
--- NOTE | 2018-03-13 23:53 | PN ---
PROGRESS NOTE DATE OF SERVICE: 03/13/2018 PRESENTING COMPLAINT: Weak and tired. INTERVAL HISTORY: This patient has symptomatic anemia; did get a unit of blood. Patient did have an EGD done by Dr. Huertas. Nothing significant was found. Patient has been complaining of lower back pain, which is more acute on chronic. Her daughter is present. Earlier Dr. Mensah was consulted. Otherwise, patient did tolerate some diet. REVIEW OF SYSTEMS: Done for constitutional, cardiovascular, GI, pulmonary, musculoskeletal; relevant findings as above. CURRENT MEDICATIONS: Reviewed. They include IV ceftriaxone. PHYSICAL EXAMINATION: VITAL SIGNS: Temperature 97.6, pulse 72, respiration 16, blood pressure 111/71, pulse ox 100% on room air. GENERAL APPEARANCE: Sitting on the edge of the bed, awake. EYES: Pupils equal. Conjunctivae pale. HEENT: External appearance of nose and ears normal. Oral cavity normal. NECK: JVD not raised. Mass not palpable. RESPIRATORY: Effort normal. Lungs are clear. LUNGS: Fair air entry. CARDIOVASCULAR: First and second sounds normal. Minimal edema. ABDOMEN: Soft, non-tender. Liver and spleen not palpable. MUSCULOSKELETAL: Evidence of osteoarthritis, especially in the hands and feet. SKIN: There is some loose discoloration of the feet and hands distally. INVESTIGATIONS: White count 10.7, hemoglobin 11.5, INR 1.6, potassium 3.6, BUN 17, creatinine 1.08. Urine culture grew E coli. ASSESSMENT: 1. Symptomatic anemia, cause unknown; negative for bleed. 2. Acute urinary tract infection from Escherichia coli. 3. Coronary artery disease with recent acute [id number] myocardial infarction with angioplasty of circumflex. 4. Severe mitral regurgitation, moderate mitral regurgitation, tricuspid regurgitation. 5. Coronary artery disease with a history of stent and bypass. 6. Acute on chronic back spasms. 7. Bilateral Raynaud's syndrome. PLAN: I had a lengthy talk with the patient and her daughter. I also discussed at length with Dr. Huertas from GI. At this point Flexeril is being discontinued. I am going to add baclofen. Will also switch the patient over to Keflex to give another 24 hours. Will also discontinue the morphine. Looking at possible discharge in 24 hours. Patient's Coumadin will be resumed. MMODL / IJN: [id number] /
--- NOTE | 2018-03-14 01:35 | P.PN ---
Subjective Progress Note Date: 03/13/18 Principal diagnosis: Anemia No abdominal pain or signs or symptoms of GI bleeding. Patient tolerating diet. Complaining of back pain. Objective - Vital Signs Vital signs: Vital Signs Temp 98.5 F 03/13/18 19:50 Pulse 64 03/13/18 19:50 Resp 16 03/13/18 19:50 BP 96/59 03/13/18 19:50 Pulse Ox 95 03/13/18 19:50 Intake & Output 03/13/18 03/13/18 03/14/18 06:59 18:59 06:59 Weight 65.3 kg Other: Voiding Method Toilet Toilet # Voids 1 3 - Exam On physical examination, patient appears comfortable in no apparent distress. HEAD: Normocephalic, atraumatic. EYES: No scleral icterus. No conjunctival injection. MOUTH: No lesions, tongue midline. NECK: Trachea midline, no gross abnormalities. CHEST: Clear to auscultation with no wheezing or rhonchi appreciated. ABDOMEN: Soft, obese. Bowel sounds are positive. No organomegaly. No guarding or rigidity. EXTREMITIES: No pedal edema. SKIN: No rashes, no jaundice. NEUROLOGIC: Alert and oriented x3. No focal deficits. - Labs CBC & Chem 7: 03/13/18 07:52 03/13/18 07:52 Labs: Abnormal Lab Results - Last 24 Hours (Table) 03/12/18 03/13/18 03/13/18 Range/Units 13:57 07:52 07:52 WBC 10.7 H (3.8-10.6) k/uL MCHC 30.1 L (31.0-37.0) g/dL RDW 16.3 H (11.5-15.5) % PT (9.0-12.0) sec INR (<1.2) Sodium 132 L (137-145) mmol/L Chloride 95 L (98-107) mmol/L Creatinine 1.08 H (0.52-1.04) mg/dL Crossmatch See Detail 03/13/18 Range/Units 07:52 WBC (3.8-10.6) k/uL MCHC (31.0-37.0) g/dL RDW (11.5-15.5) % PT 16.1 H (9.0-12.0) sec INR 1.6 H (<1.2) Sodium (137-145) mmol/L Chloride (98-107) mmol/L Creatinine (0.52-1.04) mg/dL Crossmatch Microbiology - Last 24 Hours (Table) 03/07/18 23:21 Blood Culture - Preliminary Blood No Growth after 120 hours Assessment and Plan (1) Anemia Narrative/Plan: Hemoglobin has remained stable. No signs or symptoms of GI bleeding. EGD and colonoscopy negative for any pathology to explain anemia, or evidence of GI bleed. Current Visit: Yes Status: Acute Code(s): D64.9 - ANEMIA, UNSPECIFIED SNOMED Code(s): 342352375 Plan: Supportive care Monitor hemoglobin and transfuse as needed Okay for diet Okay to continue anticoagulation If further fall in hemoglobin or signs or symptoms of GI bleed develop will order a capsule endoscopy for further evaluation Thank you for allowing us to participate in the care of the patient, the gastroenterology service will stand by, please feel free to call us back with any questions or concerns
[2018-03-14] MEDS: ACETAMINOPHEN TAB 500 MG TAB PO SCH ×3 (05:44→17:30)
[2018-03-14] MEDS ORDERED: BACLOFEN 10 MG TAB PO SCH (09:00)
[2018-03-14 10:02] LABS: INR 1.7 (<1.2); Prothrombin Time 16.5 sec (9.0-12.0)
[2018-03-14] MEDS: METOPROLOL TARTRATE 50 MG TAB PO SCH (10:34)
[2018-03-14] MEDS: FUROSEMIDE 80 MG TAB PO SCH ×2 (10:40→17:31)
[2018-03-14] MEDS: DILTIAZEM CD 120 MG CAP.ER.24H PO SCH (12:41)
[2018-03-14 16:42] VITALS: BP 94/58; PULSE 60; RESP 14; TEMP 97.6
[2018-03-14] MEDS ORDERED: WARFARIN 2 MG TAB PO SCH (18:00)
--- NOTE | 2018-03-16 01:12 | DS ---
DISCHARGE SUMMARY DATE OF ADMISSION: 03/07/2018. DATE OF DISCHARGE: 03/14/2018. FINAL DIAGNOSES: 1. Acute urinary tract infection from Escherichia coli. 2. Symptomatic anemia, cause unknown. Negative for GI bleed. 3. Coronary artery disease, recent acute non-ST elevation myocardial infarction with angioplasty of the circumflex. 4. Severe mitral regurgitation, moderate mitral regurgitation, tricuspid regurgitation, nonrheumatic. 5. Coronary artery disease, history of stent and bypass. 6. Acute on chronic back spasm. 7. Bilateral Raynaud syndrome. CONSULTATION: 1. Dr. Huertas from GI. 2. Dr. Mensah from Pain Management. 3. Dr. Alvarez from Cardiology. 4. Dr. Matos from Pulmonary. HOSPITAL COURSE: This patient with multiple medical problems presented with weakness and tiredness. Hemoglobin was hovering around 7.7. The patient was given a unit of blood. The patient did undergo EGD by Dr. Huertas, which was essentially unremarkable. He discussed with me and with the patient and daughter. Currently no further workup to be done. There is no evidence of gastrointestinal bleed. The patient is having back spasms, worsening. Seen by Dr. Mensah, who coordinated the pain medications. The patient is doing better by the time of discharge. PHYSICAL EXAMINATION: Temperature 97.6, pulse 60, respirations 14, blood pressure 94/58. INVESTIGATIONS: Hemoglobin 11.5, INR 1.7, BUN 17, creatinine 1.08. DISCHARGE MEDICATIONS: 1. Nitrostat 0.4 sublingual every 5 hours p.r.n. 2. Aspirin 81 mg a day. 3. Plavix 75 mg a day. 4. Cardizem CD 120 mg a day. 5. Coumadin 1 mg on Tuesday, 2 mg on Tuesday, , , Tuesday, Tuesday. 6. Tylenol 500 mg every 6. 7. Pepcid 20 mg b.i.d. 8. Lasix 80 mg b.i.d. 9. Lopressor 100 mg b.i.d. 10.Zanaflex 2 mg p.o. t.i.d. FOLLOWUP: 1. Follow up with Dr. Connell on 03/22/2018. 2. Follow up with Dr. Bearden in 1 week. 3. Follow up with Dr. Mensah in 1 week. OTHER INSTRUCTIONS: The patient is also to take a walker. MMODL / IJN: [id number] /
[2018-03-19] MEDS ORDERED: WARFARIN 1 MG TAB PO SCH (18:00)
== END 2018-03-14 19:04 | disposition home health service (06) | DRG 811 ==
LOC: EC 19:37 → 2SICU 23:45 → 4SSUR 03-11 15:59
PROVIDERS: ADMIT Hospitalist; ATTEND Hospitalist
PROC: 30233N1 Transfusion of Nonautologous Red Blood Cells into Peripheral Vein, Percutaneous Approach (ICD-10-PCS; 2018-03-07)
PROC: 0DJ08ZZ Inspection of Upper Intestinal Tract, Via Natural or Artificial Opening Endoscopic (ICD-10-PCS; principal; 2018-03-10 14:30)
PROC: 0DJD8ZZ Inspection of Lower Intestinal Tract, Via Natural or Artificial Opening Endoscopic (ICD-10-PCS; 2018-03-10 14:30)
DX: D64.9 Anemia, unspecified (principal); I50.23 Acute on chronic systolic (congestive) heart failure; J98.11 Atelectasis; N39.0 Urinary tract infection, site not specified; R18.8 Other ascites; I95.9 Hypotension, unspecified; I08.3 Combined rheumatic disorders of mitral, aortic and tricuspid valves; I25.5 Ischemic cardiomyopathy; M41.9 Scoliosis, unspecified; I48.2 Chronic atrial fibrillation; I45.10 Unspecified right bundle-branch block; M54.5 Low back pain; B96.20 Unspecified Escherichia coli [E. coli] as the cause of diseases classified elsewhere; R79.1 Abnormal coagulation profile; E78.5 Hyperlipidemia, unspecified; I25.10 Atherosclerotic heart disease of native coronary artery without angina pectoris; I25.2 Old myocardial infarction; I73.00 Raynaud's syndrome without gangrene; K44.9 Diaphragmatic hernia without obstruction or gangrene; H91.90 Unspecified hearing loss, unspecified ear; H54.7 Unspecified visual loss; M47.9 Spondylosis, unspecified; K64.8 Other hemorrhoids; M19.90 Unspecified osteoarthritis, unspecified site; M54.6 Pain in thoracic spine; M62.830 Muscle spasm of back; R26.9 Unspecified abnormalities of gait and mobility; G89.29 Other chronic pain; Z79.01 Long term (current) use of anticoagulants; Z79.02 Long term (current) use of antithrombotics/antiplatelets; Z79.82 Long term (current) use of aspirin; Z79.899 Other long term (current) drug therapy; Z88.5 Allergy status to narcotic agent; Z95.0 Presence of cardiac pacemaker; Z95.5 Presence of coronary angioplasty implant and graft; Z95.1 Presence of aortocoronary bypass graft; Z87.891 Personal history of nicotine dependence; Z86.73 Personal history of transient ischemic attack (TIA), and cerebral infarction without residual deficits; Z85.3 Personal history of malignant neoplasm of breast; Z92.3 Personal history of irradiation; Z90.49 Acquired absence of other specified parts of digestive tract; Z98.42 Cataract extraction status, left eye; Z98.41 Cataract extraction status, right eye; Z96.1 Presence of intraocular lens; Z82.49 Family history of ischemic heart disease and other diseases of the circulatory system; Z83.3 Family history of diabetes mellitus
CPT/HCPCS: 36415; 43235; 45378; 71045; 71046; 71275; 72070; 74177; 80048; 80053; 81001; 82272; 82550; 82553; 83605; 83735; 83880; 84100; 84484; 85025; 85610; 85730; 86850; 86900; 86901; 86920; 87040; 87077; 87086; 87186; 93005; 96365; 96375; 99285

== ENCOUNTER 2018-03-15 14:07 | Observation (INO) | payer MEDICARE, BC ==
[2018-03-15] MEDS ORDERED: LIDOCAINE 5% PATCH TOPICAL STA (15:51)
--- NOTE | 2018-03-15 15:56 | ED ---
General Adult HPI - General Chief complaint: Back Pain/Injury Stated complaint: Back pain Source: patient Mode of arrival: ambulatory Limitations: no limitations - Related Data Home Medications Medication Instructions Recorded Confirmed Aspirin [Adult Low Dose Aspirin EC] 81 mg PO DAILY 02/11/18 03/15/18 Clopidogrel [Plavix] 75 mg PO DAILY 02/11/18 03/15/18 Warfarin [Coumadin] 1 mg PO SUMO 03/07/18 03/15/18 Warfarin [Coumadin] 2 mg PO [id number] 03/07/18 03/15/18 Previous Rx's Medication Instructions Recorded Nitroglycerin Sl Tabs [Nitrostat] 0.4 mg SUBLINGUAL Q5M PRN #25 tab 10/28/17 Diltiazem Cd [Cardizem CD] 120 mg PO DAILY #30 cap.er.24h 02/13/18 Acetaminophen Tab [Tylenol] 500 mg PO Q6H tab 03/14/18 Famotidine [Pepcid] 20 mg PO BID #60 tablet 03/14/18 Furosemide [Lasix] 80 mg PO BID #60 tab 03/14/18 Metoprolol Tartrate [Lopressor] 100 mg PO BID #60 tab 03/14/18 tiZANidine [Zanaflex] 2 mg PO TID #50 tab 03/14/18 Allergies Allergy/AdvReac Type Severity Reaction Status Date / Time codeine AdvReac Nausea & Verified 03/15/18 17:03 Vomiting Review of Systems ROS Statement: Those systems with pertinent positive or pertinent negative responses have been documented in the HPI. ROS Other: All systems not noted in ROS Statement are negative. Past Medical History Past Medical History: Heart Failure, Hyperlipidemia, Musculoskeletal Disorder Additional Past Medical History / Comment(s): Pt recently admitted to [facility] in October with CHF, possible NSTEMI and had PCI with stent to circ. Other Hx: Severe mitral regurgitation-to have valve surgery soon, moderate tricuspid regurg, mild aortic regurg, ischemic cardiomyopathy, L breast cancer with lumpectomy/chem and radiation, TIAs, bilateral raynaulds syndrome, chronic low and thoracic back a pain/scoliosis, past head injury, bronchtisi History of Any Multi-Drug Resistant Organisms: None Reported Past Surgical History: Adenoidectomy, Appendectomy, Breast Surgery, Coronary Bypass/CABG, Heart Catheterization, Heart Catheterization With Stent, Orthopedic Surgery, Pacemaker, Tonsillectomy Additional Past Surgical History / Comment(s): 10/25/17 NARENDRA, 10/27/17 PCI with stent to circumflex, 2002 CABG 3 vessel, left side lumpectomy, bialteral cataract removed, bilateral carpal tunnel releases, bilateral hand trigger finger releases, back injection, D&C, Past Anesthesia/Blood Transfusion Reactions: Postoperative Nausea & Vomiting ( PONV) Additional Past Anesthesia/Blood Transfusion Reaction / Comment(s): Pt has received blood in past without reaction. Date of Last Stent Placement:: 10/27/17 Type of Cardiac Device: Permanent Pacemaker Device Placement Date:: 2006 Past Psychological History: No Psychological Hx Reported Smoking Status: Former smoker Past Alcohol Use History: Occasional Past Drug Use History: None Reported - Past Family History Mother Family Medical History: Coronary Artery Disease (CAD), Diabetes Mellitus Additional Family Medical History / Comment(s): cabg Father Family Medical History: Pulmonary Embolus Additional Family Medical History / Comment(s): Father of a pulmonary embolism at the age of 46yrs. General Exam Limitations: no limitations Course Vital Signs 03/15/18 03/15/18 03/15/18 14:52 19:04 19:28 Temperature 97.5 F L 96.4 F L Pulse Rate 66 60 67 Respiratory 18 14 18 Rate Blood Pressure 104/44 99/79 116/68 O2 Sat by Pulse 98 96 96 Oximetry Medical Decision Making - Medical Decision Making Dictation was produced using [employer] dictation software. please excuse any grammatical, word or spelling errors. Chief Complaint: 77-year-old female with past medical history of congestive heart failure, atrial fibrillation on Coumadin was sent in by primary care physician for thoracic back pain and 20 pound weight gain. History of Present Illness: She is 77-year-old female who was sent in by her primary care physician for tractable thoracic back pain and 20 pound weight gain. Patient has a past medical history congestive heart failure. Patient was recently admitted to the hospital where she had stable approximately 7 days. Patient was evaluated by cardiology and pulmonology and GI. Chart review shows that patient has severe mitral regurgitation. She is anticipating a mitral valve replacement procedure the near future. Patient was evaluated by GI on her last visit as well were upper and lower endoscopy was obtained showing no overt signs of bleeding. Patient has history of congestive heart failure. She does not have any dyspnea however there is 20 pound weight gain. She does complain of swelling in her legs and lower abdomen. Patient is also have severe thoracic back spasms. Patient does not have a history of back spasms over since February she is having intermittent episodes of this with increased frequency and severity. The ROS documented in this emergency department record has been reviewed and confirmed by me. Those systems with pertinent positive or negative responses have been documented in the HPI. All other systems are other negative and/or noncontributory. PHYSICAL EXAM: General Impression: Alert and oriented x3, acute distress secondary to pain HEENT: Normocephalic atraumatic, extra-ocular movements intact, pupils equal and reactive to light bilaterally, mucous membranes moist. Cardiovascular: Heart regular rate and rhythm, S1&S2 audible, no murmurs, rubs or gallops Chest: Lungs clear to auscultation bilaterally, no rhonchi, no wheeze, no rales Abdomen: Bowel sounds present, abdomen soft, non-tender, non-distended, no organomegaly Musculoskeletal: Pulses present and equal in all extremities, 1+ pitting edema bilateral lower extremities, tenderness to palpation over the right erector spinae muscles Motor: Power 5/5 bilaterally, no focal deficits noted Neurological: CN II-XII grossly intact, no focal motor or sensory deficits noted Skin: Intact with no visualized rashes Psych: Normal affect and mood ED course: 77-year-old female sent in by primary care physician for thoracic back pain and 20 pound weight gain. Vital signs upon arrival are within acceptable limits. Discussed patient case with patient's primary care physician Dr. Connell who was concerned about her thoracic back pain. Patient states that the pain was the reason why he sent her to the emergency department. He was trying to get x-ray there however was not able to do so. Given the degree of her symptoms he sent her to the emergency department. Patient was observed in emergency department for several hours. Patient did not feel motivated to stay however her daughters convince her that she needed to be put in the hospital because of her severe back spasms. They requested a CT. I discussed this extensively saying that a CT is not indicated given that there is no clear history of falling in no clinical symptoms of rib fracture however they feel like this is what she needs. CT was ordered. Discussed patient case with Dr. Pan is willing to accept admission. He requests that pain management be on consultation. EKG interpretation: Ventricular rate 68, paced rhythm No MT prolongation, no QTC prolongation, no ST or T-wave changes noted. EKG compared to Mar showing no changes. Overall, this EKG is unremarkable - Lab Data Result diagrams: 03/15/18 18:10 03/15/18 18:10 Lab Results 03/15/18 03/15/18 03/15/18 Range/Units 18:10 18:10 18:10 WBC 10.9 H (3.8-10.6) k/uL RBC 4.03 (3.80-5.40) m/uL Hgb 11.6 (11.4-16.0) gm/dL Hct 35.9 (34.0-46.0) % MCV 89.0 (80.0-100.0) fL MCH 28.7 (25.0-35.0) pg MCHC 32.3 (31.0-37.0) g/dL RDW 15.9 H (11.5-15.5) % Plt Count 222 (150-450) k/uL Neutrophils % 77 % Lymphocytes % 10 % Monocytes % 6 % Eosinophils % 4 % Basophils % 0 % Neutrophils # 8.4 H (1.3-7.7) k/uL Lymphocytes # 1.1 (1.0-4.8) k/uL Monocytes # 0.7 (0-1.0) k/uL Eosinophils # 0.4 (0-0.7) k/uL Basophils # 0.0 (0-0.2) k/uL Hypochromasia Marked Poikilocytosis Marked PT (9.0-12.0) sec INR (<1.2) Sodium 133 L (137-145) mmol/L Potassium 4.6 (3.5-5.1) mmol/L Chloride 98 (98-107) mmol/L Carbon Dioxide 24 (22-30) mmol/L Anion Gap 11 mmol/L BUN 23 H (7-17) mg/dL Creatinine 0.93 (0.52-1.04) mg/dL Est GFR (CKD-EPI)AfAm 68 (>60 ml/min/1.73 sqM) Est GFR (CKD-EPI)NonAf 59 (>60 ml/min/1.73 sqM) Glucose 78 (74-99) mg/dL Calcium 9.0 (8.4-10.2) mg/dL Total Bilirubin 2.2 H (0.2-1.3) mg/dL AST 163 H (14-36) U/L ALT 84 H (9-52) U/L Alkaline Phosphatase 136 H (38-126) U/L Total Creatine Kinase 73 (30-135) U/L CK-MB (CK-2) 2.2 (0.0-2.4) ng/mL CK-MB (CK-2) Rel Index 3.0 NT-Pro-B Natriuret Pep pg/mL Total Protein 6.3 (6.3-8.2) g/dL Albumin 3.6 (3.5-5.0) g/dL 03/15/18 03/15/18 Range/Units 20:42 20:42 WBC (3.8-10.6) k/uL RBC (3.80-5.40) m/uL Hgb (11.4-16.0) gm/dL Hct (34.0-46.0) % MCV (80.0-100.0) fL MCH (25.0-35.0) pg MCHC (31.0-37.0) g/dL RDW (11.5-15.5) % Plt Count (150-450) k/uL Neutrophils % % Lymphocytes % % Monocytes % % Eosinophils % % Basophils % % Neutrophils # (1.3-7.7) k/uL Lymphocytes # (1.0-4.8) k/uL Monocytes # (0-1.0) k/uL Eosinophils # (0-0.7) k/uL Basophils # (0-0.2) k/uL Hypochromasia Poikilocytosis PT 14.4 H (9.0-12.0) sec INR 1.4 H (<1.2) Sodium (137-145) mmol/L Potassium (3.5-5.1) mmol/L Chloride (98-107) mmol/L Carbon Dioxide (22-30) mmol/L Anion Gap mmol/L BUN (7-17) mg/dL Creatinine (0.52-1.04) mg/dL Est GFR (CKD-EPI)AfAm (>60 ml/min/1.73 sqM) Est GFR (CKD-EPI)NonAf (>60 ml/min/1.73 sqM) Glucose (74-99) mg/dL Calcium (8.4-10.2) mg/dL Total Bilirubin (0.2-1.3) mg/dL AST (14-36) U/L ALT (9-52) U/L Alkaline Phosphatase (38-126) U/L Total Creatine Kinase (30-135) U/L CK-MB (CK-2) (0.0-2.4) ng/mL CK-MB (CK-2) Rel Index NT-Pro-B Natriuret Pep 6000 pg/mL Total Protein (6.3-8.2) g/dL Albumin (3.5-5.0) g/dL Disposition Clinical Impression: Back spasm Disposition: ADMITTED IP TO THIS HOSP Condition: Fair Referrals: Car Connell DO [Primary Care Provider] - 1-2 days Decision Time: 21:59
--- NOTE | 2018-03-15 16:37 | XR ---
EXAMINATION TYPE: XR chest 2V, XR ribs LT DATE OF EXAM: 03/15/2018 COMPARISON: Chest x-ray March 11, 2018. CTA chest March 07, 2018. HISTORY: Chest and left-sided rib pain. TECHNIQUE: Frontal and lateral views of the chest are obtained. A frontal and oblique images left-si ded ribs are acquired. FINDINGS: Osseous structures remain demineralized. Left axillary surgical clips are redemonstrated. T here is persistent cardiomegaly with dual lead pacemaker and atherosclerotic thoracic aorta. There ar e persistent small bilateral pleural effusions. Overlying sternal wires and mediastinal clips are red emonstrated. Dedicated images left-sided ribs show no acute displaced fractures. Overlying soft tissue is unremark able. IMPRESSION: 1. Persistent cardiomegaly with small bilateral pleural effusions. 2. No acute displaced left-sided rib fractures are seen.
[2018-03-15 18:35] LABS: Basophils % (A) 0 %; Eosinophils # (A) 0.4 k/uL (0-0.7); Eosinophils % (A) 4 %; HCT 35.9 % (34.0-46.0); HGB 11.6 gm/dL (11.4-16.0); Hypochromasia Marked; Lymphocytes # (A) 1.1 k/uL (1.0-4.8); Lymphocytes % (A) 10 %; MCH 28.7 pg (25.0-35.0); MCHC 32.3 g/dL (31.0-37.0); Mean Platelet Volume 6.9; Monocytes # (A) 0.7 k/uL (0-1.0); Monocytes % (A) 6 %; Neutrophils # (A) 8.4 k/uL (1.3-7.7); Neutrophils % (A) 77 %; Platelet Count 222 k/uL (150-450); Poikilocytosis Marked; RBC 4.03 m/uL (3.80-5.40); RDW 15.9 % (11.5-15.5); WBC 10.9 k/uL (3.8-10.6)
[2018-03-15 19:03] LABS: Albumin 3.6 g/dL (3.5-5.0); Potassium 4.6 mmol/L (3.5-5.1); Total Bilirubin 2.2 mg/dL (0.2-1.3); Total Protein 6.3 g/dL (6.3-8.2)
[2018-03-15] MEDS ORDERED: HYDROcodone/APAP 5-325MG 1 EACH TAB PO STA (19:06)
[2018-03-15 19:09] LABS: Creatine Kinase MB 2.2 ng/mL (0.0-2.4)
[2018-03-15 21:01] LABS: INR 1.4 (<1.2); Prothrombin Time 14.4 sec (9.0-12.0)
[2018-03-15] MEDS ORDERED: RX INFO: IV CONTRAST WAS GIVEN 1 EACH MISC MISCELLANE PRN (21:54)
[2018-03-15] MEDS ORDERED: NALOXONE 0.4 MG/ML 1 ML VIAL IV PRN (21:59)
[2018-03-15] MEDS ORDERED: WARFARIN 2 MG TAB PO SCH ×2 (22:15→22:53)
--- NOTE | 2018-03-15 22:25 | CT ---
EXAMINATION TYPE: CT chest wo con DATE OF EXAM: 03/15/2018 COMPARISON: 03/07/2018 HISTORY: Back pain. CT DLP: 234.1 mGycm. Automated Exposure Control for Dose Reduction was Utilized. TECHNIQUE: CT scan of the thorax is performed without IV contrast. FINDINGS: There are bilateral pleural effusions. Heart is enlarged. There is no pericardial effusion. There is extensive atherosclerotic vascular calcification. There is 4 cm aneurysm of the ascending aorta. I se e no mediastinal adenopathy. There are no hilar masses. There is atelectasis at the lung bases. I see no evidence of a pulmonary mass. The bony thorax is intact. There are sternal wires. IMPRESSION: Bilateral pleural effusions increased slightly compared to last exam. Moderate cardiomega ly. 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
[2018-03-15] MEDS ORDERED: NITROGLYCERIN SL TABS 0.4 MG TAB SUBLINGUAL PRN (22:56)
[2018-03-15 23:52] VITALS: BMI 26.3
[2018-03-15] MEDS: HYDROcodone/APAP 5-325MG 1 EACH TAB PO PRN (23:56)
[2018-03-16] MEDS: ACETAMINOPHEN TAB 500 MG TAB PO SCH ×4 (00:26→16:22)
[2018-03-16] MEDS: HYDROcodone/APAP 5-325MG 1 EACH TAB PO PRN ×4 (08:06→20:41)
[2018-03-16] MEDS: METOPROLOL TARTRATE 50 MG TAB PO SCH ×2 (08:07→20:40)
[2018-03-16] MEDS: ASPIRIN 81 MG PO SCH (08:07)
[2018-03-16] MEDS: DILTIAZEM CD 120 MG CAP.ER.24H PO SCH (08:08)
[2018-03-16] MEDS: CLOPIDOGREL 75 MG TAB PO SCH (08:08)
[2018-03-16] MEDS ORDERED: FAMOTIDINE 20 MG TAB PO SCH (09:00)
[2018-03-16] MEDS ORDERED: FUROSEMIDE 40 MG TAB PO SCH (09:00)
[2018-03-16] MEDS ORDERED: FUROSEMIDE 10 MG/ML 4 ML VIAL IV STA (10:48)
--- NOTE | 2018-03-16 11:11 | XR ---
EXAMINATION TYPE: XR chest 2V DATE OF EXAM: 03/16/2018 COMPARISON: Chest x-ray and CT chest from yesterday. HISTORY: Pleural effusion and increased shortness of breath TECHNIQUE: Frontal and lateral views of the chest are obtained. FINDINGS: There is cardiomegaly with dual lead pacemaker and small right greater than left pleural e ffusions with associated compressive atelectasis all redemonstrated. Overlying sternal wires and medi astinal clips are redemonstrated. Left axillary surgical clips are again identified. The osseous st ructures remain demineralized. IMPRESSION: Overall stable findings, cardiomegaly with small right greater than left pleural effusio ns suggesting CHF exacerbation.
[2018-03-16] MEDS: tiZANidine 4 MG TAB PO SCH ×2 (12:52→20:43)
[2018-03-16 16:07] LABS: INR 1.3 (<1.2); Prothrombin Time 13.5 sec (9.0-12.0)
--- NOTE | 2018-03-16 16:19 | HP ---
HISTORY AND PHYSICAL DATE OF ADMISSION: March 15, 2018. DATE OF SERVICE: March 16, 2018. PRESENTING COMPLAINT: Back pain, short of breath. HISTORY OF PRESENTING COMPLAINT: This is a pleasant 77-year-old patient of Dr. Connell. Chronic stable medical conditions include atrial fibrillation, hyperlipidemia, coronary artery disease with stent to the circumflex, severe mitral regurgitation, moderate tricuspid regurgitation, history of left breast cancer with lumpectomy, bilateral Raynaud syndrome. The patient was recently in the hospital, discharged 2 days ago. She did receive a unit of blood at that time. She was weak and tired. Also treated for an acute UTI for E coli. The patient is due to follow up at [facility] for cardiac workup. The patient is brought in by 2 daughters as the patient's low back pain has been getting worse. The patient was seen by Dr. Mensah the last admission, had prescribed her Zanaflex. The patient became rather drowsy, lethargic with the same. Hence, that headed off the patient's back pain has been bothering her. Also patient has got increasing swelling of lower extremity. A bit more short of breath. The patient has some orthopnea. The patient is not the best of historians. The patient's 2 daughters at the bedside. Denies any chest pain. No fever. No chills. REVIEW OF SYSTEMS: CONSTITUTIONAL: Tired. HEENT: None. RESPIRATORY: Shortness of breath. CARDIOVASCULAR as above. GASTROINTESTINAL: None. GENITOURINARY: None. MUSCULOSKELETAL: Arthritic pain in joints. DERMATOLOGICAL, HEMATOLOGIC, LYMPHATIC: None. PSYCHIATRY: Forgetful. NEUROLOGICAL: None. MUSCULOSKELETAL: Low back pain with some acute flare up. PAST MEDICAL HISTORY: History of atrial fibrillation, congestive heart failure, stroke, hyperlipidemia, coronary artery disease with stent to the circumflex. Severe mitral regurgitation, moderate tricuspid regurgitation, ischemic cardiomyopathy, left breast cancer lumpectomy, chemo and radiation, bilateral Raynaud syndrome, chronic low and thoracic back pain, past head injury. PAST SURGICAL HISTORY: Adenoidectomy appendectomy, coronary bypass, cardiac cath with stent, 2002 three vessel bypass, left-sided breast lumpectomy, bilateral cataracts removal, bilateral carpal tunnel release, bilateral hand trigger finger release. SOCIAL HISTORY: Daughters are present. The patient smoked for 18 years. Stopped in 1969. Alcohol occasionally. FAMILY HISTORY: Coronary artery disease, diabetes. HOME MEDICATIONS: 1. Coumadin 1 mg on Tuesday, Tuesday. 2. Nitrostat 0.4 sublingual q.5h p.r.n. 3. Zanaflex 2 mg p.o. t.i.d. 4. Coumadin 2 mg on Tuesday, Tuesday, , Tuesday, Tuesday. 5. Lopressor 100 mg b.i.d. 6. Lasix 80 mg b.i.d. 7. Pepcid 20 mg b.i.d. 8. Cardizem CD 120 mg a day. 9. Plavix 75 mg a day. 10.Aspirin 81 mg a day. 11.Tylenol 500 mg q.6h. ALLERGIES: CODEINE. PHYSICAL EXAMINATION: VITAL SIGNS: Vital signs on presentation, temperature 97.5, pulse 56, respiratory 18, blood pressure 104/44, pulse ox 98% on room air. GENERAL APPEARANCE: Lying in bed, tired appearing. EYES: Pupils equal. Conjunctivae normal. HEENT: External appearance of nose and ears normal. Oral cavity normal. NECK: JVD raised. Mass not palpable. RESPIRATORY: Effort increased. LUNGS: Some basal crackles. CARDIOVASCULAR: Heart sounds irregular. Edema present. Systolic murmur. ABDOMEN: Soft, nontender. Liver and spleen not palpable. LYMPHATICS: No lymph nodes palpable in the neck and axilla. PSYCHIATRY: Patient is able answer simple questions. MUSCULOSKELETAL: Evidence of osteoarthritis especially in the hands. INVESTIGATIONS: White count 10.9, hemoglobin 11.6, potassium 4.6, BUN 23, creatinine 0.93. The bilirubin 2.2, AST 163, ALT 84. ProBNP 6000. Chest x-ray film personally reviewed by me shows cardiomegaly, small right pleural effusion, venous prominence. EKG tracing personally reviewed by me shows demand pacemaker with some irregular heart rate underlying. The patient's 2D echocardiogram from October of last year shows severe mitral regurgitation, severe enlarged left atrium. Moderate tricuspid regurgitation, EF of 40%. ASSESSMENT: 1. Acute on chronic congestive heart failure exacerbation from systolic dysfunction, ejection fraction 40% from underlying coronary artery disease. 2. Coronary artery disease prior history of stent and coronary bypass. 3. Severe mitral regurgitation. 4. Moderate tricuspid regurgitation, nonrheumatic. 5. Persistent atrial fibrillation. 6. Acute on chronic back spasm. 7. Bilateral Raynaud syndrome. PLAN: Home medications are resumed. Patient will be started on IV Lasix. Cardiology was consulted this morning. So was Dr. Mensah was consulted last evening. I did discuss with the 2 daughters. Await further input from Dr. Mensah for the pain and Cardiology from the cardiovascular status. The patient's proBNP is elevated to over 6000. Should feel better with IV Lasix. Repeat electrolytes in the morning. Copy to Dr. Connell. MMODL / IJN: [id number] /
[2018-03-16] MEDS: FUROSEMIDE 10 MG/ML 10 ML VIAL IV SCH (16:39)
[2018-03-16] MEDS ORDERED: BUPIVACAINE (PF) 0.5% 30 ML VIAL MISCELLANE STA (20:32)
[2018-03-16] MEDS ORDERED: LIDOCAINE 2% INJ 20 MG/ML (20 ML MDV) SQ STA (20:33)
--- NOTE | 2018-03-16 20:48 | P.CONS ---
History of Present Illness - Reason for Consult Consult date: 03/16/18 back pain spasms Requesting physician: Anjel Pan - Chief Complaint back - History of Present Illness Ms. alvarez was discharged from the hospital earlier this week and has returned. She had significant lower extremity swelling, nausea and back pain that brought her back to the ER. She is currently in observation and has an appointment scheduled with thoracic surgery tomorrow in [facility] in regards to valve replacement. While she is here in observation she continues to complain of back pain and back spasms on the left lower part of her back. They come and go. Her family states that while the pain medicine is on board the back spasms are improved however pain medicine makes her nauseous and decreases her appetite. She was given Zanaflex and states this makes her too groggy. Past Medical History Past Medical History: Atrial Fibrillation, Heart Failure, CVA/TIA, Hyperlipidemia, Musculoskeletal Disorder Additional Past Medical History / Comment(s): Pt recently admitted to [facility] in October with CHF, possible NSTEMI and had PCI with stent to circ. Other Hx: Severe mitral regurgitation-to have valve surgery soon, moderate tricuspid regurg, mild aortic regurg, ischemic cardiomyopathy, L breast cancer with lumpectomy/chem and radiation, TIAs, bilateral raynaulds syndrome, chronic low and thoracic back a pain/scoliosis, past head injury, bronchtisi History of Any Multi-Drug Resistant Organisms: None Reported Past Surgical History: Adenoidectomy, Appendectomy, Breast Surgery, Coronary Bypass/CABG, Heart Catheterization, Heart Catheterization With Stent, Orthopedic Surgery, Pacemaker, Tonsillectomy Additional Past Surgical History / Comment(s): 10/25/17 NARENDRA, 10/27/17 PCI with stent to circumflex, 2002 CABG 3 vessel, left side lumpectomy, bialteral cataract removed, bilateral carpal tunnel releases, bilateral hand trigger finger releases, back injection, D&C, Past Anesthesia/Blood Transfusion Reactions: Postoperative Nausea & Vomiting ( PONV) Additional Past Anesthesia/Blood Transfusion Reaction / Comm: Pt has received blood in past without reaction. Date of Last Stent Placement:: 10/27/17 Type of Cardiac Device: Permanent Pacemaker Device Placement Date:: 2006 Past Psychological History: No Psychological Hx Reported Additional Psychological History / Comment(s): Pt resides alone. She is independent. Smoking Status: Former smoker Past Alcohol Use History: Occasional Additional Past Alcohol Use History / Comment(s): Pt started smoking in 1952 and quit in 1969. Past Drug Use History: None Reported - Past Family History Mother Family Medical History: Coronary Artery Disease (CAD), Diabetes Mellitus Additional Family Medical History / Comment(s): cabg Father Family Medical History: Pulmonary Embolus Additional Family Medical History / Comment(s): Father of a pulmonary embolism at the age of 46yrs. Medications and Allergies Home Medications Medication Instructions Recorded Confirmed Type Nitroglycerin Sl Tabs [Nitrostat] 0.4 mg SUBLINGUAL Q5M PRN #25 tab 10/28/1711/23 Rx Aspirin [Adult Low Dose Aspirin EC] 81 mg PO DAILY 02/11/18 03/15/18 History Clopidogrel [Plavix] 75 mg PO DAILY 02/11/18 03/15/18 History Diltiazem Cd [Cardizem CD] 120 mg PO DAILY #30 cap.er.24h 02/13/18 03/15/18 Rx Warfarin [Coumadin] 1 mg PO SUMO 03/07/18 03/15/18 History Warfarin [Coumadin] 2 mg PO TUWETHFRSA 03/07/18 03/15/18 History Acetaminophen Tab [Tylenol] 500 mg PO Q6H tab 03/14/18 03/15/18 Rx Famotidine [Pepcid] 20 mg PO BID #60 tablet 03/14/18 03/15/18 Rx Furosemide [Lasix] 80 mg PO BID #60 tab 03/14/18 03/15/18 Rx Metoprolol Tartrate [Lopressor] 100 mg PO BID #60 tab 03/14/18 03/15/18 Rx tiZANidine [Zanaflex] 2 mg PO TID #50 tab 03/14/18 03/15/18 Rx Allergies Allergy/AdvReac Type Severity Reaction Status Date / Time codeine AdvReac Nausea & Verified 03/15/18 17:03 Vomiting Physical Exam Osteopathic Statement: *. No significant issues noted on an osteopathic structural exam other than those noted in the History and Physical/Consult. Vitals: Vital Signs Temp Pulse Pulse Pulse Resp BP BP 03/16/18 16:00 97.9 F 59 L 16 119/79 03/16/18 11:54 98.1 F 66 18 113/64 03/16/18 08:00 98.0 F 77 18 122/71 03/16/18 03:30 16 03/16/18 00:00 16 03/15/18 23:41 98.1 F 82 15 115/66 03/15/18 22:55 97.9 F 66 18 100/74 Pulse Ox 03/16/18 16:00 97 03/16/18 11:54 96 03/16/18 08:00 95 03/16/18 03:30 03/16/18 00:00 03/15/18 23:41 93 L 03/15/18 22:55 97 Intake and Output 03/16/18 03/16/18 03/16/18 06:59 14:59 22:59 Intake Total 200 Balance 200 Intake: Oral 200 Other: Voiding Method Toilet Toilet Toilet # Voids 2 Weight 69.4 kg General patient is alert and oriented not in acute distress HEENT: Normocephalic atraumatic extraocular muscles intact Cardiovascular: Regular rate and rhythm 3+ peripheral edema of the lower extremities Respiratory: No accessory muscle use was noted breathing nonlabored Abdomen: Soft nontender nondistended Musculoskeletal: Tenderness to palpation of the left lower paraspinal muscles, hip flexion 3+/5 bilaterally, knee extension, dorsiflexion, ankle inversion and eversion 5/5 bilaterally Neurologic: No ankle clonus is noted sensation light touch is intact in bilateral lower extremities Results CBC & Chem 7: 03/15/18 18:10 03/15/18 18:10 Labs: Abnormal Lab Results - Last 24 Hours (Table) 03/15/18 03/16/18 Range/Units 20:42 11:25 PT 14.4 H 13.5 H (9.0-12.0) sec INR 1.4 H 1.3 H (<1.2) Assessment and Plan Plan: We will discontinue Zanaflex. Patient is to continue hydrocodone every 4 hours as needed. We will initiate fentanyl patch for now 5 g. I would prefer buprenorphine patches however these are unavailable inpatient. We will perform lumbar paraspinal trigger point injection. Patient's family states that they are leaving tomorrow to make sure they go to her valve replacement consultation. They should follow-up in the office for further outpatient evaluation and management. Procedure note: After obtaining informed consent skin overlying the lumbar paraspinal muscles on the left was prepped in aseptic fashion with alcohol. Then 5 areas were identified as tender than a 25-gauge 1-1/2 inch needle was advanced into the paraspinal muscles at these 5 spots then after negative aspiration at each target site 1 mL of a mixture of 2% lidocaine and 0.5% bupivacaine was injected the needle was removed and found to be intact patient tolerated procedure well. Time with Patient: Greater than 30
[2018-03-16] MEDS ORDERED: BUPIVACAINE (PF) 0.75% 10 ML VIAL MISCELLANE STA (20:53)
[2018-03-17] MEDS: ACETAMINOPHEN TAB 500 MG TAB PO SCH ×2 (00:18→04:05)
[2018-03-17] MEDS: FUROSEMIDE 10 MG/ML 10 ML VIAL IV SCH ×2 (00:19→08:42)
[2018-03-17] MEDS: HYDROcodone/APAP 5-325MG 1 EACH TAB PO PRN ×2 (03:31→08:42)
[2018-03-17 06:19] LABS: Calcium 8.8 mg/dL (8.4-10.2); Potassium 3.1 mmol/L (3.5-5.1)
[2018-03-17 06:21] LABS: INR 1.5 (<1.2)
[2018-03-17 08:33] VITALS: BP 135/67; PULSE 82; RESP 16; TEMP 98
[2018-03-17] MEDS: METOPROLOL TARTRATE 50 MG TAB PO SCH (08:44)
[2018-03-17] MEDS: CLOPIDOGREL 75 MG TAB PO SCH (08:44)
[2018-03-17] MEDS: ASPIRIN 81 MG PO SCH (08:44)
[2018-03-17] MEDS: DILTIAZEM CD 120 MG CAP.ER.24H PO SCH (08:45)
[2018-03-17] MEDS ORDERED: FAMOTIDINE 20 MG TAB PO SCH (09:00)
[2018-03-17] MEDS ORDERED: POTASSIUM CHLORIDE ER 20 MEQ TAB.ER PO STA (09:03)
--- NOTE | 2018-03-17 10:50 | P.CRDCN ---
History of Present Illness History of present illness: This is a pleasant 77-year-old female past medical history significant for significant mitral regurgitation awaiting mitral clip, coronary artery disease status post bypass grafting MADISON-LAD SVG-OM1, SVG-diagonal and SVG-RCA and subsequent PCI, she underwent stenting of the circumflex artery in October 2017, chronic persistent atrial fibrillation, bradycardia status post pacemaker implantation, chronic systolic heart failure and dyslipidemia. She follows with Dr. Santos in the office. We have been asked to see her in consultation secondary to 20 pound weight gain. She presented to the hospital 2 days ago with complaints of intractable thoracic back pain and 20 pound weight gain. She was recently admitted into the hospital in early March with symptoms of anemia and underwent blood transfusion. She was doing her routine follow-up with her primary care physician and noted a 20 pound weight gain. She also describes feeling mild exertional shortness of breath a little worse than her baseline. She does have significant shortness of breath as a baseline secondary to chronic systolic heart failure and mitral regurgitation awaiting mitral clip procedure. In fact she has an appointment today at [facility] at 11:[address] Rausch regarding this procedure. She has been receiving IV lasix 60 mg TID per primary care team. She is seen and examined sitting up in the chair in no acute distress with her daughter in the room. She states she is still short of breath but much better than when she first came in. She denies chest pain, dizziness, palpitations, nausea, vomiting or diaphoresis. She also denies PND or othopnea. EKG reveals atrial fibrillation with controlled ventricular response, right bundle branch block, nonspecific T-wave abnormalities and demand pacemaker. Chest x-ray on admission reveals small bilateral pleural effusions repeat yesterday reveals overall stable findings with small right greater than left pleural effusions. Laboratory data reviewed, WBC 10.9, hemoglobin 11.6, platelets 222, INR 1.5, sodium 132, potassium 3.1, creatinine 0.81, AST 163, ALT 84, alkaline phosphate 136, NT proBNP 6180. Trending of the BNP reveals that she has chronically elevated. Current cardiac medications at home include Coumadin 1 mg Tuesday and Tuesday and 2 mg every other day, aspirin 81 mg daily, Plavix 75 mg daily, diltiazem 120 mg daily, Lasix 80 mg twice a day and Lopressor 100 mg twice a day. At the time of my exam: CONSTITUTIONAL: Denies fever. Denies chills. EYES: Denies blurred vision. Denies vision changes. Denies eye pain. EARS, NOSE, MOUTH & THROAT: Denies headache. Denies sore throat. Denies ear pain. CARDIOVASCULAR: Denies chest pain. Denies shortness of breath. Denies orthopnea. Denies PND. Denies palpitations. RESPIRATORY: Denies cough. GASTROINTESTINAL: Denies abdominal pain. Denies diarrhea. Denies constipation. Denies nausea. Denies vomiting. MUSCULOSKELETAL: Denies myalgias. INTEGUMENTARY: Denies pruitis. Denies rash. NEUROLOGIC: Denies numbness. Denies tingling. Denies weakness. PSYCHIATRIC: Denies anxiety. Denies depression. ENDOCRINE: Denies fatigue. Denies weight change. Denies polydipsia. Denies polyurina. GENITOURINARY: Denies burning, hematuria or urgency with micturation. HEMATOLOGIC: Denies history of anemia. Denies bleeding. Blood pressure 135/67 heart rate 82 afebrile maintaining oxygen saturation on room air GENERAL: This is a 77-year-old female in no apparent distress at the time of my examination. HEENT: Head is atraumatic, normocephalic. Pupils are equal, round. Sclerae anicteric. Conjunctivae are clear. Mucous membranes of the mouth are moist. Neck is supple. There is no jugular venous distention. No carotid bruit is heard. LUNGS: Faint bibasilar rales noted, no wheezes or rhonchi. No chest wall tenderness is noted on palpation or with deep breathing. HEART: Irregular rate and rhythm with systolic ejection murmur at the apex, no rubs or gallops. S1 and S2 heard. ABDOMEN: Soft, nontender. Bowel sounds are heard. No organomegaly noted. EXTREMITIES: Trace bilateral lower extremity edema. No calf tenderness noted. VASCULAR: Radial and dorsalis pedis pulses palpated, no evidence of clubbing. NEUROLOGIC: Patient is awake, alert and oriented x3. ASSESSMENT Mild exacerbation of chronic systolic heart failure, chronically elevated NTproBNP Hypokalemia Chronic systolic heart failure Permanent atrial fibrillation on intermediate manager anticoagulation with sub therapeutic INR Sub therapeutic INR Severe mitral regurgitation History of coronary artery disease s/p bypass grafting with recent PCI circumflex artery Sick sinus syndrome s/p permanent pacemaker implantation Dyslipidemia PLAN Give dose of IV lasix 60 mg now. Replace potassium per protocol. Stable from a cardiac perspective to be discharged and go to her scheduled appointment with Dr. Rausch at [facility] for her long awaited mitral clip consultation. Follow up with Dr. Santos upon discharge. Thank you kindly for this consultation. Nurse Practitioner note has been reviewed, I agree with a documented findings and plan of care. Patient was seen and examined. Past Medical History Past Medical History: Atrial Fibrillation, Heart Failure, CVA/TIA, Hyperlipidemia, Musculoskeletal Disorder Additional Past Medical History / Comment(s): Pt recently admitted to [facility] in October with CHF, possible NSTEMI and had PCI with stent to circ. Other Hx: Severe mitral regurgitation-to have valve surgery soon, moderate tricuspid regurg, mild aortic regurg, ischemic cardiomyopathy, L breast cancer with lumpectomy/chem and radiation, TIAs, bilateral raynaulds syndrome, chronic low and thoracic back a pain/scoliosis, past head injury, bronchtisi History of Any Multi-Drug Resistant Organisms: None Reported Past Surgical History: Adenoidectomy, Appendectomy, Breast Surgery, Coronary Bypass/CABG, Heart Catheterization, Heart Catheterization With Stent, Orthopedic Surgery, Pacemaker, Tonsillectomy Additional Past Surgical History / Comment(s): 10/25/17 NARENDRA, 10/27/17 PCI with stent to circumflex, 2002 CABG 3 vessel, left side lumpectomy, bialteral cataract removed, bilateral carpal tunnel releases, bilateral hand trigger finger releases, back injection, D&C, Past Anesthesia/Blood Transfusion Reactions: Postoperative Nausea & Vomiting ( PONV) Additional Past Anesthesia/Blood Transfusion Reaction / Comment(s): Pt has received blood in past without reaction. Date of Last Stent Placement:: 10/27/17 Type of Cardiac Device: Permanent Pacemaker Device Placement Date:: 2006 Past Psychological History: No Psychological Hx Reported Additional Psychological History / Comment(s): Pt resides alone. She is independent. Smoking Status: Former smoker Past Alcohol Use History: Occasional Additional Past Alcohol Use History / Comment(s): Pt started smoking in 1952 and quit in 1969. Past Drug Use History: None Reported - Past Family History Mother Family Medical History: Coronary Artery Disease (CAD), Diabetes Mellitus Additional Family Medical History / Comment(s): cabg Father Family Medical History: Pulmonary Embolus Additional Family Medical History / Comment(s): Father of a pulmonary embolism at the age of 46yrs. Medications and Allergies Home Medications Medication Instructions Recorded Confirmed Type Nitroglycerin Sl Tabs [Nitrostat] 0.4 mg SUBLINGUAL Q5M PRN #25 tab 10/28/1711/23 Rx Aspirin [Adult Low Dose Aspirin EC] 81 mg PO DAILY 02/11/18 03/15/18 History Clopidogrel [Plavix] 75 mg PO DAILY 02/11/18 03/15/18 History Diltiazem Cd [Cardizem CD] 120 mg PO DAILY #30 cap.er.24h 02/13/18 03/15/18 Rx Warfarin [Coumadin] 1 mg PO SUMO 03/07/18 03/15/18 History Warfarin [Coumadin] 2 mg PO TUWETHFRSA 03/07/18 03/15/18 History Acetaminophen Tab [Tylenol] 500 mg PO Q6H tab 03/14/18 03/15/18 Rx Famotidine [Pepcid] 20 mg PO BID #60 tablet 03/14/18 03/15/18 Rx Furosemide [Lasix] 80 mg PO BID #60 tab 03/14/18 03/15/18 Rx Metoprolol Tartrate [Lopressor] 100 mg PO BID #60 tab 03/14/18 03/15/18 Rx tiZANidine [Zanaflex] 2 mg PO TID #50 tab 03/14/18 03/15/18 Rx Allergies Allergy/AdvReac Type Severity Reaction Status Date / Time codeine AdvReac Nausea & Verified 03/15/18 17:03 Vomiting Physical Exam Vitals: Vital Signs Temp Pulse Pulse Resp BP Pulse Ox 03/17/18 08:00 98.0 F 82 16 135/67 98 03/17/18 04:00 18 03/17/18 03:49 97.6 F 77 18 125/82 96 03/16/18 23:52 98.2 F 77 18 119/66 97 03/16/18 23:49 18 03/16/18 20:00 97.3 F L 84 18 129/72 94 L 03/16/18 16:00 97.9 F 59 L 16 119/79 97 03/16/18 11:54 98.1 F 66 18 113/64 96 Intake and Output 03/16/18 03/17/18 03/17/18 22:59 06:59 14:59 Intake Total 350 Output Total 1150 Balance -800 Intake: Oral 350 Output: Urine 1150 Other: Voiding Method Toilet Toilet Toilet Weight 63.1 kg Results 03/15/18 18:10 03/17/18 05:34 Coagulation 03/16/18 03/17/18 Range/Units 11:25 05:34 PT 13.5 H 15.0 H (9.0-12.0) sec Comprehensive Metabolic Panel 03/17/18 Range/Units 05:34 Sodium 132 L (137-145) mmol/L Potassium 3.1 L (3.5-5.1) mmol/L Chloride 93 L (98-107) mmol/L Carbon Dioxide 27 (22-30) mmol/L BUN 19 H (7-17) mg/dL Creatinine 0.81 (0.52-1.04) mg/dL Glucose 93 (74-99) mg/dL Calcium 8.8 (8.4-10.2) mg/dL Intake and Output 03/16/18 03/17/18 03/17/18 22:59 06:59 14:59 Intake Total 350 Output Total 1150 Balance -800 Intake: Oral 350 Output: Urine 1150 Other: Voiding Method Toilet Toilet Toilet Weight 63.1 kg 03/15/18 18:10 03/17/18 05:34
--- NOTE | 2018-03-17 21:47 | DS ---
DISCHARGE SUMMARY ADDENDUM TO DISCHARGE SUMMARY: DISCHARGE MEDICATIONS: 1. Nitrostat 0.4 sublingually q.5 p.r.n. 2. Aspirin 81 mg a day. 3. Plavix 75 mg a day. 4. Cardizem CD 120 mg a day. 5. Coumadin 1 mg Tuesday, Tuesday; 2 mg on Tuesday, Tuesday, , Tuesday, Tuesday. 6. Tylenol 500 mg q.6. 7. Pepcid 20 mg b.i.d. 8. Lasix 80 mg b.i.d. 9. Lopressor 100 mg b.i.d. Zanaflex was discontinued. Patient was started on a fentanyl patch by Dr. Mensah. Patient is going down to [facility] this afternoon with her family to follow with a night time babysitter. Follow up with Dr. Santos locally in [facility]. Follow up with Dr. Connell. Follow up with Dr. Mensah. MMVIGNESHL / IJN: [id number] /
--- NOTE | 2018-03-17 22:08 | DS ---
DISCHARGE SUMMARY DATE OF ADMISSION: 03/15/2018. DATE OF DISCHARGE: 03/17/2018. FINAL DIAGNOSES: 1. Acute on chronic congestive heart failure exacerbation from systolic dysfunction, ejection fraction 40% from underlying coronary artery disease. 2. Coronary artery disease, prior history of stent and coronary bypass. 3. Severe mitral, moderate tricuspid regurgitation, non-rheumatic. 4. Persistent atrial fibrillation. 5. Acute on chronic lower back spasm. 6. Bilateral Raynaud's syndrome. CONSULTATION: Dr. Mensah from [facility], Dr. Karyn Alberto from Cardiology. HOSPITAL COURSE: This patient presented with swelling in the leg, short of breath, increasing lower back pain. The patient was put on IV Lasix for the CHF exacerbation. Seen by Dr. Karyn Alberto today and patient was cleared. The patient has appointment at [facility] with sample stitcher there for surgical intervention. Also seen by Dr. Mensah. The patient is feeling very sleepy on the Zanaflex. He stopped the patient's Zanaflex and started the patient on fentanyl patch. He also did a lumbar spinal trigger point injection. Temperature 98, pulse 82, respirations 16, blood pressure 135/67, pulse ox 98% on room air. Lungs, crackles. Heart sounds are irregular. Labs from today, BUN 31, INR 1.5. DISCHARGE MEDICATIONS: 1. Nitrostat 0.4 sublingual every 5 p.r.n. 2. Aspirin 81 mg a day. 3. Plavix 75 mg a day. 4. Cardizem CD 120 mg a day. 5. Coumadin 1 mg on Tuesday, 2 mg on Tuesday, Tuesday, , Tuesday, Tuesday. 6. Tylenol 500 mg every 6 hours. 7. Pepcid 20 mg b.i.d. 8. Lasix 80 mg b.i.d. 9. Lopressor 100 mg b.i.d. 10.Zanaflex 2 mg p.o. t.i.d. MMODL / JEFFREYN: [id number] /
[2018-03-19] MEDS ORDERED: WARFARIN 1 MG TAB PO SCH (18:00)
== END 2018-03-17 09:50 | disposition home or self-care (01) ==
LOC: EC 14:07 → 1SOBS 21:59
PROVIDERS: ADMIT Hospitalist; ATTEND Hospitalist
DX: I50.23 Acute on chronic systolic (congestive) heart failure (principal); I25.10 Atherosclerotic heart disease of native coronary artery without angina pectoris; G89.29 Other chronic pain; M62.830 Muscle spasm of back; I73.00 Raynaud's syndrome without gangrene; E78.5 Hyperlipidemia, unspecified; I34.0 Nonrheumatic mitral (valve) insufficiency; I36.1 Nonrheumatic tricuspid (valve) insufficiency; R11.0 Nausea; M54.5 Low back pain; I25.5 Ischemic cardiomyopathy; M54.6 Pain in thoracic spine; I48.2 Chronic atrial fibrillation; E87.6 Hypokalemia; R79.1 Abnormal coagulation profile; R63.5 Abnormal weight gain; Z68.25 Body mass index [BMI] 25.0-25.9, adult; I49.5 Sick sinus syndrome; Z95.5 Presence of coronary angioplasty implant and graft; Z95.1 Presence of aortocoronary bypass graft; Z86.73 Personal history of transient ischemic attack (TIA), and cerebral infarction without residual deficits; Z85.3 Personal history of malignant neoplasm of breast; Z87.828 Personal history of other (healed) physical injury and trauma; Z92.21 Personal history of antineoplastic chemotherapy; Z92.3 Personal history of irradiation; Z87.891 Personal history of nicotine dependence; Z79.82 Long term (current) use of aspirin; Z79.01 Long term (current) use of anticoagulants; Z79.02 Long term (current) use of antithrombotics/antiplatelets; Z79.899 Other long term (current) drug therapy; Z88.5 Allergy status to narcotic agent; Z83.3 Family history of diabetes mellitus; Z82.49 Family history of ischemic heart disease and other diseases of the circulatory system; Z87.09 Personal history of other diseases of the respiratory system; Z95.0 Presence of cardiac pacemaker
CPT/HCPCS: 20553; 96374; 96376; 99285; 36415; 93005; 83880 ×2; 80053; 80048; 82550; 82553; 85025; 85610 ×3; 71100; 71046 ×2; 71250; G0378 ×3; J2001; J1940 ×2

== ENCOUNTER → 2018-03-27 | Outpatient (CLI) | payer MEDICARE, BC ==
[2018-03-28 01:08] LABS: Anion Gap 10.9 mmol/L (4.00-12.00); Calcium 9.5 mg/dL (8.7-10.3); Carbon Dioxide 28.1 mmol/L (21.6-31.8); Potassium 4.7 mmol/L (3.5-5.5)
== END | disposition home or self-care (01) ==
LOC: LABWHC1 15:43
PROVIDERS: ATTEND Hospitalist
DX: I50.23 Acute on chronic systolic (congestive) heart failure (principal); I34.0 Nonrheumatic mitral (valve) insufficiency; I25.10 Atherosclerotic heart disease of native coronary artery without angina pectoris
CPT/HCPCS: 36415; 80048

== ENCOUNTER → 2018-08-17 | Outpatient (CLI) | payer MEDICARE, BC ==
[2018-08-17 08:52] LABS: INR 1.5 (<1.2); Prothrombin Time 14.7 sec (9.0-12.0)
== END | disposition home or self-care (01) ==
LOC: LABWHC1 08:18
PROVIDERS: ATTEND Dentist Oral and Maxillofacial Surgery
DX: D68.9 Coagulation defect, unspecified (principal)
CPT/HCPCS: 36415; 85610

== ENCOUNTER 2019-01-08 16:49 | Emergency (ER) | payer MEDICARE, BC ==
[2019-01-08 16:55] VITALS: BP 145/75; PULSE 81; RESP 20; TEMP 98
[2019-01-08] MEDS ORDERED: KETOROLAC 30 MG/ML 1 ML VIAL IM STA (17:34)
[2019-01-08] MEDS ORDERED: methylPREDNISolone SOD SUCCI 125 MG/2 ML VIAL IM ONE (17:34)
--- NOTE | 2019-01-08 17:39 | ED ---
Back Pain HPI - General Chief Complaint: Back Pain/Injury Stated Complaint: back pain Time Seen by Provider: 01/08/19 16:59 Source: patient Limitations: physical limitation - History of Present Illness Initial Comments: Patient is an 78-year-old female presenting to the emergency Department with complaints of an acute back spasm 2 days. Patient states she has a long history of chronic low back pain and was supposed to have a nerve block performed today however her INR was too high and it was rescheduled for next week. Patient states about once a year she has an increase in her pain and spasms. Patient denies any recent falls or new traumas to her back. Patient denies fever, chills, urinary incontinence. Patient has no other complaints at this time. Patient did try Ultram at home which did not alleviate her symptoms. Patient has no other complaints at this time. Upon arrival to the ER, vital signs are stable. - Related Data Home Medications Medication Instructions Recorded Confirmed Clopidogrel [Plavix] 75 mg PO DAILY 02/11/18 03/15/18 Warfarin [Coumadin] 1 mg PO SUMO 03/07/18 03/15/18 Warfarin [Coumadin] 2 mg PO [id number] 03/07/18 03/15/18 Bumetanide [Bumex] 1 mg PO AC-BID 01/08/19 01/08/19 Digoxin [Digitek] 125 mcg PO AC-SUPPER 01/08/19 01/08/19 Lisinopril [Zestril] 5 mg PO BID 01/08/19 01/08/19 Metoprolol Succinate [Toprol XL] 25 mg PO DAILY 01/08/19 01/08/19 traMADol HCL 50 - 100 mg PO Q6H PRN 01/08/19 01/08/19 Previous Rx's Medication Instructions Recorded Cyclobenzaprine [Flexeril] 5 mg PO HS 5 Days #5 tab 01/08/19 Allergies Allergy/AdvReac Type Severity Reaction Status Date / Time codeine AdvReac Nausea & Verified 01/08/19 17:49 Vomiting Review of Systems ROS Statement: Those systems with pertinent positive or pertinent negative responses have been documented in the HPI. ROS Other: All systems not noted in ROS Statement are negative. Past Medical History Past Medical History: Atrial Fibrillation, Heart Failure, CVA/TIA, Hyperlipidemia, Musculoskeletal Disorder Additional Past Medical History / Comment(s): Pt recently admitted to [facility] in October with CHF, possible NSTEMI and had PCI with stent to circ. Other Hx: Severe mitral regurgitation-to have valve surgery soon, moderate tricuspid regurg, mild aortic regurg, ischemic cardiomyopathy, L breast cancer with l umpectomy/chem and radiation, TIAs, bilateral raynaulds syndrome, chronic low and thoracic back a pain/scoliosis, past head injury, bronchtisi History of Any Multi-Drug Resistant Organisms: None Reported Past Surgical History: Adenoidectomy, Appendectomy, Breast Surgery, Coronary Bypass/CABG, Heart Catheterization, Heart Catheterization With Stent, Orthopedic Surgery, Pacemaker, Tonsillectomy Additional Past Surgical History / Comment(s): 10/25/17 NARENDRA, 10/27/17 PCI with stent to circumflex, 2002 CABG 3 vessel, left side lumpectomy, bialteral cataract removed, bilateral carpal tunnel releases, bilateral hand trigger finger releases, back injection, D&C, Past Anesthesia/Blood Transfusion Reactions: Postoperative Nausea & Vomiting (PONV) Additional Past Anesthesia/Blood Transfusion Reaction / Comment(s): Pt has received blood in past without reaction. Date of Last Stent Placement:: 10/27/17 Type of Cardiac Device: Permanent Pacemaker Device Placement Date:: 2006 Past Psychological History: No Psychological Hx Reported Smoking Status: Former smoker Past Alcohol Use History: Occasional Past Drug Use History: None Reported - Past Family History Mother Family Medical History: Coronary Artery Disease (CAD), Diabetes Mellitus Additional Family Medical History / Comment(s): cabg Father Family Medical History: Pulmonary Embolus Additional Family Medical History / Comment(s): Father of a pulmonary embolism at the age of 46yrs. General Exam - General Exam Comments Initial Comments: GENERAL: Well-appearing, well-nourished and in no acute distress, although appears uncomfortable. HEAD: Atraumatic, normocephalic. EYES: Pupils equal round and reactive to light, extraocular movements intact, sclera anicteric, conjunctiva are normal. ENT: Moist mucous membranes. NECK: Normal range of motion, supple without lymphadenopathy or JVD. LUNGS: Breath sounds clear to auscultation bilaterally and equal. No wheezes rales or rhonchi. HEART: Regular rate and rhythm without murmurs, rubs or gallops. ABDOMEN: Soft, nontender, normoactive bowel sounds. No guarding, no rebound. No masses appreciated. EXTREMITIES: Normal range of motion, no pitting or edema. No clubbing or cyanosis. Pain with palpation of lumbar paraspinals. Patient has decreased trunk range of motion secondary to pain. Sensation is equal and bilateral. NEUROLOGICAL: Cranial nerves II through XII grossly intact. Normal speech. SKIN: Warm, Dry, normal turgor, no rashes or lesions noted. Limitations: physical limitation Course Vital Signs 01/08/19 16:52 Temperature 98.0 F Pulse Rate 81 Respiratory 20 Rate Blood Pressure 145/75 O2 Sat by Pulse 97 Oximetry Medical Decision Making - Medical Decision Making Patient is an 78-year-old female presenting with an acute on chronic back pain 2 days. Patient was also having her block performed today but it was canceled secondary to her INR being too high. The procedure was rescheduled for next week. Patient states she has been having an increase in her pain and spasms last 2 days. Patient is any new falls and has no red flag symptoms. Vital signs are stable. Patient was given a small dose of Toradol and steroid for symptomatically relief and will be discharged home with a prescription for Flexeril. Patient is in agreement with this plan of care. Patient will follow up with her physician next week. Return parameters were discussed with the patient and she verbalized understanding. Case discussed with Dr. Mathews. Disposition Clinical Impression: Mechanical back pain Disposition: HOME SELF-CARE Condition: Stable Instructions (If sedation given, give patient instructions): Acute Low Back Pain (ED) Additional Instructions: Please return to the Emergency Department if symptoms worsen or any other concerns. Follow-up with your doctor next week as discussed. Prescriptions: Cyclobenzaprine [Flexeril] 5 mg PO HS 5 Days #5 tab Is patient prescribed a controlled substance at d/c from ED?: No Referrals: Car Connell DO [Primary Care Provider] - 1-2 days
== END 2019-01-08 18:19 | disposition home or self-care (01) ==
LOC: EC 16:49
DX: M62.830 Muscle spasm of back (principal); G89.29 Other chronic pain; M54.5 Low back pain; R79.1 Abnormal coagulation profile; I48.91 Unspecified atrial fibrillation; I50.9 Heart failure, unspecified; E78.5 Hyperlipidemia, unspecified; I08.3 Combined rheumatic disorders of mitral, aortic and tricuspid valves; I25.5 Ischemic cardiomyopathy; Z79.02 Long term (current) use of antithrombotics/antiplatelets; Z79.01 Long term (current) use of anticoagulants; Z79.899 Other long term (current) drug therapy; Z88.5 Allergy status to narcotic agent; Z85.3 Personal history of malignant neoplasm of breast; Z92.21 Personal history of antineoplastic chemotherapy; Z92.3 Personal history of irradiation; Z95.1 Presence of aortocoronary bypass graft; Z95.5 Presence of coronary angioplasty implant and graft; Z95.0 Presence of cardiac pacemaker; Z90.12 Acquired absence of left breast and nipple; Z98.41 Cataract extraction status, right eye; Z98.42 Cataract extraction status, left eye; Z86.73 Personal history of transient ischemic attack (TIA), and cerebral infarction without residual deficits
CPT/HCPCS: 96372 ×2; 99283; J2930; J1885

== ENCOUNTER 2019-05-06 09:48 | Emergency (ER) | payer MEDICARE, BC ==
--- NOTE | 2019-05-06 11:47 | ED ---
Skin/Abscess/FB HPI - General Chief complaint: Skin/Abscess/Foreign Body Stated complaint: Skin Tear Time Seen by Provider: 05/06/19 10:24 Source: patient Mode of arrival: ambulatory Limitations: no limitations - History of Present Illness Initial comments: Patient is an 79-year-old female presenting to emergency Department with complaints of multiple skin tears on her right forearm. Patient states she is also on Coumadin secondary to A. fib. Patient states when she went to bed she had no tears on her arms and then when she woke up this morning she has multiple skin tears on her right forearm as well as one on her left elbow. She is unsure of how she got these tears. She does not remember falling at all. She states she does have some mild discomfort in a right forearm however no sharp severe pains. She has full motion of her right wrist and elbow. She denies pain anywhere else. Bleeding is controlled with a towel at this point. She has no other complaints at this time. Upon arrival to the ER vitals are stable. - Related Data Home Medications Medication Instructions Recorded Confirmed Clopidogrel [Plavix] 75 mg PO DAILY 02/11/18 01/08/19 Warfarin [Coumadin] 1 mg PO WE@1800 03/07/18 01/08/19 Warfarin [Coumadin] 2 mg PO SUMOTUTHFRSA@1800 03/07/18 01/08/19 Bumetanide [Bumex] 1 mg PO AC-BID 01/08/19 01/08/19 Digoxin [Digitek] 125 mcg PO AC-SUPPER 01/08/19 01/08/19 Lisinopril [Zestril] 5 mg PO BID 01/08/19 01/08/19 Metoprolol Succinate [Toprol XL] 25 mg PO DAILY 01/08/19 01/08/19 traMADol HCL 50 - 100 mg PO Q6H PRN 01/08/19 01/08/19 Previous Rx's Medication Instructions Recorded Cyclobenzaprine [Flexeril] 5 mg PO HS 5 Days #5 tab 01/08/19 Allergies Allergy/AdvReac Type Severity Reaction Status Date / Time codeine AdvReac Nausea & Verified 05/06/19 09:59 Vomiting Review of Systems ROS Statement: Those systems with pertinent positive or pertinent negative responses have been documented in the HPI. ROS Other: All systems not noted in ROS Statement are negative. Past Medical History Past Medical History: Atrial Fibrillation, Heart Failure, CVA/TIA, Hyperlipidemia, Musculoskeletal Disorder Additional Past Medical History / Comment(s): Pt recently admitted to [facility] in October with CHF, possible NSTEMI and had PCI with stent to circ. Other Hx: Severe mitral regurgitation-to have valve surgery soon, moderate tricuspid regurg, mild aortic regurg, ischemic cardiomyopathy, L breast cancer with lumpectomy/chem and radiation, TIAs, bilateral raynaulds syndrome, chronic low and thoracic back a pain/scoliosis, past head injury, bronchtisi History of Any Multi-Drug Resistant Organisms: None Reported Past Surgical History: Adenoidectomy, Appendectomy, Breast Surgery, Coronary Bypass/CABG, Heart Catheterization, Heart Catheterization With Stent, Orthopedic Surgery, Pacemaker, Tonsillectomy Additional Past Surgical History / Comment(s): 10/25/17 NARENDRA, 10/27/17 PCI with stent to circumflex, 2002 CABG 3 vessel, left side lumpectomy, bialteral cataract removed, bilateral carpal tunnel releases, bilateral hand trigger finger releases, back injection, D&C, Past Anesthesia/Blood Transfusion Reactions: Postoperative Nausea & Vomiting (PONV) Additional Past Anesthesia/Blood Transfusion Reaction / Comment(s): Pt has received blood in past without reaction. Date of Last Stent Placement:: 10/27/17 Type of Cardiac Device: Permanent Pacemaker Device Placement Date:: 2006 Past Psychological History: No Psychological Hx Reported Smoking Status: Former smoker Past Alcohol Use History: Occasional Past Drug Use History: None Reported - Past Family History Mother Family Medical History: Coronary Artery Disease (CAD), Diabetes Mellitus Additional Family Medical History / Comment(s): cabg Father Family Medical History: Pulmonary Embolus Additional Family Medical History / Comment(s): Father of a pulmonary embolism at the age of 46yrs. General Exam - General Exam Comments Initial Comments: GENERAL: Well-appearing, well-nourished and in no acute distress. HEAD: Atraumatic, normocephalic. EYES: Pupils equal round and reactive to light, extraocular movements intact, sclera anicteric, conjunctiva are normal. ENT: Nares patent, oropharynx clear without exudates. Moist mucous membranes. NECK: Normal range of motion, supple without lymphadenopathy or JVD. LUNGS: Breath sounds clear to auscultation bilaterally and equal. No wheezes rales or rhonchi. HEART: Regular rate and rhythm without murmurs, rubs or gallops. ABDOMEN: Soft, nontender, normoactive bowel sounds. No guarding, no rebound. No masses appreciated. : Deferred EXTREMITIES: Patient has full range of motion of her right shoulder, right elbow, right wrist, and hand. No pitting or edema. No clubbing or cyanosis. NEUROLOGICAL: Normal speech, normal gait. PSYCH: Normal mood, normal affect. SKIN: Warm, Dry, normal turgor, no rashes. Patient has multiple skin tears on her right forearm, one large one on the dorsal aspect just distal to the elbow which is approximately 5 cm in length and is a V-shaped. She also has 3 smaller skin tears that are also V shaped on the palmar aspect of the left forearm in the middle. Her proximally 2 cm in length. Bleeding is controlled at this time. These cannot be sutured. Limitations: no limitations Course Vital Signs 05/06/19 05/06/19 09:59 12:53 Temperature 98.5 F 97.2 F L Pulse Rate 100 94 Respiratory 16 18 Rate Blood Pressure 129/68 119/72 O2 Sat by Pulse 97 100 Oximetry Medical Decision Making - Medical Decision Making Patient is an 79-year-old female presenting with multiple superficial skin tears on her right forearm. She does not remember how she obtained these skin tears. They happen sometime last night. She denies any falls. She denies any pain anywhere other than mild discomfort in her right forearm. X-rays reveal no acute fractures dislocations. Patient is on Coumadin secondary to A. fib. Bleeding is controlled at this time. Patient's wounds were cleaned and bandaged. No sutures were needed. Patient's tetanus vaccine is up-to-date. She is stable for discharge at this time. She'll follow up with her PCP in 1-3 days. Return parameters were discussed with the patient and she verbalized understanding. Case discussed with Dr. Azevedo. Disposition Clinical Impression: Skin tear of right forearm without complication Disposition: HOME SELF-CARE Condition: Stable Instructions (If sedation given, give patient instructions): Skin Tear (ED) Additional Instructions: Please return to the Emergency Department if symptoms worsen or any other concerns. Keep bandage dry. Follow-up with PCP in 1- 3 days. Is patient prescribed a controlled substance at d/c from ED?: No Referrals: Car Connell DO [Primary Care Provider] - 1-2 days
--- NOTE | 2019-05-06 11:54 | XR ---
EXAMINATION TYPE: XR forearm RT , 2 VIEWS DATE OF EXAM ORDERED: 05/06/2019 HISTORY: trauma. COMPARISON: None. FINDINGS: The bones are osteopenic, likely on the basis of osteoporosis. There is a small ossific fr agment adjacent to the ulnar styloid which may relate to previous trauma. No long bone fracture is se en at this time. IMPRESSION: 1. NO ACUTE OSSEOUS LESION. 2. EVIDENCE OF OLD TRAUMA.
[2019-05-06 12:55] VITALS: BP 119/72; PULSE 94; RESP 18; TEMP 97.2
== END 2019-05-06 12:54 | disposition home or self-care (01) ==
LOC: EC 09:48
DX: S51.811A Laceration without foreign body of right forearm, initial encounter (principal); I48.91 Unspecified atrial fibrillation; I50.9 Heart failure, unspecified; I25.5 Ischemic cardiomyopathy; Z79.01 Long term (current) use of anticoagulants; Z79.899 Other long term (current) drug therapy; Z88.5 Allergy status to narcotic agent; Z79.02 Long term (current) use of antithrombotics/antiplatelets; Z87.891 Personal history of nicotine dependence; Z85.3 Personal history of malignant neoplasm of breast; Z86.73 Personal history of transient ischemic attack (TIA), and cerebral infarction without residual deficits; Z95.0 Presence of cardiac pacemaker; Z95.1 Presence of aortocoronary bypass graft; Z95.5 Presence of coronary angioplasty implant and graft; Z92.21 Personal history of antineoplastic chemotherapy; Z92.3 Personal history of irradiation; Z90.12 Acquired absence of left breast and nipple; W45.8XXA Other foreign body or object entering through skin, initial encounter
CPT/HCPCS: 99283

== ENCOUNTER 2019-06-07 03:21 | Inpatient (IN) | payer MEDICARE, BC ==
[2019-06-07] MEDS ORDERED: PANTOPRAZOLE 40 MG/10 ML VIAL IVP STA (03:25)
[2019-06-07] MEDS ORDERED: SODIUM CHLORIDE 0.9% 1,000 ML IV STA (03:25)
[2019-06-07] MEDS ORDERED: PHYTONADIONE 10 MG in SODIUM CHLORIDE 0.9% 50 ML IVPB STA (03:33)
[2019-06-07] MEDS ORDERED: ONDANSETRON 4 MG/2 ML VIAL IVP STA (03:33)
[2019-06-07 04:05] LABS: Basophils % (A) 0 %; Eosinophils % (A) 0 %; HGB 10.1 gm/dL (11.4-16.0); Lymphocytes # (A) 0.9 k/uL (1.0-4.8); Lymphocytes % (A) 4 %; MCH 33.3 pg (25.0-35.0); MCHC 32.6 g/dL (31.0-37.0); MCV 102.2 fL (80.0-100.0); Macrocytosis Slight; Mean Platelet Volume 7.3; Monocytes # (A) 0.8 k/uL (0-1.0); Monocytes % (A) 4 %; Neutrophils # (A) 19.9 k/uL (1.3-7.7); Neutrophils % (A) 91 %; Platelet Count 312 k/uL (150-450); RBC 3.04 m/uL (3.80-5.40); RDW 13.3 % (11.5-15.5); WBC 21.9 k/uL (3.8-10.6)
[2019-06-07 04:14] LABS: INR 3.9 (<1.2); Partial Thromboplastin Time 23.2 sec (22.0-30.0); Prothrombin Time 38.4 sec (9.0-12.0)
[2019-06-07 04:36] LABS: Albumin 3.6 g/dL (3.5-5.0); Calcium 8.8 mg/dL (8.4-10.2); Potassium 3.9 mmol/L (3.5-5.1); Total Protein 6.1 g/dL (6.3-8.2)
[2019-06-07] MEDS ORDERED: NALOXONE 0.4 MG/ML 1 ML VIAL IV PRN (05:09)
[2019-06-07] MEDS ORDERED: METOCLOPRAMIDE 5 MG/ML 2 ML VIAL IVP STA (05:22)
[2019-06-07] MEDS ORDERED: diphenhydrAMINE 50 MG/ML 1 ML VIAL IVP STA (05:22)
--- NOTE | 2019-06-07 05:34 | ED ---
GI Bleed HPI - General Chief complaint: GI Bleed Stated complaint: Blood in vomit Time Seen by Provider: 06/07/19 03:25 Source: patient, EMS Mode of arrival: EMS Limitations: no limitations - History of Present Illness Initial comments: Rea is a pleasant 79-year-old female with a history of atrial fibrillation for which she is on Coumadin. Patient is brought to the emergency department today by ambulance for evaluation of vomiting bright red blood. Patient is somewhat of a poor historian she reports she hasn't been feeling well and has vomited br ight red blood at least 3 times today. Patient's daughter bedside reports she's been vomiting blood all evening and has had a couple syncopal episodes which prompted her to call 911. Daughter states that she checked her mom's INR earlier this week and it was 3 which is mildly elevated for her as she is usually about 2.2-2.5. - Related Data Home Medications Medication Instructions Recorded Confirmed Clopidogrel [Plavix] 75 mg PO DAILY 02/11/18 01/08/19 Warfarin [Coumadin] 1 mg PO WE@1800 03/07/18 01/08/19 Warfarin [Coumadin] 2 mg PO SUMOTUTHFRSA@1800 03/07/18 01/08/19 Bumetanide [Bumex] 1 mg PO AC-BID 01/08/19 01/08/19 Digoxin [Digitek] 125 mcg PO AC-SUPPER 01/08/19 01/08/19 Lisinopril [Zestril] 5 mg PO BID 01/08/19 01/08/19 Metoprolol Succinate [Toprol XL] 25 mg PO DAILY 01/08/19 01/08/19 traMADol HCL 50 - 100 mg PO Q6H PRN 01/08/19 01/08/19 Previous Rx's Medication Instructions Recorded Cyclobenzaprine [Flexeril] 5 mg PO HS 5 Days #5 tab 01/08/19 Allergies Allergy/AdvReac Type Severity Reaction Status Date / Time codeine AdvReac Nausea & Verified 06/07/19 03:31 Vomiting Review of Systems ROS Statement: Those systems with pertinent positive or pertinent negative responses have been documented in the HPI. ROS Other: All systems not noted in ROS Statement are negative. Past Medical History Past Medical History: Atrial Fibrillation, Heart Failure, CVA/TIA, Hyperlipidemia, Musculoskeletal Disorder Additional Past Medical History / Comment(s): Pt recently admitted to [facility] in October with CHF, possible NSTEMI and had PCI with stent to circ. Other Hx: Severe mitral regurgitation-to have valve surgery soon, moderate tricuspid regurg, mild aortic regurg, ischemic cardiomyopathy, L breast cancer with lumpectomy/chem and radiation, TIAs, bilateral raynaulds syndrome, chronic low and thoracic back a pain/scoliosis, past head injury, History of Any Multi-Drug Resistant Organisms: None Reported Past Surgical History: Adenoidectomy, Appendectomy, Breast Surgery, Coronary Bypass/CABG, Heart Catheterization, Heart Catheterization With Stent, Orthopedic Surgery, Pacemaker, Tonsillectomy Additional Past Surgical History / Comment(s): 10/25/17 NARENDRA, 10/27/17 PCI with stent to circumflex, 2002 CABG 3 vessel, left side lumpectomy, bialteral c ataract removed, bilateral carpal tunnel releases, bilateral hand trigger finger releases, back injection, D&C, Past Anesthesia/Blood Transfusion Reactions: Postoperative Nausea & Vomiting (PONV) Additional Past Anesthesia/Blood Transfusion Reaction / Comment(s): Pt has received blood in past without reaction. Date of Last Stent Placement:: 10/27/17 Type of Cardiac Device: Permanent Pacemaker Device Placement Date:: 2006 Past Psychological History: No Psychological Hx Reported Smoking Status: Former smoker Past Alcohol Use History: Occasional Past Drug Use History: None Reported - Past Family History Mother Family Medical History: Coronary Artery Disease (CAD), Diabetes Mellitus Additional Family Medical History / Comment(s): cabg Father Family Medical History: Pulmonary Embolus Additional Family Medical History / Comment(s): Father of a pulmonary embolism at the age of 46yrs. General Exam - General Exam Comments Initial Comments: Physical Exam GENERAL: Pale chronically ill-appearing elderly female in moderate distress HENT: Normocephalic Small contusion left forehead Blood in the oropharynx consistent with hematemesis EYES: PERRL, EOMI PULMONARY: Unlabored respirations. CARDIOVASCULAR: Irregularly irregular tachycardic ABDOMEN: Non-distended SKIN: Pale, multiple bruises senile purpura consistent with anticoagulant use : Deferred NEUROLOGIC: Alert and oriented to person place and year, poor medical office coordinator Normal speech MUSCULOSKELETAL: Moving all extremities with no apparent injury PSYCHIATRIC: No SI/HI Limitations: no limitations Course Vital Signs 06/07/19 06/07/19 06/07/19 03:28 04:08 04:45 Temperature 97.8 F Pulse Rate 180 H 109 H 105 H Respiratory 14 18 18 Rate Blood Pressure 71/49 108/42 95/49 O2 Sat by Pulse 96 95 Oximetry 06/07/19 05:00 Temperature Pulse Rate 103 H Respiratory 18 Rate Blood Pressure 99/53 O2 Sat by Pulse 95 Oximetry Medical Decision Making - Medical Decision Making The patient was seen and evaluated immediately upon arrival emergency department Patient was noted to be profoundly tachycardic, hypotensive with bright red blood in her mouth and on her chin from vomiting. Patient has a basin with rodo ght red vomitus in it IV access was obtained, GI bleed workup was initiated Considering the patient is on Coumadin IV vitamin K was ordered as well as Protonix and Zofran Patient's heart rate improved without intervention, she remains in A. fib but with a rate ranging from the 70s to the 120s. Blood pressure improving with IV fluids and now that the patient is no longer vomiting. Labs resulted with mild anemia with a hemoglobin of 10.1 which is a drop from the patient's previous of greater than 11 however that was over a year ago. Patient with lactic acidosis which is right likely related to the A. fib with RVR resulting in hypoperfusion, patient does not have any abdominal pain, there is no concern for mesenteric ischemia considering that the patient has a supratherapeutic INR and no abdominal pain Did discuss with the patient need for admission to the hospital and evaluation by GI, in addition I discussed central line placement, patient agrees to plan for admission and evaluation by GI. However patient would like to decline a central line at this time. Patient does have 220-gauge IVs. Patient care was discussed with Dr. Resendez from the ICU who agrees with the plan for admission, patient care was discussed with Dr. Santos gastroenterology who is aware of the patient's medications, hemodynamics and GI bleeding. She requested the patient be transfused 2 units of FFP due to being on Coumadin. Patient does consent to this and this order was placed. Cardiology will also be consult upon admission for management of A. fib with RVR in the setting of a hypotensive GI bleed Patient's hemodynamics improved throughout her stay in the emergency department however she does still have guarded prognosis considering her age multiple comorbidities. Patient does warrant admission to the ICU. - Lab Data Result diagrams: 06/07/19 03:30 06/07/19 03:30 Lab Results 06/07/19 06/07/19 06/07/19 Range/Units 03:30 03:30 03:30 WBC 21.9 H (3.8-10.6) k/uL RBC 3.04 L (3.80-5.40) m/uL Hgb 10.1 L (11.4-16.0) gm/dL Hct 31.0 L (34.0-46.0) % MCV 102.2 H (80.0-100.0) fL MCH 33.3 (25.0-35.0) pg MCHC 32.6 (31.0-37.0) g/dL RDW 13.3 (11.5-15.5) % Plt Count 312 (150-450) k/uL Neutrophils % 91 % Lymphocytes % 4 % Monocytes % 4 % Eosinophils % 0 % Basophils % 0 % Neutrophils # 19.9 H (1.3-7.7) k/uL Lymphocytes # 0.9 L (1.0-4.8) k/uL Monocytes # 0.8 (0-1.0) k/uL Eosinophils # 0.0 (0-0.7) k/uL Basophils # 0.0 (0-0.2) k/uL Macrocytosis Slight PT (9.0-12.0) sec INR (<1.2) APTT (22.0-30.0) sec Sodium 134 L (137-145) mmol/L Potassium 3.9 (3.5-5.1) mmol/L Chloride 97 L (98-107) mmol/L Carbon Dioxide 24 (22-30) mmol/L Anion Gap 13 mmol/L BUN 31 H (7-17) mg/dL Creatinine 0.86 (0.52-1.04) mg/dL Est GFR (CKD-EPI)AfAm 74 (>60 ml/min/1.73 sqM) Est GFR (CKD-EPI)NonAf 64 (>60 ml/min/1.73 sqM) Glucose 177 H (74-99) mg/dL Plasma Lactic Acid Alvin (0.7-2.0) mmol/L Calcium 8.8 (8.4-10.2) mg/dL Total Bilirubin 1.0 (0.2-1.3) mg/dL AST 23 (14-36) U/L ALT 13 (4-34) U/L Alkaline Phosphatase 155 H (38-126) U/L Troponin I 0.021 (0.000-0.034) ng/mL Total Protein 6.1 L (6.3-8.2) g/dL Albumin 3.6 (3.5-5.0) g/dL 06/07/19 06/07/19 Range/Units 03:35 04:10 WBC (3.8-10.6) k/uL RBC (3.80-5.40) m/uL Hgb (11.4-16.0) gm/dL Hct (34.0-46.0) % MCV (80.0-100.0) fL MCH (25.0-35.0) pg MCHC (31.0-37.0) g/dL RDW (11.5-15.5) % Plt Count (150-450) k/uL Neutrophils % % Lymphocytes % % Monocytes % % Eosinophils % % Basophils % % Neutrophils # (1.3-7.7) k/uL Lymphocytes # (1.0-4.8) k/uL Monocytes # (0-1.0) k/uL Eosinophils # (0-0.7) k/uL Basophils # (0-0.2) k/uL Macrocytosis PT 38.4 H (9.0-12.0) sec INR 3.9 H (<1.2) APTT 23.2 (22.0-30.0) sec Sodium (137-145) mmol/L Potassium (3.5-5.1) mmol/L Chloride (98-107) mmol/L Carbon Dioxide (22-30) mmol/L Anion Gap mmol/L BUN (7-17) mg/dL Creatinine (0.52-1.04) mg/dL Est GFR (CKD-EPI)AfAm (>60 ml/min/1.73 sqM) Est GFR (CKD-EPI)NonAf (>60 ml/min/1.73 sqM) Glucose (74-99) mg/dL Plasma Lactic Acid Alvin 4.9 H* (0.7-2.0) mmol/L Calcium (8.4-10.2) mg/dL Total Bilirubin (0.2-1.3) mg/dL AST (14-36) U/L ALT (4-34) U/L Alkaline Phosphatase (38-126) U/L Troponin I (0.000-0.034) ng/mL Total Protein (6.3-8.2) g/dL Albumin (3.5-5.0) g/dL Critical Care Time Critical Care Time: Yes Total Critical Care Time: 45 Critical Care Time: Critical care time was exclusive of separately billable procedures and treating other patients and teaching time. Critical care was necessary to treat or prevent imminent or life-threatening deterioration. Given the critical condition in which the patient arrived, the patient was immediately assessed by myself and the nurse, and cardiac monitoring initiated due to the potential for rapid decompensation of the patient's clinical condition. During the course of the patients stay, I spent a considerable amount of time at the bedside performing serial re-evaluations of the patient's hemodynamic and clinical status because of the recognized potential threat to life or limb in this condition. I then had a chance to review not only all of the available current laboratory and radiographic studies obtained today, but I also reviewed old records available to me at the time. Additionally, any ancillary information available including oracle business intelligence developer records were reviewed. Sequential vital signs were obtained. Disposition Clinical Impression: Hematemesis, Blood loss anemia, Supratherapeutic INR, Lactic acidosis, Atrial fibrillation with RVR Disposition: ADMITTED IP TO THIS [facility] Condition: Critical Is patient prescribed a controlled substance at d/c from ED?: No Referrals: Car Connell DO [Primary Care Provider] - 1-2 days
[2019-06-07 06:11] LABS: Glucose,Whole Blood 136 mg/dL (75-99)
[2019-06-07] MEDS ORDERED: SODIUM CHLORIDE 0.9% 1,000 ML IV ONE ×2 (07:44→07:57)
[2019-06-07] MEDS ORDERED: DIGOXIN 125 MCG TAB PO SCH (09:00)
[2019-06-07] MEDS ORDERED: PANTOPRAZOLE 40 MG/10 ML VIAL IV SCH (09:00)
[2019-06-07] MEDS: DIGOXIN 250 MCG/ML 2 ML AMP IVP SCH (09:11)
--- NOTE | 2019-06-07 10:00 | CONS ---
CONSULTATION Rea Padilla is an elderly 79-year-old lady with a known history of CAD, ischemic cardiomyopathy, prior aortocoronary bypass surgery who also has a chronic atrial fibrillation with underlying permanent pacemaker. She has severe mitral regurgitation and she has had previous stenting in October of 2017 of circumflex coronary artery. She came into the hospital this time by calling the ambulance with complaints of having some fresh blood that she was vomiting. Her INR was 3.9 and she takes Coumadin for her chronic atrial fibrillation. Apparently, her daughter indicated that she vomited blood all evening and a couple of syncopal, near syncopal spells, felt weak, tired and pale. Her INR is usually in 2.2 range, but on arrival, it was 3.9. I came in to see the patient. She is comfortable, resting. Blood pressure is about 85 systolic. She is receiving fresh frozen plasma and there is consideration for endoscopy. Patient is in atrial fib, rate is in the 90s. She denies chest pain. She is relatively comfortable but feels exhausted. PAST MEDICAL HISTORY: 1. Ischemic cardiomyopathy with prior bypass surgery. 2. Chronic atrial fib with sick sinus and a permanent pacemaker. 3. History of prior PCI. 4. Severe mitral regurgitation for which she was considered for mitral valve clip, but finally settle for medical therapy. She is status post lumpectomy, cataract surgery and some carpal tunnel surgery. MEDICATIONS: Medications at home include Plavix 75 mg daily, Coumadin with INR of 3.9, Bumex, digoxin 125 mcg p.o. daily, Zestril 5 mg daily, Toprol XL 25 mg daily, and tramadol. PHYSICAL EXAMINATION: On examination, the last blood pressure was 90 systolic, pulse rate is in the 90 to 100 range. HEENT unremarkable. Fundus was not examined by me. Neck is supple. There is no JVD. I do not hear a carotid bruit. Heart exam reveals S1, S2 with irregular rate and rhythm. There is a holosystolic murmur at the apex. Lungs reveal diminished air entry. Abdomen is soft. Lower extremities reveal diminished pulses. Central nervous system is normal. IMPRESSION: 1. Acute gastrointestinal bleeding or probably upper gastrointestinal bleed. 2. Ischemic cardiomyopathy with a previous bypass surgery and PCI. 3. Chronic atrial fibrillation and sick sinus syndrome with a pacemaker. 4. Severe mitral regurgitation. RECOMMENDATIONS: After the fresh frozen plasma, I am recommending that we give her 100 mL/hour normal saline and resume digoxin 0.125 mg IV push for rate control. Overall prognosis remains guarded. We will await input from Gastroenterology for possible endoscopy. COLETTEL / IJN: [id number] /
[2019-06-07] MEDS ORDERED: NITROGLYCERIN SL TABS 0.4 MG TAB SUBLINGUAL PRN (10:27)
[2019-06-07] MEDS ORDERED: traMADol 50 MG TAB PO PRN (10:27)
--- NOTE | 2019-06-07 11:41 | P.HPIM ---
History of Present Illness Patient is a pleasant 79-year-old female with known history of atrial fibrillation on Coumadin patient states she doesn't have any valvular heart disease came in with the complaints of the hematemesis. Patient was told she has symptoms as patient denied any abdominal pain patient denied any melena or hematochezia. Patient was ordered by the daughter that she has hematemesis. Patient had lactic acidosis secondary to intravascular depletion for which patient is on IV fluids. Patient had decreased ejection fraction of 45-50% in the past. She denied any cough or dysuria constrained leukocytosis although there is no fever or locked any UA, urine culture and chest x-ray to rule out any infectious process. had history of coronary disease with a previous bypass and PTCA patient is ON antiplatelet therapy. Patient is on digoxin which is being resumed as patient is on Cardizem which is being held patient is hypotensive. Patient is presently receiving IV fluids and lactic acid is still elevated. Review of Systems REVIEW OF SYSTEMS: CONSTITUTIONAL: No fever, no malaise, no fatigue. HEENT: No recent visual problems or hearing problems. Denied any sore throat. CARDIOVASCULAR: No chest pain, orthopnea, PND, no palpitations, no syncope. PULMONARY: No shortness of breath, no cough, no hemoptysis. GASTROINTESTINAL: No diarrhea no abdominal pain. NEUROLOGICAL: No headaches, no weakness, no numbness. HEMATOLOGICAL: Denies any bleeding or petechiae. GENITOURINARY: Denies any burning micturition, frequency, or urgency. MUSCULOSKELETAL/RHEUMATOLOGICAL: Denies any joint pain, swelling, or any muscle pain. ENDOCRINE: Denies any polyuria or polydipsia. The rest of the 14-point review of systems is negative. Past Medical History Past Medical History: Atrial Fibrillation, Cancer, Heart Failure, CVA/TIA, GERD/Reflux, Hyperlipidemia, Hypertension, Myocardial Infarction ([place]), Musculoskeletal Disorder, Osteoarthritis (OA), Pneumonia Additional Past Medical History / Comment(s): Mitral regurgitation, moderate tricuspid regurg, mild aortic regurg, murmur, ischemic cardiomyopathy,2019 possible NSTEMI, L breast cancer with lumpectomy/chem and radiation, IBS, UTIs, 2019 anemia with cause unknown, bronchitis, TIAs, bilateral raynaulds syndrome, chronic low and thoracic back a pain/scoliosis, past head injury/concussion. Last Myocardial Infarction Date:: Possible NSTEMI in 2018 History of Any Multi-Drug Resistant Organisms: None Reported Past Surgical History: Adenoidectomy, Appendectomy, Breast Surgery, Coronary Bypass/CABG, Heart Catheterization, Heart Catheterization With Stent, Orthopedic Surgery, Pacemaker, Tonsillectomy Additional Past Surgical History / Comment(s): 10/25/17 NARENDRA, 10/27/17 PCI with stent to circumflex, 2002 CABG 3 vessel, left side lumpectomy, bialteral cataract removed, bilateral carpal tunnel releases, back injection, D&C, EGD in 2019 normal, colonoscopy. Past Anesthesia/Blood Transfusion Reactions: Postoperative Nausea & Vomiting (PONV) Additional Past Anesthesia/Blood Transfusion Reaction / Comment(s): Pt has received blood in past without reaction. Date of Last Stent Placement:: 10/27/17 Type of Cardiac Device: Permanent Pacemaker Device Placement Date:: 2006 with gen change in 2018 Smoking Status: Former smoker - Past Family History Mother Family Medical History: Coronary Artery Disease (CAD), Diabetes Mellitus Additional Family Medical History / Comment(s): cabg Father Family Medical History: Pulmonary Embolus Additional Family Medical History / Comment(s): Father of a pulmonary embolism at the age of 46yrs. Medications and Allergies Home Medications Medication Instructions Recorded Confirmed Type Clopidogrel [Plavix] 75 mg PO DAILY 02/11/18 06/07/19 History Warfarin [Coumadin] 2 mg PO HS 03/07/18 06/07/19 History Bumetanide [Bumex] 1 mg PO AC-BID 01/08/19 06/07/19 History Digoxin [Digitek] 125 mcg PO AC-SUPPER 01/08/19 06/07/19 History Lisinopril [Zestril] 5 mg PO BID 01/08/19 06/07/19 History Metoprolol Succinate [Toprol XL] 25 mg PO DAILY 01/08/19 06/07/19 History traMADol HCL 50 - 100 mg PO Q6H PRN 01/08/19 06/07/19 History Cholecalciferol [Vitamin D3 (25 2,000 unit PO DAILY 06/07/19 06/07/19 History Mcg = 1000 Iu)] Diltiazem HCl [Cartia Xt] 120 mg PO DAILY 06/07/19 06/07/19 History Nitroglycerin Sl Tabs [Nitrostat] 0.4 mg SUBLINGUAL Q5M PRN 06/07/19 06/07/19 History Zolpidem [Ambien] 5 mg PO HS PRN 06/07/19 06/07/19 History Allergies Allergy/AdvReac Type Severity Reaction Status Date / Time codeine AdvReac Nausea & Verified 06/07/19 03:31 Vomiting Physical Exam Vitals: Vital Signs Temp Pulse Resp BP Pulse Ox 06/07/19 11:26 97.9 F 109 H 12 75/33 06/07/19 11:20 97.9 F 99 13 75/33 06/07/19 11:00 112 H 21 70/49 94 L 06/07/19 10:30 138 H 12 75/51 96 06/07/19 10:00 94 20 95/51 94 L 06/07/19 09:30 137 H 12 76/50 94 L 06/07/19 09:00 140 H 21 84/44 95 06/07/19 08:54 98 F 138 H 15 88/41 94 L 06/07/19 08:30 78/52 06/07/19 08:24 98 F 135 H 12 84/44 93 L 06/07/19 08:14 98 F 109 H 12 79/59 94 L 06/07/19 08:00 97 12 69/46 95 06/07/19 07:30 103 H 16 91/51 94 L 06/07/19 07:00 130 H 21 72/51 94 L 06/07/19 06:30 97.5 F L 125 H 10 L 86/69 96 06/07/19 06:10 109 H 28 H 06/07/19 05:51 114 H 18 94/55 95 06/07/19 05:15 102 H 16 100/74 95 06/07/19 05:00 103 H 18 99/53 95 06/07/19 04:45 105 H 18 95/49 95 06/07/19 04:08 109 H 18 108/42 06/07/19 03:28 97.8 F 180 H 14 71/49 96 Intake and Output 06/06/19 06/07/19 06/07/19 22:59 06:59 14:59 Intake Total 100 1723 Output Total 250 Balance 100 1473 Intake: IV 100 1400 Sodium Chloride 0.9% 1, 100 400 000 ml @ 100 mls/hr IV . Q10H STA Rx#:[id number] Sodium Chloride 0.9% 1, 1000 000 ml @ 999 mls/hr IV . Q1H1M ONE Rx#:[id number] Blood Product 323 Ffp 24 Cp2d Unit 323 [id number] Ffp 24 Cpd Unit 0 [id number] Output: Urine 250 Other: Voiding Method Indwelling Catheter # Voids 0 0 Weight 52.617 kg 52.617 kg PHYSICAL EXAMINATION: GENERAL: The patient is alert and oriented x3, not in any acute distress. Well developed, well nourished. HEENT: Pupils are round and equally reacting to light. EOMI. No scleral icterus. No conjunctival pallor. Normocephalic, atraumatic. No pharyngeal erythema. No thyromegaly. CARDIOVASCULAR: S1 and S2 present. No murmurs, rubs, or gallops. PULMONARY: Chest is clear to auscultation, no wheezing or crackles. ABDOMEN: Soft, nontender, nondistended, normoactive bowel sounds. No palpable organomegaly. MUSCULOSKELETAL: No joint swelling or deformity. EXTREMITIES: No cyanosis, clubbing, or pedal edema. NEUROLOGICAL: Gross neurological examination did not reveal any focal deficits. SKIN: No rashes. Results CBC & Chem 7: 06/07/19 03:30 06/07/19 03:30 Labs: Abnormal Lab Results - Last 24 Hours (Table) 06/07/19 06/07/19 06/07/19 Range/Units 03:30 03:30 03:35 WBC 21.9 H (3.8-10.6) k/uL RBC 3.04 L (3.80-5.40) m/uL Hgb 10.1 L (11.4-16.0) gm/dL Hct 31.0 L (34.0-46.0) % MCV 102.2 H (80.0-100.0) fL Neutrophils # 19.9 H (1.3-7.7) k/uL Lymphocytes # 0.9 L (1.0-4.8) k/uL PT 38.4 H (9.0-12.0) sec INR 3.9 H (<1.2) Sodium 134 L (137-145) mmol/L Chloride 97 L (98-107) mmol/L BUN 31 H (7-17) mg/dL Glucose 177 H (74-99) mg/dL POC Glucose (mg/dL) (75-99) mg/dL Plasma Lactic Acid Alvin (0.7-2.0) mmol/L Alkaline Phosphatase 155 H (38-126) U/L Total Protein 6.1 L (6.3-8.2) g/dL 06/07/19 06/07/19 06/07/19 Range/Units 04:10 06:09 09:11 WBC (3.8-10.6) k/uL RBC (3.80-5.40) m/uL Hgb (11.4-16.0) gm/dL Hct (34.0-46.0) % MCV (80.0-100.0) fL Neutrophils # (1.3-7.7) k/uL Lymphocytes # (1.0-4.8) k/uL PT (9.0-12.0) sec INR (<1.2) Sodium (137-145) mmol/L Chloride (98-107) mmol/L BUN (7-17) mg/dL Glucose (74-99) mg/dL POC Glucose (mg/dL) 136 H (75-99) mg/dL Plasma Lactic Acid Alvin 4.9 H* 3.2 H* (0.7-2.0) mmol/L Alkaline Phosphatase (38-126) U/L Total Protein (6.3-8.2) g/dL Thrombosis Risk Factor Assmnt - Choose All That Apply Any of the Below Risk Factors Present?: Yes Other Risk Factors: Yes Each Risk Factor Represents 3 Points: Age 75 years or older Other congenital or acquired thrombophilia - If yes, enter type in comment: No Thrombosis Risk Factor Assessment Total Risk Factor Score: 3 Thrombosis Risk Factor Assessment Level: Moderate Risk Assessment and Plan Plan: -Possible upper GI bleed secondary to peptic ulcer disease patient will undergo upper GI endoscopy holding off of on anticoagulation. Patient is receiving FFP. She received vitamin K as well -Leukocytosis with the lactic acidosis: Possibly other etiology of leukocytosis reactive although I cannot completely rule out infectious process patient and doesn't have any clinical symptoms of infection will obtain a chest x-ray and a urinalysis with urine culture. Lactic is doses can be secondary to intravascular depletion from her recent GI bleed patient doesn't have any obvious abdominal pain my suspicion is low for ischemic bowel. Patient will be continued on IV fluids will recheck her basic metabolic profile and CBC tomorrow and will repeat lactic acid on IV fluids. -Congestive heart chronic systolic dysfunction: Patient is not in heart failure exacerbation fact patient is hypovolemic IV fluids are being held metoprolol will be continue digoxin will be continued -Atrial fibrillation chronic A. fib presently rate controlled on digoxin digoxin will be continued and metoprolol will be continued Cardizem will be discontinued. Patient need to be evaluated for new anticoagulant agents. -Coronary artery disease with previous CABG and stent anticoagulation and antiplatelet therapy is being held temporarily because of GI bleed -Supratherapeutic INr Severity in the past -Hyperlipidemia -Hypertension patient is presently hypotensive this is hypovolemic and patient is receiving IV fluids as mentioned above
[2019-06-07] MEDS: METOPROLOL SUCCINATE (ER) 25 MG TAB.ER.24H PO SCH (12:01)
[2019-06-07] MEDS: SODIUM CHLORIDE 0.9% 1,000 ML IV SCH ×2 (12:02→19:52)
--- NOTE | 2019-06-07 12:11 | XR ---
EXAMINATION TYPE: XR chest 1V portable DATE OF EXAM: 06/07/2019 COMPARISON: 03/16/2018 HISTORY: Shortness of breath. Rule out pneumonia. TECHNIQUE: Single frontal view of the chest is obtained. FINDINGS: Cardiomediastinal silhouette is enlarged with post CABG change and dual-lead left-sided ca rdiac device. Left axillary clips are noted. There is diffuse osseous demineralization seen. Old calc ified right upper lung granuloma. Previous pleural effusions have resolved. Numerous overlying leads partially obscuring the chest. IMPRESSION: No acute cardiopulmonary process.
[2019-06-07 12:33] LABS: Appearance,Urine Clear (Clear); Bilirubin,Urine Negative (Negative); Blood,Urine Negative (Negative); Color,Urine Light Yellow; Glucose,Urine (UA) Negative (Negative); Hyaline Casts,Urine 3 /lpf (0-2); Ketones,Urine Negative (Negative); Leukocyte Esterase,Urine Trace (Negative); Mucus,Urine Rare /hpf; Nitrite,Urine Negative (Negative); Protein,Urine Negative (Negative); RBC,Urine <1 /hpf (0-5); Specific Gravity,Urine 1.012 (1.001-1.035); Squamous Epithelial Cell,Urine <1 /hpf (0-4); Urobilinogen,Urine <2.0 mg/dL (<2.0); WBC,Urine 10 /hpf (0-5)
[2019-06-07 12:40] LABS: INR 1.5 (<1.2); Prothrombin Time 14.4 sec (9.0-12.0)
[2019-06-07 14:13] LABS: Macrocytosis Slight; Mean Platelet Volume 7.6; Platelet Count 190 k/uL (150-450); RBC 1.46 m/uL (3.80-5.40); RDW 14.3 % (11.5-15.5); WBC 13.3 k/uL (3.8-10.6)
--- NOTE | 2019-06-07 14:37 | P.CNPUL ---
History of Present Illness Consult date: 06/07/19 Requesting physician: Merissa Anaya Chief complaint: Hematemesis History of present illness: This is an 79-year-old female patient who follows on an outpatient basis Dr. Car Connell. She reported to [facility] emergency room this morning with complaints per the daughter of hematemesis. She has had a history of chronic atrial fibrillation with Coumadin for anticoagulation. Per her daughter she had been feeling unwell for a few days, she vomited bright red blood 3, she had a syncopal episode prompting her daughter to call 911. She does check her INR at home, normal INR is 2.2-2.5, it was 3 earlier this week. Her last EGD and colonoscopy were completed 03/10/2018 which demonstrated small hiatal hernia. She denied any abdominal pain. In the emergency room she was found to be in atrial fibrillation with rapid ventricular response with heart rate 190. In addition she was hypotensive with blood pressure 71/49. White blood cell count 21.9, hemoglobin was 10.1, INR was 3.9, lactic acid was 4.9. She was given IV vitamin K, IV Protonix, IV Zofran, and fresh frozen plasma. In addition she was given IV fluids, her hemodynamics did improve. Care was discussed with Dr. Resendez and she was admitted to the intensive care unit with consultations placed to gastroenterology and cardiology. Review of Systems Review of systems was completely was negative except as noted in the HPI Gastrointestinal: Reports hematemesis, Reports vomiting Past Medical History Past Medical History: Atrial Fibrillation, Cancer, Heart Failure, CVA/TIA, GERD/Reflux, Hyperlipidemia, Hypertension, Myocardial Infarction (PA), Musculoskeletal Disorder, Osteoarthritis (OA), Pneumonia Additional Past Medical History / Comment(s): Mitral regurgitation, moderate tricuspid regurg, mild aortic regurg, murmur, ischemic cardiomyopathy,2019 possible NSTEMI, L breast cancer with lumpectomy/chem and radiation, IBS, UTIs, 2019 anemia with cause unknown, bronchitis, TIAs, bilateral raynaulds syndrome, chronic low and thoracic back a pain/scoliosis, past head injury/concussion. Last Myocardial Infarction Date:: Possible NSTEMI in 2018 History of Any Multi-Drug Resistant Organisms: None Reported Past Surgical History: Adenoidectomy, Appendectomy, Breast Surgery, Coronary Bypass/CABG, Heart Catheterization, Heart Catheterization With Stent, Orthopedic Surgery, Pacemaker, Tonsillectomy Additional Past Surgical History / Comment(s): 10/25/17 NARENDRA, 10/27/17 PCI with stent to circumflex, 2002 CABG 3 vessel, left side lumpectomy, bialteral cataract removed, bilateral carpal tunnel releases, back injection, D&C, EGD in 2019 normal, colonoscopy. Past Anesthesia/Blood Transfusion Reactions: Postoperative Nausea & Vomiting (PONV) Additional Past Anesthesia/Blood Transfusion Reaction / Comment(s): Pt has received blood in past without reaction. Date of Last Stent Placement:: 10/27/17 Type of Cardiac Device: Permanent Pacemaker Device Placement Date:: 2006 with gen change in 2018 Past Psychological History: No Psychological Hx Reported Smoking Status: Former smoker Past Alcohol Use History: None Reported Past Drug Use History: None Reported - Past Family History Mother Family Medical History: Coronary Artery Disease (CAD), Diabetes Mellitus Additional Family Medical History / Comment(s): cabg Father Family Medical History: Pulmonary Embolus Additional Family Medical History / Comment(s): Father of a pulmonary embolism at the age of 46yrs. Medications and Allergies Home Medications Medication Instructions Recorded Confirmed Type Clopidogrel [Plavix] 75 mg PO DAILY 02/11/18 06/07/19 History Warfarin [Coumadin] 2 mg PO HS 03/07/18 06/07/19 History Bumetanide [Bumex] 1 mg PO AC-BID 01/08/19 06/07/19 History Digoxin [Digitek] 125 mcg PO AC-SUPPER 01/08/19 06/07/19 History Lisinopril [Zestril] 5 mg PO BID 01/08/19 06/07/19 History Metoprolol Succinate [Toprol XL] 25 mg PO DAILY 01/08/19 06/07/19 History traMADol HCL 50 - 100 mg PO Q6H PRN 01/08/19 06/07/19 History Cholecalciferol [Vitamin D3 (25 2,000 unit PO DAILY 06/07/19 06/07/19 History Mcg = 1000 Iu)] Diltiazem HCl [Cartia Xt] 120 mg PO DAILY 06/07/19 06/07/19 History Nitroglycerin Sl Tabs [Nitrostat] 0.4 mg SUBLINGUAL Q5M PRN 06/07/19 06/07/19 History Zolpidem [Ambien] 5 mg PO HS PRN 06/07/19 06/07/19 History Allergies Allergy/AdvReac Type Severity Reaction Status Date / Time codeine AdvReac Nausea & Verified 06/07/19 03:31 Vomiting Physical Exam Vitals: Vital Signs Temp Pulse Resp BP Pulse Ox 06/07/19 12:57 97.4 F L 128 H 12 97/81 06/07/19 12:06 97.4 F L 136 H 12 97/81 06/07/19 12:03 97.4 F L 126 H 12 89/42 06/07/19 12:02 97.4 F L 122 H 12 99/79 06/07/19 11:36 97.4 F L 126 H 12 89/42 06/07/19 11:26 97.9 F 109 H 12 75/33 06/07/19 11:20 97.9 F 99 13 75/33 06/07/19 11:00 112 H 21 70/49 94 L 06/07/19 10:30 138 H 12 75/51 96 06/07/19 10:00 94 20 95/51 94 L 06/07/19 09:30 137 H 12 76/50 94 L 06/07/19 09:00 140 H 21 84/44 95 06/07/19 08:54 98 F 138 H 15 88/41 94 L 06/07/19 08:30 78/52 06/07/19 08:24 98 F 135 H 12 84/44 93 L 06/07/19 08:14 98 F 109 H 12 79/59 94 L 06/07/19 08:00 97 12 69/46 95 06/07/19 07:30 103 H 16 91/51 94 L 06/07/19 07:00 130 H 21 72/51 94 L 06/07/19 06:30 97.5 F L 125 H 10 L 86/69 96 06/07/19 06:10 109 H 28 H 06/07/19 05:51 114 H 18 94/55 95 06/07/19 05:15 102 H 16 100/74 95 06/07/19 05:00 103 H 18 99/53 95 06/07/19 04:45 105 H 18 95/49 95 06/07/19 04:08 109 H 18 108/42 06/07/19 03:28 97.8 F 180 H 14 71/49 96 Intake and Output 06/06/19 06/07/19 06/07/19 22:59 06:59 14:59 Intake Total 100 2054 Output Total 250 Balance 100 1804 Intake: IV 100 1400 Sodium Chloride 0.9% 1, 100 400 000 ml @ 100 mls/hr IV . Q10H STA Rx#:[id number] Sodium Chloride 0.9% 1, 1000 000 ml @ 999 mls/hr IV . Q1H1M ONE Rx#:[id number] Blood Product 654 Ffp 24 Cp2d Unit 323 [id number] Ffp 24 Cpd Unit 331 [id number] Output: Urine 250 Other: Voiding Method Indwelling Catheter # Voids 0 0 Weight 52.617 kg 52.617 kg - Constitutional General appearance: cooperative, no acute distress - Respiratory Lungs sounds clear to auscultation. Respirations even, nonlabored. Currently on room air with oxygen saturation 94%. No chest wall deformities. No clubbing or cyanosis present. - Cardiovascular S1, S2 present. Irregular rate and rhythm, atrial fibrillation on telemetry. Palpable peripheral pulses bilaterally. No edema present. No calf pain or tenderness noted. - Gastrointestinal Abdomen soft, nontender, nondistended. No organomegaly. Active bowel sounds present 4 quadrants. Currently tolerating clear liquids. - Genitourinary Porter present draining clear, yellow urine. - Integumentary Skin is warm and dry with evidence of good perfusion. - Neurologic Neurologic: CNII-XII intact - Musculoskeletal Musculoskeletal: strength equal bilaterally - Psychiatric Psychiatric: A&O x's 3, appropriate affect, intact judgment & insight Results - Laboratory Findings CBC and BMP: 06/07/19 03:30 06/07/19 03:30 PT/INR, D-dimer PT 14.4 sec (9.0-12.0) H 06/07/19 12:04 INR 1.5 (<1.2) H 06/07/19 12:04 Abnormal lab findings: Abnormal Labs 06/07/19 06/07/19 06/07/19 03:30 03:30 03:35 WBC 21.9 H RBC 3.04 L Hgb 10.1 L Hct 31.0 L MCV 102.2 H Neutrophils # 19.9 H Lymphocytes # 0.9 L PT 38.4 H INR 3.9 H Sodium 134 L Chloride 97 L BUN 31 H Glucose 177 H POC Glucose (mg/dL) Plasma Lactic Acid Alvin Alkaline Phosphatase 155 H Total Protein 6.1 L Ur Leukocyte Esterase Urine WBC Hyaline Casts Urine Mucus 06/07/19 06/07/19 06/07/19 04:10 06:09 09:11 WBC RBC Hgb Hct MCV Neutrophils # Lymphocytes # PT INR Sodium Chloride BUN Glucose POC Glucose (mg/dL) 136 H Plasma Lactic Acid Alvin 4.9 H* 3.2 H* Alkaline Phosphatase Total Protein Ur Leukocyte Esterase Urine WBC Hyaline Casts Urine Mucus 06/07/19 06/07/19 12:04 12:05 WBC RBC Hgb Hct MCV Neutrophils # Lymphocytes # PT 14.4 H INR 1.5 H Sodium Chloride BUN Glucose POC Glucose (mg/dL) Plasma Lactic Acid Alvin Alkaline Phosphatase Total Protein Ur Leukocyte Esterase Trace H Urine WBC 10 H Hyaline Casts 3 H Urine Mucus Rare H - Diagnostic Findings Chest x-ray: report reviewed, image reviewed Assessment and Plan Assessment: 1. Possible upper GI bleed 2. Lactic acidosis, leukocytosis 3. Chronic atrial fibrillation on Coumadin for anticoagulation 4. Supratherapeutic INR 5. Coronary artery disease with previous myocardial infarction, CABG and stent placement, on Plavix at home 6. Chronic systolic heart failure with moderate LV dysfunction, ejection fraction 40%, severe mitral regurgitation 7. Sick sinus syndrome status post permanent pacemaker placement 8. Hypertension 9. Hyperlipidemia Plan: Recommend holding Coumadin, Plavix. Hold Toprol, Cardizem, lisinopril secondary to hypotension. Continue digoxin. Continue IV Protonix. Will give 1 L IV fluid bolus. Gastroenterology recommendations for possible endoscopy. From a pulmonary standpoint the patient is stable. More recommendations to follow. Time with Patient: Greater than 30
[2019-06-07 14:38] LABS: HCT 14.6 % (34.0-46.0)
--- NOTE | 2019-06-07 17:06 | CONS ---
CONSULTATION DATE OF DICTATION: 06/07/2019 REASON FOR CONSULTATION: Upper GI bleed. HISTORY OF PRESENT ILLNESS: This patient is an 79-year-old pleasant white female admitted to the hospital after having a couple of episodes of hematemesis. She has history of atrial fibrillation, on Coumadin, and apparently at home her daughter witnessed bright red emesis and became concerned and brought her to the emergency room. Patient does not recall the details. She also had some black tarry stools at the same time. Since being in the intensive care unit, she has had no further episodes of bleeding. When she presented to the emergency room her initial hemoglobin was 10.1 g/dL, and repeat hemoglobin this morning was 5 g/dL. Repeat CBC is being done. She also had an INR of 3.9. She received 2 units of fresh frozen plasma and vitamin K. INR this morning is 1.5. She had no further episodes of hematemesis but she had one maroon-colored stool this morning. She reports no abdominal pain. She never had prior history of peptic ulcer disease or recent NSAID use. She did have an EGD and colonoscopy done by Dr. Huertas in March of 2018 as a part of evaluation of anemia, and she was noted to have a small hiatal hernia and small internal hemorrhoids. PAST MEDICAL HISTORY: Her past medical history is significant for atrial fibrillation, hypertension, congestive heart failure, degenerative joint disease. MEDICATIONS: Medications at home include tramadol, Ambien, Coumadin, Nitrostat, Toprol, Zestril, Cartia, Digitek, Plavix, Bumex and vitamin D3. ALLERGIES: CODEINE. SOCIAL HISTORY: No smoking or alcohol use. FAMILY HISTORY: Mother had coronary artery disease and father had pulmonary embolism. PAST SURGICAL HISTORY: Adenoidectomy, breast surgery, CABG, cardiac catheterization, pacemaker implantation, tonsillectomy, and EGD and colonoscopy in March of 2018. REVIEW OF SYSTEMS: CARDIOPULMONARY: She denies any chest pain or shortness of breath. GENITOURINARY: No dysuria or hematuria. MUSCULOSKELETAL: Chronic back pain. NEUROLOGY: Unremarkable. PSYCHIATRIC: Unremarkable. ENT/VISION: Unremarkable. CONSTITUTIONAL: No recent weight loss. No fever, chills, night sweats. PHYSICAL EXAMINATION: Blood pressure is 102/50, pulse rate 124 per minute and afebrile. HEENT examination unremarkable. Conjunctivae pink. Sclerae anicteric. Oral cavity no lesions. NECK: No JVD or lymph node enlargement. CHEST: Clear to auscultation. HEART: Regular rate and rhythm. ABDOMEN: Soft. It was non-tender, non-distended. Bowel sounds are positive. No organomegaly. EXTREMITIES: No pedal edema. SKIN: No rashes. NEUROLOGIC: She is alert and oriented x3. No focal deficits. LABS: WBC 10.9, hemoglobin 11.6, platelets 222, and INR was 3.9. This morning repeat hemoglobin was 5 g/dL. She is having a repeat CBC done, which is still pending. INR is down to 1.5. BUN was elevated at , creatinine was 0.86. IMPRESSION: 1. Acute upper gastrointestinal bleed. Patient had several episodes of coffee-ground emesis and one episode of hematemesis yesterday. Hemoglobin dropped from 10 to 5 g/dL. She has a repeat CBC that is pending at the time and, based on that, we will plan on blood transfusion. 2. Atrial fibrillation, on Coumadin, currently on hold. INR is 1.5. 3. History of coronary artery disease, status post coronary artery bypass grafting. 4. History of hypertension. 5. Mild coagulopathy, being reversed. RECOMMENDATIONS: 1. Continue with Protonix 40 mg q.12 hours. 2. Clear liquid diet. 3. Repeat CBC and if the hemoglobin is less than 7, transfuse her with 2 units of PRBC transfusion. 4. Will proceed with an upper endoscopy tomorrow. I discussed with the patient risks, benefits and complications of the procedure, and she is agreeable to it. Thank you for this consultation. MMODL / IJN: [id number] /
[2019-06-07] MEDS: PANTOPRAZOLE 40 MG/10 ML VIAL IV SCH (19:53)
[2019-06-07 23:21] LABS: Anisocytosis Slight; HCT 24.7 % (34.0-46.0); MCH 32.3 pg (25.0-35.0); MCHC 32.9 g/dL (31.0-37.0); MCV 98.4 fL (80.0-100.0); Macrocytosis Slight; Mean Platelet Volume 7.6; Platelet Count 180 k/uL (150-450); RBC 2.51 m/uL (3.80-5.40); RDW 16.7 % (11.5-15.5); WBC 14.5 k/uL (3.8-10.6)
[2019-06-07 23:35] LABS: HGB 8.1 gm/dL (11.4-16.0)
[2019-06-08 04:56] LABS: Anisocytosis Slight; HCT 26.1 % (34.0-46.0); MCH 29.7 pg (25.0-35.0); MCHC 30.6 g/dL (31.0-37.0); MCV 97.3 fL (80.0-100.0); Macrocytosis Slight; Mean Platelet Volume 8.2; Platelet Count 167 k/uL (150-450); Poikilocytosis Slight; RBC 2.69 m/uL (3.80-5.40); RDW 17.2 % (11.5-15.5); WBC 13.6 k/uL (3.8-10.6)
[2019-06-08 05:05] LABS: INR 1.2 (<1.2); Prothrombin Time 12.5 sec (9.0-12.0)
[2019-06-08 05:07] LABS: Calcium 7.9 mg/dL (8.4-10.2); Potassium 4.3 mmol/L (3.5-5.1)
[2019-06-08] MEDS: DIGOXIN 250 MCG/ML 2 ML AMP IVP SCH (08:58)
[2019-06-08] MEDS: SODIUM CHLORIDE 0.9% 1,000 ML IV SCH (08:58)
[2019-06-08] MEDS: PANTOPRAZOLE 40 MG/10 ML VIAL IV SCH ×2 (08:58→20:23)
--- NOTE | 2019-06-08 09:36 | ECHOF ---
Referral Reason:lv function MEASUREMENTS -------- HEIGHT: 157.5 cm WEIGHT: 60.3 kg BP: RVIDd: 4.3 cm (< 3.3) IVSd: 1.0 cm (0.6 - 1.1) LVIDd: 3.7 cm (3.9 - 5.3) LVPWd: 0.9 cm (0.6 - 1.1) IVSs: 1.2 cm LVIDs: 2.8 cm LVPWs: 1.4 cm LAESV Index (A-L): 54.00 ml/m Ao Diam: 2.4 cm (2.0 - 3.7) AV Cusp: 1.6 cm (1.5 - 2.6) LA Diam: 4.1 cm (2.7 - 3.8) MV EXCURSION: 17.007 mm (> 18.000) MV EF SLOPE: 160 mm/s (70 - 150) EPSS: 0.9 cm AR PHT: 583 ms RAP: 20.00 mmHg RVSP: 46.64 mmHg FINDINGS -------- Atrial fibrillation. Pacemaker This was a technically difficult study with suboptimal views. The left ventricular size is normal. Left ventricular wall thickness is normal. There is severe g lobal hypokinesis of LV . Overall left ventricular systolic function is moderate-severely impaired with, an EF between 30 - 35 %. Left ventricular fillimg pressure cannot be estimated due to Atrial fibrillation. The right ventricle is severely enlarged. LA is severely dilated >40 ml/m2 RA appears enlarged. Lumason used There is mild aortic valve sclerosis. There is mild aortic regurgitation. The mitral valve leaflets are mildly thickened. Mild mitral annular calcification present. Modera te mitral regurgitation is present. The tricuspid valve appears structurally normal. Severe tricuspid regurgitation present. There is moderate pulmonary hypertension. The right ventricular systolic pressure, as measured by Doppler, is 46.64mmHg. Trace/mild (physiologic) pulmonic regurgitation. The aortic root size is normal. The inferior vena cava is dilated with no significant inspiratory collapse which is consistent estima grant right atrial pressure of >20 mmHg. There is no pericardial effusion. CONCLUSIONS -------- 1. Atrial fibrillation. 2. Pacemaker 3. This was a technically difficult study with suboptimal views. 4. Left ventricular wall thickness is normal. 5. There is severe global hypokinesis of LV . 6. Overall left ventricular systolic function is moderate-severely impaired with, an EF between 30 - 35 %. 7. Left ventricular fillimg pressure cannot be estimated due to Atrial fibrillation. 8. The right ventricle is severely enlarged. 9. LA is severely dilated >40 ml/m2 10. RA appears enlarged. 11. Lumason used 12. There is mild aortic valve sclerosis. 13. There is mild aortic regurgitation. 14. The mitral valve leaflets are mildly thickened. 15. Mild mitral annular calcification present. 16. Moderate mitral regurgitation is present. 17. The tricuspid valve appears structurally normal. 18. Severe tricuspid regurgitation present. 19. There is moderate pulmonary hypertension. 20. Trace/mild (physiologic) pulmonic regurgitation. 21. The inferior vena cava is dilated with no significant inspiratory collapse which is consistent es timated right atrial pressure of >20 mmHg. 22. There is no pericardial effusion. TILE MECHANIC HELPER: Jenna Dsouza RDCS
[2019-06-08] MEDS ORDERED: PROPOFOL 10 MG/ML 20 ML VIAL IV ONE (11:29)
[2019-06-08] MEDS ORDERED: IV FLUID CONTINUATION 900 ML IV ONE (11:35)
--- NOTE | 2019-06-08 11:51 | P.PCN ---
Date of Procedure: 06/08/19 Procedure(s) Performed: BRIEF HISTORY: Patient is a 79-year-old, pleasant, white female admitted hospital with acute upper GI bleed. She had several episodes of hematemesis followed by coffee-ground emesis and tarry stools. She dropped hemoglobin from 10-5 g/dL requiring 2 units of the transition. She is on Coumadin with an INR of 3 and gradually but he was told that was with vitamin K and fresh frozen plasma. INR today is 1.2. She is scheduled for an upper endoscopy to evaluate the source of upper GI bleed. PROCEDURE PERFORMED: Esophagogastroduodenoscopy. PREOPERATIVE DIAGNOSIS: Severe anemia and acute upper GI bleed. IV sedation per anesthesia. PROCEDURE: After informed consent was obtained, the patient was brought into the endoscopy unit. IV sedation was administered by Anesthesia under continuous monitoring. Initially the Olympus GIF-140 video endoscope was inserted into the mouth. Esophagus intubated without any difficulty. It was gradually advanced into the stomach and duodenum and carefully examined. The bulb and the second part of the duodenum appeared normal. The scope at this time was withdrawn to the stomach, adequately insufflated with air, and upon careful examination, mucosa of the antrum, body, cardia and the fundus appeared normal. The scope was then withdrawn into the esophagus. The GE junction was located at 39 cm from the incisors. There was a large adherent clot noted in the distal esophagus extending from 30-38 cm from the incisors adjacent to it there was a deep mucosal ulceration/tear with no active bleeding. The proximal esophagus appeared normal and the patient tolerated the procedure well. IMPRESSION: 1. Deep distal esophageal mucosal ulceration/ tear extending from 30-38 cm from the incisors with a large adherent linear clot with no active bleeding. 2. Stomach and duodenum appeared normal. RECOMMENDATIONS: The findings of this examination were discussed with the patient . CT of the chest will be ordered to rule out any esophageal perforation/mediastinal air. In the meantime will keep her on a clear liquid diet. Continue with Protonix 40 mg twice daily. Hold Coumadin. Monitor CBC on a daily basis.
--- NOTE | 2019-06-08 12:26 | P.PN ---
Subjective Progress Note Date: 06/08/19 Principal diagnosis: This is an 79-year-old female patient who follows on an outpatient basis Dr. Car Connell. She reported to [facility] emergency room this morning with complaints per the daughter of hematemesis. She has had a history of chronic atrial fibrillation with Coumadin for anticoagulation. The rest of her previous medical history includes coronary artery disease with previous myocardial infarction status post stent placement as well as CABG on Plavix at home, chronic systolic heart failure with moderate LV dysfunction, ejection fraction 40%, and severe mitral regurgitation, sick sinus syndrome status post permanent pacemaker placement, hypertension, hyperlipidemia, and breast cancer status post lumpectomy, chemo, and radiation. Per her daughter she had been feeling unwell for a few days, she vomited bright red blood 3, she had a syncopal episode prompting her daughter to call 911. She does check her INR at home, normal INR is 2.2-2.5, it was 3 earlier this week. Her last EGD and colonoscopy were completed 03/10/2018 which demonstrated small hiatal hernia. She denied any abdominal pain. In the emergency room she was found to be in atrial fibrillation with rapid ventricular response with heart rate 190. In addition she was hypotensive with blood pressure 71/49. White blood cell count 21.9, hemoglobin was 10.1, INR was 3.9, lactic acid was 4.9. She was given IV vitamin K, IV Protonix, IV Zofran, and fresh frozen plasma. In addition she was given IV fluids, her hemodynamics did improve. Care was discussed with Dr. Resendez and she was admitted to the intensive care unit with consultations placed to gastroenterology and cardiology. The patient was seen and examined on 06/08/2019. She remains stable although a little tachycardic with heart rate in the 90s to low 100s, atrial fibrillation. She is continuing on IV digoxin, oral Toprol. Oxygen saturation 98% on 2 L nasal cannula. Her hemoglobin did drop to 5.0 yesterday and she received 2 units of packed red blood cells with hemoglobin this morning 8.0 and INR 1.2 after 2 units of fresh frozen plasma given yesterday. White blood cell count of 13.6. Lactic acid returned to normal at 1.9. Echocardiogram was completed demonstrating moderate to severe left ventricle systolic function with EF 30- 35%, left atrial dilatation, mild aortic insufficiency, moderate mitral regurgitation, severe tricuspid regurgitation, and moderate pulmonary hypertension. She has had no more episodes of hematemesis or syncope. EGD completed demonstrating deep distal esophageal mucosal ulceration/tear extending from 30-38 cm from the incisors with a large adherent linear clot with no active bleeding. Objective - Vital Signs Vital signs: Vital Signs Temp 97.9 F 06/08/19 08:00 Pulse 105 H 06/08/19 11:00 Resp 11 L 06/08/19 11:00 BP 115/67 06/08/19 11:00 Pulse Ox 98 06/08/19 11:00 Intake & Output 06/07/19 06/08/19 06/08/19 18:59 06:59 18:59 Intake Total 2954 1720 450 Output Total 640 275 140 Balance 2314 1445 310 Weight 52.617 kg 60.4 kg Intake: IV 2300 1100 450 Sodium Chloride 0.9% 1, 1300 1100 250 000 ml @ 100 mls/hr IV . Q10H STA Rx#:[id number] Sodium Chloride 0.9% 1, 150 000 ml @ 50 mls/hr IV . Q20H ANKUSH Rx#:[id number] Sodium Chloride 0.9% 1, 1000 000 ml @ 999 mls/hr IV . Q1H1M ONE Rx#:[id number] Blood Product 654 620 Ffp 24 Cp2d Unit 323 [id number] Ffp 24 Cpd Unit 331 [id number] Rc Pheresis As-3 Unit 310 [id number] Rc Pheresis As-3 Unit 0 310 [id number] Output: Urine 640 275 140 Other: Voiding Method Indwelling Catheter Indwelling Catheter Indwelling Catheter # Voids 0 - Constitutional General appearance: Present: cooperative, no acute distress - Respiratory Details: Lungs sounds clear to auscultation. Respirations even, nonlabored. Currently on 2 L nasal cannula with oxygen saturation 98%. No chest wall deformities. No clubbing or cyanosis present. - Cardiovascular Details: S1, S2 present. Irregular rate and rhythm, atrial fibrillation on telemetry, heart rate 90s to low 100s. Palpable peripheral pulses bilaterally. No edema present. No calf pain or tenderness noted. - Gastrointestinal Gastrointestinal Comment(s): Abdomen soft, nontender, nondistended. No organomegaly. Active bowel sounds present 4 quadrants. Currently NPO - Genitourinary Genitourinary Comment(s): Porter present draining clear, yellow urine. - Integumentary Integumentary Comment(s): Skin is warm and dry with evidence of good perfusion. - Neurologic Neurologic: Present: CNII-XII intact - Musculoskeletal Musculoskeletal: Present: strength equal bilaterally - Psychiatric Psychiatric: Present: A&O x's 3, appropriate affect, intact judgment & insight - Allied health notes Allied health notes reviewed: nursing - Labs CBC & Chem 7: 06/08/19 04:36 06/08/19 04:31 Labs: Abnormal Lab Results - Last 24 Hours (Table) 06/07/19 06/07/19 06/07/19 Range/Units 03:35 12:04 12:05 WBC (3.8-10.6) k/uL RBC (3.80-5.40) m/uL Hgb (11.4-16.0) gm/dL Hct (34.0-46.0) % MCHC (31.0-37.0) g/dL RDW (11.5-15.5) % PT 14.4 H (9.0-12.0) sec INR 1.5 H (<1.2) Sodium (137-145) mmol/L Chloride (98-107) mmol/L Carbon Dioxide (22-30) mmol/L BUN (7-17) mg/dL Glucose (74-99) mg/dL Plasma Lactic Acid Alvin (0.7-2.0) mmol/L Calcium (8.4-10.2) mg/dL Ur Leukocyte Esterase Trace H (Negative) Urine WBC 10 H (0-5) /hpf Hyaline Casts 3 H (0-2) /lpf Urine Mucus Rare H (None) /hpf Crossmatch See Detail 06/07/19 06/07/19 06/07/19 Range/Units 14:05 14:55 19:51 WBC 13.3 H (3.8-10.6) k/uL RBC 1.46 L (3.80-5.40) m/uL Hgb 5.0 L* D (11.4-16.0) gm/dL Hct 14.6 L* (34.0-46.0) % MCHC (31.0-37.0) g/dL RDW (11.5-15.5) % PT (9.0-12.0) sec INR (<1.2) Sodium (137-145) mmol/L Chloride (98-107) mmol/L Carbon Dioxide (22-30) mmol/L BUN (7-17) mg/dL Glucose (74-99) mg/dL Plasma Lactic Acid Alvin 7.0 H* 4.2 H* (0.7-2.0) mmol/L Calcium (8.4-10.2) mg/dL Ur Leukocyte Esterase (Negative) Urine WBC (0-5) /hpf Hyaline Casts (0-2) /lpf Urine Mucus (None) /hpf Crossmatch 06/07/19 06/08/19 06/08/19 Range/Units 22:33 04:31 04:36 WBC 14.5 H 13.6 H (3.8-10.6) k/uL RBC 2.51 L 2.69 L (3.80-5.40) m/uL Hgb 8.1 L D 8.0 L (11.4-16.0) gm/dL Hct 24.7 L 26.1 L (34.0-46.0) % MCHC 30.6 L (31.0-37.0) g/dL RDW 16.7 H 17.2 H (11.5-15.5) % PT (9.0-12.0) sec INR (<1.2) Sodium 134 L (137-145) mmol/L Chloride 108 H (98-107) mmol/L Carbon Dioxide 19 L (22-30) mmol/L BUN 38 H (7-17) mg/dL Glucose 103 H (74-99) mg/dL Plasma Lactic Acid Alvin (0.7-2.0) mmol/L Calcium 7.9 L (8.4-10.2) mg/dL Ur Leukocyte Esterase (Negative) Urine WBC (0-5) /hpf Hyaline Casts (0-2) /lpf Urine Mucus (None) /hpf Crossmatch 06/08/19 Range/Units 04:36 WBC (3.8-10.6) k/uL RBC (3.80-5.40) m/uL Hgb (11.4-16.0) gm/dL Hct (34.0-46.0) % MCHC (31.0-37.0) g/dL RDW (11.5-15.5) % PT 12.5 H (9.0-12.0) sec INR 1.2 H (<1.2) Sodium (137-145) mmol/L Chloride (98-107) mmol/L Carbon Dioxide (22-30) mmol/L BUN (7-17) mg/dL Glucose (74-99) mg/dL Plasma Lactic Acid Alvin (0.7-2.0) mmol/L Calcium (8.4-10.2) mg/dL Ur Leukocyte Esterase (Negative) Urine WBC (0-5) /hpf Hyaline Casts (0-2) /lpf Urine Mucus (None) /hpf Crossmatch Assessment and Plan Assessment: 1. Deep distal esophageal mucosal ulceration/tear extending from 30-38 cm from the incisors with a large adherent linear clot, no active bleeding per EGD 2. Lactic acidosis, leukocytosis, resolving 3. Chronic atrial fibrillation on Coumadin for anticoagulation 4. Supratherapeutic INR 5. Coronary artery disease with previous myocardial infarction, CABG and stent placement, on Plavix at home 6. Chronic systolic heart failure with moderate LV dysfunction, ejection fraction 40%, severe mitral regurgitation 7. Sick sinus syndrome status post permanent pacemaker placement 8. Hypertension 9. Hyperlipidemia 10. History of breast cancer status post lumpectomy, chemo, radiation Plan: The patient was seen and examined with Dr. Resendez. Restart anticoagulation when okay with GI. Further blood transfusion per gastroenterology. Hold Cardizem, lisinopril secondary to hypotension. Continue Lopressor, digoxin. Continue IV Protonix. From a pulmonary standpoint the patient is stable. More recommendations to follow. Time with Patient: Greater than 30
--- NOTE | 2019-06-08 14:12 | CT ---
EXAMINATION TYPE: CT chest wo con DATE OF EXAM: 06/08/2019 COMPARISON: 03/15/2018 HISTORY: GIB; R/O perforation CT DLP: 283.9 mGycm, Automated exposure control for dose reduction was used. CONTRAST: Performed injected with 0 mL of Isovue 300. TECHNIQUE: Axial images were obtained at 5 mm thick sections. Reconstructed images are reviewed on PR Slides computer in the coronal plane. FINDINGS: Portion of the thyroid visualized is normal. Small hiatal hernia is present. The esophagus can be traced to the stomach. No obvious perforation is evident. No suspicious abnormal collections adjacent to the esophagus are identified. Small bilateral pleural effusions are present. Mild adjacent compressive atelectasis is present. Vasc ular calcification is within the aorta and coronary vessels. A 0.3 cm calcification is in the periphery of the right lateral upper lung field. This was present pr eviously. Tiny densities in the periphery of the lateral right lung appears present previously. Serie s 201 image 18 there is a pleural-based density along the anterior right middle lobe. Series 201 imag e 26. Couple of small stable nodules are in the right middle lobe measuring 0.4 and 0.3 cm. Series 20 1 image 28. No enlarged mediastinal or hilar adenopathy is evident. The ascending aorta diameter at the level o f the main pulmonary artery is 4.1 cm. The main pulmonary artery diameter at the bifurcation is 3.[address] sections are obtained through the upper abdomen. Gallstone is likely present. No free air is within the abdomen. No mediastinal air is identified. IMPRESSIONS: 1. No suspicious collections, pneumomediastinum, or pneumoperitoneum evident to suggest esophageal pe rforation. 2. Small bilateral pleural effusions present previously. Some mild adjacent compressive atelectasis i s present. 3. Small nodularities within the right lung appears stable.
[2019-06-08] MEDS: METOPROLOL SUCCINATE (ER) 25 MG TAB.ER.24H PO SCH (14:30)
--- NOTE | 2019-06-08 14:52 | P.PN ---
Subjective Progress Note Date: 06/08/19 Principal diagnosis: GI bleed Status post EGD 79-year-old, pleasant, white female admitted hospital with acute upper GI bleed. She had several episodes of hematemesis followed by coffee-ground emesis and tarry stools. She dropped hemoglobin from 10-5 g/dL requiring 2 units of the transition. She is on Coumadin with an INR of 3 and gradually but he was told that was with vitamin K and fresh frozen plasma. INR today is 1.2. 06/08/2019 Patient underwent EGD showing deep distal esophageal mucosal ulcerations/tear extending from 30-38 cm with a large adherent linear clot; no active bleeding found CT of the chest is ordered to rule out esophageal perforation/mediastinotomy in her; patient has been instructed to continue with clear liquid diet until CT results are available Continue with Protonix 40 mg twice daily. Hold Coumadin. Monitor CBC on a daily basis. Objective - Vital Signs Vital signs: Vital Signs Temp 97.9 F 06/08/19 08:00 Pulse 91 06/08/19 10:00 Resp 19 06/08/19 10:00 BP 110/67 06/08/19 10:00 Pulse Ox 98 06/08/19 08:00 Intake & Output 06/07/19 06/08/19 06/08/19 18:59 06:59 18:59 Intake Total 2954 1720 250 Output Total 640 275 115 Balance 2314 1445 135 Weight 52.617 kg 60.4 kg Intake: IV 2300 1100 250 Sodium Chloride 0.9% 1, 1300 1100 250 000 ml @ 100 mls/hr IV . Q10H STA Rx#:[id number] Sodium Chloride 0.9% 1, 1000 000 ml @ 999 mls/hr IV . Q1H1M ONE Rx#:[id number] Blood Product 654 620 Ffp 24 Cp2d Unit 323 [id number] Ffp 24 Cpd Unit 331 [id number] Rc Pheresis As-3 Unit 310 [id number] Rc Pheresis As-3 Unit 0 310 [id number] Output: Urine 640 275 115 Other: Voiding Method Indwelling Catheter Indwelling Catheter Indwelling Catheter # Voids 0 - Exam GENERAL: The patient is alert and oriented x3, not in any acute distress. Well developed, well nourished. HEENT: Pupils are round and equally reacting to light. EOMI. No scleral icterus. No conjunctival pallor. Normocephalic, atraumatic. No pharyngeal erythema. No thyromegaly. CARDIOVASCULAR: S1 and S2 present. No murmurs, rubs, or gallops. PULMONARY: Chest is clear to auscultation, no wheezing or crackles. ABDOMEN: Soft, nontender, nondistended, normoactive bowel sounds. No palpable organomegaly. MUSCULOSKELETAL: No joint swelling or deformity. EXTREMITIES: No cyanosis, clubbing, or pedal edema. NEUROLOGICAL: Gross neurological examination did not reveal any focal deficits. SKIN: No rashes. - Labs CBC & Chem 7: 06/08/19 04:36 06/08/19 04:31 Labs: Abnormal Lab Results - Last 24 Hours (Table) 06/07/19 06/07/19 06/07/19 Range/Units 03:35 12:04 12:05 WBC (3.8-10.6) k/uL RBC (3.80-5.40) m/uL Hgb (11.4-16.0) gm/dL Hct (34.0-46.0) % MCHC (31.0-37.0) g/dL RDW (11.5-15.5) % PT 14.4 H (9.0-12.0) sec INR 1.5 H (<1.2) Sodium (137-145) mmol/L Chloride (98-107) mmol/L Carbon Dioxide (22-30) mmol/L BUN (7-17) mg/dL Glucose (74-99) mg/dL Plasma Lactic Acid Alvin (0.7-2.0) mmol/L Calcium (8.4-10.2) mg/dL Ur Leukocyte Esterase Trace H (Negative) Urine WBC 10 H (0-5) /hpf Hyaline Casts 3 H (0-2) /lpf Urine Mucus Rare H (None) /hpf Crossmatch See Detail 06/07/19 06/07/19 06/07/19 Range/Units 14:05 14:55 19:51 WBC 13.3 H (3.8-10.6) k/uL RBC 1.46 L (3.80-5.40) m/uL Hgb 5.0 L* D (11.4-16.0) gm/dL Hct 14.6 L* (34.0-46.0) % MCHC (31.0-37.0) g/dL RDW (11.5-15.5) % PT (9.0-12.0) sec INR (<1.2) Sodium (137-145) mmol/L Chloride (98-107) mmol/L Carbon Dioxide (22-30) mmol/L BUN (7-17) mg/dL Glucose (74-99) mg/dL Plasma Lactic Acid Alvin 7.0 H* 4.2 H* (0.7-2.0) mmol/L Calcium (8.4-10.2) mg/dL Ur Leukocyte Esterase (Negative) Urine WBC (0-5) /hpf Hyaline Casts (0-2) /lpf Urine Mucus (None) /hpf Crossmatch 06/07/19 06/08/19 06/08/19 Range/Units 22:33 04:31 04:36 WBC 14.5 H 13.6 H (3.8-10.6) k/uL RBC 2.51 L 2.69 L (3.80-5.40) m/uL Hgb 8.1 L D 8.0 L (11.4-16.0) gm/dL Hct 24.7 L 26.1 L (34.0-46.0) % MCHC 30.6 L (31.0-37.0) g/dL RDW 16.7 H 17.2 H (11.5-15.5) % PT (9.0-12.0) sec INR (<1.2) Sodium 134 L (137-145) mmol/L Chloride 108 H (98-107) mmol/L Carbon Dioxide 19 L (22-30) mmol/L BUN 38 H (7-17) mg/dL Glucose 103 H (74-99) mg/dL Plasma Lactic Acid Alvin (0.7-2.0) mmol/L Calcium 7.9 L (8.4-10.2) mg/dL Ur Leukocyte Esterase (Negative) Urine WBC (0-5) /hpf Hyaline Casts (0-2) /lpf Urine Mucus (None) /hpf Crossmatch 06/08/19 Range/Units 04:36 WBC (3.8-10.6) k/uL RBC (3.80-5.40) m/uL Hgb (11.4-16.0) gm/dL Hct (34.0-46.0) % MCHC (31.0-37.0) g/dL RDW (11.5-15.5) % PT 12.5 H (9.0-12.0) sec INR 1.2 H (<1.2) Sodium (137-145) mmol/L Chloride (98-107) mmol/L Carbon Dioxide (22-30) mmol/L BUN (7-17) mg/dL Glucose (74-99) mg/dL Plasma Lactic Acid Alvin (0.7-2.0) mmol/L Calcium (8.4-10.2) mg/dL Ur Leukocyte Esterase (Negative) Urine WBC (0-5) /hpf Hyaline Casts (0-2) /lpf Urine Mucus (None) /hpf Crossmatch Assessment and Plan Assessment: -Possible upper GI bleed secondary to peptic ulcer disease patient will undergo upper GI endoscopy holding off of on anticoagulation. Patient is receiving FFP. She received vitamin K as well -Leukocytosis with the lactic acidosis: Possibly other etiology of leukocytosis reactive although I cannot completely rule out infectious process patient and doesn't have any clinical symptoms of infection will obtain a chest x-ray and a urinalysis with urine culture. Lactic is doses can be secondary to intravascular depletion from her recent GI bleed patient doesn't have any obvious abdominal pain my suspicion is low for ischemic bowel. Patient will be continued on IV fluids will recheck her basic metabolic profile and CBC tomorrow and will repeat lactic acid on IV fluids. -Congestive heart chronic systolic dysfunction: Patient is not in heart failure exacerbation fact patient is hypovolemic IV fluids are being held metoprolol will be continue digoxin will be continued -Atrial fibrillation chronic A. fib presently rate controlled on digoxin digoxin will be continued and metoprolol will be continued Cardizem will be discontinued. Patient need to be evaluated for new anticoagulant agents. -Coronary artery disease with previous CABG and stent anticoagulation and antiplatelet therapy is being held temporarily because of GI bleed -Supratherapeutic INr Severity in the past -Hyperlipidemia -Hypertension patient is presently hypotensive this is hypovolemic and patient is receiving IV fluids as mentioned above Time with Patient: Greater than 30
--- NOTE | 2019-06-08 21:25 | PN ---
Mrs. Padilla came in with acute GI bleed, her hemoglobin went as low as 5.0, it is now back up to 8.0, after receiving 2 units of blood. She has chronic atrial fibrillation with underlying ischemic heart disease, prior bypass surgery and PCI, also has significant mitral regurgitation. However, she is hemodynamically stable. Her blood pressure is about 112 to 120 systolic. Heart rate is in the 120s. I am recommending that we give Digoxin now and after upper endoscopy is done, metoprolol can be resumed. I will obtain an echocardiogram at bedside today. Will decrease IV fluids to 50 cc per hour. Blood pressure is 118/70, pulse rate is 100, JVD 1 cm. No carotid bruit. S1, S2 heard normally. Ejection systolic murmur is audible. Irregular rhythm noted. Lungs: Reveal diminished air entry. Abdomen: Soft. The rest of the physical exam is unchanged. We will resume Digoxin and Metoprolol will be resumed after endoscopy. Decrease IV fluids, obtain echocardiogram. The patient will not receive any anticoagulation given her life threatening GI bleed requiring transfusion. MOISÉS
[2019-06-09] MEDS: SODIUM CHLORIDE 0.9% 1,000 ML IV SCH ×2 (04:13→08:32)
[2019-06-09 05:17] LABS: Anisocytosis Slight; Basophils % (A) 0 %; Eosinophils # (A) 0.2 k/uL (0-0.7); Eosinophils % (A) 2 %; HCT 24.3 % (34.0-46.0); HGB 8.1 gm/dL (11.4-16.0); Lymphocytes # (A) 1.8 k/uL (1.0-4.8); Lymphocytes % (A) 13 %; MCH 31.9 pg (25.0-35.0); MCHC 33.1 g/dL (31.0-37.0); MCV 96.3 fL (80.0-100.0); Macrocytosis Slight; Mean Platelet Volume 8.5; Monocytes # (A) 0.6 k/uL (0-1.0); Monocytes % (A) 4 %; Neutrophils # (A) 10.4 k/uL (1.3-7.7); Neutrophils % (A) 78 %; Platelet Count 175 k/uL (150-450); Poikilocytosis Slight; RBC 2.53 m/uL (3.80-5.40); RDW 17.9 % (11.5-15.5); WBC 13.3 k/uL (3.8-10.6)
[2019-06-09 05:36] LABS: Calcium 8.2 mg/dL (8.4-10.2)
[2019-06-09 05:48] LABS: Potassium 4.5 mmol/L (3.5-5.1)
[2019-06-09] MEDS: DIGOXIN 125 MCG TAB PO SCH (08:33)
[2019-06-09] MEDS: BUMETANIDE 1 MG TAB PO SCH (08:33)
[2019-06-09] MEDS: PANTOPRAZOLE 40 MG/10 ML VIAL IV SCH ×2 (08:33→20:57)
[2019-06-09] MEDS: METOPROLOL SUCCINATE (ER) 50 MG TAB.ER.24H PO SCH (08:33)
--- NOTE | 2019-06-09 09:23 | PN ---
Mrs. Padilla had an extensive GI bleed. She has a deep tear in her esophagus, but the stomach and duodenum are clear. This seems to have been a life threatening bleeding, but hemoglobin is now stable. She is resting comfortably. Her other co-morbid conditions include ischemic cardiomyopathy, previous bypass surgery, [employer], history of severe mitral and tricuspid regurgitation. She has chronic A fib on Coumadin. Blood pressure 120/70, pulse rate is about 90 to 110. S1, S2 heard normally, irregular rhythm noted. Short systolic murmur at the apex noted. Lungs are clear. Abdomen and lower extremity exam are unchanged. I am recommending that we increase the Metoprolol succinate to 50 mg daily, start her on Bumex 0.5 mg daily. Hemoglobin is stable at 8.1. We will move her to telemetry, increase activity if okay with Gastroenterology. Discussed my thoughts in detail with the patient. MOISÉS
--- NOTE | 2019-06-09 09:44 | PN ---
PROGRESS NOTE Mrs. Padilla came with acute GI bleed, her hemoglobin went as low as 5.0, it is now back up to 8.0 after receiving 2 units of blood. She has chronic atrial fibrillation with underlying ischemic heart disease, prior bypass surgery and PCI, also has significant mitral regurgitation. However, she is hemodynamically stable, her blood pressure is about 112 to 120 systolic, heart rate is in the 120s. I am recommending that we give Digoxin now and after upper endoscopy is done, metoprolol can be resumed. I will obtain an echocardiogram at bedside today. We will decrease IV fluids to 50 cc per hour. Blood pressure is 118/70, pulse rate is 100, JVD 1 cm, no carotid bruit. S1, S2 heard normally. Ejection systolic murmur is audibility, irregular in rhythm noted. Lungs: Reveal diminished air entry. Abdomen: Soft. The rest of the physical edam unchanged. We will resume Digoxin and Metoprolol will be resumed after endoscopy. Decrease IV fluids, obtain echocardiogram. The patient will not receive any anticoagulation given her life threatening GI bleed requiring transfusion. MMODL / IJN: [id number] /
--- NOTE | 2019-06-09 09:44 | PN ---
PROGRESS NOTE Mrs. Padilla came in with acute GI bleed. Her hemoglobin went as low as 5.0, it is now back up to 8.0 after receiving 2 units of blood. She has chronic atrial fibrillation with underlying ischemic heart disease, prior bypass surgery and PCI, also, has significant mitral regurgitation. However, she is hemodynamically stable. Her blood pressure is about 112 to 120 systolic, heart rate is in the 120s. I am recommending that we give digoxin now and after upper endoscopy is done metoprolol can be resumed. I will obtain an echocardiogram at bedside today. We will decrease IV fluids to 50 mL per hour. Blood pressure is 118/70, pulse rate is 100. JVD 1 cm. No carotid bruit. S1, S2 heard normally. Ejection systolic murmur is audible. Irregularity in rhythm noted. Lungs reveal diminished air entry. Abdomen is soft. Rest of physical exam unchanged. We will resume digoxin and metoprolol will be resumed after endoscopy, decrease IV fluids. Obtain echocardiogram. Patient will not received any anticoagulation given her life threatening GI bleed requiring transfusion. MMODL / IJN: [id number] /
--- NOTE | 2019-06-09 09:49 | PN ---
PROGRESS NOTE Mrs. Padilla came in with acute GI bleed. Her hemoglobin went as low as 5.0. It is now back up to 8.0 after receiving 2 units of blood. She has chronic atrial fibrillation with underlying ischemic heart disease prior bypass surgery and PCI. Also has significant mitral regurgitation. However, she is hemodynamically stable. Her blood pressure is about 112 to 120 systolic, heart rate is in the 120s. I am recommending that we can give digoxin now and after upper endoscopy is done, metoprolol can be resumed. I will obtain echocardiogram at bedside today. We will decrease IV fluids to 50 mL/hour. Blood pressure is 118/70, pulse rate is 100. JVD 1 cm. No carotid bruit. S1, S2 heard normally. Ejection systolic murmur is audible. Irregularity in rhythm noted. Lungs reveal diminished air entry. Abdomen is soft. Rest of physical exam unchanged. We will resume digoxin and metoprolol will be resumed after endoscopy, decrease IV fluids. Obtain echocardiogram. Patient will not receive any anticoagulation given her life-threatening GI bleed requiring transfusion. MMODL / IJN: [id number] /
--- NOTE | 2019-06-09 09:50 | PN ---
PROGRESS NOTE Mrs. Padilla had an extensive GI bleed. She has a deep tear in her esophagus but the stomach and duodenum are clear. This seems to have been a life-threatening bleeding but hemoglobin is now stable. She is resting comfortably. Her other comorbid conditions include ischemic cardiomyopathy, previous bypass surgery, LNA, history of severe mitral and tricuspid regurgitation. She has chronic atrial fibrillation on Coumadin. Blood pressure 120/70, pulse rate is about 90-110. S1, S2 heard normally. Irregular rate and rhythm noted. Short systolic murmur to the apex noted. Lungs are clear. Abdomen and lower extremity exam unchanged. I am recommending that we increase the metoprolol succinate to 50 mg daily, start her on Bumex 0.5 mg daily. Hemoglobin is stable at 8.1. We will move her to telemetry, increase activity if okay with Gastroenterology. Discussed my thoughts in detail with the patient. SUSANNAH / JEFFREYN: [id number] /
--- NOTE | 2019-06-09 12:14 | P.PN ---
Subjective Progress Note Date: 06/09/19 Principal diagnosis: GI bleed This is an 79-year-old female patient who follows on an outpatient basis Dr. Car Connell. She reported to [facility] emergency room this morning with complaints per the daughter of hematemesis. She has had a history of chronic atrial fibrillation with Coumadin for anticoagulation. The rest of her previous medical history includes coronary artery disease with previous myocardial infarction status post stent placement as well as CABG on Plavix at home, chronic systolic heart failure with moderate LV dysfunction, ejection fraction 40%, and severe mitral regurgitation, sick sinus syndrome status post permanent pacemaker placement, hypertension, hyperlipidemia, and breast cancer status post lumpectomy, chemo, and radiation. Per her daughter she had been feeling unwell for a few days, she vomited bright red blood 3, she had a s yncopal episode prompting her daughter to call 911. She does check her INR at home, normal INR is 2.2-2.5, it was 3 earlier this week. Her last EGD and colonoscopy were completed 03/10/2018 which demonstrated small hiatal hernia. She denied any abdominal pain. In the emergency room she was found to be in atrial fibrillation with rapid ventricular response with heart rate 190. In addition she was hypotensive with blood pressure 71/49. White blood cell count 21.9, hemoglobin was 10.1, INR was 3.9, lactic acid was 4.9. She was given IV vitamin K, IV Protonix, IV Zofran, and fresh frozen plasma. In addition she was given IV fluids, her hemodynamics did improve. Care was discussed with Dr. Resendez and she was admitted to the intensive care unit with consultations placed to gastroenterology and cardiology. The patient was seen and examined on 06/08/2019. She remains stable although a little tachycardic with heart rate in the 90s to low 100s, atrial fibrillation. She is continuing on IV digoxin, oral Toprol. Oxygen saturation 98% on 2 L nasal cannula. Her hemoglobin did drop to 5.0 yesterday and she received 2 units of packed red blood cells with hemoglobin this morning 8.0 and INR 1.2 after 2 units of fresh frozen plasma given yesterday. White blood cell count of 13.6. Lactic acid returned to normal at 1.9. Echocardiogram was completed demonstrating moderate to severe left ventricle systolic function with EF 30- 35%, left atrial dilatation, mild aortic insufficiency, moderate mitral regurgitation, severe tricuspid regurgitation, and moderate pulmonary hypertension. She has had no more episodes of hematemesis or syncope. EGD completed demonstrating deep distal esophageal mucosal ulceration/tear extending from 30-38 cm from the incisors with a large adherent linear clot with no active bleeding. The patient is seen today 06/09/2019 in follow-up in the intensive care unit. She is currently awake and alert in no acute distress. No worsening shortness of breath, cough or congestion. Maintaining O2 saturations up to 100% on 4 L/m per nasal cannula. Slightly tachycardic. Remains in atrial fibrillation. Afebrile. She is status post 2 units of packed red blood cells this admission. Current hemoglobin 8.1. White count 13.3. Hemoglobin 8.1. Sodium 134. Potassium 4.5. Chloride 112. Bicarb 15. Creatinine 0.81. Computed tomography scan of the chest revealed no suspicious collections, pneumomediastinum or pneumoperitoneum to suggest esophageal perforation. There is small bilateral pleural effusion seen previously. Some mild adjacent atelectasis. Objective - Vital Signs Vital signs: Vital Signs Temp 98.2 F 06/09/19 08:00 Pulse 131 H 06/09/19 08:00 Resp 25 H 06/09/19 08:00 BP 132/94 06/09/19 08:00 Pulse Ox 100 06/09/19 08:00 Intake & Output 06/08/19 06/09/19 06/09/19 18:59 06:59 18:59 Intake Total 1100 820 110 Output Total 410 355 95 Balance 690 465 15 Weight 63.5 kg Intake: IV 800 400 110 Sodium Chloride 0.9% 1, 500 400 110 000 ml @ 10 mls/hr IV . Q24H [facility] Rx#:[id number] Sodium Chloride 0.9% 1, 250 000 ml @ 100 mls/hr IV . Q10H [facility] Rx#:[id number] Oral 300 420 Output: Urine 410 355 95 Other: Voiding Method Indwelling Catheter Indwelling Catheter Indwelling Catheter - Exam GENERAL EXAM: Alert, pleasant 79-year-old female patient on 4 L nasal cannula with O2 saturation 100%, comfortable in no apparent distress. HEAD: Normocephalic. EYES: Normal reaction of pupils, equal size. NOSE: Clear with pink turbinates. THROAT: No erythema or exudates. NECK: No masses, no JVD. CHEST: No chest wall deformity. LUNGS: Equal air entry with faint crackles in the bases CVS: S1 and S2 normal with no audible murmur, regular rhythm. ABDOMEN: No hepatosplenomegaly, normal bowel sounds, no guarding or rigidity. SPINE: No scoliosis or deformity SKIN: No rashes CENTRAL NERVOUS SYSTEM: No focal deficits, tone is normal in all 4 extremities. EXTREMITIES: There is no peripheral edema. No clubbing, no cyanosis. Peripheral pulses are intact. - Labs CBC & Chem 7: 06/09/19 04:58 06/09/19 04:58 Labs: Abnormal Lab Results - Last 24 Hours (Table) 06/09/19 06/09/19 Range/Units 04:58 04:58 WBC 13.3 H (3.8-10.6) k/uL RBC 2.53 L (3.80-5.40) m/uL Hgb 8.1 L (11.4-16.0) gm/dL Hct 24.3 L (34.0-46.0) % RDW 17.9 H (11.5-15.5) % Neutrophils # 10.4 H (1.3-7.7) k/uL Sodium 134 L (137-145) mmol/L Chloride 112 H (98-107) mmol/L Carbon Dioxide 15 L (22-30) mmol/L BUN 30 H (7-17) mg/dL Calcium 8.2 L (8.4-10.2) mg/dL Assessment and Plan Assessment: 1. Deep distal esophageal mucosal ulceration/tear extending from 30-38 cm from the incisors with a large adherent linear clot, no active bleeding per EGD 2. Lactic acidosis, leukocytosis, resolving 3. Chronic atrial fibrillation on Coumadin for anticoagulation 4. Supratherapeutic INR 5. Coronary artery disease with previous myocardial infarction, CABG and stent placement, on Plavix at home 6. Chronic systolic heart failure with moderate LV dysfunction, ejection fraction 40%, severe mitral regurgitation 7. Sick sinus syndrome status post permanent pacemaker placement 8. Hypertension 9. Hyperlipidemia 10. History of breast cancer status post lumpectomy, chemo, radiation Plan: The patient was seen and examined with Dr. Resendez. Stable from the critical care standpoint Transferred to the regular medical floor Rate control and anticoagulation per cardiology Titrate down the FiO2 as tolerated We'll continue to follow I, the cosigning physician, performed a history & physical examination of the patient. Lungs sounds with faint crackles in the bases. Maintaining good O2 saturations in the 90s on 4 L/m per nasal cannula. I discussed the assessment and plan of care with my nurse practitioner, Caity Logan. I attest to the above note as dictated by her.
--- NOTE | 2019-06-09 13:47 | PN ---
PROGRESS NOTE DATE OF DICTATION: 06/09/2019 This patient is an 79-year-old pleasant white female admitted to the hospital with acute upper GI bleed. She underwent an upper endoscopy yesterday that revealed a deep distal esophageal ulcer extending from 30 to 40 cm from the incisors with a large adherent clot. She underwent a CT of the chest after the upper endoscopy to rule out perforation, which was negative. The patient is doing well. She denies any complaints. Remains in the intensive care unit. No further bleeding. Remains on a clear liquid diet. PHYSICAL EXAMINATION: She appears comfortable. No apparent distress. Vital signs are stable. Blood pressure is 132/94, pulse rate 131, temperature 98.2. HEENT examination unremarkable. Conjunctivae pink. Sclerae anicteric. Oral cavity no lesions. NECK: No JVD or lymph node enlargement. CHEST: Clear to auscultation. HEART: Regular rate and rhythm. ABDOMEN: Soft. Bowel sounds are positive. No organomegaly. EXTREMITIES: No pedal edema. SKIN: No rashes. NEUROLOGIC: Alert and oriented x3. No focal deficits. LABS: WBC 13.3, hemoglobin 8.1, platelets normal. Basic metabolic panel is within normal limits. BUN 30, creatinine 0.81. IMPRESSION: 1. Acute gastrointestinal bleed, status post EGD yesterday that revealed a deep esophageal ulceration with a large adherent clot. CT of the chest negative for perforation. No further episodes of bleeding. Hemoglobin stable at 8.1 g/dL. 2. Atrial fibrillation, on Coumadin, currently on hold. 3. History of hypertension. RECOMMENDATIONS: 1. Continue with a clear liquid diet today. 2. Protonix 40 mg q.12 hours. 3. CBC on a daily basis. 4. If she has no further evidence of bleeding or chest pain or shortness of breath, will advance her diet tomorrow. Thank you for this consultation. MMODL / IJN: [id number] /
--- NOTE | 2019-06-09 15:58 | P.PN ---
Subjective Progress Note Date: 06/09/19 Principal diagnosis: GI bleed Status post EGD 79-year-old, pleasant, white female admitted hospital with acute upper GI bleed. She had several episodes of hematemesis followed by coffee-ground emesis and tarry stools. She dropped hemoglobin from 10-5 g/dL requiring 2 units of the transition. She is on Coumadin with an INR of 3 and gradually but he was told that was with vitamin K and fresh frozen plasma. INR today is 1.2. 06/08/2019 Patient underwent EGD showing deep distal esophageal mucosal ulcerations/tear extending from 30-38 cm with a large adherent linear clot; no active bleeding found CT of the chest is ordered to rule out esophageal perforation/mediastinotomy in her; patient has been instructed to continue with clear liquid diet until CT results are available Continue with Protonix 40 mg twice daily. Hold Coumadin. Monitor CBC on a daily basis. 06/09/2019 patient is seen and evaluated in follow-up in the intensive care unit. She is currently awake and alert in no acute distress. No worsening shortness of breath, cough or congestion. Maintaining O2 saturations up to 100% on 4 L/m per nasal cannula. Slightly tachycardic. Remains in atrial fibrillation. Afebrile. She is status post 2 units of packed red blood cells this admission. Current hemoglobin 8.1. White count 13.3. Hemoglobin 8.1. Sodium 134. Potassium 4.5. Chloride 112. Bicarb 15. Creatinine 0.81. Computed tomography scan of the chest revealed no suspicious collections, pneumomediastinum or pneumoperitoneum to suggest esophageal perforation. There is small bilateral pleural effusion seen previously. Some mild adjacent atelectasis. Patient is being followed by GI and recommended to continue with clear liquid di et and continue with Protonix 40 mg every 12 hours; plan is to continue to advance diet if patient does not have any further bleeding Objective - Vital Signs Vital signs: Vital Signs Temp 98.2 F 06/09/19 08:00 Pulse 131 H 06/09/19 08:00 Resp 25 H 06/09/19 08:00 BP 132/94 06/09/19 08:00 Pulse Ox 100 06/09/19 08:00 Intake & Output 06/08/19 06/09/19 06/09/19 18:59 06:59 18:59 Intake Total 1100 820 110 Output Total 410 355 95 Balance 690 465 15 Weight 63.5 kg Intake: IV 800 400 110 Sodium Chloride 0.9% 1, 500 400 110 000 ml @ 10 mls/hr IV . Q24H [facility] Rx#:[id number] Sodium Chloride 0.9% 1, 250 000 ml @ 100 mls/hr IV . Q10H [facility] Rx#:[id number] Oral 300 420 Output: Urine 410 355 95 Other: Voiding Method Indwelling Catheter Indwelling Catheter Indwelling Catheter - Exam GENERAL: The patient is alert and oriented x3, not in any acute distress. Well developed, well nourished. HEENT: Pupils are round and equally reacting to light. EOMI. No scleral icterus. No conjunctival pallor. Normocephalic, atraumatic. No pharyngeal erythema. No thyromegaly. CARDIOVASCULAR: S1 and S2 present. No murmurs, rubs, or gallops. PULMONARY: Chest is clear to auscultation, no wheezing or crackles. ABDOMEN: Soft, nontender, nondistended, normoactive bowel sounds. No palpable organomegaly. MUSCULOSKELETAL: No joint swelling or deformity. EXTREMITIES: No cyanosis, clubbing, or pedal edema. NEUROLOGICAL: Gross neurological examination did not reveal any focal deficits. SKIN: No rashes. - Labs CBC & Chem 7: 06/09/19 04:58 06/09/19 04:58 Labs: Abnormal Lab Results - Last 24 Hours (Table) 06/09/19 06/09/19 Range/Units 04:58 04:58 WBC 13.3 H (3.8-10.6) k/uL RBC 2.53 L (3.80-5.40) m/uL Hgb 8.1 L (11.4-16.0) gm/dL Hct 24.3 L (34.0-46.0) % RDW 17.9 H (11.5-15.5) % Neutrophils # 10.4 H (1.3-7.7) k/uL Sodium 134 L (137-145) mmol/L Chloride 112 H (98-107) mmol/L Carbon Dioxide 15 L (22-30) mmol/L BUN 30 H (7-17) mg/dL Calcium 8.2 L (8.4-10.2) mg/dL Assessment and Plan Assessment: -Possible upper GI bleed secondary to peptic ulcer disease patient will undergo upper GI endoscopy holding off of on anticoagulation. Patient is receiving FFP. She received vitamin K as well -Leukocytosis with the lactic acidosis: Possibly other etiology of leukocytosis reactive although I cannot completely rule out infectious process patient and doesn't have any clinical symptoms of infection will obtain a chest x-ray and a urinalysis with urine culture. Lactic is doses can be secondary to intravascular depletion from her recent GI bleed patient doesn't have any obvious abdominal pain my suspicion is low for ischemic bowel. Patient will be continued on IV fluids will recheck her basic metabolic profile and CBC tomorrow and will repeat lactic acid on IV fluids. -Congestive heart chronic systolic dysfunction: Patient is not in heart failure exacerbation fact patient is hypovolemic IV fluids are being held metoprolol will be continue digoxin will be continued -Atrial fibrillation chronic A. fib presently rate controlled on digoxin digoxin will be continued and metoprolol will be continued Cardizem will be discontinued. Patient need to be evaluated for new anticoagulant agents. -Coronary artery disease with previous CABG and stent anticoagulation and antiplatelet therapy is being held temporarily because of GI bleed -Supratherapeutic INr Severity in the past -Hyperlipidemia -Hypertension patient is presently hypotensive this is hypovolemic and patient is receiving IV fluids as mentioned above
--- NOTE | 2019-06-09 16:56 | PN ---
PROGRESS NOTE Mrs. Padilla had an extensive GI bleed. She has a deep tear in her esophagus, but the stomach and duodenum are clear. This seems to have been a life-threatening bleeding, but hemoglobin is now stable. She is resting comfortably. Her other comorbid conditions include ischemic cardiomyopathy, previous bypass surgery, PCI, history of severe mitral and tricuspid regurgitation. She has chronic atrial fibrillation, on Coumadin. Blood pressure 120/70, pulse rate about 90 to 110. S1, S2 heard normally. Irregular rate and rhythm noted. Short systolic murmur to the apex noted. Lungs are clear. Abdomen and lower extremity exam unchanged. I am recommending that we increase the metoprolol succinate to 50 mg daily, start her on Bumex 0.5 mg daily. Hemoglobin is stable at 8.1. We will move her to telemetry, increase activity if okay with Gastroenterology. Discussed my thoughts in detail with the patient. MMODL / IJN: [id number] /
[2019-06-10] MEDS: METOPROLOL SUCCINATE (ER) 50 MG TAB.ER.24H PO SCH (07:24)
[2019-06-10] MEDS: BUMETANIDE 1 MG TAB PO SCH (07:25)
[2019-06-10] MEDS: PANTOPRAZOLE 40 MG/10 ML VIAL IV SCH ×2 (07:25→20:39)
[2019-06-10] MEDS: DIGOXIN 125 MCG TAB PO SCH (07:25)
[2019-06-10 08:24] LABS: Calcium 8.2 mg/dL (8.4-10.2)
[2019-06-10 08:44] LABS: Anisocytosis Slight; HCT 24.1 % (34.0-46.0); HGB 8.2 gm/dL (11.4-16.0); MCH 33.6 pg (25.0-35.0); MCV 98.8 fL (80.0-100.0); Macrocytosis Slight; Mean Platelet Volume 8.2; Platelet Count 225 k/uL (150-450); RBC 2.44 m/uL (3.80-5.40); RDW 18.6 % (11.5-15.5)
--- NOTE | 2019-06-10 10:14 | PN ---
PROGRESS NOTE The patient is an 79-year-old pleasant white female admitted to hospital with acute upper GI bleed. She had an upper endoscopy done 2 days ago that showed deep distal esophageal ulceration extending from 30-40 cm from the incisors with a large adherent clot. CT of the chest showed subsequently did not show any evidence of esophageal perforation. Patient is doing well. She denies any symptoms. Remains on a clear liquid diet, tolerating well. PHYSICAL EXAMINATION: Appears comfortable. Vital signs are stable. Blood pressure 94/46, pulse 97, temperature 98. HEENT examination unremarkable. Conjunctivae pink. Sclerae anicteric. Oral cavity no lesions. NECK: No JVD or lymph node enlargement. CHEST: Clear to auscultation. HEART: Regular rate and rhythm. ABDOMEN: Soft. Bowel sounds are positive. No organomegaly. EXTREMITIES: No pedal edema. SKIN: No rashes. NEUROLOGIC: Alert and oriented x3. No focal deficits. LABS: Done from today show hemoglobin stable at 8.2 g/dL. Rest of the labs are normal. IMPRESSION: 1. Acute upper gastrointestinal bleed, status post EGD that showed a deep ulceration in the distal esophagus with adherent clot. CT scan of the chest did not show any evidence of perforation. Patient on a clear liquid diet, tolerating well. No further episodes of bleeding. He remains on a clear liquid diet today hemoglobin stable at 8.1 g/dL. 2. History of atrial fibrillation on Coumadin, currently on hold. RECOMMENDATION: 1. Advance to full liquid diet. 2. Continue Protonix 40 mg q.12 hours. 3. Repeat labs in the morning and if she is doing well tomorrow, diet can be advanced to a soft diet and then she can be discharged home with outpatient followup in 2 weeks. Thank you for this consultation. MMODL / IJN: [id number] /
[2019-06-10 11:22] LABS: Eosinophils # (M) 0.38 k/uL (0-0.7); Lymphocytes # (M) 1.66 k/uL (1.0-4.8); Metamyelocytes # (M) 0.13 k/uL (0); Metamyelocytes % 1 %; Monocytes # (M) 0.64 k/uL (0-1.0); Myelocytes # (M) 0.13 k/uL (0); Myelocytes % 1 %; Neutrophils # (M) 10.24 k/uL (1.3-7.7); Neutrophils % (M) 80 %; Nucleated Red Blood Cells 1 /100 WBC (0-0); Total Cells Counted 200; WBC 12.8 k/uL (3.8-10.6)
[2019-06-10 11:26] LABS: Polychromasia Present
--- NOTE | 2019-06-10 14:20 | P.PN ---
Subjective Progress Note Date: 06/10/19 Principal diagnosis: GI bleed Status post EGD 79-year-old, pleasant, white female admitted hospital with acute upper GI bleed. She had several episodes of hematemesis followed by coffee-ground emesis and tarry stools. She dropped hemoglobin from 10-5 g/dL requiring 2 units of the transition. She is on Coumadin with an INR of 3 and gradually but he was told that was with vitamin K and fresh frozen plasma. INR today is 1.2. 06/08/2019 Patient underwent EGD showing deep distal esophageal mucosal ulcerations/tear extending from 30-38 cm with a large adherent linear clot; no active bleeding found CT of the chest is ordered to rule out esophageal perforation/mediastinotomy in her; patient has been instructed to continue with clear liquid diet until CT results are available Continue with Protonix 40 mg twice daily. Hold Coumadin. Monitor CBC on a daily basis. 06/09/2019 patient is seen and evaluated in follow-up in the intensive care unit. She is currently awake and alert in no acute distress. No worsening shortness of breath, cough or congestion. Maintaining O2 saturations up to 100% on 4 L/m per nasal cannula. Slightly tachycardic. Remains in atrial fibrillation. Afebrile. She is status post 2 units of packed red blood cells this admission. Current hemoglobin 8.1. White count 13.3. Hemoglobin 8.1. Sodium 134. Potassium 4.5. Chloride 112. Bicarb 15. Creatinine 0.81. Computed tomography scan of the chest revealed no suspicious collections, pneumomediastinum or pneumoperitoneum to suggest esophageal perforation. There is small bilateral pleural effusion seen previously. Some mild adjacent atelectasis. Patient is being followed by GI and recommended to continue with clear liquid di et and continue with Protonix 40 mg every 12 hours; plan is to continue to advance diet if patient does not have any further bleeding 06/10/2019 Patient is seen and evaluated on 6 N; was transferred out of ICU yesterday; she had upper endoscopy done showing deep distal esophageal ulceration with large adherent clot raising possibility of possible esophageal perforation; patient had a CT of chest done which did not reveal pneumomediastinum or pneumoperitoneum to suggest esophageal perforation; patient was started on clear liquid diet; she is tolerating clear liquids and has been advanced to full liquid diet; GI recommending possible discharge home when patient is able to tolerate soft diet with outpatient follow-up in about 2 weeks; possible discharge in next 24-48 hours pending tolerance to diet and hemoglobin remained stable Objective - Vital Signs Vital signs: Vital Signs Temp 98.0 F 06/10/19 05:00 Pulse 97 06/10/19 05:00 Resp 20 06/10/19 05:00 BP 94/46 06/10/19 05:00 Pulse Ox 96 06/10/19 05:00 Intake & Output 06/09/19 06/10/19 06/10/19 18:59 06:59 18:59 Intake Total 650 250 Output Total 1320 300 Balance -670 -50 Intake: IV 110 Sodium Chloride 0.9% 1, 110 000 ml @ 10 mls/hr IV . Q24H [facility] Rx#:[id number] Oral 540 250 Output: Urine 1320 300 Other: Voiding Method Indwelling Catheter Indwelling Catheter # Bowel Movements 1 - Exam GENERAL: The patient is alert and oriented x3, not in any acute distress. Well developed, well nourished. HEENT: Pupils are round and equally reacting to light. EOMI. No scleral icterus. No conjunctival pallor. Normocephalic, atraumatic. No pharyngeal erythema. No thyromegaly. CARDIOVASCULAR: S1 and S2 present. No murmurs, rubs, or gallops. PULMONARY: Chest is clear to auscultation, no wheezing or crackles. ABDOMEN: Soft, nontender, nondistended, normoactive bowel sounds. No palpable organomegaly. MUSCULOSKELETAL: No joint swelling or deformity. EXTREMITIES: No cyanosis, clubbing, or pedal edema. NEUROLOGICAL: Gross neurological examination did not reveal any focal deficits. SKIN: No rashes. - Labs CBC & Chem 7: 06/10/19 06:52 06/10/19 06:52 Labs: Abnormal Lab Results - Last 24 Hours (Table) 06/10/19 06/10/19 Range/Units 06:52 06:52 WBC 12.8 H (3.8-10.6) k/uL RBC 2.44 L (3.80-5.40) m/uL Hgb 8.2 L (11.4-16.0) gm/dL Hct 24.1 L (34.0-46.0) % RDW 18.6 H (11.5-15.5) % Neutrophils # (Manual) 10.24 H (1.3-7.7) k/uL Metamyelocytes # (Man) 0.13 H (0) k/uL Myelocytes # (Manual) 0.13 H (0) k/uL Nucleated RBCs 1 H (0-0) /100 WBC Sodium 132 L (137-145) mmol/L Carbon Dioxide 19 L (22-30) mmol/L BUN 25 H (7-17) mg/dL Glucose 72 L (74-99) mg/dL Calcium 8.2 L (8.4-10.2) mg/dL Assessment and Plan Assessment: -Possible upper GI bleed secondary to peptic ulcer disease patient will undergo upper GI endoscopy holding off of on anticoagulation. Patient is receiving FFP. She received vitamin K as well -Leukocytosis with the lactic acidosis: Possibly other etiology of leukocytosis reactive although I cannot completely rule out infectious process patient and doesn't have any clinical symptoms of infection will obtain a chest x-ray and a urinalysis with urine culture. Lactic is doses can be secondary to intravascular depletion from her recent GI bleed patient doesn't have any obvious abdominal pain my suspicion is low for ischemic bowel. Patient will be continued on IV fluids will recheck her basic metabolic profile and CBC tomorrow and will repeat lactic acid on IV fluids. -Congestive heart chronic systolic dysfunction: Patient is not in heart failure exacerbation fact patient is hypovolemic IV fluids are being held metoprolol will be continue digoxin will be continued -Atrial fibrillation chronic A. fib presently rate controlled on digoxin digoxin will be continued and metoprolol will be continued Cardizem will be discontinued. Patient need to be evaluated for new anticoagulant agents. -Coronary artery disease with previous CABG and stent anticoagulation and antiplatelet therapy is being held temporarily because of GI bleed -Supratherapeutic INr Severity in the past -Hyperlipidemia -Hypertension patient is presently hypotensive this is hypovolemic and patient is receiving IV fluids as mentioned above
[2019-06-10] MEDS: SODIUM CHLORIDE 0.9% 1,000 ML IV SCH (20:39)
[2019-06-11] MEDS: PANTOPRAZOLE 40 MG/10 ML VIAL IV SCH (07:48)
[2019-06-11 08:19] LABS: Anisocytosis Slight; HCT 25.7 % (34.0-46.0); HGB 8.5 gm/dL (11.4-16.0); Hypochromasia Slight; MCH 33.7 pg (25.0-35.0); MCHC 33.2 g/dL (31.0-37.0); MCV 101.4 fL (80.0-100.0); Macrocytosis Moderate; Mean Platelet Volume 8.1; Platelet Count 260 k/uL (150-450); Poikilocytosis Slight; RBC 2.54 m/uL (3.80-5.40); RDW 19.6 % (11.5-15.5)
[2019-06-11 08:27] LABS: Calcium 8.4 mg/dL (8.4-10.2); Potassium 3.9 mmol/L (3.5-5.1)
[2019-06-11] MEDS: METOPROLOL SUCCINATE (ER) 50 MG TAB.ER.24H PO SCH (08:28)
[2019-06-11] MEDS: BUMETANIDE 1 MG TAB PO SCH (08:29)
[2019-06-11] MEDS: DIGOXIN 125 MCG TAB PO SCH (08:29)
[2019-06-11 10:43] LABS: Eosinophils # (M) 0.28 k/uL (0-0.7); Lymphocytes # (M) 1.68 k/uL (1.0-4.8); Myelocytes # (M) 0.28 k/uL (0); Myelocytes % 2 %; Neutrophils % (M) 80 %; Nucleated Red Blood Cells 4 /100 WBC (0-0); Total Cells Counted 200; Toxic Granulation Present
[2019-06-11 10:44] LABS: Polychromasia Present
--- NOTE | 2019-06-11 13:08 | P.PN ---
Subjective Progress Note Date: 06/11/19 Principal diagnosis: GI bleed This is an 79-year-old female patient who follows on an outpatient basis Dr. Car Connell. She reported to [facility] emergency room this morning with complaints per the daughter of hematemesis. She has had a history of chronic atrial fibrillation with Coumadin for anticoagulation. The rest of her previous medical history includes coronary artery disease with previous myocardial infarction status post stent placement as well as CABG on Plavix at home, chronic systolic heart failure with moderate LV dysfunction, ejection fraction 40%, and severe mitral regurgitation, sick sinus syndrome status post permanent pacemaker placement, hypertension, hyperlipidemia, and breast cancer status post lumpectomy, chemo, and radiation. Per her daughter she had been feeling unwell for a few days, she vomited bright red blood 3, she had a s yncopal episode prompting her daughter to call 911. She does check her INR at home, normal INR is 2.2-2.5, it was 3 earlier this week. Her last EGD and colonoscopy were completed 03/10/2018 which demonstrated small hiatal hernia. She denied any abdominal pain. In the emergency room she was found to be in atrial fibrillation with rapid ventricular response with heart rate 190. In addition she was hypotensive with blood pressure 71/49. White blood cell count 21.9, hemoglobin was 10.1, INR was 3.9, lactic acid was 4.9. She was given IV vitamin K, IV Protonix, IV Zofran, and fresh frozen plasma. In addition she was given IV fluids, her hemodynamics did improve. Care was discussed with Dr. Resendez and she was admitted to the intensive care unit with consultations placed to gastroenterology and cardiology. The patient was seen and examined on 06/08/2019. She remains stable although a little tachycardic with heart rate in the 90s to low 100s, atrial fibrillation. She is continuing on IV digoxin, oral Toprol. Oxygen saturation 98% on 2 L nasal cannula. Her hemoglobin did drop to 5.0 yesterday and she received 2 units of packed red blood cells with hemoglobin this morning 8.0 and INR 1.2 after 2 units of fresh frozen plasma given yesterday. White blood cell count of 13.6. Lactic acid returned to normal at 1.9. Echocardiogram was completed demonstrating moderate to severe left ventricle systolic function with EF 30- 35%, left atrial dilatation, mild aortic insufficiency, moderate mitral regurgitation, severe tricuspid regurgitation, and moderate pulmonary hypertension. She has had no more episodes of hematemesis or syncope. EGD completed demonstrating deep distal esophageal mucosal ulceration/tear extending from 30-38 cm from the incisors with a large adherent linear clot with no active bleeding. The patient is seen today 06/09/2019 in follow-up in the intensive care unit. She is currently awake and alert in no acute distress. No worsening shortness of breath, cough or congestion. Maintaining O2 saturations up to 100% on 4 L/m per nasal cannula. Slightly tachycardic. Remains in atrial fibrillation. Afebrile. She is status post 2 units of packed red blood cells this admission. Current hemoglobin 8.1. White count 13.3. Hemoglobin 8.1. Sodium 134. Potassium 4.5. Chloride 112. Bicarb 15. Creatinine 0.81. Computed tomography scan of the chest revealed no suspicious collections, pneumomediastinum or pneumoperitoneum to suggest esophageal perforation. There is small bilateral pleural effusion seen previously. Some mild adjacent atelectasis. The patient is seen today 06/11/2019 In follow-up on the regular medical floor. She is currently sitting up in a chair at the bedside. Awake and alert in no acute distress. No further bleeding. No worsening shortness of breath, cough or congestion. Status post 2 units packed red blood cells this admission. Current hemoglobin 8.5. White count 14.0. Platelets 260. Sodium 132. Pota ssium 3.9. Creatinine 0.89. Objective - Vital Signs Vital signs: Vital Signs Temp 97.7 F 06/11/19 05:00 Pulse 84 06/11/19 05:00 Resp 20 06/11/19 05:00 BP 123/61 06/11/19 05:00 Pulse Ox 96 06/11/19 05:00 Intake & Output 06/10/19 06/11/19 06/11/19 18:59 06:59 18:59 Intake Total 540 Balance 540 Intake: Oral 540 Other: Voiding Method Toilet Toilet # Voids 2 1 - Exam GENERAL EXAM: Alert, pleasant 79-year-old female patient on room air with O2 saturation in the 90s, comfortable in no apparent distress. HEAD: Normocephalic. EYES: Normal reaction of pupils, equal size. NOSE: Clear with pink turbinates. THROAT: No erythema or exudates. NECK: No masses, no JVD. CHEST: No chest wall deformity. LUNGS: Equal air entry with faint crackles in the bases CVS: S1 and S2 normal with no audible murmur, regular rhythm. ABDOMEN: No hepatosplenomegaly, normal bowel sounds, no guarding or rigidity. SPINE: No scoliosis or deformity SKIN: No rashes CENTRAL NERVOUS SYSTEM: No focal deficits, tone is normal in all 4 extremities. EXTREMITIES: There is no peripheral edema. No clubbing, no cyanosis. Peripheral pulses are intact. - Labs CBC & Chem 7: 06/11/19 07:34 06/11/19 07:34 Labs: Abnormal Lab Results - Last 24 Hours (Table) 06/11/19 06/11/19 Range/Units 07:34 07:34 WBC 14.0 H (3.8-10.6) k/uL RBC 2.54 L (3.80-5.40) m/uL Hgb 8.5 L (11.4-16.0) gm/dL Hct 25.7 L (34.0-46.0) % MCV 101.4 H (80.0-100.0) fL RDW 19.6 H (11.5-15.5) % Neutrophils # (Manual) 11.20 H (1.3-7.7) k/uL Myelocytes # (Manual) 0.28 H (0) k/uL Nucleated RBCs 4 H (0-0) /100 WBC Sodium 132 L (137-145) mmol/L Carbon Dioxide 20 L (22-30) mmol/L BUN 23 H (7-17) mg/dL Assessment and Plan Assessment: 1. Deep distal esophageal mucosal ulceration/tear extending from 30-38 cm from the incisors with a large adherent linear clot, no active bleeding per EGD 2. Lactic acidosis, leukocytosis, resolving 3. Chronic atrial fibrillation on Coumadin for anticoagulation 4. Supratherapeutic INR 5. Coronary artery disease with previous myocardial infarction, CABG and stent placement, on Plavix at home 6. Chronic systolic heart failure with moderate LV dysfunction, ejection frac tion 40%, severe mitral regurgitation 7. Sick sinus syndrome status post permanent pacemaker placement 8. Hypertension 9. Hyperlipidemia 10. History of breast cancer status post lumpectomy, chemo, radiation Plan: The patient was seen and examined with Dr. Gregory. Cleared for discharge from the pulmonary standpoint. I, the cosigning physician, performed a history & physical examination of the patient. Lungs sounds with faint crackles in the bases. Maintaining good O2 saturations in the 90s on room air. I discussed the assessment and plan of care with my nurse practitioner, Caity Logan. I attest to the above note as dictated by her.
[2019-06-11 13:50] VITALS: BP 120/75; RESP 16; TEMP 97.6
[2019-06-11 14:48] VITALS: BMI 25.6
[2019-06-11 16:31] VITALS: PULSE 102
--- NOTE | 2019-06-11 21:28 | P.PN ---
Subjective Progress Note Date: 06/11/19 Principal diagnosis: Hematemesis Patient is seen sitting bedside reporting she is doing well. No nausea or vomiting. Tolerating diet. No signs or symptoms GI bleeding. Objective - Vital Signs Vital signs: Vital Signs Temp 97.7 F 06/11/19 05:00 Pulse 84 06/11/19 05:00 Resp 20 06/11/19 05:00 BP 123/61 06/11/19 05:00 Pulse Ox 96 06/11/19 05:00 Intake & Output 06/10/19 06/11/19 06/11/19 18:59 06:59 18:59 Intake Total 540 Balance 540 Intake: Oral 540 Other: Voiding Method Toilet Toilet # Voids 2 1 - Exam On physical examination, patient appears comfortable in no apparent distress. HEAD: Normocephalic, atraumatic. EYES: No scleral icterus. No conjunctival injection. MOUTH: No lesions, tongue midline. NECK: Trachea midline, no gross abnormalities. ABDOMEN: Soft, nontender. Bowel sounds are positive. No organomegaly. No guarding or rigidity. EXTREMITIES: No pedal edema. SKIN: No rashes, no jaundice. NEUROLOGIC: Alert and oriented x3. No focal deficits. - Labs CBC & Chem 7: 06/11/19 07:34 06/11/19 07:34 Labs: Abnormal Lab Results - Last 24 Hours (Table) 06/11/19 06/11/19 Range/Units 07:34 07:34 WBC 14.0 H (3.8-10.6) k/uL RBC 2.54 L (3.80-5.40) m/uL Hgb 8.5 L (11.4-16.0) gm/dL Hct 25.7 L (34.0-46.0) % MCV 101.4 H (80.0-100.0) fL RDW 19.6 H (11.5-15.5) % Neutrophils # (Manual) 11.20 H (1.3-7.7) k/uL Myelocytes # (Manual) 0.28 H (0) k/uL Nucleated RBCs 4 H (0-0) /100 WBC Sodium 132 L (137-145) mmol/L Carbon Dioxide 20 L (22-30) mmol/L BUN 23 H (7-17) mg/dL Assessment and Plan (1) GI bleeding Narrative/Plan: 79-year-old presenting with episodes of hematemesis taken for EGD and found to have a distal esophageal tear. Since that time she has been doing well. No further signs or symptoms of GI bleeding. Hemoglobin has remained stable at 8.5 today. Status: Acute Code(s): K92.2 - GASTROINTESTINAL HEMORRHAGE, UNSPECIFIED SNOMED Code(s): 64405235 (2) Acute blood loss anemia Status: Acute Code(s): D62 - ACUTE POSTHEMORRHAGIC ANEMIA SNOMED Code(s): 811771199 Plan: Supportive care Continue Protonix 40 mg twice daily Continue monitor CBC Okay for diet Okay for discharge from otherwise medically stable Thank you for allowing us to participate in the care of the patient
--- NOTE | 2019-06-11 22:29 | P.DS ---
Providers Date of admission: 06/07/19 05:09 Expected date of discharge: 06/11/19 Attending physician: Anjel Pan Consults: 06/07/19 05:09 Consult Physician Stat Consulting Provider: Darryl Resendez Consult Reason/Comments: ICU Do you want consulting provider notified?: Already Contacted Consult Physician Urgent Consulting Provider: Maddie Santos Consult Reason/Comments: GIB Do you want consulting provider notified?: Already Contacted 06/07/19 05:10 Consult Physician Urgent Consulting Provider: Kimberley Pearce Consult Reason/Comments: Afib RVR Do you want consulting provider notified?: Yes, Notify in am Primary care physician: [facility] Course: Presenting complaint: Vomiting bright red blood Interval history: 79-year-old, pleasant, white female admitted hospital with acute upper GI bleed. She had several episodes of hematemesis followed by coffee-ground emesis and tarry stools. She dropped hemoglobin from 10-5 g/dL requiring 2 units blood. She is on Coumadin with an INR of 3 and gradually but he was told that was with vitamin K and fresh frozen plasma. Initially admitted to the ICU. Patient underwent EGD showing deep distal esophageal mucosal ulcerations/tear extending from 30-38 cm with a large adherent linear clot; no active bleeding found CT of the chest is ordered to rule out esophageal perforation/mediastinotomy in her; Today-tolerating diet. Abdominal pain. Had a bowel movement. Hemoglobin is stable. Seen by GI. Cleared for discharge. Patient to hold Coumadin and Plavix to follow up with oncology. Consultation: Dr. Resendez from critical care Dr. ANDRESSA Alberto from cardiology Dr. Lyndsay Santos from GI On examination: Vitals-97.6, 92, 16, 120/75, 99% on 4 L GENERAL: Sitting up a chair, awake, comfortable. HEENT: Pupils equal, conjunctiva pale CARDIOVASCULAR: S1 and S2 present. No edema. PULMONARY: Chest is clear to auscultation, no wheezing or crackles. ABDOMEN: Soft, nontender, nondistended, normoactive bowel sounds. No palpable organomegaly. MUSCULOSKELETAL: No joint swelling or deformity. Psychiatry-answering questions appropriately. INVESTIGATIONS, reviewed in the clinical context: Hemoglobin 8.5 platelets 260 Previous testing: Hemoglobin 5 INR 3.9 Assessment: -Severe upper GI bleed due to distal esophageal tear -Reactive Leukocytosis -Lactic acidosis type II -Congestive heart chronic systolic dysfunction: EF 30-35% -Persistent Atrial fibrillation -Coronary artery disease with previous CABG and stent -Coumadin toxicity on presentation-INR 3.9 -Hyperlipidemia -Hypertension -Hypotension from blood loss, POA -Acute hypoxic respiratory failure -AICD for sick sinus syndrome Disposition: Home with oxygen Patient Condition at Discharge: Stable Plan - Discharge Summary Discharge Rx Participant: No New Discharge Prescriptions: New Omeprazole Magnesium [PriLOSEC OTC] 20 mg PO BID #60 tablet. Continue Digoxin [Digitek] 125 mcg PO AC-SUPPER Metoprolol Succinate [Toprol XL] 25 mg PO DAILY traMADol HCL 50 - 100 mg PO Q6H PRN PRN Reason: Pain Zolpidem [Ambien] 5 mg PO HS PRN PRN Reason: Insomnia Nitroglycerin Sl Tabs [Nitrostat] 0.4 mg SUBLINGUAL Q5M PRN PRN Reason: Chest Pain Changed Bumetanide [BUMEX] 0.5 mg PO DAILY #0 Discontinued Lisinopril [Zestril] 5 mg PO BID Cholecalciferol [Vitamin D3 (25 Mcg = 1000 Iu)] 2,000 unit PO DAILY Diltiazem HCl [Cartia Xt] 120 mg PO DAILY No Action Clopidogrel [Plavix] 75 mg PO DAILY Warfarin [Coumadin] 2 mg PO HS Discharge Medication List Clopidogrel [Plavix] 75 mg PO DAILY 02/11/18 [History] Warfarin [Coumadin] 2 mg PO HS 03/07/18 [History] Digoxin [Digitek] 125 mcg PO AC-SUPPER 01/08/19 [History] Metoprolol Succinate [Toprol XL] 25 mg PO DAILY 01/08/19 [History] traMADol HCL 50 - 100 mg PO Q6H PRN 01/08/19 [History] Nitroglycerin Sl Tabs [Nitrostat] 0.4 mg SUBLINGUAL Q5M PRN 06/07/19 [History] Zolpidem [Ambien] 5 mg PO HS PRN 06/07/19 [History] Bumetanide [BUMEX] 0.5 mg PO DAILY #0 06/11/19 [Rx] Omeprazole Magnesium [PriLOSEC OTC] 20 mg PO BID #60 tablet. 06/11/19 [Rx] Follow up Appointment(s)/Referral(s): cardiology, [Other] - 1 Week Car Connell DO [Primary Care Provider] - 1 Week [facility] [NON-STAFF] - As Needed (oxygen ) Maddie Santos MD [STAFF PHYSICIAN] - 10 Days [facility] Nurse, [NON-STAFF] - 1-2 Days Patient Instructions/Handouts: Low Fiber Diet (DC) Activity/Diet/Wound Care/Special Instructions: bmp/cbc/ - 5 days check and log daily BP hold coumadin/ plavix till f/u with cardiology Discharge Disposition: HOME WITH HOME HEALTH SERVICES
--- NOTE | 2019-06-14 09:19 | CDI ---
Documentation Clarification Form Date: 06/14/19 From: Corinne Duval Phone: If you have a question about this query, please contact Agata Blackburn, Vulcanizing Press Operator at [phone] between 8am and 5pm. Admit Date: 06/07/19 Discharge Date:06/11/19 Patient Name: Rea Padilla Visit Number: [id number] ATTENTION: The Clinical Documentation Specialists (CDI) and [facility] Coding Staff appreciate your assistance in clarifying documentation. Please respond to the clarification below the line at the bottom and electronically sign. The CDI & [facility] Coding staff will review the response and follow-up if needed. Please note: Queries are made part of the Legal Health Record. If you have any questions, please contact the author of this message via ITS. Dear Dr. Pan The patient presented with the following: blood in vomit History/Risk Factors: Coumadin therapy, a-fib, GERD, CAD Clinical Indicators: Hematemesis, severe anemia Lab findings: Hgb 10.1, Hct 31.0 EGD findings: 1. Deep distal esophageal mucosal ulceration/tear extending from 30 - 38 cm from the incisors with a large adherent linear clot with no active bleeding. 2. Stomach and duodenum appeared normal. Vital Signs: T. 97.8, P. 180, R. 14, BP 71/49 Treatment: Consults: Dr. Santos documented acute GI bleed, status post EGD that revealed a deep esophageal ulceration with a large adherent clot in the 06/08 & 06/[address] Huertas documented distal esophageal tear in his 06/10 progress note In your professional opinion, can you please clarify the cause of the esophageal tear? Traumatic esophageal tear Trina-Madsen Tear Other, please specify Unable to determine MTDD
--- NOTE | 2019-06-18 13:52 | CDI ---
Documentation Clarification Form Date: 06/18/19 From: Corinne Duval Phone: If you have a question about this query, please contact Agata Blackburn, Cargo Station Worker at [phone] between 8am and 5pm. Admit Date: 06/07/19 Discharge Date:06/11/19 Patient Name: Rea Padilla Visit Number: [id number] ATTENTION: The Clinical Documentation Specialists (CDI) and [facility] Coding Staff appreciate your assistance in clarifying documentation. Please respond to the clarification below the line at the bottom and electronically sign. The CDI & [facility] Coding staff will review the response and follow-up if needed. Please note: Queries are made part of the Legal Health Record. If you have any questions, please contact the author of this message via ITS. Dear Dr. Pan Thank you for signing your previous query. Please document a response before signing this query. The patient presented with the following: blood in vomit History/Risk Factors: Coumadin therapy, a-fib, GERD, CAD Clinical Indicators: Hematemesis, severe anemia Lab findings: Hgb 10.1, Hct 31.0 EGD findings: 1. Deep distal esophageal mucosal ulceration/tear extending from 30 - 38 cm from the incisors with a large adherent linear clot with no active bleeding. 2. Stomach and duodenum appeared normal. Vital Signs: T. 97.8, P. 180, R. 14, BP 71/49 Treatment: Consults: Dr. Santos documented acute GI bleed, status post EGD that revealed a deep esophageal ulceration with a large adherent clot in the 06/08 & 06/[address] Huertas documented distal esophageal tear in his 06/10 progress note In your professional opinion, can you please clarify the cause of the esophageal tear? Traumatic esophageal tear Trina-Madsen Tear Other, please specify Unable to determine MTDD
--- NOTE | 2019-06-19 09:16 | CDI ---
Documentation Clarification Form Date: 06/19/19 From: Corinne Duval Phone: If you have a question about this query, please contact Agata Blackburn, Twist Packer at [phone] between 8am and 5pm. Admit Date: 06/07/19 Discharge Date:06/11/19 Patient Name: Rea Padilla Visit Number: [id number] ATTENTION: The Clinical Documentation Specialists (CDI) and [facility] Coding Staff appreciate your assistance in clarifying documentation. Please respond to the clarification below the line at the bottom and electronically sign. The CDI & [facility] Coding staff will review the response and follow-up if needed. Please note: Queries are made part of the Legal Health Record. If you have any questions, please contact the author of this message via ITS. Dear Dr. Pan Thank you for signing your previous query. Please document a response before signing this query. The patient presented with the following: blood in vomit History/Risk Factors: Coumadin therapy, a-fib, GERD, CAD Clinical Indicators: Hematemesis, severe anemia Lab findings: Hgb 10.1, Hct 31.0 EGD findings: 1. Deep distal esophageal mucosal ulceration/tear extending from 30 - 38 cm from the incisors with a large adherent linear clot with no active bleeding. 2. Stomach and duodenum appeared normal. Vital Signs: T. 97.8, P. 180, R. 14, BP 71/49 Treatment: Consults: Dr. Santos documented acute GI bleed, status post EGD that revealed a deep esophageal ulceration with a large adherent clot in the 06/08 & 06/[address] Huertas documented distal esophageal tear in his 06/10 progress note In your professional opinion, can you please clarify the cause of the esophageal tear? Traumatic esophageal tear Trina-Madsen Tear Other, please specify Unable to determine MTDD
--- NOTE | 2019-06-21 10:21 | CDI ---
Documentation Clarification Form Date: 06/21/19 From: Corinne Duval Phone: If you have a question about this query, please contact Agata Blackburn, Railroad Car Loader at [phone] between 8am and 5pm. Admit Date: 06/07/19 Discharge Date:06/11/19 Patient Name: Rea Padilla Visit Number: [id number] ATTENTION: The Clinical Documentation Specialists (CDI) and [facility] Coding Staff appreciate your assistance in clarifying documentation. Please respond to the clarification below the line at the bottom and electronically sign. The CDI & [facility] Coding staff will review the response and follow-up if needed. Please note: Queries are made part of the Legal Health Record. If you have any questions, please contact the author of this message via ITS. Dear Dr. Santos The patient presented with the following: blood in vomit History/Risk Factors: Coumadin therapy, a-fib, GERD, CAD Clinical Indicators: Hematemesis, severe anemia Lab findings: Hgb 10.1, Hct 31.0 EGD findings: 1. Deep distal esophageal mucosal ulceration/tear extending from 30 - 38 cm from the incisors with a large adherent linear clot with no active bleeding. 2. Stomach and duodenum appeared normal. Vital Signs: T. 97.8, P. 180, R. 14, BP 71/49 Treatment: IV Vitamin K, IV Protonix Consults: Dr. Santos documented acute GI bleed, status post EGD that revealed a deep esophageal ulceration with a large adherent clot in the 06/08 & 06/[address] Huertas documented distal esophageal tear in his 06/10 progress note In your professional opinion, can you please clarify the cause of the esophageal tear? Traumatic esophageal tear Trina-Madsen Tear Other, please specify Unable to determine MTDD
--- NOTE | 2019-06-26 11:46 | CDI ---
Documentation Clarification Form Date: 06/26/19 From: Corinne Duval Phone: If you have a question about this query, please contact Agata Blackburn, [place] Worker at [phone] between 8am and 5pm. Admit Date: 06/07/19 Discharge Date:06/11/19 Patient Name: Rea Padilla Visit Number: [id number] ATTENTION: The Clinical Documentation Specialists (CDI) and [facility] Coding Staff appreciate your assistance in clarifying documentation. Please respond to the clarification below the line at the bottom and electronically sign. The CDI & [facility] Coding staff will review the response and follow-up if needed. Please note: Queries are made part of the Legal Health Record. If you have any questions, please contact the author of this message via ITS. Dear Dr. Santos Thank you for signing the previous query. Please document a response to this query before signing it. The patient presented with the following: blood in vomit History/Risk Factors: Coumadin therapy, a-fib, GERD, CAD Clinical Indicators: Hematemesis, severe anemia Lab findings: Hgb 10.1, Hct 31.0 EGD findings: 1. Deep distal esophageal mucosal ulceration/tear extending from 30 - 38 cm from the incisors with a large adherent linear clot with no active bleeding. 2. Stomach and duodenum appeared normal. Vital Signs: T. 97.8, P. 180, R. 14, BP 71/49 Treatment: IV Vitamin K, IV Protonix Consults: Dr. Santos documented acute GI bleed, status post EGD that revealed a deep esophageal ulceration with a large adherent clot in the 06/08 & 06/[address] Huertas documented distal esophageal tear in his 06/10 progress note In your professional opinion, can you please clarify the cause of the esophageal tear? Traumatic esophageal tear Trina-Madsen Tear Other, please specify Unable to determine MTDD
== END 2019-06-11 16:56 | disposition home health service (06) | DRG 368 ==
LOC: EC 03:21 → 2SICU 05:09 → 6NMEDSUR 06-09 11:36
PROVIDERS: ADMIT Hospitalist; ATTEND Hospitalist
PROC: 30233N1 Transfusion of Nonautologous Red Blood Cells into Peripheral Vein, Percutaneous Approach (ICD-10-PCS; 2019-06-07)
PROC: 30233K1 Transfusion of Nonautologous Frozen Plasma into Peripheral Vein, Percutaneous Approach (ICD-10-PCS; 2019-06-07)
PROC: 0DJ08ZZ Inspection of Upper Intestinal Tract, Via Natural or Artificial Opening Endoscopic (ICD-10-PCS; principal; 2019-06-08 11:35)
DX: S27.813A Laceration of esophagus (thoracic part), initial encounter (principal); J96.01 Acute respiratory failure with hypoxia; D62 Acute posthemorrhagic anemia; E87.2 Acidosis; I50.22 Chronic systolic (congestive) heart failure; J98.11 Atelectasis; I48.20 Chronic atrial fibrillation, unspecified; I45.2 Bifascicular block; K92.2 Gastrointestinal hemorrhage, unspecified; I27.20 Pulmonary hypertension, unspecified; I49.5 Sick sinus syndrome; I11.0 Hypertensive heart disease with heart failure; I95.9 Hypotension, unspecified; D72.828 Other elevated white blood cell count; E78.5 Hyperlipidemia, unspecified; E86.1 Hypovolemia; I08.3 Combined rheumatic disorders of mitral, aortic and tricuspid valves; I25.10 Atherosclerotic heart disease of native coronary artery without angina pectoris; I25.2 Old myocardial infarction; I25.5 Ischemic cardiomyopathy; K64.8 Other hemorrhoids; M41.9 Scoliosis, unspecified; K21.9 Gastro-esophageal reflux disease without esophagitis; K44.9 Diaphragmatic hernia without obstruction or gangrene; M19.90 Unspecified osteoarthritis, unspecified site; G89.29 Other chronic pain; I73.00 Raynaud's syndrome without gangrene; R79.1 Abnormal coagulation profile; Z79.01 Long term (current) use of anticoagulants; Z79.02 Long term (current) use of antithrombotics/antiplatelets; Z79.899 Other long term (current) drug therapy; Z88.5 Allergy status to narcotic agent; Z95.5 Presence of coronary angioplasty implant and graft; Z95.1 Presence of aortocoronary bypass graft; Z95.0 Presence of cardiac pacemaker; Z87.891 Personal history of nicotine dependence; Z87.828 Personal history of other (healed) physical injury and trauma; Z86.73 Personal history of transient ischemic attack (TIA), and cerebral infarction without residual deficits; Z85.3 Personal history of malignant neoplasm of breast; Z90.49 Acquired absence of other specified parts of digestive tract; Z98.42 Cataract extraction status, left eye; Z98.41 Cataract extraction status, right eye; Z96.1 Presence of intraocular lens; Z87.01 Personal history of pneumonia (recurrent); Z87.898 Personal history of other specified conditions; Z92.21 Personal history of antineoplastic chemotherapy; Z92.3 Personal history of irradiation; Z82.49 Family history of ischemic heart disease and other diseases of the circulatory system; Z83.3 Family history of diabetes mellitus
CPT/HCPCS: 36415; 43235; 71045; 71250; 80048; 80053; 81001; 83605; 84484; 85025; 85027; 85610; 85730; 86850; 86900; 86901; 86920; 93306; 96361; 96365; 96375; 99291

== ENCOUNTER 2019-09-19 13:41 | Inpatient (IN) | payer MEDICARE, BC ==
[2019-09-19] MEDS ORDERED: SODIUM CHLORIDE 0.9% 500 ML 500 ML IV STA (13:50)
--- NOTE | 2019-09-19 14:07 | ED ---
General Adult HPI - General Source: patient, RN notes reviewed, old records reviewed <Rolando Soliz - Last Filed: 09/19/19 15:01> - History of Present Illness -: hour(s) Radiation: non-radiation Severity scale (1-10): 7 Quality: aching (No pain just weakness) Consistency: constant Improves with: none Worsens with: none Associated Symptoms: confusion, loss of appetite, shortness of breath, weakness Treatments Prior to Arrival: none <Rolando Murphy - Last Filed: 09/19/19 17:12> - General Stated complaint: Fall, GI bleed Time Seen by Provider: 09/19/19 13:41 - History of Present Illness Initial comments: This is an 79-year-old female who was found by her daughter on the bathroom floor. Patient states she remembers going to the bathroom this morning and that is all she remembers. Place and is on Coumadin and Plavix. Patient currently has no complaints. Patient does have a skin tear to the right arm and the left knee patient denies any headache patient denies any numbness or weakness. Patient denies chest pain or shortness of breath per patient denies any back pain. Patient denies any extremity pain. According to EMS there was bright red blood in the toilet. Patient states she has had a history of anemia and GI bleed in the past. (Rolando Soliz) 79 female DF for eval should've weakness and fall. Patient does feel weak D and dizzy with elevated heart rate patient is A. fib with RVR (Rolando Murphy) - Related Data Home Medications Medication Instructions Recorded Confirmed Clopidogrel [Plavix] 75 mg PO DAILY 02/11/18 09/19/19 Warfarin [Coumadin] 2 mg PO SUMOTUTHFRSA 03/07/18 09/19/19 Metoprolol Succinate [Toprol XL] 25 mg PO DAILY 01/08/19 09/19/19 Nitroglycerin Sl Tabs [Nitrostat] 0.4 mg SUBLINGUAL Q5M PRN 06/07/19 09/19/19 Bumetanide [BUMEX] 1 mg PO BID 09/19/19 09/19/19 Lisinopril [Zestril] 5 mg PO BID 09/19/19 09/19/19 Warfarin [Coumadin] 1 mg PO WE 09/19/19 09/19/19 Allergies Allergy/AdvReac Type Severity Reaction Status Date / Time codeine AdvReac Nausea & Verified 09/19/19 14:42 Vomiting Review of Systems ROS Other: All systems not noted in ROS Statement are negative. <Rolando Soliz - Last Filed: 09/19/19 15:01> ROS Other: All systems not noted in ROS Statement are negative. <Rolando Murphy - Last Filed: 09/19/19 17:12> ROS Statement: Those systems with pertinent positive or pertinent negative responses have been documented in the HPI. Past Medical History Past Medical History: Atrial Fibrillation, Cancer, Heart Failure, CVA/TIA, GERD/Reflux, Hyperlipidemia, Hypertension, Myocardial Infarction (CA), Musculoskeletal Disorder, Osteoarthritis (OA), Pneumonia Additional Past Medical History / Comment(s): Mitral regurgitation, moderate tricuspid regurg, mild aortic regurg, murmur, ischemic cardiomyopathy,2019 possible NSTEMI, L breast cancer with lumpectomy/chem and radiation, IBS, UTIs, 2019 anemia with cause unknown, bronchitis, TIAs, bilateral raynaulds syndrome, chronic low and thoracic back a pain/scoliosis, past head injury/concussion. Last Myocardial Infarction Date:: Possible NSTEMI in 2018 History of Any Multi-Drug Resistant Organisms: None Reported Past Surgical History: Adenoidectomy, Appendectomy, Breast Surgery, Coronary Bypass/CABG, Heart Catheterization, Heart Catheterization With Stent, Orthopedic Surgery, Pacemaker, Tonsillectomy Additional Past Surgical History / Comment(s): 10/25/17 NARENDRA, 10/27/17 PCI with stent to circumflex, 2002 CABG 3 vessel, left side lumpectomy, bialteral cataract removed, bilateral carpal tunnel releases, back injection, D&C, EGD in 2019 normal, colonoscopy. Past Anesthesia/Blood Transfusion Reactions: Postoperative Nausea & Vomiting (PONV) Additional Past Anesthesia/Blood Transfusion Reaction / Comment(s): Pt has received blood in past without reaction. Date of Last Stent Placement:: 10/27/17 Type of Cardiac Device: Permanent Pacemaker Device Placement Date:: 2006 with gen change in 2018 Past Psychological History: No Psychological Hx Reported Past Alcohol Use History: None Reported Past Drug Use History: None Reported - Past Family History Mother Family Medical History: Coronary Artery Disease (CAD), Diabetes Mellitus Additional Family Medical History / Comment(s): cabg Father Family Medical History: Pulmonary Embolus Additional Family Medical History / Comment(s): Father of a pulmonary embolism at the age of 46yrs. <SolizRolando - Last Filed: 09/19/19 15:01> General Exam <Rolando Soliz - Last Filed: 09/19/19 15:01> General appearance: alert, anxious, lethargic, in distress Head exam: Present: atraumatic, normocephalic, normal inspection Eye exam: Present: normal appearance, PERRL, EOMI. Absent: scleral icterus, conjunctival injection, periorbital swelling ENT exam: Present: normal exam, mucous membranes moist Neck exam: Present: normal inspection. Absent: tenderness, meningismus, lymphadenopathy Respiratory exam: Present: normal lung sounds bilaterally. Absent: respiratory distress, wheezes, rales, rhonchi, stridor Cardiovascular Exam: Present: tachycardia, irregular rhythm, normal heart sounds. Absent: systolic murmur, diastolic murmur, rubs, gallop, clicks GI/Abdominal exam: Present: soft, normal bowel sounds. Absent: distended, tenderness, guarding, rebound, rigid Extremities exam: Present: normal inspection, full ROM, normal capillary refill. Absent: tenderness, pedal edema, joint swelling, calf tenderness Back exam: Present: normal inspection Neurological exam: Present: alert, oriented X3, CN II-XII intact Psychiatric exam: Present: normal affect, normal mood Skin exam: Present: warm, dry, intact, normal color. Absent: rash <Rolando Murphy - Last Filed: 09/19/19 17:12> - General Exam Comments Initial Comments: GENERAL: Patient is well-developed and well-nourished. Patient is nontoxic and well- hydrated and is in mild distress. ENT: Neck is soft and supple. No significant lymphadenopathy is noted. Oropharynx is clear. Moist mucous membranes. Neck has full range of motion without eliciting any pain. EYES: The sclera were anicteric and conjunctiva were pink and moist. Extraocular movements were intact and pupils were equal round and reactive to light. Eyelids were unremarkable. PULMONARY: Unlabored respirations. Good breath sounds bilaterally. No audible rales rhonchi or wheezing was noted. CARDIOVASCULAR: There is a regular rate and rhythm without any murmurs gallops or rubs. ABDOMEN: Soft and nontender with normal bowel sounds. No palpable organomegaly was noted. There is no palpable pulsatile mass. SKIN: Skin is clear with no lesions or rashes and otherwise unremarkable. NEUROLOGIC: Patient is alert and oriented x3. Cranial nerves II through XII are grossly intact. Motor and sensory are also intact. Normal speech, volume and content. Symmetrical smile. MUSCULOSKELETAL: Normal extremities with adequate strength and full range of motion. There is a small skin tear to the anterior left knee measuring about 1.5 cm. Patient also has a skin tear to the right arm. LYMPHATICS: No significant lymphadenopathy is noted PSYCHIATRIC: Normal psychiatric evaluation. (Rolando Soliz) Course <Rolando Murphy - Last Filed: 09/19/19 17:12> Vital Signs 09/19/19 09/19/19 09/19/19 14:04 15:52 16:58 Temperature 97.4 F L Pulse Rate 112 H 144 H 91 Respiratory 18 18 18 Rate Blood Pressure 85/60 109/54 106/63 O2 Sat by Pulse 100 100 97 Oximetry - Reevaluation(s) Reevaluation #1: 09/19/19 17:10 Medical record is reviewed (Rolando Murphy) Reevaluation #2: 09/19/19 17:10 Patient given central line transfusion heart rate is much improved and symptoms are improved blood pressure is improving (Rolando Murphy) Medical Decision Making <Rolando Soliz - Last Filed: 09/19/19 15:01> - Lab Data Result diagrams: 09/19/19 15:15 09/19/19 15:15 <Rolando Murphy - Last Filed: 09/19/19 17:12> - Medical Decision Making EKG shows atrial fibrillation with rapid ventricular response a shows a right bundle-branch block the rate is 123 bpm QRS is 114 Q-T intervals 326 QTC is 466. Patient has some ST segment depression and T-wave inversion in leads V3 through V6. Dr. Murphy be taking over the care of this patient (Rolando Soliz) [address] with multiple comorbidities, patient is anemia on anticoagulation GI bleed H with ablation with RVR hypotension which is significantly improved here in the ER. Patient be admitted to telemetry for continued evaluation by c ardiology, GI evaluation (Rolando Murphy) - Lab Data Lab Results 09/19/19 09/19/19 09/19/19 Range/Units 15:15 15:15 15:15 WBC 11.8 H (3.8-10.6) k/uL RBC 3.43 L (3.80-5.40) m/uL Hgb 8.1 L (11.4-16.0) gm/dL Hct 27.7 L (34.0-46.0) % MCV 80.9 (80.0-100.0) fL MCH 23.7 L (25.0-35.0) pg MCHC 29.3 L (31.0-37.0) g/dL RDW 19.2 H (11.5-15.5) % Plt Count 338 (150-450) k/uL Neutrophils % 84 % Lymphocytes % 9 % Monocytes % 5 % Eosinophils % 0 % Basophils % 0 % Neutrophils # 9.9 H (1.3-7.7) k/uL Lymphocytes # 1.1 (1.0-4.8) k/uL Monocytes # 0.5 (0-1.0) k/uL Eosinophils # 0.0 (0-0.7) k/uL Basophils # 0.0 (0-0.2) k/uL Hypochromasia Marked Anisocytosis Slight Microcytosis Slight APTT 31.1 H (22.0-30.0) sec Sodium 136 L (137-145) mmol/L Potassium 3.9 (3.5-5.1) mmol/L Chloride 103 (98-107) mmol/L Carbon Dioxide 24 (22-30) mmol/L Anion Gap 9 mmol/L BUN 55 H (7-17) mg/dL Creatinine 0.81 (0.52-1.04) mg/dL Est GFR (CKD-EPI)AfAm 79 (>60 ml/min/1.73 sqM) Est GFR (CKD-EPI)NonAf 69 (>60 ml/min/1.73 sqM) Glucose 126 H (74-99) mg/dL Calcium 8.4 (8.4-10.2) mg/dL Magnesium 2.2 (1.6-2.3) mg/dL Total Bilirubin 1.0 (0.2-1.3) mg/dL AST 28 (14-36) U/L ALT 15 (4-34) U/L Alkaline Phosphatase 133 H (38-126) U/L Creatine Kinase 30 (30-135) U/L Troponin I (0.000-0.034) ng/mL Total Protein 5.5 L (6.3-8.2) g/dL Albumin 3.3 L (3.5-5.0) g/dL Stool Occult Blood (Negative) Blood Type Blood Type Recheck Bld Type Recheck Status Antibody Screen Crossmatch Spec Expiration Date 09/19/19 09/19/19 09/19/19 Range/Units 15:15 15:15 16:07 WBC (3.8-10.6) k/uL RBC (3.80-5.40) m/uL Hgb (11.4-16.0) gm/dL Hct (34.0-46.0) % MCV (80.0-100.0) fL MCH (25.0-35.0) pg MCHC (31.0-37.0) g/dL RDW (11.5-15.5) % Plt Count (150-450) k/uL Neutrophils % % Lymphocytes % % Monocytes % % Eosinophils % % Basophils % % Neutrophils # (1.3-7.7) k/uL Lymphocytes # (1.0-4.8) k/uL Monocytes # (0-1.0) k/uL Eosinophils # (0-0.7) k/uL Basophils # (0-0.2) k/uL Hypochromasia Anisocytosis Microcytosis APTT (22.0-30.0) sec Sodium (137-145) mmol/L Potassium (3.5-5.1) mmol/L Chloride (98-107) mmol/L Carbon Dioxide (22-30) mmol/L Anion Gap mmol/L BUN (7-17) mg/dL Creatinine (0.52-1.04) mg/dL Est GFR (CKD-EPI)AfAm (>60 ml/min/1.73 sqM) Est GFR (CKD-EPI)NonAf (>60 ml/min/1.73 sqM) Glucose (74-99) mg/dL Calcium (8.4-10.2) mg/dL Magnesium (1.6-2.3) mg/dL Total Bilirubin (0.2-1.3) mg/dL AST (14-36) U/L ALT (4-34) U/L Alkaline Phosphatase (38-126) U/L Creatine Kinase (30-135) U/L Troponin I 0.027 (0.000-0.034) ng/mL Total Protein (6.3-8.2) g/dL Albumin (3.5-5.0) g/dL Stool Occult Blood Positive H (Negative) Blood Type O Positive Blood Type Recheck O Pos Bld Type Recheck Status No Antibody Screen NEGATIVE Crossmatch See Detail Spec Expiration Date 09/22/2019 - 7402 Critical Care Time Critical Care Time: Yes Total Critical Care Time: 31 <Rolando Murphy - Last Filed: 09/19/19 17:12> Disposition <Rolando Soliz - Last Filed: 09/19/19 15:01> Is patient prescribed a controlled substance at d/c from ED?: No <Rolando Murphy - Last Filed: 09/19/19 17:12> Clinical Impression: Chest pain, Rapid atrial fibrillation, Atrial fibrillation with RVR, Anemia, Hypotension, Acute blood loss anemia, GI bleeding Disposition: ADMITTED IP TO THIS HOSP Condition: Fair Referrals: Car Connell DO [Primary Care Provider] - 1-2 days
[2019-09-19 15:35] LABS: Anisocytosis Slight; Basophils % (A) 0 %; Eosinophils % (A) 0 %; HCT 27.7 % (34.0-46.0); HGB 8.1 gm/dL (11.4-16.0); Hypochromasia Marked; Lymphocytes # (A) 1.1 k/uL (1.0-4.8); Lymphocytes % (A) 9 %; MCH 23.7 pg (25.0-35.0); MCHC 29.3 g/dL (31.0-37.0); MCV 80.9 fL (80.0-100.0); Mean Platelet Volume 7.3; Microcytosis Slight; Monocytes # (A) 0.5 k/uL (0-1.0); Monocytes % (A) 5 %; Neutrophils # (A) 9.9 k/uL (1.3-7.7); Neutrophils % (A) 84 %; Platelet Count 338 k/uL (150-450); RBC 3.43 m/uL (3.80-5.40); RDW 19.2 % (11.5-15.5); WBC 11.8 k/uL (3.8-10.6)
[2019-09-19 15:44] LABS: Albumin 3.3 g/dL (3.5-5.0); Calcium 8.4 mg/dL (8.4-10.2); Magnesium 2.2 mg/dL (1.6-2.3); Potassium 3.9 mmol/L (3.5-5.1); Total Protein 5.5 g/dL (6.3-8.2)
[2019-09-19] MEDS ORDERED: SODIUM CHLORIDE 0.9% 1,000 ML IV STA ×2 (15:52)
[2019-09-19] MEDS ORDERED: DILTIAZEM DRIP BOLUS FROM BAG 1 MG SOLN IV ONE (15:52)
--- NOTE | 2019-09-19 16:13 | CT ---
EXAMINATION TYPE: CT brain cspine wo con DATE OF EXAM: 09/19/2019 COMPARISON: CT brain 10/22/2014 HISTORY: Fall today. CT DLP: 1245.9 mGycm Automated exposure control for dose reduction was used. TECHNIQUE: CT scan of the head and cervical spine are performed without contrast. FINDINGS: There is no acute intracranial hemorrhage, mass effect, or midline shift identified. The ventricles and sulci are within normal limits in size. The globes are intact and the visualized sin uses are clear. Periventricular white matter shows patchy low attenuation. There is cortical atrophy. Cerebral vascular calcifications are present. Cervical spine is visualized in its entirety from C1 through upper thoracic levels and demonstrates n ear-anatomic alignment without evidence of acute fracture or dislocation. Prevertebral soft tissue a ppears within normal limits. The C1-C2 articulation is unremarkable. Multilevel spondylosis is prese nt with associated loss of disc height at intervertebral levels. Multilevel foraminal encroachment an d facet arthropathy. Generator present in the left pectoral region, there are leads coursing via the innominate vein there is a spinal curvature. IMPRESSION: 1. There is no acute fracture or dislocation evident in the cervical spine. 2. No acute intracranial hemorrhage, mass effect, or midline shift is seen.
[2019-09-19] MEDS: DILTIAZEM 125 MG in SODIUM CHLORIDE 0.9% 100 ML IV SCH (16:48)
--- NOTE | 2019-09-19 17:14 | ED ---
Medical Decision Making - Medical Decision Making This is addendum for documentation of central line procedure - Lab Data Result diagrams: 09/19/19 15:15 09/19/19 15:15 Lab Results 09/19/19 09/19/19 09/19/19 Range/Units 15:15 15:15 15:15 WBC 11.8 H (3.8-10.6) k/uL RBC 3.43 L (3.80-5.40) m/uL Hgb 8.1 L (11.4-16.0) gm/dL Hct 27.7 L (34.0-46.0) % MCV 80.9 (80.0-100.0) fL MCH 23.7 L (25.0-35.0) pg MCHC 29.3 L (31.0-37.0) g/dL RDW 19.2 H (11.5-15.5) % Plt Count 338 (150-450) k/uL Neutrophils % 84 % Lymphocytes % 9 % Monocytes % 5 % Eosinophils % 0 % Basophils % 0 % Neutrophils # 9.9 H (1.3-7.7) k/uL Lymphocytes # 1.1 (1.0-4.8) k/uL Monocytes # 0.5 (0-1.0) k/uL Eosinophils # 0.0 (0-0.7) k/uL Basophils # 0.0 (0-0.2) k/uL Hypochromasia Marked Anisocytosis Slight Microcytosis Slight APTT 31.1 H (22.0-30.0) sec Sodium 136 L (137-145) mmol/L Potassium 3.9 (3.5-5.1) mmol/L Chloride 103 (98-107) mmol/L Carbon Dioxide 24 (22-30) mmol/L Anion Gap 9 mmol/L BUN 55 H (7-17) mg/dL Creatinine 0.81 (0.52-1.04) mg/dL Est GFR (CKD-EPI)AfAm 79 (>60 ml/min/1.73 sqM) Est GFR (CKD-EPI)NonAf 69 (>60 ml/min/1.73 sqM) Glucose 126 H (74-99) mg/dL Calcium 8.4 (8.4-10.2) mg/dL Magnesium 2.2 (1.6-2.3) mg/dL Total Bilirubin 1.0 (0.2-1.3) mg/dL AST 28 (14-36) U/L ALT 15 (4-34) U/L Alkaline Phosphatase 133 H (38-126) U/L Creatine Kinase 30 (30-135) U/L Troponin I (0.000-0.034) ng/mL Total Protein 5.5 L (6.3-8.2) g/dL Albumin 3.3 L (3.5-5.0) g/dL Stool Occult Blood (Negative) Blood Type Blood Type Recheck Bld Type Recheck Status Antibody Screen Crossmatch Spec Expiration Date 09/19/19 09/19/19 09/19/19 Range/Units 15:15 15:15 16:07 WBC (3.8-10.6) k/uL RBC (3.80-5.40) m/uL Hgb (11.4-16.0) gm/dL Hct (34.0-46.0) % MCV (80.0-100.0) fL MCH (25.0-35.0) pg MCHC (31.0-37.0) g/dL RDW (11.5-15.5) % Plt Count (150-450) k/uL Neutrophils % % Lymphocytes % % Monocytes % % Eosinophils % % Basophils % % Neutrophils # (1.3-7.7) k/uL Lymphocytes # (1.0-4.8) k/uL Monocytes # (0-1.0) k/uL Eosinophils # (0-0.7) k/uL Basophils # (0-0.2) k/uL Hypochromasia Anisocytosis Microcytosis APTT (22.0-30.0) sec Sodium (137-145) mmol/L Potassium (3.5-5.1) mmol/L Chloride (98-107) mmol/L Carbon Dioxide (22-30) mmol/L Anion Gap mmol/L BUN (7-17) mg/dL Creatinine (0.52-1.04) mg/dL Est GFR (CKD-EPI)AfAm (>60 ml/min/1.73 sqM) Est GFR (CKD-EPI)NonAf (>60 ml/min/1.73 sqM) Glucose (74-99) mg/dL Calcium (8.4-10.2) mg/dL Magnesium (1.6-2.3) mg/dL Total Bilirubin (0.2-1.3) mg/dL AST (14-36) U/L ALT (4-34) U/L Alkaline Phosphatase (38-126) U/L Creatine Kinase (30-135) U/L Troponin I 0.027 (0.000-0.034) ng/mL Total Protein (6.3-8.2) g/dL Albumin (3.5-5.0) g/dL Stool Occult Blood Positive H (Negative) Blood Type O Positive Blood Type Recheck O Pos Bld Type Recheck Status No Antibody Screen NEGATIVE Crossmatch See Detail Spec Expiration Date 09/22/2019 - 1 Disposition Clinical Impression: Chest pain, Rapid atrial fibrillation, Atrial fibrillation with RVR, Anemia, Hypotension, Acute blood loss anemia, GI bleeding Disposition: ADMITTED IP TO THIS [facility] Condition: Serious Is patient prescribed a controlled substance at d/c from ED?: No Referrals: Car Connell DO [Primary Care Provider] - 1-2 days Procedures - Central Line Placement Right IJ Consent Obtained: verbal consent Patient Placed on Monitor/Pulse Ox: Yes MD Prep: mask, gown, gloves Central Line Prep: Chlorhexidine scrub, sterile drapes applied Local Anesthesia Used: Lidocaine 1% Ultrasound Used for Placement: Yes Central Line Lumen Inserted: triple Central Line Position: good blood return, all ports aspirated, flushed, capped, sutured in place with 3-0 nylon Dressing Applied: Tegaderm Post Procedure X-Ray: tip of catheter in good position Patient Tolerated Procedure: well Complications: none
--- NOTE | 2019-09-19 18:08 | XR ---
EXAMINATION TYPE: XR chest 2V DATE OF EXAM: 09/19/2019 COMPARISON: 06/07/2019 HISTORY: Shortness of breath TECHNIQUE: Frontal and lateral views of the chest are obtained. FINDINGS: Scattered senescent parenchymal changes noted. Hyperinflation compatible with COPD. No evidence for infiltrate. No evidence for atelectasis. Heart size is stable. Mediastinal structures are stable and grossly unremarkable. No evidence for hilar prominence. Degenerative changes dorsal spine. IMPRESSION: 1. No evidence for acute pulmonary disease.
[2019-09-19 19:28] LABS: INR 4.6 (<1.2); Prothrombin Time 45.3 sec (9.0-12.0)
--- NOTE | 2019-09-20 00:15 | P.HPIM ---
History of Present Illness H&P Date: 09/19/19 Chief Complaint: Status post fall Patient is a 79-year-old female with a known history of chronic atrial fibrillation on anticoagulation with Coumadin, permanent pacemaker placement, history of CVA/TIA, GERD, hypertension, hyperlipidemia, history of coronary vasiliy ry bypass graft and stent placement and other multiple medical problems, ischemic cardiomyopathy was brought to the hospital status post syncopal episode. Patient was going to the bathroom in the morning and suddenly she fell on the floor and hit on her the right forehead. Patient did not remember what happened. According to her daughter who found her, patient lost her consciousness briefly. Apparently patient has been having vomiting blood and also dark-colored stools for the past few days. Denied any chest pain. No abdominal pain. No diarrhea. Denied any dizziness or lightheadedness. Patient was able to walk with a walker at home. No fever no chills. Denies any recent illnesses. Patient states that he had endoscopy done due to GI bleed in the past. Patient does have a skin tear to the right and left knee. Denies any focal weakness. No numbness or tingling. No neck pain or shoulder pain. Patient was found to have A. fib with RVR with heart rate in 160s. CT head and cervical spine showed no acute fracture or dislocation. No acute intracranial hemorrhage, mass-effect or midline shift is seen. EKG showed atrial fibrillation with rapid ventricular rate Laboratory data showed WBC 11.8, hemoglobin 8.1 Previous hemoglobin June 2019 was 8.7 MCV 80.9 and RDW 19.2 INR 4.6 Sodium 136, potassium 3.9, BUN 55 and creatinine 0.81 Troponin 0 0.027, 0.051 and 0.056 FOBT positive Blood pressure was 85/60 with pulse 112 and 18 respiration on admission. Review of Systems Constitutional: Patient denies any fever or chills . No generalized weakness or weight loss. Abdomen: Patient denied nausea vomiting and diarrhea and abdominal pain. Patient does have hematemesis and dark-colored stool. Cardiovascular: Patient denies any chest pain or short of breath no palpitations. Respiratory: patient denied any cough or production. No shortness of breath Neurologic: Patient denied any numbness or tingling headache. Musculoskeletal: Patient denies any complaints of joint swelling or deformity. Skin: Negative Psychiatric: Negative Endocrine: No heat or cold intolerance. No recent weight gain. Genitourinary: No dysuria or hematuria. All other 14 point ROS negative except the above Past Medical History Past Medical History: Atrial Fibrillation, Cancer, Heart Failure, CVA/TIA, GERD/Reflux, Hyperlipidemia, Hypertension, Myocardial Infarction ([place]), Musculoskeletal Disorder, Osteoarthritis (OA), Pneumonia Additional Past Medical History / Comment(s): Mitral regurgitation, moderate tricuspid regurg, mild aortic regurg, murmur, ischemic cardiomyopathy,2019 possible NSTEMI, L breast cancer with lumpectomy/chem and radiation, IBS, UTIs, 2019 anemia with cause unknown, bronchitis, TIAs, bilateral raynaulds syndrome, chronic low and thoracic back a pain/scoliosis, past head injury/concussion. Last Myocardial Infarction Date:: Possible NSTEMI in 2018 History of Any Multi-Drug Resistant Organisms: None Reported Past Surgical History: Adenoidectomy, Appendectomy, Breast Surgery, Coronary Bypass/CABG, Heart Catheterization, Heart Catheterization With Stent, Orthopedic Surgery, Pacemaker, Tonsillectomy Additional Past Surgical History / Comment(s): 10/25/17 NARENDRA, 10/27/17 PCI with stent to circumflex, 2002 CABG 3 vessel, left side lumpectomy, bialteral cataract removed, bilateral carpal tunnel releases, back injection, D&C, EGD in 2019 normal, colonoscopy. Past Anesthesia/Blood Transfusion Reactions: Postoperative Nausea & Vomiting (PONV) Additional Past Anesthesia/Blood Transfusion Reaction / Comment(s): Pt has received blood in past without reaction. Date of Last Stent Placement:: 10/27/17 Type of Cardiac Device: Permanent Pacemaker Device Placement Date:: 2006 with gen change in 2018 Past Psychological History: No Psychological Hx Reported Past Alcohol Use History: None Reported Past Drug Use History: None Reported - Past Family History Mother Family Medical History: Coronary Artery Disease (CAD), Diabetes Mellitus Additional Family Medical History / Comment(s): cabg Father Family Medical History: Pulmonary Embolus Additional Family Medical History / Comment(s): Father of a pulmonary embolism at the age of 46yrs. Medications and Allergies Home Medications Medication Instructions Recorded Confirmed Type Clopidogrel [Plavix] 75 mg PO DAILY 02/11/18 09/19/19 History Warfarin [Coumadin] 2 mg PO SUMOTUTHFRSA 03/07/18 09/19/19 History Metoprolol Succinate [Toprol XL] 25 mg PO DAILY 01/08/19 09/19/19 History Nitroglycerin Sl Tabs [Nitrostat] 0.4 mg SUBLINGUAL Q5M PRN 06/07/19 09/19/19 Hi story Bumetanide [BUMEX] 1 mg PO BID 09/19/19 09/19/19 History Lisinopril [Zestril] 5 mg PO BID 09/19/19 09/19/19 History Warfarin [Coumadin] 1 mg PO WE 09/19/19 09/19/19 History Allergies Allergy/AdvReac Type Severity Reaction Status Date / Time codeine AdvReac Nausea & Verified 09/19/19 14:42 Vomiting Physical Exam Vitals: Vital Signs Temp Pulse Resp BP Pulse Ox 09/19/19 16:58 91 18 106/63 97 09/19/19 15:52 144 H 18 109/54 100 09/19/19 14:04 97.4 F L 112 H 18 85/60 100 Intake and Output 09/19/19 09/19/19 09/19/19 06:59 14:59 22:59 Other: Weight 46.584 kg PHYSICAL EXAMINATION: Patient is lying in the bed comfortably, no acute distress, awake alert and oriented..Neck collar in place. HEENT: Normocephalic. Bruising over the right forehead.. Neck is supple. Pupils reactive. Nostrils clear. Oral cavity is moist. Ears reveal no drainage. Neck reveals no JVD, carotid bruits, or thyromegaly. CHEST EXAMINATION: Trachea is central. Symmetrical expansion. Bibasilar di minished air entry.. Lung rodriguez clear to auscultation and percussion. CARDIAC: Normal S1, S2 with no gallops. Irregularly irregular rhythm, Systolic murmur. ABDOMEN: Soft. Bowel sounds normal. No organomegaly. No abdominal bruits. Extremities: reveal no edema. No clubbing or cyanosis Neurologically awake, alert, oriented x3 with well-coordinated movements. No focal deficits noted Skin: No rash or skin lesions. Psychiatric: Coperative. Nonsuicidal Musculoskeletal: No joint swelling or deformity. Normal range of motion. B ruising over the left knee. Results CBC & Chem 7: 09/19/19 15:15 09/19/19 15:15 Labs: Abnormal Lab Results - Last 24 Hours (Table) 09/19/19 09/19/19 09/19/19 Range/Units 15:15 15:15 15:15 WBC 11.8 H (3.8-10.6) k/uL RBC 3.43 L (3.80-5.40) m/uL Hgb 8.1 L (11.4-16.0) gm/dL Hct 27.7 L (34.0-46.0) % MCH 23.7 L (25.0-35.0) pg MCHC 29.3 L (31.0-37.0) g/dL RDW 19.2 H (11.5-15.5) % Neutrophils # 9.9 H (1.3-7.7) k/uL APTT 31.1 H (22.0-30.0) sec Sodium 136 L (137-145) mmol/L BUN 55 H (7-17) mg/dL Glucose 126 H (74-99) mg/dL Alkaline Phosphatase 133 H (38-126) U/L Total Protein 5.5 L (6.3-8.2) g/dL Albumin 3.3 L (3.5-5.0) g/dL Stool Occult Blood (Negative) Crossmatch 09/19/19 09/19/19 Range/Units 15:15 16:07 WBC (3.8-10.6) k/uL RBC (3.80-5.40) m/uL Hgb (11.4-16.0) gm/dL Hct (34.0-46.0) % MCH (25.0-35.0) pg MCHC (31.0-37.0) g/dL RDW (11.5-15.5) % Neutrophils # (1.3-7.7) k/uL APTT (22.0-30.0) sec Sodium (137-145) mmol/L BUN (7-17) mg/dL Glucose (74-99) mg/dL Alkaline Phosphatase (38-126) U/L Total Protein (6.3-8.2) g/dL Albumin (3.5-5.0) g/dL Stool Occult Blood Positive H (Negative) Crossmatch See Detail Thrombosis Risk Factor Assmnt - DVT/VTE Prophylaxis DVT/VTE Prophylaxis: Mechanical Prophylaxis ordered Assessment and Plan Assessment: Acute syncopal episode secondary to A. fib with RVR and GI bleed. Acute blood loss anemia secondary to GI bleed. Atrial fibrillation with rapid regular rate. Chronic atrial fibrillation on anticoagulation with Coumadin Supratherapeutic INR level History of permanent pacemaker placement History of TIA/CVA GERD Hypertension Hyperlipidemia History of coronary artery bypass graft and stent placement Ischemic cardiomyopathy Chronic CHF with systolic dysfunction, ejection fraction around 40% Moderate tricuspid and mild aortic regurgitation Severe mitral regurgitation Plan: Patient will be continued gentle IV hydration and started on Cardizem drip. Continue with IV PPI and monitor H&H closely. Cardiology and GI was consulted. Further recommendations based on the clinical course. Prognosis is guarded with multiple medical problems and comorbid conditions. Warfarin is on hold due to supratherapeutic INR level We will hold Plavix and blood pressure medications and diuretics which she takes at home. Time with Patient: Greater than 30
[2019-09-20] MEDS ORDERED: PHYTONADIONE 5 MG in SODIUM CHLORIDE 0.9% 50 ML IVPB STA (00:22)
[2019-09-20] MEDS: SODIUM CHLORIDE 0.9% 1,000 ML IV SCH ×2 (01:53→20:47)
[2019-09-20] MEDS: PANTOPRAZOLE 40 MG/10 ML VIAL IVP SCH ×3 (01:53→20:43)
[2019-09-20 08:05] LABS: INR 1.9 (<1.2)
[2019-09-20 08:11] LABS: African American GFR (CKD) >90 (>60 ml/min/1.73 sqM); Anion Gap 6 mmol/L; Blood Urea Nitrogen 48 mg/dL (7-17); Calcium 8.2 mg/dL (8.4-10.2); Carbon Dioxide 23 mmol/L (22-30); Chloride 110 mmol/L (98-107); Cholesterol 98 mg/dL (<200); Glucose 87 mg/dL (74-99); HDL Cholesterol 36 mg/dL (40-60); LDL Cholesterol,Calculated 28 mg/dL (0-99); Non-African American GFR(CKD) 84 (>60 ml/min/1.73 sqM); Potassium 3.5 mmol/L (3.5-5.1); Sodium 139 mmol/L (137-145); Triglycerides 172 mg/dL (<150)
[2019-09-20 08:36] LABS: Anisocytosis Slight; Basophils # (A) 0.1 k/uL (0-0.2); Basophils % (A) 1 %; Eosinophils # (A) 0.1 k/uL (0-0.7); Eosinophils % (A) 1 %; HCT 28.1 % (34.0-46.0); HGB 9.1 gm/dL (11.4-16.0); Hypochromasia Marked; Lymphocytes # (A) 1.4 k/uL (1.0-4.8); Lymphocytes % (A) 16 %; MCH 26.9 pg (25.0-35.0); MCHC 32.5 g/dL (31.0-37.0); MCV 82.9 fL (80.0-100.0); Mean Platelet Volume 7.5; Monocytes # (A) 0.6 k/uL (0-1.0); Monocytes % (A) 7 %; Neutrophils # (A) 6.8 k/uL (1.3-7.7); Neutrophils % (A) 75 %; Platelet Count 212 k/uL (150-450); Poikilocytosis Moderate; RBC 3.39 m/uL (3.80-5.40); RDW 17.7 % (11.5-15.5)
[2019-09-20] MEDS ORDERED: ASPIRIN 325 MG TAB PO SCH (09:00)
[2019-09-20] MEDS ORDERED: METOPROLOL SUCCINATE (ER) 25 MG TAB.ER.24H PO SCH (09:00)
[2019-09-20] MEDS: DILTIAZEM 125 MG in SODIUM CHLORIDE 0.9% 100 ML IV SCH (09:01)
[2019-09-20] MEDS: HYDROCORTISONE 2.5% RECTAL CREAM 30 GM TUBE RECTAL SCH ×3 (09:01→20:38)
[2019-09-20] MEDS ORDERED: ACETAMINOPHEN TAB 325 MG TAB PO PRN (09:31)
[2019-09-20 11:28] VITALS: BMI 18.5
--- NOTE | 2019-09-20 15:53 | CONS ---
CONSULTATION This is an 79-year-old lady with a known history of significant mitral valve regurgitation. She has been in and out of the hospital a lot. This lady has history of CAD, prior bypass surgery with [place] to LAD, vein graft to the obtuse marginal 1, diagonal and RCA. Subsequently she had PCI of circumflex artery in October 2017. She has chronic persistent atrial fibrillation, severe mitral regurgitation, has been considered for a mitral valve clip and has been on anticoagulants. She takes Plavix and warfarin. With this background story, she came into the hospital having been found by her daughter in the bathroom. She apparently had red blood per rectum and she was disoriented and she had some soft tissue injuries as well. Her INR was 4.6, which was reversed. All she remembers is going to the bathroom and then her daughter found her on the bathroom floor with a skin tear to the right arm and left knee being hurt, but no actual fractures. Her INR was 4.6. There was a question of anemia GI bleed in the past, guaiac-positive stool, ben red blood per rectum. She did not have any chest pain or shortness of breath. However, her INR was reversed with vitamin K administration. INR today is 1.9. She is on a Cardizem drip for her atrial fibrillation, resting comfortably. Appears exhausted. PAST MEDICAL HISTORY: 1. CAD with prior bypass surgery and PCI. 2. Also has severe MR, being considered for a mitral valve clip. 3. History of hypertension. 4. Hyperlipidemia. 5. Chronic atrial fibrillation. PHYSICAL EXAMINATION: Her blood pressure is 108/60. Pulse rate is 90 per minute, irregular. HEENT unremarkable. Fundus was not examined by me. Neck is supple. There is JVD 1 cm. No carotid bruit. Heart exam reveals S1, S2 heard normally. Irregular rhythm noted. A holosystolic murmur at the apex noted. Lungs reveal diminished air entry. Abdomen is soft. Lower extremities reveal diminished pulses. Central nervous system is normal. LABORATORY DATA: Laboratory data suggest that her stools are positive for guaiac. She has ben red blood per rectum. Troponin is 0.05 and 0.05. BNP is not significantly elevated. Her INR has come down to 1.9. Hemoglobin is 9.1. IMPRESSION: 1. Fall and coagulopathy secondary to Coumadin. 2. Chronic atrial fibrillation with a moderately rapid ventricular rate. 3. History of coronary artery disease and prior bypass surgery, percutaneous coronary intervention, and now with severe mitral regurgitation. 4. Chronic atrial fibrillation. RECOMMENDATIONS: Given the patient's fall risk and bleeding tendencies, I am recommending that we discontinue anticoagulation. I explained to the patient that the risk for stroke is high and she understands. I am also recommending that we use beta carmen Lopressor 50 mg b.i.d. for rate control and discontinue Cardizem drip . Will continue to follow her and see how she does. We will achieve rate control but no anticoagulation. Prognosis remains kind of guarded for this patient. She is not going to be a good candidate for long-term anticoagulation, given what has happened now. Discussed this with the patient. SUSANNAH / IJN: [id number] /
[2019-09-20] MEDS: METOPROLOL TARTRATE 50 MG TAB PO SCH (20:43)
[2019-09-20] MEDS ORDERED: METOPROLOL SUCCINATE (ER) 50 MG TAB.ER.24H PO SCH (21:00)
--- NOTE | 2019-09-20 22:56 | P.CONS ---
History of Present Illness - Reason for Consult Consult date: 09/20/19 Blood per rectum Requesting physician: Margot Ace - Chief Complaint Mechanical full - History of Present Illness 79-year-old female with multiple medical comorbidities including hypertension, GERD, hyperlipidemia, coronary artery disease status post CABG, ischemic c ardiomyopathy, atrial fibrillation on anticoagulation therapy with Coumadin who presented after a mechanical fall. Patient had a syncopal episode and EMS was called after the patient was found by her daughter. There was blood found in the toilet next to the patient. The patient was found to be in atrial fibrillation with RVR on presentation. Computed tomography scan of the head and spine were negative for any fracture or dislocation or bleed. Laboratory evaluation on presentation was significant for a WBC of 11.8, hemoglobin 8.1, platelet count 338,000 with an INR of 4.6, total bilirubin 0.1, alkaline phosphatase 133, AST 28 and ALT 15. On questioning the patient denies any nausea, vomiting, hematemesis or coffee-ground emesis. She denies any melena or blood per rectum aside from the blood that was noted next to her in the toilet. She was recently hospitalized and had EGD on 06/08/2019 for reports of hematemesis with findings of a deep distal tear in the esophagus. She also had EGD and colonoscopy performed in 02/2019 significant for hemorrhoids and a hiatal hernia. Review of Systems REVIEW OF SYSTEMS: CONSTITUTIONAL: Denies any fevers, chills, weight change or fatigue. CARDIOVASCULAR: Denies any chest pain, palpitations high or low blood pressures, syncopal episode prior to presentation. RESPIRATORY: Denies any shortness of breath, hemoptysis or cough. GENITOURINARY: No dysuria or hematuria. MUSCULOSKELETAL: No weakness reported. SKIN: Denies any new rashes or lesions, jaundice or pallor. PSYCHIATRIC: Denies any depression or anxiety. NEUROLOGY: Denies headache, denies any new focal deficits, syncopal episode prior to presentation. EARS/NOSE/THROAT: No recent hearing change, congestion, nasal discharge or sore throat. EYES: No pain in eyes, discharge or change in vision. GASTROINTESTINAL: As per HPI. Past Medical History Past Medical History: Atrial Fibrillation, Cancer, Heart Failure, CVA/TIA, GERD/Reflux, Hyperlipidemia, Hypertension, Myocardial Infarction ([place]), Musculoskeletal Disorder, Osteoarthritis (OA), Pneumonia Additional Past Medical History / Comment(s): Mitral regurgitation, moderate tricuspid regurg, mild aortic regurg, murmur, ischemic cardiomyopathy,2019 possible NSTEMI, L breast cancer with lumpectomy/chem and radiation, IBS, UTIs, 2019 anemia with cause unknown, bronchitis, TIAs, bilateral raynaulds syndrome, chronic low and thoracic back a pain/scoliosis, past head injury/concussion. Last Myocardial Infarction Date:: Possible NSTEMI in 2018 History of Any Multi-Drug Resistant Organisms: None Reported Past Surgical History: Adenoidectomy, Appendectomy, Breast Surgery, Coronary Bypass/CABG, Heart Catheterization, Heart Catheterization With Stent, Orthopedic Surgery, Pacemaker, Tonsillectomy Additional Past Surgical History / Comment(s): 10/25/17 NARENDRA, 10/27/17 PCI with stent to circumflex, 2002 CABG 3 vessel, left side lumpectomy, bialteral cataract removed, bilateral carpal tunnel releases, back injection, D&C, EGD in 2018 normal, colonoscopy. Past Anesthesia/Blood Transfusion Reactions: Postoperative Nausea & Vomiting (PONV) Additional Past Anesthesia/Blood Transfusion Reaction / Comm: Pt has received blood in past without reaction. Date of Last Stent Placement:: 10/27/17 Type of Cardiac Device: Permanent Pacemaker Device Placement Date:: 2006 with gen change in 2017 Past Psychological History: No Psychological Hx Reported Past Alcohol Use History: None Reported Past Drug Use History: None Reported - Past Family History Mother Family Medical History: Coronary Artery Disease (CAD), Diabetes Mellitus Additional Family Medical History / Comment(s): cabg Father Family Medical History: Pulmonary Embolus Additional Family Medical History / Comment(s): Father of a pulmonary embolism at the age of 46yrs. Medications and Allergies Home Medications Medication Instructions Recorded Confirmed Type Clopidogrel [Plavix] 75 mg PO DAILY 02/11/18 09/19/19 History Warfarin [Coumadin] 2 mg PO SUMOTUTHFRSA 03/07/18 09/19/19 History Metoprolol Succinate [Toprol XL] 25 mg PO DAILY 01/08/19 09/19/19 History Nitroglycerin Sl Tabs [Nitrostat] 0.4 mg SUBLINGUAL Q5M PRN 06/07/19 09/19/19 History Bumetanide [BUMEX] 1 mg PO BID 09/19/19 09/19/19 History Lisinopril [Zestril] 5 mg PO BID 09/19/19 09/19/19 History Warfarin [Coumadin] 1 mg PO WE 09/19/19 09/19/19 History Allergies Allergy/AdvReac Type Severity Reaction Status Date / Time codeine AdvReac Nausea & Verified 09/19/19 14:42 Vomiting Physical Exam Vitals: Vital Signs Temp Pulse Pulse Resp BP BP Pulse Ox 09/20/19 05:03 97.9 F 76 18 108/69 100 09/20/19 05:01 97.9 F 76 18 108/69 100 09/20/19 04:00 97.9 F 76 18 108/69 100 09/20/19 01:47 98.2 F 99 18 102/62 100 09/20/19 01:17 98.3 F 85 16 111/50 99 09/20/19 01:07 98.1 F 109 H 18 104/54 100 09/20/19 00:08 98.2 F 102 H 16 97/56 99 09/19/19 23:39 98.2 F 102 H 16 97/56 99 09/19/19 20:00 97.7 F 91 18 104/48 96 09/19/19 19:15 97.7 F 91 16 104/48 100 09/19/19 18:45 98.2 F 79 16 91/45 97 09/19/19 18:35 98.5 F 94 18 97/31 97 09/19/19 17:06 98 09/19/19 16:58 91 18 106/63 97 09/19/19 15:52 144 H 18 109/54 100 09/19/19 14:04 97.4 F L 112 H 18 85/60 100 Intake and Output 09/19/19 09/20/19 09/20/19 22:59 06:59 14:59 Intake Total 310 620 81.083 Balance 310 620 81.083 Intake: Intake, IV Titration 81.083 Amount Diltiazem 125 mg In 81.083 Sodium Chloride 0.9% 100 ml @ 5 MG/HR 5 mls/hr IV .Q24H [facility] Rx#:[id number] Oral 0 Blood Product 310 620 Rc As-3 Unit 310 [id number] Rc Pheresis As-3 Unit 310 [id number] Other: # Voids 1 0 # Bowel Movements 1 Weight 46.584 kg 47.5 kg 47.5 kg On physical examination, patient appears comfortable in no apparent distress. HEAD: Normocephalic, atraumatic. EYES: No scleral icterus. No conjunctival injection. MOUTH: No lesions, tongue midline. NECK: Trachea midline, no gross abnormalities. CHEST: Clear to auscultation with no wheezing or rhonchi appreciated. HEART: Irregularly irregular, S1-S2 appreciated. ABDOMEN: Soft, nontender to palpation. Bowel sounds are positive. No organomegaly. No guarding or rigidity. EXTREMITIES: No pedal edema. SKIN: No rashes, no jaundice. NEUROLOGIC: Alert and oriented x3. No focal deficits. Results CBC & Chem 7: 09/20/19 06:37 09/20/19 06:37 Labs: Abnormal Lab Results - Last 24 Hours (Table) 09/19/19 09/19/19 09/19/19 Range/Units 15:15 15:15 15:15 WBC 11.8 H (3.8-10.6) k/uL RBC 3.43 L (3.80-5.40) m/uL Hgb 8.1 L (11.4-16.0) gm/dL Hct 27.7 L (34.0-46.0) % MCH 23.7 L (25.0-35.0) pg MCHC 29.3 L (31.0-37.0) g/dL RDW 19.2 H (11.5-15.5) % Neutrophils # 9.9 H (1.3-7.7) k/uL PT (9.0-12.0) sec INR (<1.2) APTT 31.1 H (22.0-30.0) sec Sodium 136 L (137-145) mmol/L Chloride (98-107) mmol/L BUN 55 H (7-17) mg/dL Glucose 126 H (74-99) mg/dL Calcium (8.4-10.2) mg/dL Alkaline Phosphatase 133 H (38-126) U/L Troponin I (0.000-0.034) ng/mL Total Protein 5.5 L (6.3-8.2) g/dL Albumin 3.3 L (3.5-5.0) g/dL Triglycerides (<150) mg/dL HDL Cholesterol (40-60) mg/dL Stool Occult Blood (Negative) Crossmatch 09/19/19 09/19/19 09/19/19 Range/Units 15:15 15:15 16:07 WBC (3.8-10.6) k/uL RBC (3.80-5.40) m/uL Hgb (11.4-16.0) gm/dL Hct (34.0-46.0) % MCH (25.0-35.0) pg MCHC (31.0-37.0) g/dL RDW (11.5-15.5) % Neutrophils # (1.3-7.7) k/uL PT 45.3 H (9.0-12.0) sec INR 4.6 H (<1.2) APTT (22.0-30.0) sec Sodium (137-145) mmol/L Chloride (98-107) mmol/L BUN (7-17) mg/dL Glucose (74-99) mg/dL Calcium (8.4-10.2) mg/dL Alkaline Phosphatase (38-126) U/L Troponin I (0.000-0.034) ng/mL Total Protein (6.3-8.2) g/dL Albumin (3.5-5.0) g/dL Triglycerides (<150) mg/dL HDL Cholesterol (40-60) mg/dL Stool Occult Blood Positive H (Negative) Crossmatch See Detail 09/19/19 09/19/19 09/20/19 Range/Units 18:49 21:45 06:37 WBC (3.8-10.6) k/uL RBC (3.80-5.40) m/uL Hgb (11.4-16.0) gm/dL Hct (34.0-46.0) % MCH (25.0-35.0) pg MCHC (31.0-37.0) g/dL RDW (11.5-15.5) % Neutrophils # (1.3-7.7) k/uL PT (9.0-12.0) sec INR (<1.2) APTT (22.0-30.0) sec Sodium (137-145) mmol/L Chloride 110 H (98-107) mmol/L BUN 48 H (7-17) mg/dL Glucose (74-99) mg/dL Calcium 8.2 L (8.4-10.2) mg/dL Alkaline Phosphatase (38-126) U/L Troponin I 0.051 H* 0.056 H* (0.000-0.034) ng/mL Total Protein (6.3-8.2) g/dL Albumin (3.5-5.0) g/dL Triglycerides 172 H (<150) mg/dL HDL Cholesterol 36 L (40-60) mg/dL Stool Occult Blood (Negative) Crossmatch 09/20/19 09/20/19 Range/Units 06:37 06:37 WBC (3.8-10.6) k/uL RBC 3.39 L (3.80-5.40) m/uL Hgb 9.1 L (11.4-16.0) gm/dL Hct 28.1 L (34.0-46.0) % MCH (25.0-35.0) pg MCHC (31.0-37.0) g/dL RDW 17.7 H (11.5-15.5) % Neutrophils # (1.3-7.7) k/uL PT 19.0 H (9.0-12.0) sec INR 1.9 H (<1.2) APTT (22.0-30.0) sec Sodium (137-145) mmol/L Chloride (98-107) mmol/L BUN (7-17) mg/dL Glucose (74-99) mg/dL Calcium (8.4-10.2) mg/dL Alkaline Phosphatase (38-126) U/L Troponin I (0.000-0.034) ng/mL Total Protein (6.3-8.2) g/dL Albumin (3.5-5.0) g/dL Triglycerides (<150) mg/dL HDL Cholesterol (40-60) mg/dL Stool Occult Blood (Negative) Crossmatch Chest x-ray: report reviewed (No acute pulmonary disease on chest x-ray) Assessment and Plan (1) Normocytic anemia Narrative/Plan: 79-year-old female with multiple medical comorbidities currently on anticoagulation therapy with Coumadin for atrial fibrillation as well as Plavix therapy who presented after a syncopal episode. There are reports of bright red blood in the toilet beside her. She denies any signs or symptoms of GI bleeding. She was recently admitted for episodes of hematemesis in June and underwent an EGD on 06/08/2019 with findings of a deep distal tear in the esophagus but is denying any hematemesis at this time. Normocytic indices for her hemoglobin which is stable from her last discharge. She also underwent extensive endoscopic evaluation in 02/2019 with EGD showing a hiatal hernia and colonoscopy showing hemorrhoids. Suspicion is for hemorrhoidal bleeding in the setting of her stable hemoglobin. We'll continue to monitor for any signs or symptoms of GI bleeding and provide local perirectal care. Current Visit: Yes Status: Acute Code(s): D64.9 - ANEMIA, UNSPECIFIED SNOMED Code(s): 143385918 (2) Hemorrhoid Current Visit: Yes Status: Acute Code(s): K64.9 - UNSPECIFIED HEMORRHOIDS SNOMED Code(s): 71028948 (3) Warfarin-induced coagulopathy Current Visit: No Status: Acute Code(s): D68.32 - HEMORRHAGIC DISORD D/T EXTRINSIC CIRCULATING ANTICOAGULANTS; T45.515A - ADVERSE EFFECT OF ANTICOAGULANTS, INITIAL ENCOUNTER SNOMED Code(s): 78974401 Plan: Supportive care Okay for heart healthy diet Continue to monitor for signs or symptoms of GI bleeding Continue monitor hemoglobin and hematocrit and transfuse as needed Continue Protonix therapy in the setting of esophageal tear in the distal esophagus found on 06/08/2019 No plans for endoscopic evaluation at this time Mary provided Thank you for allowing us to participate in the care of the patient we will continue to follow
[2019-09-21 06:11] LABS: Anisocytosis Slight; Basophils # (A) 0.1 k/uL (0-0.2); Basophils % (A) 1 %; Eosinophils # (A) 0.1 k/uL (0-0.7); Eosinophils % (A) 1 %; HGB 8.7 gm/dL (11.4-16.0); Hypochromasia Marked; Lymphocytes # (A) 1.2 k/uL (1.0-4.8); Lymphocytes % (A) 15 %; MCH 27.2 pg (25.0-35.0); MCHC 32.1 g/dL (31.0-37.0); MCV 84.7 fL (80.0-100.0); Mean Platelet Volume 7.2; Monocytes # (A) 0.5 k/uL (0-1.0); Monocytes % (A) 7 %; Neutrophils # (A) 6.2 k/uL (1.3-7.7); Neutrophils % (A) 75 %; Platelet Count 171 k/uL (150-450); Poikilocytosis Moderate; RBC 3.19 m/uL (3.80-5.40); RDW 17.9 % (11.5-15.5); WBC 8.3 k/uL (3.8-10.6)
[2019-09-21 06:20] LABS: Albumin 2.5 g/dL (3.5-5.0); Calcium 8.3 mg/dL (8.4-10.2); Potassium 3.7 mmol/L (3.5-5.1); Total Bilirubin 1.7 mg/dL (0.2-1.3); Total Protein 4.6 g/dL (6.3-8.2)
[2019-09-21] MEDS: SODIUM CHLORIDE 0.9% 1,000 ML IV SCH (06:50)
[2019-09-21] MEDS: PANTOPRAZOLE 40 MG/10 ML VIAL IVP SCH (08:05)
[2019-09-21] MEDS: METOPROLOL TARTRATE 50 MG TAB PO SCH (08:05)
[2019-09-21] MEDS: HYDROCORTISONE 2.5% RECTAL CREAM 30 GM TUBE RECTAL SCH (08:06)
[2019-09-21 09:31] VITALS: RESP 20; TEMP 98
--- NOTE | 2019-09-21 11:42 | P.PN ---
Subjective Progress Note Date: 09/20/19 Patient is a 79-year-old female with a known history of chronic atrial fibrillation on anticoagulation with Coumadin, permanent pacemaker placement, history of CVA/TIA, GERD, hypertension, hyperlipidemia, history of coronary artery bypass graft and stent placement and other multiple medical problems, ischemic cardiomyopathy was brought to the hospital status post syncopal episode. Patient was going to the bathroom in the morning and suddenly she fell on the floor and hit on her the right forehead. Patient did not remember what happened. According to her daughter who found her, patient lost her consciousness briefly. Apparently patient has been having vomiting blood and also dark-colored stools for the past few days. Denied any chest pain. No abdominal pain. No diarrhea. Denied any dizziness or lightheadedness. Patient was able to walk with a walker at home. No fever no chills. Denies any recent illnesses. Patient states that he had endoscopy done due to GI bleed in the past. Patient does have a skin tear to the right and left knee. Denies any focal weakness. No numbness or tingling. No neck pain or shoulder pain. Patient was found to have A. fib with RVR with heart rate in 160s. CT head and cervical spine showed no acute fracture or dislocation. No acute intracranial hemorrhage, mass-effect or midline shift is seen. EKG showed atrial fibrillation with rapid ventricular rate Laboratory data showed WBC 11.8, hemoglobin 8.1 Previous hemoglobin June 2019 was 8.7 MCV 80.9 and RDW 19.2 INR 4.6 Sodium 136, potassium 3.9, BUN 55 and creatinine 0.81 Troponin 0 0.027, 0.051 and 0.056 FOBT positive Blood pressure was 85/60 with pulse 112 and 18 respiration on admission. 09/20/2019 Patient is currently lying in the bed comfortably. No further episodes of hematemesis or melena. Hemoglobin level is 9.1 today. Patient is being continued on PPI. Coumadin is on hold. Last night patient was given a dose of vitamin K IV. INR level is 1.9 today. Patient was seen by cardiology. Cardizem drip has been discontinued. Patient is being continued on metoprolol 50 mg twice a day. Continued on IV hydration and GI is on board. Patient recently had EGD done about 3 months ago. Current medications reviewed. Objective - Vital Signs Vital signs: Vital Signs Temp 98.2 F 09/20/19 08:00 Pulse 102 H 09/20/19 08:00 Resp 18 09/20/19 08:00 BP 113/65 09/20/19 08:00 Pulse Ox 100 09/20/19 08:00 Intake & Output 09/19/19 09/20/19 09/20/19 18:59 06:59 18:59 Intake Total 0 930 181.083 Balance 0 930 181.083 Weight 46.584 kg 47.5 kg 47.5 kg Intake: Intake, IV Titration 81.083 Amount Diltiazem 125 mg In 81.083 Sodium Chloride 0.9% 100 ml @ 5 MG/HR 5 mls/hr IV .Q24H [facility] Rx#:[id number] Oral 100 Blood Product 0 930 Rc As-3 Unit 310 [id number] Rc Pheresis As-3 Unit 0 310 [id number] Other: # Voids 1 1 # Bowel Movements 1 0 - Exam PHYSICAL EXAMINATION: Patient is lying in the bed comfortably, no acute distress, awake alert and oriented.. HEENT: Normocephalic. Neck is supple. Pupils reactive. Nostrils clear. Oral cavity is moist. Ears reveal no drainage. Neck reveals no JVD, carotid bruits, or thyromegaly. CHEST EXAMINATION: Trachea is central. Symmetrical expansion. Lung rodriguez clear to auscultation and percussion. CARDIAC: Normal S1, S2 with no gallops. No murmurs ABDOMEN: Soft. Bowel sounds normal. No organomegaly. No abdominal bruits. Extremities: reveal no edema. No clubbing or cyanosis Neurologically awake, alert, oriented x3 with well-coordinated movements. No focal deficits noted Skin: No rash or skin lesions. Psychiatric: Coperative. Nonsuicidal Musculoskeletal: No joint swelling or deformity. Normal range of motion. - Labs CBC & Chem 7: 09/21/19 05:54 09/21/19 05:54 Labs: Abnormal Lab Results - Last 24 Hours (Table) 09/19/19 09/19/19 09/19/19 Range/Units 15:15 15:15 18:49 RBC (3.80-5.40) m/uL Hgb (11.4-16.0) gm/dL Hct (34.0-46.0) % RDW (11.5-15.5) % PT 45.3 H (9.0-12.0) sec INR 4.6 H (<1.2) Chloride (98-107) mmol/L BUN (7-17) mg/dL Calcium (8.4-10.2) mg/dL Troponin I 0.051 H* (0.000-0.034) ng/mL Triglycerides (<150) mg/dL HDL Cholesterol (40-60) mg/dL Crossmatch See Detail 09/19/19 09/20/19 09/20/19 Range/Units 21:45 06:37 06:37 RBC 3.39 L (3.80-5.40) m/uL Hgb 9.1 L (11.4-16.0) gm/dL Hct 28.1 L (34.0-46.0) % RDW 17.7 H (11.5-15.5) % PT (9.0-12.0) sec INR (<1.2) Chloride 110 H (98-107) mmol/L BUN 48 H (7-17) mg/dL Calcium 8.2 L (8.4-10.2) mg/dL Troponin I 0.056 H* (0.000-0.034) ng/mL Triglycerides 172 H (<150) mg/dL HDL Cholesterol 36 L (40-60) mg/dL Crossmatch 09/20/19 Range/Units 06:37 RBC (3.80-5.40) m/uL Hgb (11.4-16.0) gm/dL Hct (34.0-46.0) % RDW (11.5-15.5) % PT 19.0 H (9.0-12.0) sec INR 1.9 H (<1.2) Chloride (98-107) mmol/L BUN (7-17) mg/dL Calcium (8.4-10.2) mg/dL Troponin I (0.000-0.034) ng/mL Triglycerides (<150) mg/dL HDL Cholesterol (40-60) mg/dL Crossmatch Assessment and Plan Assessment: Acute syncopal episode secondary to A. fib with RVR and GI bleed. Patient is asymptomatic now. Acute blood loss anemia secondary to GI bleed. Atrial fibrillation with rapid regular rate. Chronic atrial fibrillation on anticoagulation with Coumadin Supratherapeutic INR level History of permanent pacemaker placement History of TIA/CVA GERD Hypertension Hyperlipidemia History of coronary artery bypass graft and stent placement Ischemic cardiomyopathy Chronic CHF with systolic dysfunction, ejection fraction around 40% Moderate tricuspid and mild aortic regurgitation Severe mitral regurgitation Plan: Patient was continued gentle IV hydration and started on Cardizem drip. Patient was started back on metoprolol 50 mg twice a day. Continue with IV PPI and monitor H&H closely. Cardiology and GI is following. Further recommendations b ased on the clinical course. Prognosis is guarded with multiple medical problems and comorbid conditions. Warfarin is on hold due to supratherapeutic INR level and GI bleed We will hold Plavix and blood pressure medications and diuretics which she takes at home. Time with Patient: Greater than 30
[2019-09-21] MEDS ORDERED: PROCHLORPERAZINE 10 MG TAB PO PRN (11:46)
[2019-09-21] MEDS ORDERED: BUMETANIDE 1 MG TAB PO SCH (16:00)
--- NOTE | 2019-09-21 16:14 | PN ---
PROGRESS NOTE Mrs. Padilla has history of CAD, prior bypass surgery, mitral valve regurgitation. She is in atrial fibrillation. Rate is much better controlled. Breathing is easier. Vitals are stable. JVD is 1 cm. No carotid bruit. S1, S2 heard normally. Irregular rhythm noted. Short systolic murmur noted. Lungs reveal improved air entry. Plan is to increase activity and possible discharge today or tomorrow. MMODL / IJN: [id number] /
[2019-09-21 17:25] VITALS: BP 113/74; PULSE 81
== END 2019-09-21 18:14 | disposition home or self-care (01) | DRG 378 ==
LOC: EC 13:41 → 3SCARD 17:06
PROVIDERS: ADMIT Hospitalist; ATTEND Hospitalist
PROC: 30240N1 Transfusion of Nonautologous Red Blood Cells into Central Vein, Open Approach (ICD-10-PCS; principal; 2019-09-19)
PROC: 05HM33Z Insertion of Infusion Device into Right Internal Jugular Vein, Percutaneous Approach (ICD-10-PCS; principal; 2019-09-19)
DX: K92.2 Gastrointestinal hemorrhage, unspecified (principal); I48.19 Other persistent atrial fibrillation; I50.22 Chronic systolic (congestive) heart failure; D62 Acute posthemorrhagic anemia; I11.0 Hypertensive heart disease with heart failure; I95.9 Hypotension, unspecified; Z20.828 Contact with and (suspected) exposure to other viral communicable diseases; S81.012A Laceration without foreign body, left knee, initial encounter; S81.011A Laceration without foreign body, right knee, initial encounter; S41.111A Laceration without foreign body of right upper arm, initial encounter; R79.1 Abnormal coagulation profile; T45.515A Adverse effect of anticoagulants, initial encounter; I25.5 Ischemic cardiomyopathy; I08.3 Combined rheumatic disorders of mitral, aortic and tricuspid valves; I73.00 Raynaud's syndrome without gangrene; K21.9 Gastro-esophageal reflux disease without esophagitis; E78.5 Hyperlipidemia, unspecified; I25.10 Atherosclerotic heart disease of native coronary artery without angina pectoris; I45.10 Unspecified right bundle-branch block; K44.9 Diaphragmatic hernia without obstruction or gangrene; K64.9 Unspecified hemorrhoids; I25.2 Old myocardial infarction; G89.29 Other chronic pain; M54.5 Low back pain; M54.6 Pain in thoracic spine; M19.90 Unspecified osteoarthritis, unspecified site; Z79.02 Long term (current) use of antithrombotics/antiplatelets; Z79.01 Long term (current) use of anticoagulants; Z79.899 Other long term (current) drug therapy; Z86.73 Personal history of transient ischemic attack (TIA), and cerebral infarction without residual deficits; Z87.01 Personal history of pneumonia (recurrent); Z88.5 Allergy status to narcotic agent; Z87.19 Personal history of other diseases of the digestive system; Z85.3 Personal history of malignant neoplasm of breast; Z92.21 Personal history of antineoplastic chemotherapy; Z92.3 Personal history of irradiation; Z87.820 Personal history of traumatic brain injury; Z98.890 Other specified postprocedural states; Z90.89 Acquired absence of other organs; Z90.49 Acquired absence of other specified parts of digestive tract; Z95.1 Presence of aortocoronary bypass graft; Z95.5 Presence of coronary angioplasty implant and graft; Z95.0 Presence of cardiac pacemaker; Z98.42 Cataract extraction status, left eye; Z98.41 Cataract extraction status, right eye; W18.30XA Fall on same level, unspecified, initial encounter; Z83.3 Family history of diabetes mellitus; Z82.49 Family history of ischemic heart disease and other diseases of the circulatory system; Z83.2 Family history of diseases of the blood and blood-forming organs and certain disorders involving the immune mechanism
CPT/HCPCS: 36415; 36430; 36556; 70450; 71046; 72125; 80048; 80053; 80061; 82272; 82550; 83735; 83880; 84484; 85025; 85610; 85730; 86850; 86900; 86901; 86920; 93005; 96361; 96365; 96366; 96376; 99291

== ENCOUNTER 2019-10-01 09:51 | Inpatient (IN) | payer MEDICARE, BC ==
[2019-10-01] MEDS ORDERED: SODIUM CHLORIDE 0.9% 500 ML 500 ML IV STA (10:51)
[2019-10-01 12:42] LABS: Albumin 3.2 g/dL (3.5-5.0); Calcium 8.5 mg/dL (8.4-10.2); Magnesium 2.1 mg/dL (1.6-2.3); Potassium 4.3 mmol/L (3.5-5.1); Total Protein 5.7 g/dL (6.3-8.2)
--- NOTE | 2019-10-01 12:52 | ED ---
General Adult HPI - General Chief complaint: Arrhythmia/Palpitations Stated complaint: AFIB Time Seen by Provider: 10/01/19 10:00 Source: patient, EMS Mode of arrival: EMS Limitations: no limitations - History of Present Illness Initial comments: Patient is an 79-year-old female who presents to the emergency department with reported generalized weakness and shortness of breath. Patient was recently hospitalized for an upper GI bleed. She has a history of A. fib and was previously on Coumadin. During her last hospitalization she was removed from t his medication states she hasn't been taking at home. Her hematemesis and melenic stools have ceased. She has had vomiting since her hospital discharge and has been unable to hold down food. She went into Dr. Connell's office today. He found her in A. fib with RVR. Patient complains of lightheadedness area denies chest pain. Does admit to exertional dyspnea. Denies abdominal pain. No ripping or tearing sensation to her back. No urinary changes. No other alleviating, precipitating or modifying factors - Related Data Home Medications Medication Instructions Recorded Confirmed Nitroglycerin Sl Tabs [Nitrostat] 0.4 mg SUBLINGUAL Q5M PRN 06/07/19 10/01/19 Bumetanide [BUMEX] 1 mg PO BID 09/19/19 10/01/19 Clopidogrel [Plavix] 75 mg PO DAILY 10/01/19 10/01/19 traMADol HCL 50 - 100 mg PO Q6H PRN 10/01/19 10/01/19 Previous Rx's Medication Instructions Recorded Metoprolol Tartrate [Lopressor] 50 mg PO BID #60 tab 09/21/19 Allergies Allergy/AdvReac Type Severity Reaction Status Date / Time codeine AdvReac Nausea & Verified 10/01/19 11:31 Vomiting Review of Systems ROS Statement: Those systems with pertinent positive or pertinent negative responses have been documented in the HPI. ROS Other: All systems not noted in ROS Statement are negative. Past Medical History Past Medical History: Atrial Fibrillation, Cancer, Heart Failure, CVA/TIA, GERD/Reflux, Hyperlipidemia, Hypertension, Myocardial Infarction (NE), Musculoskeletal Disorder, Osteoarthritis (OA), Pneumonia Additional Past Medical History / Comment(s): Mitral regurgitation, moderate tricuspid regurg, mild aortic regurg, murmur, ischemic cardiomyopathy,2019 possible NSTEMI, L breast cancer with lumpectomy/chem and radiation, IBS, UTIs, 2019 anemia with cause unknown, bronchitis, TIAs, bilateral raynaulds syndrome, chronic low and thoracic back a pain/scoliosis, past head injury/concussion. Last Myocardial Infarction Date:: Possible NSTEMI in 2018 History of Any Multi-Drug Resistant Organisms: None Reported Past Surgical History: Adenoidectomy, Appendectomy, Breast Surgery, Coronary B ypass/CABG, Heart Catheterization, Heart Catheterization With Stent, Orthopedic Surgery, Pacemaker, Tonsillectomy Additional Past Surgical History / Comment(s): 10/25/17 NARENDRA, 10/27/17 PCI with stent to circumflex, 2002 CABG 3 vessel, left side lumpectomy, bialteral cataract removed, bilateral carpal tunnel releases, back injection, D&C, EGD in 2019 normal, colonoscopy. Past Anesthesia/Blood Transfusion Reactions: Postoperative Nausea & Vomiting (P ONV) Additional Past Anesthesia/Blood Transfusion Reaction / Comment(s): Pt has received blood in past without reaction. Date of Last Stent Placement:: 10/27/17 Type of Cardiac Device: Permanent Pacemaker Device Placement Date:: 2006 with gen change in 2018 Past Psychological History: No Psychological Hx Reported Past Alcohol Use History: None Reported Past Drug Use History: None Reported - Past Family History Mother Family Medical History: Coronary Artery Disease (CAD), Diabetes Mellitus Additional Family Medical History / Comment(s): cabg Father Family Medical History: Pulmonary Embolus Additional Family Medical History / Comment(s): Father of a pulmonary embolism at the age of 46yrs. General Exam Limitations: no limitations General appearance: alert, in no apparent distress Head exam: Present: atraumatic, normocephalic, normal inspection Eye exam: Present: normal appearance, PERRL, EOMI. Absent: scleral icterus, conjunctival injection, periorbital swelling ENT exam: Present: normal exam, mucous membranes dry Neck exam: Present: normal inspection. Absent: tenderness, meningismus, lymphadenopathy Respiratory exam: Present: normal lung sounds bilaterally. Absent: respiratory distress, wheezes, rales, rhonchi, stridor Cardiovascular Exam: Present: tachycardia, irregular rhythm, normal heart sounds. Absent: systolic murmur, diastolic murmur, rubs, gallop, clicks GI/Abdominal exam: Present: soft, normal bowel sounds. Absent: distended, tenderness, guarding, rebound, rigid Extremities exam: Present: normal inspection, full ROM, normal capillary refill. Absent: tenderness, pedal edema, joint swelling, calf tenderness Back exam: Present: normal inspection Neurological exam: Present: alert, oriented X3, CN II-XII intact Psychiatric exam: Present: normal affect, normal mood Skin exam: Present: warm, dry, intact, normal color. Absent: rash Course Vital Signs 10/01/19 10/01/19 10/01/19 09:59 11:18 11:43 Temperature 98 F Pulse Rate 130 H 112 H 121 H Respiratory 16 16 16 Rate Blood Pressure 104/60 90/68 O2 Sat by Pulse 98 97 96 Oximetry 10/01/19 10/01/19 10/01/19 12:32 13:56 16:08 Temperature 97.8 F Pulse Rate 102 H 108 H 112 H Respiratory 18 18 16 Rate Blood Pressure 102/43 90/50 102/51 O2 Sat by Pulse 95 96 96 Oximetry EKG Findings - EKG Comments: EKG Findings:: EKG demonstrates A. fib with a rate of 114. QRS 132. QTC of 396. Left axis deviation. Right bundle branch block. No acute ST segment elevations. ST depression in V45 Procedures - [place] Protocol (Time Out) Nurse: Apoorva Ramsey Medical Decision Making - Medical Decision Making Upon arrival the patient was placed into room 5. A thorough history and physical exam is performed. We did attempt to obtain IV access however the nurse is unable to get this. I do attempt 4 times to try and get IV access. Additional nurse attempts using ultrasound guidance. [employer] has been called who is unable to start a line the patient therefore midline is placed with success from the midline team. Laboratory studies are conducted patient was given a 500 mL of normal saline followed by 120 mL/h. Laboratory studies are remarkable for a hemoglobin 10. INR is 2.2. Patient's son reports that she is no longer taking her Coumadin. Lactic acid is 3.1. Creatinine 1.5, patient's baseline of 0.7. Liver enzymes are elevated. Troponin is positive at 0.053. Patient did have elevated troponin on last hospital admission. Chest x-ray does demonstrate small bilateral pleural effusions. Therefore I did give her a small bolus and started on 150 mL per hour. A CT patient and pelvis demonstrates bibasilar pleural effusions and compressive atelectasis. Early cirrhotic liver disease with chronic bladder sludge. Ultrasound performed on the patient's abdomen which demonstrates a hepatic cyst and a right pleural effusion however no signs of acute cholecystitis. The patient was given a dose of Zosyn previous to gallb ladder ultrasound results. Patient has improvement in her heart rate. I discussed the case with Dr. Pan who accepted admission. I will place GI consult. He did recommend that the patient he given vitamin K. Patient is currently awaiting a bed on the floor - Lab Data Result diagrams: 10/02/19 06:08 10/02/19 06:08 Lab Results 10/01/19 10/01/19 10/01/19 Range/Units 12:15 12:15 12:15 WBC 11.3 H (3.8-10.6) k/uL RBC 3.74 L (3.80-5.40) m/uL Hgb 10.0 L (11.4-16.0) gm/dL Hct 32.4 L (34.0-46.0) % MCV 86.5 (80.0-100.0) fL MCH 26.9 (25.0-35.0) pg MCHC 31.1 (31.0-37.0) g/dL RDW 20.1 H (11.5-15.5) % Plt Count 193 (150-450) k/uL Neutrophils % Not Reportable Neutrophils % (Manual) 87 % Lymphocytes % Not Reportable Lymphocytes % (Manual) 8 % Monocytes % Not Reportable Monocytes % (Manual) 4 % Eosinophils % Not Reportable Eosinophils % (Manual) 2 % Basophils % Not Reportable Neutrophils # Not Reportable Neutrophils # (Manual) 9.83 H (1.3-7.7) k/uL Lymphocytes # Not Reportable Lymphocytes # (Manual) 0.90 L (1.0-4.8) k/uL Monocytes # Not Reportable Monocytes # (Manual) 0.45 (0-1.0) k/uL Eosinophils # Not Reportable Eosinophils # (Manual) 0.23 (0-0.7) k/uL Basophils # Not Reportable Nucleated RBCs 2 H (0-0) /100 WBC Manual Slide Review Performed Polychromasia Present Hypochromasia Marked Poikilocytosis Slight Anisocytosis Moderate PT 31.5 H (9.0-12.0) sec INR 3.2 H (<1.2) APTT 40.9 H (22.0-30.0) sec Sodium 131 L (137-145) mmol/L Potassium 4.3 (3.5-5.1) mmol/L Chloride 98 (98-107) mmol/L Carbon Dioxide 19 L (22-30) mmol/L Anion Gap 14 mmol/L BUN 49 H (7-17) mg/dL Creatinine 1.58 H (0.52-1.04) mg/dL Est GFR (CKD-EPI)AfAm 35 (>60 ml/min/1.73 sqM) Est GFR (CKD-EPI)NonAf 31 (>60 ml/min/1.73 sqM) Glucose 74 (74-99) mg/dL Lactic Ac Sepsis Rflx Plasma Lactic Acid Alvin (0.7-2.0) mmol/L Calcium 8.5 (8.4-10.2) mg/dL Magnesium 2.1 (1.6-2.3) mg/dL Total Bilirubin 3.0 H (0.2-1.3) mg/dL AST 548 H (14-36) U/L ALT 346 H (4-34) U/L Alkaline Phosphatase 165 H (38-126) U/L Troponin I (0.000-0.034) ng/mL Total Protein 5.7 L (6.3-8.2) g/dL Albumin 3.2 L (3.5-5.0) g/dL Lipase 172 (23-300) U/L Blood Type Blood Type Recheck Bld Type Recheck Status Antibody Screen Antibody Identification Direct Antiglob Test Spec Expiration Date 10/01/19 10/01/19 10/01/19 Range/Units 12:15 12:15 12:46 WBC (3.8-10.6) k/uL RBC (3.80-5.40) m/uL Hgb (11.4-16.0) gm/dL Hct (34.0-46.0) % MCV (80.0-100.0) fL MCH (25.0-35.0) pg MCHC (31.0-37.0) g/dL RDW (11.5-15.5) % Plt Count (150-450) k/uL Neutrophils % Neutrophils % (Manual) % Lymphocytes % Lymphocytes % (Manual) % Monocytes % Monocytes % (Manual) % Eosinophils % Eosinophils % (Manual) % Basophils % Neutrophils # Neutrophils # (Manual) (1.3-7.7) k/uL Lymphocytes # Lymphocytes # (Manual) (1.0-4.8) k/uL Monocytes # Monocytes # (Manual) (0-1.0) k/uL Eosinophils # Eosinophils # (Manual) (0-0.7) k/uL Basophils # Nucleated RBCs (0-0) /100 WBC Manual Slide Review Polychromasia Hypochromasia Poikilocytosis Anisocytosis PT (9.0-12.0) sec INR (<1.2) APTT (22.0-30.0) sec Sodium (137-145) mmol/L Potassium (3.5-5.1) mmol/L Chloride (98-107) mmol/L Carbon Dioxide (22-30) mmol/L Anion Gap mmol/L BUN (7-17) mg/dL Creatinine (0.52-1.04) mg/dL Est GFR (CKD-EPI)AfAm (>60 ml/min/1.73 sqM) Est GFR (CKD-EPI)NonAf (>60 ml/min/1.73 sqM) Glucose (74-99) mg/dL Lactic Ac Sepsis Rflx Y Plasma Lactic Acid Alvin 3.1 H* (0.7-2.0) mmol/L Calcium (8.4-10.2) mg/dL Magnesium (1.6-2.3) mg/dL Total Bilirubin (0.2-1.3) mg/dL AST (14-36) U/L ALT (4-34) U/L Alkaline Phosphatase (38-126) U/L Troponin I 0.053 H* (0.000-0.034) ng/mL Total Protein (6.3-8.2) g/dL Albumin (3.5-5.0) g/dL Lipase (23-300) U/L Blood Type Blood Type Recheck Bld Type Recheck Status Antibody Screen Antibody Identification Direct Antiglob Test Spec Expiration Date 10/01/19 10/01/19 Range/Units 15:04 15:04 WBC (3.8-10.6) k/uL RBC (3.80-5.40) m/uL Hgb (11.4-16.0) gm/dL Hct (34.0-46.0) % MCV (80.0-100.0) fL MCH (25.0-35.0) pg MCHC (31.0-37.0) g/dL RDW (11.5-15.5) % Plt Count (150-450) k/uL Neutrophils % Neutrophils % (Manual) % Lymphocytes % Lymphocytes % (Manual) % Monocytes % Monocytes % (Manual) % Eosinophils % Eosinophils % (Manual) % Basophils % Neutrophils # Neutrophils # (Manual) (1.3-7.7) k/uL Lymphocytes # Lymphocytes # (Manual) (1.0-4.8) k/uL Monocytes # Monocytes # (Manual) (0-1.0) k/uL Eosinophils # Eosinophils # (Manual) (0-0.7) k/uL Basophils # Nucleated RBCs (0-0) /100 WBC Manual Slide Review Polychromasia Hypochromasia Poikilocytosis Anisocytosis PT (9.0-12.0) sec INR (<1.2) APTT (22.0-30.0) sec Sodium (137-145) mmol/L Potassium (3.5-5.1) mmol/L Chloride (98-107) mmol/L Carbon Dioxide (22-30) mmol/L Anion Gap mmol/L BUN (7-17) mg/dL Creatinine (0.52-1.04) mg/dL Est GFR (CKD-EPI)AfAm (>60 ml/min/1.73 sqM) Est GFR (CKD-EPI)NonAf (>60 ml/min/1.73 sqM) Glucose (74-99) mg/dL Lactic Ac Sepsis Rflx Plasma Lactic Acid Alvin 2.6 H* (0.7-2.0) mmol/L Calcium (8.4-10.2) mg/dL Magnesium (1.6-2.3) mg/dL Total Bilirubin (0.2-1.3) mg/dL AST (14-36) U/L ALT (4-34) U/L Alkaline Phosphatase (38-126) U/L Troponin I (0.000-0.034) ng/mL Total Protein (6.3-8.2) g/dL Albumin (3.5-5.0) g/dL Lipase (23-300) U/L Blood Type O Positive Blood Type Recheck O Pos Bld Type Recheck Status No Antibody Screen POSITIVE Antibody Identification Anti-E Direct Antiglob Test Negative Spec Expiration Date 10/04/2019 - 2303 Disposition Clinical Impression: Atrial fibrillation, NSTEMI (non-ST elevated myocardial infarction), Vomiting, Supratherapeutic INR, Transaminitis, ALEX (acute kidney injury) Disposition: ADMITTED IP TO THIS HOSP Condition: Serious Is patient prescribed a controlled substance at d/c from ED?: No Decision to Admit Reason: Admit from EC Decision Date: 10/01/19 Decision Time: 15:19
[2019-10-01 13:05] LABS: Anisocytosis Moderate; HCT 32.4 % (34.0-46.0); Hypochromasia Marked; MCH 26.9 pg (25.0-35.0); MCHC 31.1 g/dL (31.0-37.0); MCV 86.5 fL (80.0-100.0); Platelet Count 193 k/uL (150-450); Poikilocytosis Slight; RBC 3.74 m/uL (3.80-5.40); RDW 20.1 % (11.5-15.5)
[2019-10-01 13:11] LABS: INR 3.2 (<1.2); Partial Thromboplastin Time 40.9 sec (22.0-30.0); Prothrombin Time 31.5 sec (9.0-12.0)
[2019-10-01 13:18] LABS: Eosinophils # (M) 0.23 k/uL (0-0.7); Monocytes # (M) 0.45 k/uL (0-1.0); Neutrophils # (M) 9.83 k/uL (1.3-7.7); Neutrophils % (M) 87 %; Nucleated Red Blood Cells 2 /100 WBC (0-0); Total Cells Counted 200; WBC 11.3 k/uL (3.8-10.6)
[2019-10-01 13:19] LABS: Polychromasia Present
--- NOTE | 2019-10-01 14:07 | CT ---
EXAMINATION TYPE: CT abdomen pelvis wo con DATE OF EXAM: 10/01/2019 COMPARISON: 03/07/2018 HISTORY: elevated liver enzymes, kidney failure CT DLP: 350.4 mGycm Examination of the solid and hollow viscera is limited given the lack of contrast. FINDINGS: LUNG BASES: Basilar pleural effusions noted and probable atelectasis. Infiltrate is difficult to excl ude. LIVER/GB: Micronodular appearance to the hepatic periphery may reflect early cirrhotic liver disease correlate clinically. Sludge material suspected within the gallbladder. No space-occupying hepatic lesion. PANCREAS: No pancreatic mass identified. No inflammatory process seen. SPLEEN: No evidence for splenomegaly. No intrasplenic lesions seen. ADRENALS: No adrenal nodules identified. No evidence for thickening. KIDNEYS: No evidence for renal mass. No nephrolithiasis. No hydronephrosis. BOWEL: Appendix has a normal appearance. No evidence of bowel obstruction. No inflammatory process. Lymph nodes: No evidence for adenopathy greater than 1 cm. Abdominal aorta: Atheromatous changes seen. No evidence for aneurysm. Genital organs: No significant abnormality. Other: Small amount of ascites noted. IMPRESSION: 1. Basilar pleural effusions and compressive atelectasis. 2. Correlate for early cirrhotic liver disease. 3. Gallbladder sludge.
--- NOTE | 2019-10-01 14:31 | XR ---
EXAMINATION TYPE: XR chest 2V DATE OF EXAM: 10/01/2019 COMPARISON: 09/19/2019 INDICATION: Pain TECHNIQUE: Frontal and lateral views of the chest are obtained. FINDINGS: The heart size is normal. Sternotomy wires are in the midline. Axillary surgical clips are present. Pacemaker overlies left chest. The pulmonary vasculature is normal. Minimal right pleural effusion is present. There is blunting left costophrenic angle. Small left pleu ral effusion may also be present.. IMPRESSION: 1. Small bilateral pleural effusions.
[2019-10-01] MEDS ORDERED: PIPERACILLIN-TAZOBACTAM 3.375 GM in SODIUM CHLORIDE 0.9% 100 ML IVPB STA (15:16)
[2019-10-01] MEDS ORDERED: PHYTONADIONE ORAL 5 MG/5 ML ORAL.SYRG PO STA (15:17)
[2019-10-01] MEDS ORDERED: NALOXONE 0.4 MG/ML 1 ML VIAL IV PRN (15:20)
[2019-10-01] MEDS: SODIUM CHLORIDE 0.9% 1,000 ML IV SCH (15:53)
--- NOTE | 2019-10-01 15:58 | US ---
EXAMINATION TYPE: US abdomen limited DATE OF EXAM: 10/01/2019 COMPARISON: CT 10/01/2019, ultrasound 12/12/2014 CLINICAL HISTORY: elevated liver enzymes. EXAM MEASUREMENTS: Liver Length: 13.6 cm Gallbladder Wall: 0.2 cm CBD: 0.4 cm Right Kidney: 8.3 x 3.9 x 3.7 cm Technically difficult study performed portably on patient who was continually coughing. Pancreas: visualized portions wnl Liver: possible cyst next to rudy measures 1.2 x 1.2 x 1.2 cm. Present previously measuring 0.70 c m in diameter Gallbladder: no stones or sludge seen Evidence for sonographic Blount's sign: No CBD: wnl Right Kidney: No hydronephrosis or masses seen Incidental note is made of right pleural effusion. IMPRESSION: 1. Hepatic cyst. 2. Right pleural effusion.
[2019-10-01] MEDS: METOPROLOL TARTRATE 50 MG TAB PO SCH (20:12)
[2019-10-02] MEDS: traMADol 50 MG TAB PO PRN ×2 (01:11→15:44)
[2019-10-02] MEDS: SODIUM CHLORIDE 0.9% 1,000 ML IV SCH (01:54)
[2019-10-02 06:30] LABS: Anisocytosis Moderate; Basophils % (A) 0 %; Eosinophils # (A) 0.1 k/uL (0-0.7); Eosinophils % (A) 1 %; HCT 30.1 % (34.0-46.0); HGB 8.9 gm/dL (11.4-16.0); Hypochromasia Marked; Lymphocytes # (A) 1.5 k/uL (1.0-4.8); Lymphocytes % (A) 14 %; MCHC 29.7 g/dL (31.0-37.0); MCV 87.8 fL (80.0-100.0); Mean Platelet Volume 8.4; Monocytes # (A) 0.7 k/uL (0-1.0); Monocytes % (A) 6 %; Neutrophils # (A) 7.9 k/uL (1.3-7.7); Neutrophils % (A) 75 %; Platelet Count 192 k/uL (150-450); Poikilocytosis Slight; RBC 3.43 m/uL (3.80-5.40); RDW 20.2 % (11.5-15.5); WBC 10.5 k/uL (3.8-10.6)
[2019-10-02 06:40] LABS: Calcium 8.1 mg/dL (8.4-10.2); Potassium 3.8 mmol/L (3.5-5.1)
[2019-10-02] MEDS: METOPROLOL TARTRATE 50 MG TAB PO SCH (08:12)
[2019-10-02] MEDS ORDERED: CLOPIDOGREL 75 MG TAB PO SCH (09:00)
--- NOTE | 2019-10-02 11:09 | CONS ---
CONSULTATION Rea is an 79-year-old lady with history of coronary artery disease, status post CABG, chronic permanent atrial fibrillation, severe mitral regurgitation who was on Coumadin and was recently admitted to hospital with GI bleed. She underwent endoscopic evaluation,. the Coumadin was on hold and was discharged home. She presented to her primary care physician with shortness of breath and was found to be in atrial fibrillation with rapid ventricular rate for which she had been re-admitted to hospital. At the time of my evaluation her heart rate is still somewhat poorly controlled at 105 beats per minute. Blood pressure is marginal. She is currently on Lopressor 50 b.i.d. along with Plavix and I am adding amiodarone for better rate control. Even when her Coumadin is on hold, INR is still at 3.2, hemoglobin is 8.9. She received vitamin K to reverse her anticoagulation. An EKG on this admission reveal atrial fibrillation with right bundle branch block. Chest x-ray showed small bilateral pleural effusions. LABS: Show that the potassium is 3.8, BUN 48, creatinine is 1.4. Troponins are mildly elevated secondary to renal insufficiency. PAST MEDICAL HISTORY: Significant for coronary artery disease status post CABG, mitral regurgitation, permanent atrial fibrillation, and GI bleed. MEDICATIONS: Include Plavix, Bumex, Lopressor, tramadol. ALLERGY: To CODEINE. FAMILY HISTORY: Negative for premature coronary artery disease. SOCIAL HISTORY: Negative for current smoking, EtOH abuse, or drug abuse. REVIEW OF SYSTEMS: HEENT: Unremarkable. CARDIAC: As described above. RESPIRATORY: As described above. GI: As described above. GENITOURINARY: Negative. ALLERGY/IMMUNOLOGY: Negative. SKIN: Negative. MUSCULOSKELETAL: Significant for arthritis. PSYCHOSOCIAL: Negative. DERM: Negative. CONSTITUTIONAL: Negative. ONCOLOGICAL: Negative. SCREW SUPERVISOR: Negative. PHYSICAL EXAM: Patient is afebrile. Heart rate is 90 to 100 beats per minute. Blood pressure is 110/60, respiratory rate is 20, O2 saturation is 94% on 3 L. There is no jugular venous distention. Carotid upstroke is diminished. There is no bruit. Chest exam reveals good air entry bilaterally. No crackles or rhonchi. Heart exam reveals first and second heart sounds, irregular rhythm and a grade 3 x 6 systolic murmur at the apex and at the left lower sternal border. Abdomen is soft. Exam of extremities did not reveal any edema. Peripheral pulses are felt. ASSESSMENT: 1. Permanent atrial fibrillation with poorly controlled ventricular rate. 2. Acute renal insufficiency. 3. History of GI bleed. 4. Elevated troponin secondary to renal insufficiency. PLAN: I will continue with rate control. Add amiodarone for rate control. She is not a candidate for anticoagulation given the recent GI bleed. I will check an INR on her today and repeat one tomorrow. Will hold the Bumex at this time. MMODL / IJN: [id number] /
[2019-10-02] MEDS: AMIODARONE 200 MG TAB PO SCH (12:19)
[2019-10-02 13:34] LABS: Albumin 2.7 g/dL (3.5-5.0); Bilirubin, Conjugated 0.5 mg/dL (0.0-0.3); Bilirubin, Delta 1.1 mg/dL (0.0-0.2); Total Bilirubin 2.6 mg/dL (0.2-1.3); Total Protein 5.1 g/dL (6.3-8.2)
[2019-10-02] MEDS: SODIUM BICARBONATE TAB 650 MG TAB PO SCH (18:55)
[2019-10-02 19:45] LABS: Glucose,Whole Blood 58 mg/dL (75-99)
[2019-10-02] MEDS ORDERED: DEXTROSE 50% SYRINGE 50 ML IVP ONE (19:45)
--- NOTE | 2019-10-02 19:45 | P.HPIM ---
History of Present Illness H&P Date: 10/02/19 Chief Complaint: Short of breath History of presenting complaint: 79-year-old, pleasant, follows with Dr. Connell. Chronic stable medical conditions include congestive heart failure with EF of 30-35%, coronary artery disease with a CABG and stent, hypertension, hyperlipidemia, AICD for sick sinus syndrome. In June of this year EGD had shown deep distal esophageal mucosal ulcerations tear being on Coumadin. Patient was in the hospital recently on September 18 through September 20 with A. fib with rapid ventricular rate and GI bleed. Coumadin again was held. Medication adjusted. Patient presents with feeling short of breath decreased appetite, rundown. No vomiting. dry mouth. No fever no chills.. In the ER found to be in A. fib.- Uncontrolled Review of systems: GEN.: Tired EYES: None HEENT: Timeout NECK: None RESPIRATORY: Shortness of breath CARDIOVASCULAR: None GASTROINTESTINAL: None GENITOURINARY: None MUSCULOSKELETAL: Some joint pains LYMPHATICS: None HEMATOLOGICAL: None PSYCHIATRY: None NEUROLOGICAL: None Past medical history to include: CHF EF 30-35%, coronary artery disease with bypass and stent, hypertension, hyperlipidemia, AICD for sick sinus syndrome, esophageal ulceration and GI bleed from Coumadin Social history: Lives alone. Has a walker. Using occasionally. Did smoke for 18 years stopped in 1969. No alcohol Physical examination: VITAL SIGNS: 98, 1:30, 16, 104/60 98% on 4 L GENERAL: BMI 21.6, sitting up in chair, tired. EYES: [Pupils equal. Conjunctiva pale. HEENT: External appearance of nose and ears normal, oral cavity dry mucous membranes. NECK: JVD not raised; masses not palpable. HEART: Heart sounds irregular; no edema. LUNGS: Respiratory rate increased, decreased breath sounds. ABDOMEN: Soft, nontender, liver spleen not palpable, no masses palpable. PSYCH: Alert and oriented x3; mood and affect tiredl. NEUROLOGICAL: Cranial nerves grossly intact; no facial asymmetry, power and sensation grossly intact. LYMPHATICS: No lymph nodes palpable in the axilla and neck INVESTIGATIONS, reviewed in the clinical context: White count 11.3 hemoglobin 10 INR 3.2 progression 4.3 bun 49 creatinine 1.58 Lactic acid 3.1 AST 548 ALT 346 Troponin I 0.053, 0.04 albumin 3.2 EKG tracing personally reviewed by me-aged fibrillation with a rate of 140s with a right bundle branch block pattern Chest x-ray film personally reviewed by me-cardiomegaly, AICD, some right-sided pleural effusion with blunting Previous testing: Bun 31 and creatinine 0.73 on September 20 Assessment: -Persistent Atrial fibrillation-rate uncontrolled, causing shortness of breath -Chronic distal esophageal tear -Lactic acidosis type II -Chronic Congestive heart chronic systolic dysfunction: EF 30-35% -Coronary artery disease with previous CABG and stent -Coumadin toxicity on presentation-INR 3.9 -Hyperlipidemia -Hypertension -AICD for sick sinus syndrome -Acute kidney injury, prerenal from patient being on Bumex -acute metabolic acidosis from kidney failure Plan: -Patient is Bumex has been held. Patient gently rehydrated. Patient is put on a Cardizem drip in the ER. Was discussed with the patient. Repeat labs in the morning. Patient really decreased tonight stating the hospital. Other medications to be resumed. Patient to remain off Coumadin. Past Medical History Past Medical History: Atrial Fibrillation, Cancer, Heart Failure, CVA/TIA, GERD/Reflux, Hyperlipidemia, Hypertension, Myocardial Infarction ([place]), Muscul oskeletal Disorder, Osteoarthritis (OA), Pneumonia Additional Past Medical History / Comment(s): Mitral regurgitation, moderate tricuspid regurg, mild aortic regurg, murmur, ischemic cardiomyopathy,2019 possible NSTEMI, L breast cancer with lumpectomy/chem and radiation, IBS, UTIs, 2019 anemia with cause unknown, bronchitis, TIAs, bilateral raynaulds syndrome, chronic low and thoracic back a pain/scoliosis, past head injury/concussion. Last Myocardial Infarction Date:: Possible NSTEMI in 2018 History of Any Multi-Drug Resistant Organisms: None Reported Past Surgical History: Adenoidectomy, Appendectomy, Breast Surgery, Coronary Bypass/CABG, Heart Catheterization, Heart Catheterization With Stent, Orthopedic Surgery, Pacemaker, Tonsillectomy Additional Past Surgical History / Comment(s): 10/25/17 NARENDRA, 10/27/17 PCI with stent to circumflex, 2002 CABG 3 vessel, left side lumpectomy, bialteral cataract removed, bilateral carpal tunnel releases, back injection, D&C, EGD in 2019 normal, colonoscopy. Past Anesthesia/Blood Transfusion Reactions: Postoperative Nausea & Vomiting (PONV) Additional Past Anesthesia/Blood Transfusion Reaction / Comment(s): Pt has received blood in past without reaction. Date of Last Stent Placement:: 10/27/17 Type of Cardiac Device: Permanent Pacemaker Device Placement Date:: 2006 with gen change in 2018 Past Psychological History: No Psychological Hx Reported Additional Psychological History / Comment(s): Pt resides alone. She is independent. She states recently she has been using a cane/walker prn. Smoking Status: Former smoker Past Alcohol Use History: None Reported Additional Past Alcohol Use History / Comment(s): Pt started smoking in 1952 and quit in 1969. Past Drug Use History: None Reported - Past Family History Mother Family Medical History: Coronary Artery Disease (CAD), Diabetes Mellitus Additional Family Medical History / Comment(s): cabg Father Family Medical History: Pulmonary Embolus Additional Family Medical History / Comment(s): Father of a pulmonary embolism at the age of 46yrs. Medications and Allergies Home Medications Medication Instructions Recorded Confirmed Type Nitroglycerin Sl Tabs [Nitrostat] 0.4 mg SUBLINGUAL Q5M PRN 06/07/19 10/01/19 History Bumetanide [BUMEX] 1 mg PO BID 09/19/19 10/01/19 History Metoprolol Tartrate [Lopressor] 50 mg PO BID #60 tab 09/21/19 10/01/19 Rx Clopidogrel [Plavix] 75 mg PO DAILY 10/01/19 10/01/19 History traMADol HCL 50 - 100 mg PO Q6H PRN 10/01/19 10/01/19 History Allergies Allergy/AdvReac Type Severity Reaction Status Date / Time codeine AdvReac Nausea & Verified 10/01/19 11:31 Vomiting Physical Exam Vitals: Vital Signs Temp Pulse Pulse Resp BP BP Pulse Ox 10/02/19 04:00 97.8 F 105 H 20 101/60 92 L 10/02/19 00:00 98 F 110 H 20 99/56 94 L 10/01/19 20:00 98.2 F 99 20 103/60 98 10/01/19 19:23 112 H 18 141/62 10/01/19 16:08 97.8 F 112 H 16 102/51 96 10/01/19 13:56 108 H 18 90/50 96 10/01/19 12:32 102 H 18 102/43 95 10/01/19 11:43 121 H 16 90/68 96 10/01/19 11:18 112 H 16 97 10/01/19 09:59 98 F 130 H 16 104/60 98 Intake and Output 10/01/19 10/02/19 10/02/19 22:59 06:59 14:59 Intake Total 0 Balance 0 Intake: Oral 0 Other: # Voids 1 Weight 54.431 kg 53.5 kg Results CBC & Chem 7: 10/02/19 06:08 10/02/19 06:08 Labs: Abnormal Lab Results - Last 24 Hours (Table) 10/01/19 10/01/19 10/01/19 Range/Units 12:15 12:15 12:15 WBC 11.3 H (3.8-10.6) k/uL RBC 3.74 L (3.80-5.40) m/uL Hgb 10.0 L (11.4-16.0) gm/dL Hct 32.4 L (34.0-46.0) % MCHC (31.0-37.0) g/dL RDW 20.1 H (11.5-15.5) % Neutrophils # (1.3-7.7) k/uL Neutrophils # (Manual) 9.83 H (1.3-7.7) k/uL Lymphocytes # (Manual) 0.90 L (1.0-4.8) k/uL Nucleated RBCs 2 H (0-0) /100 WBC PT 31.5 H (9.0-12.0) sec INR 3.2 H (<1.2) APTT 40.9 H (22.0-30.0) sec Sodium 131 L (137-145) mmol/L Carbon Dioxide 19 L (22-30) mmol/L BUN 49 H (7-17) mg/dL Creatinine 1.58 H (0.52-1.04) mg/dL Plasma Lactic Acid Alvin (0.7-2.0) mmol/L Calcium (8.4-10.2) mg/dL Total Bilirubin 3.0 H (0.2-1.3) mg/dL AST 548 H (14-36) U/L ALT 346 H (4-34) U/L Alkaline Phosphatase 165 H (38-126) U/L Troponin I (0.000-0.034) ng/mL Total Protein 5.7 L (6.3-8.2) g/dL Albumin 3.2 L (3.5-5.0) g/dL 10/01/19 10/01/19 10/01/19 Range/Units 12:15 12:15 15:04 WBC (3.8-10.6) k/uL RBC (3.80-5.40) m/uL Hgb (11.4-16.0) gm/dL Hct (34.0-46.0) % MCHC (31.0-37.0) g/dL RDW (11.5-15.5) % Neutrophils # (1.3-7.7) k/uL Neutrophils # (Manual) (1.3-7.7) k/uL Lymphocytes # (Manual) (1.0-4.8) k/uL Nucleated RBCs (0-0) /100 WBC PT (9.0-12.0) sec INR (<1.2) APTT (22.0-30.0) sec Sodium (137-145) mmol/L Carbon Dioxide (22-30) mmol/L BUN (7-17) mg/dL Creatinine (0.52-1.04) mg/dL Plasma Lactic Acid Alvin 3.1 H* 2.6 H* (0.7-2.0) mmol/L Calcium (8.4-10.2) mg/dL Total Bilirubin (0.2-1.3) mg/dL AST (14-36) U/L ALT (4-34) U/L Alkaline Phosphatase (38-126) U/L Troponin I 0.053 H* (0.000-0.034) ng/mL Total Protein (6.3-8.2) g/dL Albumin (3.5-5.0) g/dL 10/01/19 10/01/19 10/02/19 Range/Units 16:07 19:22 06:08 WBC (3.8-10.6) k/uL RBC 3.43 L (3.80-5.40) m/uL Hgb 8.9 L (11.4-16.0) gm/dL Hct 30.1 L (34.0-46.0) % MCHC 29.7 L (31.0-37.0) g/dL RDW 20.2 H (11.5-15.5) % Neutrophils # 7.9 H (1.3-7.7) k/uL Neutrophils # (Manual) (1.3-7.7) k/uL Lymphocytes # (Manual) (1.0-4.8) k/uL Nucleated RBCs (0-0) /100 WBC PT (9.0-12.0) sec INR (<1.2) APTT (22.0-30.0) sec Sodium (137-145) mmol/L Carbon Dioxide (22-30) mmol/L BUN (7-17) mg/dL Creatinine (0.52-1.04) mg/dL Plasma Lactic Acid Alvin (0.7-2.0) mmol/L Calcium (8.4-10.2) mg/dL Total Bilirubin (0.2-1.3) mg/dL AST (14-36) U/L ALT (4-34) U/L Alkaline Phosphatase (38-126) U/L Troponin I 0.048 H* 0.047 H* (0.000-0.034) ng/mL Total Protein (6.3-8.2) g/dL Albumin (3.5-5.0) g/dL 10/02/19 Range/Units 06:08 WBC (3.8-10.6) k/uL RBC (3.80-5.40) m/uL Hgb (11.4-16.0) gm/dL Hct (34.0-46.0) % MCHC (31.0-37.0) g/dL RDW (11.5-15.5) % Neutrophils # (1.3-7.7) k/uL Neutrophils # (Manual) (1.3-7.7) k/uL Lymphocytes # (Manual) (1.0-4.8) k/uL Nucleated RBCs (0-0) /100 WBC PT (9.0-12.0) sec INR (<1.2) APTT (22.0-30.0) sec Sodium 130 L (137-145) mmol/L Carbon Dioxide 17 L (22-30) mmol/L BUN 48 H (7-17) mg/dL Creatinine 1.41 H (0.52-1.04) mg/dL Plasma Lactic Acid Alvin (0.7-2.0) mmol/L Calcium 8.1 L (8.4-10.2) mg/dL Total Bilirubin (0.2-1.3) mg/dL AST (14-36) U/L ALT (4-34) U/L Alkaline Phosphatase (38-126) U/L Troponin I (0.000-0.034) ng/mL Total Protein (6.3-8.2) g/dL Albumin (3.5-5.0) g/dL Thrombosis Risk Factor Assmnt - Choose All That Apply Any of the Below Risk Factors Present?: No Other Risk Factors: Yes Each Risk Factor Represents 2 Points: Central venous access Each Risk Factor Represents 3 Points: Family history of DVT/PE, History of DVT/PE Other congenital or acquired thrombophilia - If yes, enter type in comment: No Thrombosis Risk Factor Assessment Total Risk Factor Score: 8 Thrombosis Risk Factor Assessment Level: High Risk
[2019-10-02 19:57] LABS: Glucose,Whole Blood 156 mg/dL (75-99)
[2019-10-02] MEDS ORDERED: FUROSEMIDE 10 MG/ML 4 ML VIAL IV STA (20:31)
[2019-10-02 20:39] LABS: Glucose,Whole Blood 119 mg/dL (75-99)
[2019-10-02 21:16] LABS: Glucose,Whole Blood 100 mg/dL (75-99)
--- NOTE | 2019-10-02 22:12 | XR ---
EXAMINATION TYPE: XR chest 1V portable DATE OF EXAM: 10/02/2019 COMPARISON: Yesterday HISTORY: Chest pain. Short of breath TECHNIQUE: FINDINGS: Heart appears slightly enlarged. There is blunting of the costophrenic angles. There is lef t axillary pacemaker. There are sternal wires. There are chest leads. There is mild pulmonary congest ion IMPRESSION: There is mild congestive heart failure with pleural effusions. Pleural fluid increased sl ightly compared to yesterday.
[2019-10-02 23:59] LABS: ABG Base Excess -15.5 mmol/L; ABG PCO2 20 mmHg (35-45); ABG PH 7.33 (7.35-7.45); ABG PO2 295 mmHg (83-108); ABG TCO2 11 mmol/L (19-24); Allen Test Performed? Yes
[2019-10-03] LABS: ABG HCO3 10 mmol/L (21-25)
[2019-10-03 00:18] LABS: Anisocytosis Slight; Basophils % (A) 0 %; Eosinophils # (A) 0.1 k/uL (0-0.7); Eosinophils % (A) 0 %; HCT 30.4 % (34.0-46.0); HGB 9.2 gm/dL (11.4-16.0); Hypochromasia Marked; Lymphocytes # (A) 1.2 k/uL (1.0-4.8); Lymphocytes % (A) 7 %; MCH 27.2 pg (25.0-35.0); MCHC 30.4 g/dL (31.0-37.0); MCV 89.7 fL (80.0-100.0); Mean Platelet Volume 8.9; Monocytes # (A) 0.8 k/uL (0-1.0); Monocytes % (A) 5 %; Neutrophils # (A) 14.7 k/uL (1.3-7.7); Neutrophils % (A) 87 %; Platelet Count 178 k/uL (150-450); Poikilocytosis Slight; RBC 3.39 m/uL (3.80-5.40); WBC 16.8 k/uL (3.8-10.6)
[2019-10-03 00:29] LABS: Calcium 7.9 mg/dL (8.4-10.2); Magnesium 2.1 mg/dL (1.6-2.3); Potassium 4.4 mmol/L (3.5-5.1)
[2019-10-03] MEDS: SODIUM BICARBONATE TAB 650 MG TAB PO SCH ×2 (00:36→00:59)
[2019-10-03] MEDS ORDERED: LACTATED RINGERS 1,000 ML IV ONE (00:50)
[2019-10-03 01:15] VITALS: BP 69/48; TEMP 96.4
[2019-10-03] MEDS ORDERED: NOREPINEPHRINE 4 MG in SODIUM CHLORIDE 0.9% 250 ML IV SCH (02:45)
[2019-10-03 02:55] LABS: ABG Base Excess -20.2 mmol/L; ABG Oxygen Saturation 98.4 % (94-97); ABG PCO2 20 mmHg (35-45); ABG PO2 145 mmHg (83-108); ABG TCO2 9 mmol/L (19-24); Allen Test Performed? Yes
[2019-10-03 02:59] LABS: ABG HCO3 8 mmol/L (21-25)
[2019-10-03] MEDS ORDERED: SODIUM BICARB 8.4% 50 ML SYR (1 MEQ/ML) ONE ×2 (03:04→03:05)
[2019-10-03] MEDS ORDERED: EPINEPHrine 10 ML SYRINGE (0.1 MG/ML) ONE (03:04)
[2019-10-03] MEDS ORDERED: propofoL 100 ML IV ONE (03:25)
[2019-10-03 04:22] VITALS: PULSE 87; RESP 19
[2019-10-03] MEDS: METOPROLOL TARTRATE 50 MG TAB PO SCH (05:03)
[2019-10-03] MEDS: AMIODARONE 200 MG TAB PO SCH (05:03)
[2019-10-03] MEDS: SODIUM CHLORIDE 0.9% 1,000 ML IV SCH (05:03)
--- NOTE | 2019-10-03 11:23 | P.CONS ---
History of Present Illness - Reason for Consult Consult date: 10/02/19 Transaminitis Requesting physician: Anjel Pan - Chief Complaint Weak - History of Present Illness 79-year-old female with a past medical history significant for hypertension, GERD, hyperlipidemia, coronary artery disease, atrial fibrillation on anticoagulation therapy who presented to the hospital due to weakness and shortness of breath. Patient was previously seen for complaints of hematemesis and GI bleed and underwent EGD on 06/08/2019 with findings of a deep distal tear in the esophagus prior to this she had EGD and colonoscopy in 02/2019 signific ant for a hiatal hernia and hemorrhoids. On current presentation patient is being treated for weakness and shortness of breath with hemoglobin stable from prior discharge at 8.9 the patient was found to have elevation and or liver enzymes on presentation and increased from previous hospitalizations with total bilirubin 3.0, alkaline phosphatase 165, AST 548 and ALT 346. There was concern for gallbladder sludge and ascites with possible cirrhosis on CT of the abdomen. Ultrasound however was negative for sludge or stones. She has no history of significant alcohol use and denies any jaundice or prior history of elevated liver enzymes. Review of Systems REVIEW OF SYSTEMS: CONSTITUTIONAL: Denies any fevers, chills, weight change but she does have fatigue. CARDIOVASCULAR: Denies any chest pain, palpitations high or low blood pressures RESPIRATORY: Denies any shortness of breath, hemoptysis or cough. GENITOURINARY: No dysuria or hematuria. MUSCULOSKELETAL: No weakness reported. SKIN: Denies any new rashes or lesions, jaundice or pallor. PSYCHIATRIC: Denies any depression or anxiety, history of alcohol abuse. NEUROLOGY: Denies headache, denies any new focal deficits. EARS/NOSE/THROAT: No recent hearing change, congestion, nasal discharge or sore throat. EYES: No pain in eyes, discharge or change in vision. GASTROINTESTINAL: As per HPI. Past Medical History Past Medical History: Atrial Fibrillation, Cancer, Heart Failure, CVA/TIA, GERD/Reflux, Hyperlipidemia, Hypertension, Myocardial Infarction ([place]), Musculoskeletal Disorder, Osteoarthritis (OA), Pneumonia Additional Past Medical History / Comment(s): Mitral regurgitation, moderate tricuspid regurg, mild aortic regurg, murmur, ischemic cardiomyopathy,2019 possible NSTEMI, L breast cancer with lumpectomy/chem and radiation, IBS, UTIs, 2019 anemia with cause unknown, bronchitis, TIAs, bilateral raynaulds syndrome, chronic low and thoracic back a pain/scoliosis, past head injury/concussion. Last Myocardial Infarction Date:: Possible NSTEMI in 2018 History of Any Multi-Drug Resistant Organisms: None Reported Past Surgical History: Adenoidectomy, Appendectomy, Breast Surgery, Coronary Bypass/CABG, Heart Catheterization, Heart Catheterization With Stent, Orthopedic Surgery, Pacemaker, Tonsillectomy Additional Past Surgical History / Comment(s): 10/25/17 NARENDRA, 10/27/17 PCI with stent to circumflex, 2002 CABG 3 vessel, left side lumpectomy, bialteral cataract removed, bilateral carpal tunnel releases, back injection, D&C, EGD in 2019 normal, colonoscopy. Past Anesthesia/Blood Transfusion Reactions: Postoperative Nausea & Vomiting (PONV) Additional Past Anesthesia/Blood Transfusion Reaction / Comm: Pt has received blood in past without reaction. Date of Last Stent Placement:: 10/27/17 Type of Cardiac Device: Permanent Pacemaker Device Placement Date:: 2006 with gen change in 2018 Past Psychological History: No Psychological Hx Reported Additional Psychological History / Comment(s): Pt resides alone. She is independent. She states recently she has been using a cane/walker prn. Smoking Status: Former smoker Past Alcohol Use History: None Reported Additional Past Alcohol Use History / Comment(s): Pt started smoking in 1952 and quit in 1970. Past Drug Use History: None Reported - Past Family History Mother Family Medical History: Coronary Artery Disease (CAD), Diabetes Mellitus Additional Family Medical History / Comment(s): cabg Father Family Medical History: Pulmonary Embolus Additional Family Medical History / Comment(s): Father of a pulmonary embolism at the age of 46yrs. Medications and Allergies Home Medications Medication Instructions Recorded Confirmed Type Nitroglycerin Sl Tabs [Nitrostat] 0.4 mg SUBLINGUAL Q5M PRN 06/07/19 10/01/19 History Bumetanide [BUMEX] 1 mg PO BID 09/19/19 10/01/19 History Metoprolol Tartrate [Lopressor] 50 mg PO BID #60 tab 09/21/19 10/01/19 Rx Clopidogrel [Plavix] 75 mg PO DAILY 10/01/19 10/01/19 History traMADol HCL 50 - 100 mg PO Q6H PRN 10/01/19 10/01/19 History Allergies Allergy/AdvReac Type Severity Reaction Status Date / Time codeine AdvReac Nausea & Verified 10/01/19 11:31 Vomiting Physical Exam Vitals: Vital Signs Temp Pulse Pulse Resp BP BP Pulse Ox 10/02/19 04:00 97.8 F 105 H 20 101/60 92 L 10/02/19 00:00 98 F 110 H 20 99/56 94 L 10/01/19 20:00 98.2 F 99 20 103/60 98 10/01/19 19:23 112 H 18 141/62 10/01/19 16:08 97.8 F 112 H 16 102/51 96 10/01/19 13:56 108 H 18 90/50 96 Intake and Output 10/01/19 10/02/19 10/02/19 22:59 06:59 14:59 Intake Total 0 Balance 0 Intake: Oral 0 Other: # Voids 1 Weight 54.431 kg 53.5 kg On physical examination, patient appears comfortable in no apparent distress. HEAD: Normocephalic, atraumatic. EYES: No scleral icterus. No conjunctival injection. MOUTH: No lesions, tongue midline. NECK: Trachea midline, no gross abnormalities. CHEST: Decreased air and all rodriguez. HEART: S1-S2 appreciated. ABDOMEN: Soft. Bowel sounds are positive. No organomegaly. No guarding or rigidity. EXTREMITIES: No pedal edema. SKIN: No rashes, no jaundice. NEUROLOGIC: Alert and oriented x3. No focal deficits. Results CBC & Chem 7: 10/02/19 23:55 10/02/19 23:55 Labs: Abnormal Lab Results - Last 24 Hours (Table) 10/01/19 10/01/19 10/01/19 Range/Units 12:15 12:15 12:15 WBC 11.3 H (3.8-10.6) k/uL RBC 3.74 L (3.80-5.40) m/uL Hgb 10.0 L (11.4-16.0) gm/dL Hct 32.4 L (34.0-46.0) % MCHC (31.0-37.0) g/dL RDW 20.1 H (11.5-15.5) % Neutrophils # (1.3-7.7) k/uL Neutrophils # (Manual) 9.83 H (1.3-7.7) k/uL Lymphocytes # (Manual) 0.90 L (1.0-4.8) k/uL Nucleated RBCs 2 H (0-0) /100 WBC PT 31.5 H (9.0-12.0) sec INR 3.2 H (<1.2) APTT 40.9 H (22.0-30.0) sec Sodium (137-145) mmol/L Carbon Dioxide (22-30) mmol/L BUN (7-17) mg/dL Creatinine (0.52-1.04) mg/dL Plasma Lactic Acid Alvin (0.7-2.0) mmol/L Calcium (8.4-10.2) mg/dL Troponin I 0.053 H* (0.000-0.034) ng/mL 10/01/19 10/01/19 10/01/19 Range/Units 15:04 16:07 19:22 WBC (3.8-10.6) k/uL RBC (3.80-5.40) m/uL Hgb (11.4-16.0) gm/dL Hct (34.0-46.0) % MCHC (31.0-37.0) g/dL RDW (11.5-15.5) % Neutrophils # (1.3-7.7) k/uL Neutrophils # (Manual) (1.3-7.7) k/uL Lymphocytes # (Manual) (1.0-4.8) k/uL Nucleated RBCs (0-0) /100 WBC PT (9.0-12.0) sec INR (<1.2) APTT (22.0-30.0) sec Sodium (137-145) mmol/L Carbon Dioxide (22-30) mmol/L BUN (7-17) mg/dL Creatinine (0.52-1.04) mg/dL Plasma Lactic Acid Alvin 2.6 H* (0.7-2.0) mmol/L Calcium (8.4-10.2) mg/dL Troponin I 0.048 H* 0.047 H* (0.000-0.034) ng/mL 10/02/19 10/02/19 Range/Units 06:08 06:08 WBC (3.8-10.6) k/uL RBC 3.43 L (3.80-5.40) m/uL Hgb 8.9 L (11.4-16.0) gm/dL Hct 30.1 L (34.0-46.0) % MCHC 29.7 L (31.0-37.0) g/dL RDW 20.2 H (11.5-15.5) % Neutrophils # 7.9 H (1.3-7.7) k/uL Neutrophils # (Manual) (1.3-7.7) k/uL Lymphocytes # (Manual) (1.0-4.8) k/uL Nucleated RBCs (0-0) /100 WBC PT (9.0-12.0) sec INR (<1.2) APTT (22.0-30.0) sec Sodium 130 L (137-145) mmol/L Carbon Dioxide 17 L (22-30) mmol/L BUN 48 H (7-17) mg/dL Creatinine 1.41 H (0.52-1.04) mg/dL Plasma Lactic Acid Alvin (0.7-2.0) mmol/L Calcium 8.1 L (8.4-10.2) mg/dL Troponin I (0.000-0.034) ng/mL US - abdomen: report reviewed (US abdomen with no sludge, stones or CBD dilation) Assessment and Plan (1) Transaminitis Narrative/Plan: 79-year-old female with a past medical history significant for hypertension, GERD, hyperlipidemia, coronary artery disease, atrial fibrillation on anticoagulation therapy who presented to the hospital due to weakness and shortness of breath. Patient was previously seen for complaints of hematemesis and GI bleed and underwent EGD on 06/08/2019 with findings of a deep distal tear in the esophagus. On current presentation patient is being treated for weakness and shortness of breath with hemoglobin stable from prior discharge at 8.9 the patient was found to have elevation and or liver enzymes on presentation and increased from previous hospitalizations with total bilirubin 3.0, alkaline phosphatase 165, AST 548 and ALT 346. There was concern for gallbladder sludge and ascites with possible cirrhosis on CT of the abdomen. Ultrasound however was negative for sludge or stones. She has no history of significant alcohol use and denies any jaundice or prior history of elevated liver enzymes. Unclear etiology with suspicion for ischemic hepatitis given acute elevation in the seting of lactic acidosis, however will order full serology if liver enzymes do not improve/trend down. Status: Acute Code(s): R74.0 - NONSPEC ELEV OF LEVELS OF TRANSAMNS & LACTIC ACID DEHYDRGNSE SNOMED Code(s): 954634740 Plan: Supportive care Okay for diet Continue to monitor CBC, BMP, LFTs Avoid hepatotoxic medications Plan for full liver serology if liver enzymes do not trend down Continue other medical management per primary team CT scan of the abdomen and ultrasound of the abdomen reviewed Thank you for allowing us to participate in the care of the patient
--- NOTE | 2019-10-03 21:58 | P.EN ---
Code blue event for cardiopulmonary arrest patient had respiratory arrest, with PEA patient had 3 episodes of cardiopulmonary arrest back to back with few minutes in between we had IV access difficulties, central line was attempted under emergent condition during the code blue event in her right groin, however difficulty in advancing the wire and the catheter despite good venous return , wire comes out tortuous. IO line inserted to push medications , she was started on levophed briefly in between cardiopulmonary arrest episodes after ROSC. no shocks delivered during any of the 3 code blue events , patient had PEA. patient was intubated Bicarb (2 amps were given) due to severe anion gap acidosis , and epinephrine doses per ACLS protocol were pushed through left leg IO access. during the 3rd code blue , she was noted to start oozing blood from all her lines , and prior IV sites , suspected to have DIC due to prolonged recurrent cardiopulmonary arrest , and patient not responding to medications per ACLS protocol . resuscitation effort were held , and patient pronounced . please refer to paper documentation for full details regarding the cardiopulmonary arrest episodes and resuscitation measures 65 minutes in critical care time were spent in the care of this patient. family was updated by myself. all questions answered
--- NOTE | 2019-10-04 22:46 | P.DS ---
Providers Date of admission: 10/01/19 15:20 Expected date of discharge: 10/03/19 (Patient ) Attending physician: Anjel Pan Consults: 10/01/19 15:20 Consult Physician Urgent Consulting Provider: Demetris Huertas Consult Reason/Comments: transaminitis Do you want consulting provider notified?: Yes 10/01/19 15:21 Consult Physician Urgent Consulting Provider: [facility] Consult Reason/Comments: nstemi, afib with rvr Do you want consulting provider notified?: Yes 10/02/19 20:31 Consult Physician Stat Consulting Provider: César Gregory Consult Reason/Comments: SOB, Ateam Do you want consulting provider notified?: Yes Primary care physician: [facility] Course: Chief Complaint: Short of breath History of presenting complaint: 79-year-old, pleasant, follows with Dr. Connell. Chronic stable medical conditions include congestive heart failure with EF of 30-35%, coronary artery disease with a CABG and stent, hypertension, hyperlipidemia, AICD for sick sinus syndrome. In June of this year EGD had shown deep distal esophageal mucosal ulcerations tear being on Coumadin. Patient was in the hospital recently on September 18 through September 20 with A. fib with rapid ventricular rate and GI bleed. Coumadin again was held. Medication adjusted. Patient presents with feeling short of breath decreased appetite, rundown. No vomiting. dry mouth. No fever no chills.. In the ER found to be in A. fib.- Uncontrolled. Patient was seen by: Mukul Santos. Late in the day patient became short of breath. Dr. Gregory was consulted for critical care. Patient's early hours of the morning underwent cardiac arrest 3. Found to be in PEA. Intubated. Patient succumbed to the same. Consultation: Dr. Gregory from critical care Dr. Mukul Santos from cardiology Dr. Leon from GI Physical examination: Patient INVESTIGATIONS, reviewed in the clinical context: White count 11.3 hemoglobin 10 INR 3.2 progression 4.3 bun 49 creatinine 1.58 Lactic acid 3.1 AST 548 ALT 346 Troponin I 0.053, 0.04 albumin 3.2 EKG tracing personally reviewed by me-aged fibrillation with a rate of 140s with a right bundle branch block pattern Chest x-ray film personally reviewed by me-cardiomegaly, AICD, some right-sided pleural effusion with blunting Previous testing: Bun 31 and creatinine 0.73 on September 20 Assessment: Cause of : Coronary artery disease Other medical problems -Persistent Atrial fibrillation-rate uncontrolled, causing shortness of breath -Chronic distal esophageal tear -Lactic acidosis type II -Acute on Chronic Congestive heart chronic systolic dysfunction: EF 30-35% -Coronary artery disease with previous CABG and stent -Coumadin toxicity on presentation-INR 3.9 -Hyperlipidemia -Hypertension -AICD for sick sinus syndrome -Acute kidney injury, prerenal from patient being on Bumex -acute metabolic acidosis from kidney failure Disposition: Patient Plan - Discharge Summary New Discharge Prescriptions: No Action Nitroglycerin Sl Tabs [Nitrostat] 0.4 mg SUBLINGUAL Q5M PRN PRN Reason: Chest Pain Bumetanide [BUMEX] 1 mg PO BID Metoprolol Tartrate [Lopressor] 50 mg PO BID #60 tab Clopidogrel [Plavix] 75 mg PO DAILY traMADol HCL 50 - 100 mg PO Q6H PRN PRN Reason: Pain Discharge Medication List Nitroglycerin Sl Tabs [Nitrostat] 0.4 mg SUBLINGUAL Q5M PRN 06/07/19 [History] Bumetanide [BUMEX] 1 mg PO BID 09/19/19 [History] Metoprolol Tartrate [Lopressor] 50 mg PO BID #60 tab 09/21/19 [Rx] Clopidogrel [Plavix] 75 mg PO DAILY 10/01/19 [History] traMADol HCL 50 - 100 mg PO Q6H PRN 10/01/19 [History] Follow up Appointment(s)/Referral(s): Car Connell DO [Primary Care Provider] - 1-2 days [facility] Visiting Nurse, [NON-STAFF] - As Needed Discharge Disposition: - Preliminary Cause of Preliminary Cause of : Coronary artery disease
--- NOTE | 2019-10-05 10:16 | CDI ---
Documentation Clarification Form Date: 10/05/19 From: Corinne Duval Phone: If you have a question about this query, please contact Agata Blackburn Special Events Manager at [phone] between 8am and 5pm. Admit Date: 10/01/19 Discharge Date:10/03/19 Patient Name: Rea Padilla Visit Number: [id number] ATTENTION: The Clinical Documentation Specialists (CDI) and [facility] Coding Staff appreciate your assistance in clarifying documentation. Please respond to the clarification below the line at the bottom and electronically sign. The CDI & [facility] Coding staff will review the response and follow-up if needed. Please note: Queries are made part of the Legal Health Record. If you have any questions, please contact the author of this message via ITS. Dear Dr. Pan Acute kidney injury, prerenal from patient being on Bumex was documented in the ED note, H&P and Discharge Summary. History/Risk Factors: Hypertension, chronic systolic CHF, Patients baseline BUN/CR/GFR: 49/1.58/31 on admission Clinical Indicators: elevated creatinine that worsened during the stay Current BUN/Cr/GFR: 46/1.63/34 Treatment: IVF: 1 liter NS bolus then at 120 mls/hr In order to capture the severity of condition, please clarify if the condition signifies: Acute renal failure, Please specify etiology (if known): Cortical Necrosis Medullary Necrosis Tubular Necrosis Acute kidney injury Other, please specify Unable to determine See discharge summary-no change in documentation required MTDD
--- NOTE | 2019-10-05 10:40 | CDI ---
Documentation Clarification Form Date: 10/05/19 From: Corinne Duval Phone: If you have a question about this query, please contact Agata Blackburn, Manufacturing Production Manager at [phone] between 8am and 5pm. Admit Date: 10/01/19 Discharge Date:10/03/19 Patient Name: Rea Padilla Visit Number: [id number] ATTENTION: The Clinical Documentation Specialists (CDI) and [facility] Coding Staff appreciate your assistance in clarifying documentation. Please respond to the clarification below the line at the bottom and electronically sign. The CDI & [facility] Coding staff will review the response and follow-up if needed. Please note: Queries are made part of the Legal Health Record. If you have any questions, please contact the author of this message via ITS. Dear Dr. Pan The patient presented with the following: persistent atrial fib causing shortness of breath. On 10/01, the patient pulse ox dropped to 88% at 20:53 and then down to 65 at 23:45. Pulse ox on 10/02 ran 62 - 76% History/Risk Factors: Cardiac arrest on 10/02, Atrial fibrillation, chronic systolic CHF, hypertensive cardiovascular disease, ALEX Clinical Indicators: Decreased pulse ox. Tobacco Use: History of smoking Home Oxygen: None documented Vital signs: 10/02/19 @ 20:53 - T. 97.1, P. 113, R. 27, BP 88/64 Pulse Ox: See above Radiology findings: 10/02/19 CXR: There is mild congestive heart failure with pleural effusions. Pleural fluid increased slightly compared to yesterday. Treatment: Continuous Pulse Ox. O2: Non -Rebreather @ 15 L/min, intubated during CPR In your professional opinion, can you please clarify the cause of the decreased pulse ox? Acute Respiratory Distress Acute Respiratory Failure (specify hypoxic, hypercapnic) Acute Respiratory Insufficienty Other, please specify Unable to determine Acute respiratory failure hypoxic, from acute pulmonary edema MTDD
--- NOTE | 2019-10-07 11:16 | CDI ---
Documentation Clarification Form Date: 10/07/19 From: Corinne Duval Phone: If you have a question about this query, please contact Agata Blackburn, Gas Turbine Powerplant Mechanic at [phone] between 8am and 5pm. Admit Date: 10/01/19 Discharge Date:10/03/19 Patient Name: Rea Padilla Visit Number: [id number] ATTENTION: The Clinical Documentation Specialists (CDI) and [facility] Coding Staff appreciate your assistance in clarifying documentation. Please respond to the clarification below the line at the bottom and electronically sign. The CDI & [facility] Coding staff will review the response and follow-up if needed. Please note: Queries are made part of the Legal Health Record. If you have any questions, please contact the author of this message via ITS. Dear Dr. Pan Conflicting documentation has been found in the medical record: Chronic permanent atrial fibrillation is documented in Dr. Santos's consult note. Persistent atrial fibrillation is documented in the H&P and discharge summary. History/Risk Factors: Atrial fibrillation, permanent pacemaker, CAD, SSS, systolic CHF Clinical Indicators: Elevated heart rate, palpitations EKG:Atrial fibrillation with a rate of 140s and right bundle branch block Treatment: PO Amiodarone, 1 liter NS bolus In your opinion, what is the most clinically appropriate diagnosis for this patient? Chronic permanent atrial fibrillation Persistent atrial fibrillation Other explanation of clinical findings Unable to determine (no explanation for clinical findings) Chronic permanent atrial fibrillation MTDD
--- NOTE | 2019-10-19 20:41 | CDI ---
Documentation Clarification Form Mortality Review Date: 10/19/2019 08:37:30 PM From: Yazmin Perkins RN, CCDS Admit Date: 10/01/2019 03:20:00 PM Patient Name: Rea Padilla Visit Number: [id number] Discharge Date: 10/03/2019 06:32:00 AM ATTENTION: The Clinical Documentation Specialists (CDI) and [facility] Coding Staff appreciate your assistance in clarifying documentation. Please respond to the clarification below the line at the bottom and electronically sign. The CDI & [facility] Coding staff will review the response and follow-up if needed. Please note: Queries are made part of the Legal Health Record. If you have any questions, please contact the author of this message via ITS. Dr. Anjel Pan Conflicting documentation has been found in the medical record regarding the significance of the patient's elevated troponin and requires clarification form Attending MD to accurately reflect SOI/ROM. History/Risk Factors: Permanent Atrial Fib, CABG, CAD, PTCA, HTN, Chronic Systolic CHF, AICD for sick sinus syndrome, ALEX Clinical Indicators: 09/30 EC EKG findings: EKG demonstrates A. fib with a rate of 114.QRS 132.QTC of 396. Left axis deviation. Right bundle branch block. No acute ST segment elevations.ST depression in V45 09/30 EC Clinical Impression "NSTEMI" 10/01 Cardiology Consult: "LABS: Troponins are mildly elevated secondary to renal insufficiency. ASSESSMENT: Elevated troponin secondary to renal insufficiency 09/30-10/01 Labs: WBC 11.3/10.5/16.8, Hgb 10/8.9/9.2, BUN 49/48/46, Creatinine 1.58/1.41/1.63, Lactic Acid 2.6/8.6, BNP 18,700, Troponin .053/.047/.048 Treatment: Plavix 75 mg PO QD Lopressor 50 Mg PO BID 09/30 0.9% NS 500 cc IVF Bolus In your opinion, what is the most clinically appropriate diagnosis for this patient? NSTEMI Ruled in NSTEMI Ruled Out Troponin elevation secondary to ALEX Elevation in troponin has no clinical significance Other explanation of clinical findings Unable to determine (no explanation for clinical findings) (Last Revision: June 2017) no acute VT. toponin elevation secondary to ALEX MTDD
== END 2019-10-03 06:32 | disposition expired | DRG 308 ==
LOC: EC 09:51 → 3SCARD 15:20 → 2SICU 10-02 21:41
PROVIDERS: ADMIT Hospitalist; ATTEND Hospitalist
PROC: 05H933Z Insertion of Infusion Device into Right Brachial Vein, Percutaneous Approach (ICD-10-PCS; 2019-10-01 22:40)
PROC: 5A12012 Performance of Cardiac Output, Single, Manual (ICD-10-PCS; principal; 2019-10-03)
PROC: 5A1935Z Respiratory Ventilation, Less than 24 Consecutive Hours (ICD-10-PCS; principal; 2019-10-03)
PROC: 0BH17EZ Insertion of Endotracheal Airway into Trachea, Via Natural or Artificial Opening (ICD-10-PCS; principal; 2019-10-03)
DX: I48.21 Permanent atrial fibrillation (principal); J96.01 Acute respiratory failure with hypoxia; I50.23 Acute on chronic systolic (congestive) heart failure; E87.2 Acidosis; J98.11 Atelectasis; N17.9 Acute kidney failure, unspecified; I46.9 Cardiac arrest, cause unspecified; I49.5 Sick sinus syndrome; I11.0 Hypertensive heart disease with heart failure; K74.60 Unspecified cirrhosis of liver; Z95.1 Presence of aortocoronary bypass graft; E78.5 Hyperlipidemia, unspecified; K22.8 Other specified diseases of esophagus; I08.3 Combined rheumatic disorders of mitral, aortic and tricuspid valves; I25.10 Atherosclerotic heart disease of native coronary artery without angina pectoris; Z20.828 Contact with and (suspected) exposure to other viral communicable diseases; I25.2 Old myocardial infarction; I25.5 Ischemic cardiomyopathy; I45.10 Unspecified right bundle-branch block; T45.515A Adverse effect of anticoagulants, initial encounter; R79.1 Abnormal coagulation profile; R40.2142 Coma scale, eyes open, spontaneous, at arrival to emergency department; R40.2362 Coma scale, best motor response, obeys commands, at arrival to emergency department; R40.2252 Coma scale, best verbal response, oriented, at arrival to emergency department; R40.2134 Coma scale, eyes open, to sound, 24 hours or more after hospital admission; R40.2254 Coma scale, best verbal response, oriented, 24 hours or more after hospital admission; R40.2364 Coma scale, best motor response, obeys commands, 24 hours or more after hospital admission; K21.9 Gastro-esophageal reflux disease without esophagitis; K44.9 Diaphragmatic hernia without obstruction or gangrene; K64.9 Unspecified hemorrhoids; M19.90 Unspecified osteoarthritis, unspecified site; K58.9 Irritable bowel syndrome, unspecified; I73.00 Raynaud's syndrome without gangrene; G89.29 Other chronic pain; M41.9 Scoliosis, unspecified; R74.0 Nonspecific elevation of levels of transaminase and lactic acid dehydrogenase [LDH]; R79.89 Other specified abnormal findings of blood chemistry; Z79.02 Long term (current) use of antithrombotics/antiplatelets; Z79.899 Other long term (current) drug therapy; Z88.5 Allergy status to narcotic agent; Z95.5 Presence of coronary angioplasty implant and graft; Z87.891 Personal history of nicotine dependence; Z86.73 Personal history of transient ischemic attack (TIA), and cerebral infarction without residual deficits; Z90.49 Acquired absence of other specified parts of digestive tract; Z90.89 Acquired absence of other organs; Z85.3 Personal history of malignant neoplasm of breast; Z87.01 Personal history of pneumonia (recurrent); Z87.440 Personal history of urinary (tract) infections; Z92.21 Personal history of antineoplastic chemotherapy; Z92.3 Personal history of irradiation; Z87.11 Personal history of peptic ulcer disease; Z98.42 Cataract extraction status, left eye; Z98.41 Cataract extraction status, right eye; Z87.820 Personal history of traumatic brain injury; Z95.810 Presence of automatic (implantable) cardiac defibrillator; Z83.3 Family history of diabetes mellitus
CPT/HCPCS: 36410; 36415; 36600; 71045; 71046; 74176; 76705; 76937; 80048; 80053; 80076; 82805; 83605; 83690; 83735; 83880; 84484; 85025; 85610; 85730; 86850; 86870; 86880; 86900; 86901; 86902; 93005; 94002; 96361; 96365; 99285